=== PATIENT | male | born 1950 | race Caucasian/White ===

== ENCOUNTER 2022-06-08 20:45 | Inpatient (IN) | payer MEDICARE, SELFPAY ==
--- NOTE | ~2022-06-08 | US_ITS ---
EXAMINATION: US SCROTUM CLINICAL INFORMATION: Scrotal redness. COMPARISON: None TECHNIQUE: A sonogram of the scrotum was performed assessing cross-scale appearance and color Doppler flow. Spectral Doppler analysis of the arterial and venous flow were performed in the testes bilaterally. FINDINGS: The testicles have normal size, contour and echotexture. The right testicle is 3 x 4.4 x 2.4 cm and left testicle 3 x 4.6 x 2.3 cm. No testicular microlithiasis or mass. The color Doppler images with spectral waveforms show presence of normal arterial and venous flow within each testicle. No hydrocele or varicocele. The right epididymal head is unremarkable. The right epididymal tail is mildly heterogeneous and has a mildly hypervascular appearance on color Doppler images. The left epididymal head also has a normal appearance. The color Doppler images acquired through the region of the epididymal tail show hypervascularity. Question if patient has any tenderness in either the right or left scrotum. The history provided is of scrotal redness. There is no overt edema the soft tissues of the scrotum. No fluid collection or mass. US/US scrotum IMPRESSION: * In this patient with history of scrotal redness, there is no evidence of focal fluid collection/abscess in the scrotum. * The color Doppler images show hypervascular appearance of each epididymal tail. The findings require clinical correlation since although mild epididymitis is suspected on the basis of imaging, epididymitis would be expected to have associated symptoms. * The testicles are unremarkable.
--- NOTE | ~2022-06-08 | US_ITS ---
EXAMINATION: US ABDOMEN LIMITED CLINICAL INFORMATION: Rule out cholangitis. COMPARISON: CT from earlier today TECHNIQUE: Real-time imaging of the right upper quadrant abdominal viscera. FINDINGS: PANCREAS: Not well assessed, obscured by overlying bowel gas. LIVER: The left hepatic lobe is enlarged and contains numerous lesions, some of which appears cystic while others are indeterminate. Additional suspected mass in the caudate measures 2.9 x 2.0 x 1.8 cm. No significant biliary ductal dilatation. GALLBLADDER: Gallbladder appears partially contracted. No gallstones or pericholecystic fluid identified. Borderline gallbladder wall thickening. Right upper quadrant tenderness reported. COMMON BILE DUCT: Not well seen and appears to measure 0.4 cm in diameter. RIGHT KIDNEY: No hydronephrosis. No renal calculi or focal parenchymal lesions. The kidney measures 13.4 cm in maximum dimension. FREE FLUID: None. US/US abdomen limited IMPRESSION: 1. Enlarged left hepatic lobe with numerous lesions, some of which appear cystic while others are indeterminate. Further workup with dynamic liver MRI is recommended. 2. No appreciable biliary ductal dilatation. 3. Borderline gallbladder wall thickening, of uncertain clinical significance. Right upper quadrant tenderness was reported, though no gallstones are visualized.
--- NOTE | ~2022-06-08 | IR_ITS ---
PROCEDURE: IR INSERTION OF PICC CLINICAL INFORMATION: Needs long-term antibiotics. COMPARISON: None TECHNIQUE: Following explaining ultrasound and fluoroscopy-guided placement of left PICC line catheter procedure, benefits and risk, a written consent was obtained. Patient was placed supine on fluoroscopy table in angiography suite. Preliminary ultrasound imaging was obtained through the arm and marked. The marked site was cleaned and draped in the usual sterile manner. 1% lidocaine was injected at puncture site. A single wall needle was advanced from the skin into the vein under sterile ultrasound guidance. After observing venous return a thin guidewire was advanced through the needle and placed in SVC under fluoroscopy. The needle was withdrawn and a 5 Syrian dilator sheath was placed. The dilator was removed and a precut 45 cm long dual lumen PICC catheter was advanced over the guidewire and through the peel-away sheath into the SVC. The peel-away sheath was removed as the catheter was advanced. The dilator was removed and both ports of the catheter were flushed with heparinized saline. Simple dressing was applied at the puncture site. Patient tolerated procedure extremely well. All elements of maximal sterile barrier technique followed including use of cap, mask, sterile gown, sterile gloves, a sterile full body drape and hand hygiene. Also followed skin preparation with 2% chlorhexidine for cutaneous antisepsis, and sterile ultrasound preparation with sterile gel and probe cover when applicable. FINDINGS: On preliminary ultrasound imaging there is a widely patent basilic, antecubital vein. The cephalic vein is not visualized. Approximately 45 cm long 5 Syrian dual lumen PICC catheter was placed into the SVC. The catheter is ready for use. IR/IR cvc insert peripheral IMPRESSION: Successful ultrasound fluoroscopy-guided placement of PICC catheter with its tip in SVC. The catheter is ready for use. Fluoroscopy time: 4.4 minutes. Dose area product: [id number]. Images: 2
--- NOTE | ~2022-06-08 | US_ITS ---
EXAMINATION: ULTRASOUND ABDOMEN DUPLEX ARTERIAL AND VENOUS DOPPLER CLINICAL INFORMATION: Portal vein thrombosis. COMPARISON: MRI of the abdomen dated 06/10/2022. TECHNIQUE: Multiple 2-D grayscale and duplex Doppler ultrasound images of the vasculature the upper abdomen was obtained. FINDINGS: Vascular: Portal veins: Patent hepatopedal flow. Hepatic artery: Antegrade flow with normal-appearing waveforms. The right hepatic artery was not visualized. Hepatic veins: Patent with normal direction of flow. Splenic vein: Patent Inferior vena cava: Patent Partial visualization of known left hepatic lesion/lesions. US/US duplex arterial venous comp IMPRESSION: Patent portal vein with normal direction of flow with no evidence for portal vein thrombosis.
--- NOTE | ~2022-06-08 | CT_ITS ---
EXAMINATION: CT HEAD WITHOUT CONTRAST CLINICAL INFORMATION: Metastatic lesions COMPARISON: None TECHNIQUE: Contiguous axial imaging was performed from the skull base to vertex without intravenous administration of contrast. This CT examination was performed using dose optimization techniques as appropriate, variously including the following: *Automated exposure control *Adjustment of mA and/or kV according to patient size (this includes techniques or standardized protocols for targeted exams where dose is matched to indication/reason for exam; i.e. extremities or head) *Use of iterative reconstruction technique DLP: 707 mGy-cm FINDINGS: Suboptimal assessment in some regions due to motion artifact. No appreciable acute intracranial hemorrhage or territorial infarction. No abnormal mass effect or midline shift is seen. Garza to white matter differentiation is well preserved. No extra-axial fluid collections are identified. The ventricles are normal in size. There is mild periventricular white matter hypoattenuation consistent with chronic small vessel ischemic disease. Mild volume loss is noted. The osseous structures and soft tissues are normal. The mastoid air cells and visualized portions of the paranasal sinuses are well aerated. CT/CT head/brain wo con IMPRESSION: No acute intracranial pathology. Of note, assessment for intracranial mass lesions would be better performed with pre and postcontrast brain MRI.
--- NOTE | ~2022-06-08 | CT_ITS ---
EXAMINATION: CT ABDOMEN AND PELVIS WITHOUT CONTRAST CLINICAL INFORMATION: Abdominal distention COMPARISON: None TECHNIQUE: Multidetector volumetric imaging was performed from the superior aspect of the liver through the pubic symphysis. Sagittal and coronal reformatted images were obtained on the technologist's workstation. This CT examination was performed using dose optimization techniques as appropriate, variously including the following: *Automated exposure control *Adjustment of mA and/or kV according to patient size (this includes techniques or standardized protocols for targeted exams where dose is matched to indication/reason for exam; i.e. extremities or head) *Use of iterative reconstruction technique DLP: 1001 mGy-cm FINDINGS: LUNG BASES: The visualized lung bases are unremarkable. LIVER, GALLBLADDER, AND BILIARY TREE: There are numerous hypoattenuating foci throughout the upper left hepatic lobe which has an overall heterogeneous appearance; this is suboptimally assessed due to motion artifact. No biliary ductal dilatation. The gallbladder appears contracted. PANCREAS: Moderate fatty atrophy noted. SPLEEN: Unremarkable. ADRENAL GLANDS: Unremarkable. KIDNEYS AND URETERS: The left kidney is severely atrophic. There is a 3 mm calculus in the lower left kidney. No hydronephrosis or obstructing calculus bilaterally. BLADDER: Collapsed with a Daily catheter in place. There is a prominent calculus adjacent to the Daily catheter measuring approximately 2.9 cm in diameter. Additional prominent calcifications are suspected in a right-sided bladder diverticulum, measuring up to approximately 4.0 cm in diameter. GASTROINTESTINAL TRACT: No evidence of bowel obstruction. There is colonic diverticulosis without diverticulitis. Appendix appears collapsed. No free fluid or free air is seen. ABDOMINAL WALL: Bilateral fat-containing inguinal hernias. LYMPH NODES: A mildly enlarged subcarinal lymph node is suspected in the mediastinum, not fully included in the [id number]. Scattered mesenteric and retroperitoneal subcentimeter lymph nodes are present, without significant enlargement by size criteria. VASCULAR: Mild scattered atherosclerotic calcifications. PELVIC VISCERA: The prostate gland is enlarged, measuring approximately 6.2 cm in transverse dimension. OSSEOUS STRUCTURES: Degenerative changes are noted in the spine. CT/CT abdomen pelvis wo con IMPRESSION: 1. Numerous hypodense foci throughout the left hepatic lobe, suboptimally assessed due to motion artifact and lack of intravenous contrast. This could represent an infiltrative process including multiple masses, and further workup with dynamic liver MRI is recommended. 2. Mildly enlarged subcarinal lymph node, not fully included in the [id number]. 3. Enlarged prostate gland. 4. Multiple prominent bladder calculi. 5. Atrophic left kidney.
--- NOTE | ~2022-06-08 | NM_ITS ---
EXAMINATION: HIDA SCAN CLINICAL INFORMATION: Right upper quadrant pain. Evaluate for acute cholecystitis COMPARISON: Ultrasound abdomen TECHNIQUE: Following intravenous administration of 5 mCi of 99m technetium mebrofenin, imaging over the right upper quadrant was obtained up to 4 hours. FINDINGS: There is normal hepatic uptake with no focal defects seen. There is visualization of small bowel by 61 minutes consistent patent CBD. Gallbladder is not visualized up to 4 hours. NM/NM hepatobiliary wo pharm IMPRESSION: Findings consistent with cystic duct obstruction. The gallbladder is contracted on ultrasound and CT abdomen and pelvic exam.
--- NOTE | ~2022-06-08 | CT_ITS ---
EXAMINATION: CT CHEST WITHOUT CONTRAST CLINICAL INFORMATION: Rule out metastatic lesions COMPARISON: CT abdomen 06/08/2022 TECHNIQUE: Multidetector volumetric CT imaging of the chest was done. Axial MIP volume rendering provided. Sagittal and coronal reformatted images were obtained. This CT examination was performed using dose optimization techniques as appropriate, variously including the following: *Automated exposure control *Adjustment of mA and/or kV according to patient size (this includes techniques or standardized protocols for targeted exams where dose is matched to indication/reason for exam; i.e. extremities or head) *Use of iterative reconstruction technique DLP: 428 mGy-cm FINDINGS: LUNGS: Detailed parenchymal evaluation is limited due to respiratory motion artifact. No regions of consolidation bilaterally. There is a 3 mm left upper lobe nodule on image 118/556 laterally. MEDIASTINUM: Small calcification noted in the left thyroid lobe. Enlarged subcarinal lymph node measures 1.4 cm in short axis dimension. Additional scattered mediastinal lymph nodes appear subcentimeter in size. Cardiac size is within normal limits; no pericardial effusion. Small hiatal hernia. PLEURA: There is no pleural effusion. No pleural mass or thickening. AXILLA: No lymphadenopathy. UPPER ABDOMEN: Heterogeneous appearance of the enlarged left hepatic lobe again noted. Additional abdominal findings are described on recently performed abdomen/pelvis CT. OSSEOUS STRUCTURES: Neck or degenerative CT/CT chest wo con IMPRESSION: 1. Enlarged subcarinal lymph node, which may be reactive or metastatic in nature. 2. Nonspecific 3 mm left upper lobe lung nodule. Metastasis cannot be excluded. 3. Redemonstrated heterogeneous appearance of the enlarged left hepatic lobe, concerning for neoplasm/infiltrative process. As previously noted, evaluation with dynamic liver MRI is recommended. 4. Small hiatal hernia.
--- NOTE | ~2022-06-08 | MR_ITS ---
EXAMINATION: MR ABDOMEN WITHOUT AND WITH CONTRAST CLINICAL INFORMATION: Evaluation of liver lesions. COMPARISON: CT abdomen/pelvis 06/08/2022. TECHNIQUE: MR abdomen was performed without and with use of 10 mL intravenous Gadavist gadolinium contrast. Postcontrast images are performed in multiphase dynamic sequences. Imaging was performed in 3 planes. FINDINGS: Evaluation is limited due to motion. LUNG BASES: No focal opacity. LIVER, GALLBLADDER, AND BILIARY TREE: Again noted abnormal appearance of left hepatic lobe which is enlarged and entirely replaced by innumerable lesions demonstrating central T2 hyperintensity and possibly some rim enhancement. There is associated [id number] left intrahepatic biliary ductal dilatation. The common bile duct is nondilated. Normal appearance of the gallbladder. PANCREAS: Diffuse fatty infiltration. Mild peripancreatic free fluid and fat stranding. SPLEEN: Normal size. No discrete focal lesion. ADRENAL GLANDS: No adrenal mass. KIDNEYS AND URETERS: Atrophic left kidney. Normal appearance of the right kidney. GASTROINTESTINAL TRACT: The imaged bowel is nondilated. ABDOMINAL WALL: No significant hernia is appreciated. LYMPH NODES: Periportal and peripancreatic lymphadenopathy, for example a policy services representative 4.2 x 2.6 cm peripancreatic lymph node on image 23 of series 7. There are also prominent but not pathologically enlarged retroperitoneal lymph nodes, for example a 0.9 cm short axis left periaortic lymph node on image 96 of series 102. VASCULAR: No evidence of aortic abdominal aneurysm. Assessment of the hepatic vasculature is suboptimal due to timing of intravenous contrast. The main portal vein is narrowed likely by adjacent mass effect from lymphadenopathy and enlarged left hepatic lobe, but it is overall patent. The right and left intrahepatic portal veins are suboptimally opacified, and evaluation of their patency is essentially nondiagnostic in this examination. The SMV, portosplenic confluence and splenic veins are patent. OSSEOUS STRUCTURES: Marrow signal normal. MR/MR abdomen wo/w con IMPRESSION: Enlarged left hepatic lobe replaced by innumerable lesions demonstrating rim enhancement and central necrosis, differentials include pyogenic liver abscesses or infiltrative tumor. Nonspecific periportal and peripancreatic lymphadenopathy. Mild peripancreatic free fluid and fat stranding. This critical result was discussed with Dr.Nayyer Morataya at 06/10/2022 1:08 PM and it was ascertained that the content and urgency of the report was understood at the time of direct communication.
--- NOTE | ~2022-06-08 | CT_ITS ---
PROCEDURE: CT GUIDED BIOPSY, LIVER CLINICAL INFORMATION: Multiple left hepatic lobe lesions. COMPARISON: None TECHNIQUE: Following explaining CT fluoroscopy-guided left hepatic lobe liver lesion biopsy/aspiration procedure, benefits and risks, a written consent was obtained. Patient was placed supine on CT imaging and preliminary CT imaging was performed. Lead markers were placed along the anterior chest wall in the upper abdomen and repeat CT imaging was performed. An optimal lead marker was selected and marked on the skin. The marked site was cleaned and draped in usual sterile manner. 1% lidocaine was injected at puncture site. No conscious sedation was utilized as patient has mild tachycardia, bilateral small pleural effusions and small pericardial effusion. 3 small skin incisions a 19-gauge guide needle was advanced from the epigastric region to the left hepatic lobe. Coaxially a 19-gauge Chiba needle was advanced and aspiration biopsy was performed x2. Subsequently a core biopsy was performed with a 19-gauge needle x2. Postprocedure guide needle was withdrawn and complete hemostasis achieved at puncture site. Patient tolerated procedure extremely well. Simple Band-Aid applied postprocedure. This CT examination was performed using dose optimization techniques as appropriate, variously including the following: *Automated exposure control *Adjustment of mA and/or kV according to patient size (this includes techniques or standardized protocols for targeted exams where dose is matched to indication/reason for exam; i.e. extremities or head) *Use of iterative reconstruction technique DLP: 220 mGy-cm FINDINGS: On preliminary CT imaging there are small bilateral pleural effusions greater on the right and a small pericardial effusion. There is a heterogeneous enlarged left hepatic lobe with several hypodense liver lesions. On initial fine-needle aspiration there was no malignant tissue seen. Abundant white cells were visualized suspicious for infection. Samples were sent for culture and sensitivity as well as for cytology. CT/CT biopsy liver IMPRESSION: Successful CT fluoroscopy-guided left hepatic lobe fine-needle aspiration and core biopsy performed. There are no immediate complications.
--- NOTE | ~2022-06-08 | US_ITS ---
EXAMINATION: US SCROTUM WITH DOPPLER CLINICAL INFORMATION: Scrotal redness. COMPARISON: None TECHNIQUE: A sonogram of the scrotum was performed assessing cross-scale appearance and color Doppler flow. Spectral Doppler analysis of the arterial and venous flow were performed in the testes bilaterally. FINDINGS: The testicles have normal size, contour and echotexture. The right testicle is 3 x 4.4 x 2.4 cm and left testicle 3 x 4.6 x 2.3 cm. No testicular microlithiasis or mass. The color Doppler images with spectral waveforms show presence of normal arterial and venous flow within each testicle. No hydrocele or varicocele. The right epididymal head is unremarkable. The right epididymal tail is mildly heterogeneous and has a mildly hypervascular appearance on color Doppler images. The left epididymal head also has a normal appearance. The color Doppler images acquired through the region of the epididymal tail show hypervascularity. Question if patient has any tenderness in either the right or left scrotum. The history provided is of scrotal redness. There is no overt edema the soft tissues of the scrotum. No fluid collection or mass. US/US scrotum doppler IMPRESSION: * In this patient with history of scrotal redness, there is no evidence of focal fluid collection/abscess in the scrotum. * The color Doppler images show hypervascular appearance of each epididymal tail. The findings require clinical correlation since although mild epididymitis is suspected on the basis of imaging, epididymitis would be expected to have associated symptoms. * The testicles are unremarkable.
[2022-06-08 20:58] VITALS: BP 100/52; PULSE 110; RESP 18; TEMP 37.1; O2SAT 98; BMI 26.7
--- NOTE | 2022-06-08 21:04 | PC.NURSE ---
pt unable to answer triage questions, family at bedside unable to answer questions either, pt denies taking any medications. per ems pt confused at baseline.
--- NOTE | 2022-06-08 21:10 | PC.NURSE ---
pt skin jaundice, also abd firm/distended, provider aware of abdomen.
--- NOTE | 2022-06-08 21:28 | ECG_ITS ---
Test Reason : CONFUSION Blood Pressure : / mmHG Vent. Rate : 094 BPM Atrial Rate : 094 BPM P-R Int : 156 ms QRS Dur : 102 ms QT Int : 346 ms P-R-T Axes : 071 040 001 degrees QTc Int : 432 ms Normal sinus rhythm Normal ECG No previous ECGs available Referred By: Sneha Manzanares Electronically Signed By:Cuong Alaniz
--- NOTE | 2022-06-08 21:44 | ED_ITS ---
HPI - General Adult General Chief complaint: General Medical Stated complaint: ams Time Seen by Provider: 06/08/22 21:06 Source: patient and EMS Mode of arrival: EMS Limitations: altered mental status History of Present Illness HPI narrative: Patient comes to the emergency room by ambulance accompanied by his sister. Patient is too altered and weak to give any information. According to the sister, for the last week, patient has been having dark urine, urine incontinence, and gradually becoming more fatigue and altered. The patient's sister states that at baseline patient is fully functional, alert and oriented x3, normal gait. Patient has not complained of any pain other than dark urine for the last few days. Patient is awake, alert, but is not answering any questions. The patient's sister reports that the patient has no past medical history or surgical history and takes no medications. Related Data Home Medications Medication Instructions Recorded Confirmed No Known Home Meds 06/08/22 06/08/22 Allergies Allergy/AdvReac Type Severity Reaction Status Date / Time No Known Allergies Allergy Verified 06/08/22 20:57 Review of Systems Review of Systems: Yes Unobtainable due to mental condition [facility] Social History Social History Alcohol intake: never Patient Tobacco Use Status: Former Tobacco user Use of substances other than those prescribed or required for medical reasons: No Advance Directives: No Advance Directives Information Provided: No Physical Exam ED Vital Signs: Vital Signs - 24 hr 06/08/22 20:58 06/08/22 22:00 Temperature 98.8 F 100.2 F Pulse Rate 110 H 102 H Respiratory Rate 18 24 H Blood Pressure 100/52 L 106/65 Pulse Oximetry 98 94 Oxygen Delivery Method Room Air Room Air BMI result Body Mass Index 26.7 Const Other: Appearance: Alert. Seems very weak, and ill, not answering any questions, easily arousable Eyes: Pupils equal, round and reactive to light. Icteric sclera ENT: Pharynx normal. Dry oral mucosa Neck: Normal inspection. Neck supple. No lymph nodes noted. No crepitus CVS: Mildly tachycardic and rhythm. Pulses normal. Normal S1 and S2 Respiratory: No respiratory distress. Breath sounds normal. No Wheezing. No rales Abdomen: Soft , mildly distended, seems to be significantly tender especially in the right upper quadrant. On rectal exam, patient has a temperature of 100.4 degrees. Brown stool present : Patient has a significant discoloration of the scrotum, the skin is bleeding. Seems that patient has been sitting in his urine and wearing a diaper for way too long Skin: Skin warm and dry. Diffusely icteric. Normal skin turgor. Extremities: No lower extremity edema. No Lacerations. No Rash Neuro: Confused CN 2 through 12 grossly intact Psych: calm, cooperative Course Course Course Narrative: Of patient's labs are pending. Patient is being giving 3L IV fluids, also, patient is getting Zosyn IV. On physical exam, patient meets criteria for Charcot triad, additionally, patient is very confused. Patient is not in shock to call this Reyonld's pentand. Either way, patient is significantly ill. CT scan and ultrasound do not show hepatic duct dilation. However, it seems that patient has multiple lobe lesions. It is possible that this may be neopla stic process. Patient being admitted. I discussed the patient with Dr. Vee Medical Decision Making Lab Data Result diagrams: 06/08/22 21:50 06/08/22 21:50 Labs: Lab Results 06/08/22 06/08/22 06/08/22 Range/Units 21:50 21:50 21:50 WBC 22.2 H (4.8-10.8) X10*3/uL RBC 4.22 L (4.60-5.80) X10*6/uL Hgb 12.1 L (14.0-18.0) g/dl Hct 34.9 L (42.0-52.0) % MCV 82.7 (80.0-98.0) fL MCH 28.7 (27.0-33.0) pg MCHC 34.7 (31.0-36.0) g/dl RDW 15.8 (11.0-16.0) % Plt Count 208 (160-400) X10*3/uL MPV 11.9 (9.4-12.4) fL Immature Gran % (Auto) 4.1 H (0.0-0.4) % Neut % (Auto) 84.1 H (45-73) % Lymph % (Auto) 6.4 L (20-40) % Mcnairy % (Auto) 5.2 (2-11) % Eos % (Auto) 0.0 (0-4) % Baso % (Auto) 0.2 (0-2) % Lymph # (Auto) 1.4 (1.2-4.9) X10*3/uL Mcnairy # (Auto) 1.2 (0.1-1.2) X10*3/uL Eos # (Auto) 0.0 (0.0-0.4) X10*3/uL Baso # (Auto) 0.1 (0.0-0.2) X10*3/uL Abs Immat Gran (auto) 0.90 H (0.00-0.03) X10*3/uL Absolute Neuts (auto) 18.7 H (2.0-8.3) x10*3/uL Absolute Nucleated RBC 0.000 (0.0-0.012) X10*3/uL Nucleated RBC % (auto) 0.0 (0.0-0.2) /100WBC PT 16.0 H (10.0-13.1) SEC INR 1.4 H (0.9-1.1) Sodium 135 (135-145) mmol/L Potassium 3.7 (3.3-5.1) mmol/L Chloride 102 (96-108) mmol/L Carbon Dioxide 25 (22-29) mmol/L Anion Gap 12 (12-20) BUN 114 H (9-16) mg/dL Creatinine 1.81 H (0.5-1.4) mg/dL Estim Creat Clear Calc 41.0 Estimated GFR 37 Random Glucose 149 H (60-115) mg/dL Lactic Acid (0.5-2.0) mmol/L Calcium 9.8 (8.4-10.2) mg/dL Magnesium 2.6 (1.6-2.6) mg/dL Total Bilirubin 4.4 H (0.0-1.0) mg/dL Direct Bilirubin 3.3 H (0.0-0.5) mg/dL AST 30 (5-37) U/L ALT 37 (0-40) U/L Alkaline Phosphatase 203 H (39-117) U/L Ammonia (13-55) umol/L Troponin I High Sens (<3.5-35.0) ng/L Total Protein 6.6 (6.5-8.0) g/dL Albumin 2.5 L (3.5-5.0) g/dL Lipase 10 (8-78) U/L TSH (0.32-4.0) uIU/mL Urine Color Urine Appearance Urine pH (5.0-8.0) Ur Specific [place] (1.005-1.025) Urine Protein (NEG-TRACE) MG/DL Urine Glucose (UA) (NEG) MG/DL Urine Ketones (NEG) MG/DL Urine Blood (NEG) Urine Nitrite (NEG) Ur Leukocyte Esterase (NEG) Urine RBC (0) /HPF Urine WBC (0-4) /HPF Ur Squamous Epith Cells /LPF Urine Bacteria /LPF Stool Occult Blood (NEGATIVE) Salicylates < 5.0 L (15-30) mg/dL Acetaminophen < 1 (<30) mcg/mL Ethyl Alcohol mg/dL COVID-19 (YONY) (Negative) COVID-19 Clin Com 06/08/22 06/08/22 06/08/22 Range/Units 21:50 21:50 21:50 WBC (4.8-10.8) X10*3/uL RBC (4.60-5.80) X10*6/uL Hgb (14.0-18.0) g/dl Hct (42.0-52.0) % MCV (80.0-98.0) fL MCH (27.0-33.0) pg MCHC (31.0-36.0) g/dl RDW (11.0-16.0) % Plt Count (160-400) X10*3/uL MPV (9.4-12.4) fL Immature Gran % (Auto) (0.0-0.4) % Neut % (Auto) (45-73) % Lymph % (Auto) (20-40) % Mcnairy % (Auto) (2-11) % Eos % (Auto) (0-4) % Baso % (Auto) (0-2) % Lymph # (Auto) (1.2-4.9) X10*3/uL Mcnairy # (Auto) (0.1-1.2) X10*3/uL Eos # (Auto) (0.0-0.4) X10*3/uL Baso # (Auto) (0.0-0.2) X10*3/uL Abs Immat Gran (auto) (0.00-0.03) X10*3/uL Absolute Neuts (auto) (2.0-8.3) x10*3/uL Absolute Nucleated RBC (0.0-0.012) X10*3/uL Nucleated RBC % (auto) (0.0-0.2) /100WBC PT (10.0-13.1) SEC INR (0.9-1.1) Sodium (135-145) mmol/L Potassium (3.3-5.1) mmol/L Chloride (96-108) mmol/L Carbon Dioxide (22-29) mmol/L Anion Gap (12-20) BUN (9-16) mg/dL Creatinine (0.5-1.4) mg/dL Estim Creat Clear Calc Estimated GFR Random Glucose (60-115) mg/dL Lactic Acid 1.9 (0.5-2.0) mmol/L Calcium (8.4-10.2) mg/dL Magnesium (1.6-2.6) mg/dL Total Bilirubin (0.0-1.0) mg/dL Direct Bilirubin (0.0-0.5) mg/dL AST (5-37) U/L ALT (0-40) U/L Alkaline Phosphatase (39-117) U/L Ammonia 39 (13-55) umol/L Troponin I High Sens < 3.5 (<3.5-35.0) ng/L Total Protein (6.5-8.0) g/dL Albumin (3.5-5.0) g/dL Lipase (8-78) U/L TSH (0.32-4.0) uIU/mL Urine Color Urine Appearance Urine pH (5.0-8.0) Ur Specific [place] (1.005-1.025) Urine Protein (NEG-TRACE) MG/DL Urine Glucose (UA) (NEG) MG/DL Urine Ketones (NEG) MG/DL Urine Blood (NEG) Urine Nitrite (NEG) Ur Leukocyte Esterase (NEG) Urine RBC (0) /HPF Urine WBC (0-4) /HPF Ur Squamous Epith Cells /LPF Urine Bacteria /LPF Stool Occult Blood (NEGATIVE) Salicylates (15-30) mg/dL Acetaminophen (<30) mcg/mL Ethyl Alcohol mg/dL COVID-19 (YONY) (Negative) COVID-19 Clin Com 06/08/22 06/08/22 06/08/22 Range/Units 21:50 21:50 22:05 WBC (4.8-10.8) X10*3/uL RBC (4.60-5.80) X10*6/uL Hgb (14.0-18.0) g/dl Hct (42.0-52.0) % MCV (80.0-98.0) fL MCH (27.0-33.0) pg MCHC (31.0-36.0) g/dl RDW (11.0-16.0) % Plt Count (160-400) X10*3/uL MPV (9.4-12.4) fL Immature Gran % (Auto) (0.0-0.4) % Neut % (Auto) (45-73) % Lymph % (Auto) (20-40) % Mcnairy % (Auto) (2-11) % Eos % (Auto) (0-4) % Baso % (Auto) (0-2) % Lymph # (Auto) (1.2-4.9) X10*3/uL [place] # (Auto) (0.1-1.2) X10*3/uL Eos # (Auto) (0.0-0.4) X10*3/uL Baso # (Auto) (0.0-0.2) X10*3/uL Abs Immat Gran (auto) (0.00-0.03) X10*3/uL Absolute Neuts (auto) (2.0-8.3) x10*3/uL Absolute Nucleated RBC (0.0-0.012) X10*3/uL Nucleated RBC % (auto) (0.0-0.2) /100WBC PT (10.0-13.1) SEC INR (0.9-1.1) Sodium (135-145) mmol/L Potassium (3.3-5.1) mmol/L Chloride (96-108) mmol/L Carbon Dioxide (22-29) mmol/L Anion Gap (12-20) BUN (9-16) mg/dL Creatinine (0.5-1.4) mg/dL Estim Creat Clear Calc Estimated GFR Random Glucose (60-115) mg/dL Lactic Acid (0.5-2.0) mmol/L Calcium (8.4-10.2) mg/dL Magnesium (1.6-2.6) mg/dL Total Bilirubin (0.0-1.0) mg/dL Direct Bilirubin (0.0-0.5) mg/dL AST (5-37) U/L ALT (0-40) U/L Alkaline Phosphatase (39-117) U/L Ammonia (13-55) umol/L Troponin I High Sens (<3.5-35.0) ng/L Total Protein (6.5-8.0) g/dL Albumin (3.5-5.0) g/dL Lipase (8-78) U/L TSH 2.72 (0.32-4.0) uIU/mL Urine Color Urine Appearance Urine pH (5.0-8.0) Ur Specific [place] (1.005-1.025) Urine Protein (NEG-TRACE) MG/DL Urine Glucose (UA) (NEG) MG/DL Urine Ketones (NEG) MG/DL Urine Blood (NEG) Urine Nitrite (NEG) Ur Leukocyte Esterase (NEG) Urine RBC (0) /HPF Urine WBC (0-4) /HPF Ur Squamous Epith Cells /LPF Urine Bacteria /LPF Stool Occult Blood NEGATIVE (NEGATIVE) Salicylates (15-30) mg/dL Acetaminophen (<30) mcg/mL Ethyl Alcohol < 10 mg/dL COVID-19 (YONY) Negative (Negative) COVID-19 Clin Com See Note 06/08/22 Range/Units 22:05 WBC (4.8-10.8) X10*3/uL RBC (4.60-5.80) X10*6/uL Hgb (14.0-18.0) g/dl Hct (42.0-52.0) % MCV (80.0-98.0) fL MCH (27.0-33.0) pg MCHC (31.0-36.0) g/dl RDW (11.0-16.0) % Plt Count (160-400) X10*3/uL MPV (9.4-12.4) fL Immature Gran % (Auto) (0.0-0.4) % Neut % (Auto) (45-73) % Lymph % (Auto) (20-40) % Mcnairy % (Auto) (2-11) % Eos % (Auto) (0-4) % Baso % (Auto) (0-2) % Lymph # (Auto) (1.2-4.9) X10*3/uL [place]nairy # (Auto) (0.1-1.2) X10*3/uL Eos # (Auto) (0.0-0.4) X10*3/uL Baso # (Auto) (0.0-0.2) X10*3/uL Abs Immat Gran (auto) (0.00-0.03) X10*3/uL Absolute Neuts (auto) (2.0-8.3) x10*3/uL Absolute Nucleated RBC (0.0-0.012) X10*3/uL Nucleated RBC % (auto) (0.0-0.2) /100WBC PT (10.0-13.1) SEC INR (0.9-1.1) Sodium (135-145) mmol/L Potassium (3.3-5.1) mmol/L Chloride (96-108) mmol/L Carbon Dioxide (22-29) mmol/L Anion Gap (12-20) BUN (9-16) mg/dL Creatinine (0.5-1.4) mg/dL Estim Creat Clear Calc Estimated GFR Random Glucose (60-115) mg/dL Lactic Acid (0.5-2.0) mmol/L Calcium (8.4-10.2) mg/dL Magnesium (1.6-2.6) mg/dL Total Bilirubin (0.0-1.0) mg/dL Direct Bilirubin (0.0-0.5) mg/dL AST (5-37) U/L ALT (0-40) U/L Alkaline Phosphatase (39-117) U/L Ammonia (13-55) umol/L Troponin I High Sens (<3.5-35.0) ng/L Total Protein (6.5-8.0) g/dL Albumin (3.5-5.0) g/dL Lipase (8-78) U/L TSH (0.32-4.0) uIU/mL Urine Color YELLOW Urine Appearance CLEAR Urine pH 6.0 (5.0-8.0) Ur Specific [place] 1.010 (1.005-1.025) Urine Protein NEG (NEG-TRACE) MG/DL Urine Glucose (UA) NEG (NEG) MG/DL Urine Ketones NEG (NEG) MG/DL Urine Blood 3+ H (NEG) Urine Nitrite NEG (NEG) Ur Leukocyte Esterase 2+ H (NEG) Urine RBC 5-9 H (0) /HPF Urine WBC 5-9 H (0-4) /HPF Ur Squamous Epith Cells TRACE /LPF Urine Bacteria 3+ /LPF Stool Occult Blood (NEGATIVE) Salicylates (15-30) mg/dL Acetaminophen (<30) mcg/mL Ethyl Alcohol mg/dL COVID-19 (YONY) (Negative) COVID-19 Clin Com Imaging Data US - abdomen: Radiologist's impression: FINDINGS: PANCREAS: Not well assessed, obscured by overlying bowel gas. LIVER: The left hepatic lobe is enlarged and contains numerous lesions, some of which appears cystic while others are indeterminate. Additional suspected mass in the caudate measures 2.9 x 2.0 x 1.8 cm. No significant biliary ductal dilatation. GALLBLADDER: Gallbladder appears partially contracted. No gallstones or pericholecystic fluid identified. Borderline gallbladder wall thickening. Right upper quadrant tenderness reported. COMMON BILE DUCT: Not well seen and appears to measure 0.4 cm in diameter. RIGHT KIDNEY: No hydronephrosis. No renal calculi or focal parenchymal lesions. The kidney measures 13.4 cm in maximum dimension. FREE FLUID: None. US/US abdomen limited IMPRESSION: 1.? Enlarged left hepatic lobe with numerous lesions, some of which appear cystic while others are indeterminate. Further workup with dynamic liver MRI is recommended. 2.? No appreciable biliary ductal dilatation. 3.? Borderline gallbladder wall thickening, of uncertain clinical significance. Right upper quadrant tenderness was reported, though no gallstones are visualized. CT scan - abdomen: Radiologist's impression: FINDINGS: LUNG BASES: The visualized lung bases are unremarkable.? LIVER, GALLBLADDER, AND BILIARY TREE: There are numerous hypoattenuating foci throughout the upper left hepatic lobe which has an overall heterogeneous appearance; this is suboptimally assessed due to motion artifact. No biliary ductal dilatation. The gallbladder appears contracted.? PANCREAS: Moderate fatty atrophy noted.? SPLEEN: Unremarkable.? ADRENAL GLANDS: Unremarkable.? KIDNEYS AND URETERS: The left kidney is severely atrophic. There is a 3 mm calculus in the lower left kidney. No hydronephrosis or obstructing calculus bilaterally.? BLADDER: Collapsed with a Daily catheter in place. There is a prominent calculus adjacent to the Daily catheter measuring approximately 2.9 cm in diameter. Additional prominent calcifications are suspected in a right-sided bladder diverticulum, measuring up to approximately 4.0 cm in diameter.? GASTROINTESTINAL TRACT: No evidence of bowel obstruction. There is colonic diverticulosis without diverticulitis. Appendix appears collapsed. No free fluid or free air is seen.? ABDOMINAL WALL: Bilateral fat-containing inguinal hernias.? LYMPH NODES: A mildly enlarged subcarinal lymph node is suspected in the mediastinum, not fully included in the [id number]. Scattered mesenteric and retroperitoneal subcentimeter lymph nodes are present, without significant enlargement by size criteria. VASCULAR: Mild scattered atherosclerotic calcifications. PELVIC VISCERA: The prostate gland is enlarged, measuring approximately 6.2 cm in transverse dimension.? OSSEOUS STRUCTURES: Degenerative changes are noted in the spine.? CT/CT abdomen pelvis wo con IMPRESSION: 1.? Numerous hypodense foci throughout the left hepatic lobe, suboptimally assessed due to motion artifact and lack of intravenous contrast. This could represent an infiltrative process including multiple masses, and further workup with dynamic liver MRI is recommended. 2.? Mildly enlarged subcarinal lymph node, not fully included in the [id number]. 3.? Enlarged prostate gland. 4.? Multiple prominent bladder calculi. 5.? Atrophic left kidney. Critical Care Time Critical Care Time Critical Care Time: Yes Total Critical Care Time: 60 Attestation: I have personally provided critical care time. Time includes review of lab data, radiology results, discussion with consultants, and monitoring for potential decompensation. Intervention performed as documented. Discharge Plan Discharge Clinical Impression: Liver masses, Acute UTI, ENEIDA (acute kidney injury) Patient Disposition: Admitted As Inpatient Prescriptions: No Action No Known Home Meds
--- NOTE | 2022-06-08 21:46 | PHA.MEDREC ---
Pharmacy Consult ? Medication Reconciliation Pharmacy has completed the medication reconciliation. Per pt's sister-not on any meds
[2022-06-08 21:56] LABS: MANUAL DIFF FLAG NO
[2022-06-08 21:58] LABS: Basophils Absolute Auto 0.1 X10*3/uL (0.0-0.2); Basophils Percent Auto 0.2 % (0-2); Hematocrit 34.9 % (42.0-52.0); Hemoglobin 12.1 g/dl (14.0-18.0); Imm Gran Pct Auto 4.1 % (0.0-0.4); Lymphocytes Absolute Auto 1.4 X10*3/uL (1.2-4.9); Lymphocytes Percent Auto 6.4 % (20-40); Mean Corpuscular HGB Conc 34.7 g/dl (31.0-36.0); Mean Corpuscular Hemoglobin 28.7 pg (27.0-33.0); Mean Corpuscular Volume 82.7 fL (80.0-98.0); Mean Platelet Volume 11.9 fL (9.4-12.4); Monocytes Absolute Auto 1.2 X10*3/uL (0.1-1.2); Monocytes Percent Auto 5.2 % (2-11); Neutrophils Absolute Auto 18.7 x10*3/uL (2.0-8.3); Neutrophils Percent Auto 84.1 % (45-73); Platelet Count 208 X10*3/uL (160-400); Red Blood Count 4.22 X10*6/uL (4.60-5.80); Red Cell Distribution Width 15.8 % (11.0-16.0); White Blood Count 22.2 X10*3/uL (4.8-10.8)
[2022-06-08 22:00] VITALS: BP 106/65; PULSE 102; RESP 24; TEMP 37.9; O2SAT 94
[2022-06-08 22:07] LABS: Ammonia 39 umol/L (13-55); INTERNATIONAL NORM RATIO 1.4 (0.9-1.1)
[2022-06-08 22:11] LABS: Lactic Acid 1.9 mmol/L (0.5-2.0)
[2022-06-08 22:13] LABS: Ethanol < 10 mg/dL
[2022-06-08 22:14] LABS: OBS Int Ctl Valid YES; OBS1 NEGATIVE (NEGATIVE)
[2022-06-08 22:17] LABS: Appearance Urine CLEAR; Color Urine YELLOW; Glucose Urine UA NEG (NEG); Leukocyte Esterase Urine 2+ (NEG); Nitrite Urine NEG (NEG); UACC Culture Trigger YES; Urine Blood 3+ (NEG); Urine Ketones NEG (NEG); Urine Protein NEG (NEG-TRACE)
[2022-06-08 22:17] LABS: COVID-19 Test Negative (Negative)
[2022-06-08 22:18] LABS: Acetaminophen LAB < 1 mcg/mL (<30); Alanine Aminotransferase 37 U/L (0-40); Albumin Level 2.5 g/dL (3.5-5.0); Alkaline Phosphatase 203 U/L (39-117); Anion Gap 12 (12-20); Aspartate Amino Transferase 30 U/L (5-37); Bilirubin Direct 3.3 mg/dL (0.0-0.5); Bilirubin Total 4.4 mg/dL (0.0-1.0); Blood Urea Nitrogen 114 mg/dL (9-16); Calcium 9.8 mg/dL (8.4-10.2); Carbon Dioxide 25 mmol/L (22-29); Chloride 102 mmol/L (96-108); Estimated Glomerular Filt Rate 37; Glucose Random 149 mg/dL (60-115); Lipase 10 U/L (8-78); Magnesium 2.6 mg/dL (1.6-2.6); Potassium 3.7 mmol/L (3.3-5.1); Salicylate < 5.0 mg/dL (15-30); Sodium 135 mmol/L (135-145); Total Protein 6.6 g/dL (6.5-8.0)
[2022-06-08 22:19] LABS: Troponin-I High Sensitivity < 3.5 ng/L (<3.5-35.0)
[2022-06-08] MEDS: 0.9 % Sodium Chloride 2,000 ML 999 ML IVCONT (22:21)
[2022-06-08] MEDS: Piperacillin Sodium/Tazobactam 4.5 GM in 0.9 % Sodium Chloride 100 ML IV (22:21)
[2022-06-08] MEDS: 0.9 % Sodium Chloride 1,000 ML 999 ML IVCONT (22:21)
[2022-06-08] MEDS: ondansetron HCL 4 MG/2 ML VIAL IVPUSH (22:21)
[2022-06-08 22:37] LABS: TSH reflex Free T4 2.72 uIU/mL (0.32-4.0)
[2022-06-08 23:03] LABS: Bacteria Urine 3+ /LPF; Squamous Epithelial Cell Urine TRACE /LPF
--- NOTE | 2022-06-08 23:06 | PC.NURSE ---
patient awake, alert to self only, patient monitor nsr, ivs inserted, labs drawn, bc obtained, straight cath performed, pts testicular area excoriated- provider aware, ivf running per order, will continue to monitor
[2022-06-09] VITALS (7 sets, daily range): BP systolic 106–149; BP diastolic 52–70; PULSE 77–110; RESP 18–30; TEMP 36.3–37.2; O2SAT 94–98; BMI 26.4
--- NOTE | 2022-06-09 02:47 | P.HPHOSP_ITS ---
History of Present Illness Date of Service: 06/09/22 Chief Complaint: Altered mental status 69-year-old male with no significant past medical history, ex-smoker presented to the hospital today with chief complaint of confusion. Patient is alert and awake, lying in the bed, confused. Not able to provide history. Spoke to the patient's stoma-was that upper sister; mentioned that over the past 1 week patient has been not doing well, has decreased oral intake. Also complained of abdominal pain. Patient initially reported dark urine. Denies any fevers at home. Patient of for came to the hospital with complaint of right upper quadrant abdominal pain. Denies any diarrhea. Denies any fever chills. Denies any cough or sputum production. Mentioned that patient has been peeing frequently; had diaper placed; Denies any weight loss. Denies any falls or trauma. Denies patient complaining of any chest pain, palpitations. Review of all other systems is negative except mentioned above ER course: Per ER team, patient on presentation noted to be confused; CT head showed no acute findings; on labs noted to have ENEIDA, elevated T bili; patient had low- grade temperature; patient's scrotum is inflamed concerning for diaper rash versus cellulitis. Patient was given Zosyn. CT abdomen also showed liver lesions concerning for malignancy. Admitted to the hospital for further management PMFSH Pertinent family history: Denies any family history of cancers; reportedly patient's mother of UTI/sepsis. Social History Alcohol intake: never Patient Tobacco Use Status: Former Tobacco user Use of substances other than those prescribed or required for medical reasons: No Advance Directives: No Advance Directives Information Provided: No Meds Allergies Allergy/AdvReac Type Severity Reaction Status Date / Time No Known Allergies Allergy Verified 06/08/22 20:57 Active Medications: Current Medications Piperacillin Sod/Tazobactam (Sod 2.25 gm/ Sodium Chloride) 50 mls @ 100 mls/hr IV Q6H CECILY Vancomycin HCl 1,000 mg/ (Sodium Chloride) 270 mls @ 270 mls/hr IV Q24H CECILY Dextrose/Sodium Chloride (D51/2ns) 1,000 mls @ 75 mls/hr IVCONT .[id number] CECILY Melatonin (Melatonin 3 Mg Tablet) 6 mg PO BEDTIME PRN PRN Reason: Insomnia Pharmacy Consult (Consult Rx Perform Med Rec) 1 each MISCELLANE ONCE PRN PRN Reason: Consult order Pharmacy Consult (Consult Rx Vancomycin Dosing) 1 each MISCELLANE DAILY PRN PRN Reason: Consult order Senna (Sennosides 8.6 Mg Tablet) 17.2 mg PO BEDTIME PRN PRN Reason: Constipation Sodium Chloride (0.9 % Sodium Chloride Flush 3 Ml Syringe) 3 ml IVFLUSH QSHIFT [facility] Home Medications Medication Instructions Recorded Confirmed Last Taken Type No Known Home Meds 06/08/22 06/08/22 Unknown History Physical Exam Vital Signs and Narrative: Vital Signs: Last Vital Signs Temp 100.2 F 06/08/22 22:00 Pulse 102 H 06/08/22 22:00 Resp 24 H 06/08/22 22:00 BP 106/65 06/08/22 22:00 Pulse Ox 94 06/08/22 22:00 O2 Del Method 06/08/22 22:00 BMI result Body Mass Index 26.7 Gen: Appears be in no acute distress HEENT: NCAT, Moist mucosa. Pulmonary: Vesicular breath sounds, fair air entry CVS: Normal S1-S2 Abdomen: BS+, Soft, mildly tender in the right upper quadrant; no guarding or rigidity. Extremities: Warm well perfused Neuro: Alert and awake. Moves all extremities equally. Genitourinary: Examined along with a female machine biller. Noted to have erythema/pus-like serosanguineous discharge throughout the scrotum. Nontender. Warm. Results Labs CBC and Chem 7: 06/08/22 21:50 06/08/22 21:50 Labs: Laboratory Results - last 24 hr 06/08/22 06/08/22 06/08/22 21:50 21:50 21:50 MCV 82.7 MCH 28.7 MCHC 34.7 RDW 15.8 Plt Count 208 MPV 11.9 Immature Gran % (Auto) 4.1 H Neut % (Auto) 84.1 H Lymph % (Auto) 6.4 L [place] % (Auto) 5.2 Eos % (Auto) 0.0 Baso % (Auto) 0.2 Lymph # (Auto) 1.4 [place] # (Auto) 1.2 Eos # (Auto) 0.0 Baso # (Auto) 0.1 Abs Immat Gran (auto) 0.90 H Absolute Neuts (auto) 18.7 H Absolute Nucleated RBC 0.000 Nucleated RBC % (auto) 0.0 PT 16.0 H INR 1.4 H Anion Gap 12 Estim Creat Clear Calc 41.0 Estimated GFR 37 Random Glucose 149 H Lactic Acid Calcium 9.8 Magnesium 2.6 Total Bilirubin 4.4 H Direct Bilirubin 3.3 H AST 30 ALT 37 Alkaline Phosphatase 203 H Ammonia Troponin I High Sens Total Protein 6.6 Albumin 2.5 L Lipase 10 TSH Urine Color Urine Appearance Urine pH Ur Specific [place] Urine Protein Urine Glucose (UA) Urine Ketones Urine Blood Urine Nitrite Ur Leukocyte Esterase Urine RBC Urine WBC Ur Squamous Epith Cells Urine Bacteria Stool Occult Blood Salicylates < 5.0 L Acetaminophen < 1 Ethyl Alcohol COVID-19 (YONY) COVID-19 SnapLayout Com 06/08/22 06/08/22 06/08/22 21:50 21:50 21:50 MCV MCH MCHC RDW Plt Count MPV Immature Gran % (Auto) Neut % (Auto) Lymph % (Auto) [place] % (Auto) Eos % (Auto) Baso % (Auto) Lymph # (Auto) [place] # (Auto) Eos # (Auto) Baso # (Auto) Abs Immat Gran (auto) Absolute Neuts (auto) Absolute Nucleated RBC Nucleated RBC % (auto) PT INR Anion Gap Estim Creat Clear Calc Estimated GFR Random Glucose Lactic Acid 1.9 Calcium Magnesium Total Bilirubin Direct Bilirubin AST ALT Alkaline Phosphatase Ammonia 39 Troponin I High Sens < 3.5 Total Protein Albumin Lipase TSH Urine Color Urine Appearance Urine pH Ur Specific [place] Urine Protein Urine Glucose (UA) Urine Ketones Urine Blood Urine Nitrite Ur Leukocyte Esterase Urine RBC Urine WBC Ur Squamous Epith Cells Urine Bacteria Stool Occult Blood Salicylates Acetaminophen Ethyl Alcohol COVID-19 (YONY) COVID-19 SnapLayout Com 06/08/22 06/08/22 06/08/22 21:50 21:50 22:05 MCV MCH MCHC RDW Plt Count MPV Immature Gran % (Auto) Neut % (Auto) Lymph % (Auto) [place] % (Auto) Eos % (Auto) Baso % (Auto) Lymph # (Auto) [place] # (Auto) Eos # (Auto) Baso # (Auto) Abs Immat Gran (auto) Absolute Neuts (auto) Absolute Nucleated RBC Nucleated RBC % (auto) PT INR Anion Gap Estim Creat Clear Calc Estimated GFR Random Glucose Lactic Acid Calcium Magnesium Total Bilirubin Direct Bilirubin AST ALT Alkaline Phosphatase Ammonia Troponin I High Sens Total Protein Albumin Lipase TSH 2.72 Urine Color Urine Appearance Urine pH Ur Specific [place] Urine Protein Urine Glucose (UA) Urine Ketones Urine Blood Urine Nitrite Ur Leukocyte Esterase Urine RBC Urine WBC Ur Squamous Epith Cells Urine Bacteria Stool Occult Blood NEGATIVE Salicylates Acetaminophen Ethyl Alcohol < 10 COVID-19 (YONY) Negative COVID-19 Clin Com See Note 06/08/22 22:05 MCV MCH MCHC RDW Plt Count MPV Immature Gran % (Auto) Neut % (Auto) Lymph % (Auto) [place] % (Auto) Eos % (Auto) Baso % (Auto) Lymph # (Auto) [place] # (Auto) Eos # (Auto) Baso # (Auto) Abs Immat Gran (auto) Absolute Neuts (auto) Absolute Nucleated RBC Nucleated RBC % (auto) PT INR Anion Gap Estim Creat Clear Calc Estimated GFR Random Glucose Lactic Acid Calcium Magnesium Total Bilirubin Direct Bilirubin AST ALT Alkaline Phosphatase Ammonia Troponin I High Sens Total Protein Albumin Lipase TSH Urine Color YELLOW Urine Appearance CLEAR Urine pH 6.0 Ur Specific [place] 1.010 Urine Protein NEG Urine Glucose (UA) NEG Urine Ketones NEG Urine Blood 3+ H Urine Nitrite NEG Ur Leukocyte Esterase 2+ H Urine RBC 5-9 H Urine WBC 5-9 H Ur Squamous Epith Cells TRACE Urine Bacteria 3+ Stool Occult Blood Salicylates Acetaminophen Ethyl Alcohol COVID-19 (YONY) COVID-19 Clin Com Imaging Radiologist's Impressions: Impressions Abdomen/Pelvis CT 06/08/22 22:26 IMPRESSION: 1. Numerous hypodense foci throughout the left hepatic lobe, suboptimally assessed due to motion artifact and lack of intravenous contrast. This could represent an infiltrative process including multiple masses, and further workup with dynamic liver MRI is recommended. 2. Mildly enlarged subcarinal lymph node, not fully included in the [id number]. 3. Enlarged prostate gland. 4. Multiple prominent bladder calculi. 5. Atrophic left kidney. Abdomen Ultrasound 06/08/22 22:44 IMPRESSION: 1. Enlarged left hepatic lobe with numerous lesions, some of which appear cystic while others are indeterminate. Further workup with dynamic liver MRI is recommended. 2. No appreciable biliary ductal dilatation. 3. Borderline gallbladder wall thickening, of uncertain clinical significance. Right upper quadrant tenderness was reported, though no gallstones are visualized. Chest CT 06/09/22 01:40 IMPRESSION: 1. Enlarged subcarinal lymph node, which may be reactive or metastatic in nature. 2. Nonspecific 3 mm left upper lobe lung nodule. Metastasis cannot be excluded. 3. Redemonstrated heterogeneous appearance of the enlarged left hepatic lobe, concerning for neoplasm/infiltrative process. As previously noted, evaluation with dynamic liver MRI is recommended. 4. Small hiatal hernia. Head CT 06/09/22 01:40 IMPRESSION: No acute intracranial pathology. Of note, assessment for intracranial mass lesions would be better performed with pre and postcontrast brain MRI. Assessment and Plan (1) Liver masses: Status: Acute (2) AMS (altered mental status): Status: Acute (3) Acute UTI: Status: Acute (4) ENEIDA (acute kidney injury): Status: Acute Plan 69-year-old male with no significant past medical history, ex-smoker presented to the hospital with a chief complaint of altered mental status. Noted to have following Altered mental status: Likely toxic metabolic encephalopathy. Supportive care. Aspiration precautions. CT head showed no acute findings. ?Scrotal cellulitis vs Diaper Rash/UTI: Continue IV vancomycin and Zosyn. Id consult. Follow up cultures. Patient also has right upper quadrant abdominal pain/elevated T bili: CT scan showed gallbladder wall thickening. Will obtain HIDA scan to rule out acute cholecystitis. Liver lesions/subcarinal lymphadenopathy:?Malignant. Will obtain CEA, AFP. Will consult Gastroenterology and Oncology for further recommendation. ENEIDA: Unknown baseline. Gentle IV fluids. Likely prerenal given history of poor oral intake. DVT prophylaxis: SCD boots. Holdind pharmacologic agent denies patient for procedure. Code status: Full code. Confirmed with the patient's sister Lindsey. Mentioned she is the healthcare proxy-requested to bring the documents. Case management follow-up. Quality Stroke Does the patient have a stroke diagnosis?: No VTE Prior VTE?: No VTE Risk Level:: Medical - moderate - high VTE Device Contraindication: N/A - Device Ordered VTE Drug Contraindication: Treatment Not Indicated
[2022-06-09] MEDS: vancomycin HCL 1,000 MG in 0.9 % Sodium Chloride 250 ML 270 MG IV (03:16)
[2022-06-09] MEDS: Dextrose 5 % and 0.45 % NaCl 1,000 ML 75 ML IVCONT ×2 (03:23→17:01)
[2022-06-09] MEDS: Piperacillin Sodium/Tazobactam 2.25 GM in 0.9 % Sodium Chloride 50 ML IV ×4 (04:50→21:42)
[2022-06-09 05:16] LABS: Basophils Absolute Auto 0.1 X10*3/uL (0.0-0.2); Basophils Percent Auto 0.2 % (0-2); Eosinophils Percent Auto 0.1 % (0-4); Hematocrit 32.1 % (42.0-52.0); Hemoglobin 11.1 g/dl (14.0-18.0); Imm Gran Abs Auto 0.89 X10*3/uL (0.00-0.03); Imm Gran Pct Auto 3.3 % (0.0-0.4); Lymphocytes Percent Auto 3.9 % (20-40); MANUAL DIFF FLAG SCAN; Mean Corpuscular HGB Conc 34.6 g/dl (31.0-36.0); Mean Corpuscular Hemoglobin 28.6 pg (27.0-33.0); Mean Corpuscular Volume 82.7 fL (80.0-98.0); Mean Platelet Volume 11.9 fL (9.4-12.4); Monocytes Absolute Auto 0.9 X10*3/uL (0.1-1.2); Monocytes Percent Auto 3.4 % (2-11); Neutrophils Absolute Auto 23.8 x10*3/uL (2.0-8.3); Neutrophils Percent Auto 89.1 % (45-73); Platelet Count 204 X10*3/uL (160-400); Red Blood Count 3.88 X10*6/uL (4.60-5.80); Red Cell Distribution Width 15.9 % (11.0-16.0); SCAN SMEAR FLAG 1; White Blood Count 26.7 X10*3/uL (4.8-10.8)
[2022-06-09] MEDS: ondansetron HCL 4 MG/2 ML VIAL IVPUSH (05:16)
[2022-06-09 05:32] LABS: Magnesium 2.3 mg/dL (1.6-2.6)
[2022-06-09 05:35] LABS: SLIDE REVIEW VERIFIED
[2022-06-09 05:50] LABS: Anion Gap 11 (12-20); Blood Urea Nitrogen 100 mg/dL (9-16); Calcium 9.1 mg/dL (8.4-10.2); Carbon Dioxide 22 mmol/L (22-29); Chloride 109 mmol/L (96-108); Creatinine Clr Calc Pharmacy 48.2; Estimated Glomerular Filt Rate 45; Glucose Random 136 mg/dL (60-115); Potassium 3.8 mmol/L (3.3-5.1); Sodium 138 mmol/L (135-145)
--- NOTE | 2022-06-09 07:48 | P.CNGI_ITS ---
History of Present Illness Data of Consult Service Date: 06/09/22 Requesting physician: Edin Vee Primary Care Provider: Unknown Physician HPI Reason for consult: Elevated LFTs and multiple liver lesions 69 YM ex-smoker seen at [facility] on 06/08/22 with confusion.? Patient was alert and awake, lying in the bed, confused and unable to provide any history.? Hospitalist spoke to the patient's sister, Lindsey, who mentioned that pt has been not doing well over the past week. Per sister, pt complained of abdominal pain and has decreased oral intake and initially reported dark urine.? Patient complained of right upper quadrant abdominal pain and denied any fever, chills, chest pain, palpitations, cough or diarrhea.? Mentioned that patient has been peeing frequently; had diaper placed; Sister denied any hx of falls or trauma or weight loss.? Labs revealed leukocytosis, normocytic normochromic anemia, elevated BUN creatinine and elevated LFTs with TB of 4.4, AP of 203, Albumin 2.5 and INR of 1.4 CEA and AFP are pending. ER course: Per ER team, patient on presentation noted to be confused; CT head showed no acute findings; on labs noted to have ENEIDA, elevated T bili; patient had low- grade temperature; patient's scrotum is inflamed concerning for diaper rash versus cellulitis.? Patient was given Zosyn.? CT abdomen also showed liver lesions concerning for malignancy.? Admitted to the hospital for further management IMAGING STUDIES: 06/08/[address] SCAN SHOWED: 1.? Numerous hypodense foci throughout the left hepatic lobe, suboptimally assessed due to motion artifact and lack of intravenous contrast. This could represent an infiltrative process including multiple masses, and further workup with dynamic liver MRI is recommended. 2.? Mildly enlarged subcarinal lymph node, not fully included in the [id number]. 3.? Enlarged prostate gland. 4.? Multiple prominent bladder calculi. 5.? Atrophic left kidney. Review of Systems Review of Systems: Not obtainable due to altered mental status. Neurologic: Reports confusion Psychiatric: Psychiatric: Reports confusion [facility] Past Medical History Medical History Acute UTI ENEIDA (acute kidney injury) E coli bacteremia Hx of fracture of clavicle Liver abscess Liver masses Scrotal erythema Family History Family History Paternal Grandfather Diabetes Surgical History Surgical History Hx of knee surgery Hx of tonsillectomy Social History Social History Household Members: Family Household Members Other:: brother and sister?? Housing: House Do you presently have visiting nurse or other home services: No (pt lives with his brother,however, was at str after hospital discharge 07/05) Alcohol intake: never Patient Tobacco Use Status: Former Tobacco user Quit Date: >30 yrs ago e-Cigarette/Vaping Use: Never Used Second Hand Smoke Exposure: No Advance Directives Date on File: 06/23/22 service: No Current occupational status: retired Meds Allergies Allergy/AdvReac Type Severity Reaction Status Date / Time levofloxacin Allergy Severe vasculitis Verified 10/03/22 09:54 amoxicillin Allergy Unknown Itching Verified 10/03/22 09:54 ceftriaxone AdvReac Mild pruritis Verified 10/03/22 09:54 Active Medications: Current Medications Piperacillin Sod/Tazobactam (Sod 2.25 gm/ Sodium Chloride) 50 mls @ 100 mls/hr IV Q6H [facility] Last Infusion: 06/09/22 05:20 Dose: Infused Vancomycin HCl 1,000 mg/ (Sodium Chloride) 270 mls @ 270 mls/hr IV Q24H [facility] Last Infusion: 06/09/22 04:50 Dose: Infused Dextrose/Sodium Chloride (D51/2ns) 1,000 mls @ 75 mls/hr IVCONT .[id number] [facility] Last Admin: 06/09/22 03:23 Dose: 75 mls/hr Melatonin (Melatonin 3 Mg Tablet) 6 mg PO BEDTIME PRN PRN Reason: Insomnia Ondansetron HCl (Ondansetron Hcl 4 Mg/2 Ml Vial) 4 mg IVPUSH Q8H PRN PRN Reason: Nausea and Vomiting Last Admin: 06/09/22 05:16 Dose: 4 mg Pharmacy Consult (Consult Rx Perform Med Rec) 1 each MISCELLANE ONCE PRN PRN Reason: Consult order Pharmacy Consult (Consult Rx Vancomycin Dosing) 1 each MISCELLANE DAILY PRN PRN Reason: Consult order Senna (Sennosides 8.6 Mg Tablet) 17.2 mg PO BEDTIME PRN PRN Reason: Constipation Sodium Chloride (0.9 % Sodium Chloride Flush 3 Ml Syringe) 3 ml IVFLUSH QSHIFT CECILY Physical Exam Vital Signs: Vital Signs: Last Vital Signs Temp 98.1 F 06/09/22 05:40 Pulse 90 06/09/22 07:19 Resp 25 H 06/09/22 07:19 BP 106/52 L 06/09/22 07:19 Pulse Ox 95 06/09/22 07:19 O2 Del Method 06/09/22 05:40 O2 Flow Rate 2 06/09/22 03:44 BMI result Body Mass Index 26.7 Const: General: no acute distress and confusion Nutritional Appearance: overweight Orientation/consciousness: confusion Limitations: no limitations HEENT: Head: Yes normal to inspection Ears: hearing grossly normal bilaterally Mouth: Normal oral and palatal mucosa present Eyes: Sclerae: sclerae normal Pupils: Equal, round and reactive pupils present Neck: Neck: Yes normal visual inspection Chest: Chest palpation & inspection: normal inspection of the chest Resp: Effort & Inspection: normal respiratory effort Auscultation: clear to auscultation bilaterally Cardio: Palpation: normal PMI Rate: regular rate Rhythm: regular rhythm Heart sounds: S1 normal heart sound present, S2 normal heart sound present and no murmurs GI: Palpation (GI): Soft to palpation, Tenderness to palpation present (GI) (Mild RUQ tenderness) and No hepatosplenomegaly present Auscultation: normal bowel sounds Rectal Exam - Male: Yes deferred Skin: General skin exam: no rashes or lesions noted Neuro: General: gait normal, moves all extremities and confusion Cranial nerves: Yes Equal, round and reactive pupils present Psych: Appearance: grossly normal Mental Status: mental status grossly normal Results Labs CBC & Chem 7: 06/16/22 10:49 06/17/22 05:38 Labs: Short CBC 06/08/22 06/09/22 Range/Units 21:50 04:35 WBC 22.2 H 26.7 H (4.8-10.8) X10*3/uL Hgb 12.1 L 11.1 L (14.0-18.0) g/dl Hct 34.9 L 32.1 L (42.0-52.0) % Plt Count 208 204 (160-400) X10*3/uL BMP 06/08/22 06/09/22 21:50 04:35 Sodium 135 138 Potassium 3.7 3.8 Chloride 102 109 H Carbon Dioxide 25 22 BUN 114 H 100 H Creatinine 1.81 H 1.54 H Calcium 9.8 9.1 D Liver Function 06/08/22 Range/Units 21:50 Total Bilirubin 4.4 H (0.0-1.0) mg/dL Direct Bilirubin 3.3 H (0.0-0.5) mg/dL AST 30 (5-37) U/L ALT 37 (0-40) U/L Alkaline Phosphatase 203 H (39-117) U/L Albumin 2.5 L (3.5-5.0) g/dL Urine 06/08/22 Range/Units 22:05 Urine Color YELLOW Urine Appearance CLEAR Urine pH 6.0 (5.0-8.0) Ur Specific [place] 1.010 (1.005-1.025) Urine Protein NEG (NEG-TRACE) MG/DL Urine Glucose (UA) NEG (NEG) MG/DL Assessment and Plan (1) Liver masses: Status: Inactive (2) Elevated LFTs: Status: Acute Plan 69 YM ex-smoker seen at [facility] on 06/08/22 with 1 week hx of confusion with RUQ abdominal pain, decreased PO intake and dark urine.? .? Labs revealed leukocytosis, normocytic normochromic anemia, elevated BUN creatinine and elevated LFTs with TB of 4.4, AP of 203, Albumin 2.5 and INR of 1.4 CEA and AFP are pending. IMAGING STUDIES: 06/08/[address] SCAN SHOWED (personally reviewed with Radiology): 1.? Numerous hypodense foci throughout the left hepatic lobe, suboptimally assessed due to motion artifact and lack of intravenous contrast. This could represent an infiltrative process including multiple masses, and further workup with dynamic liver MRI is recommended. RECOMMENDATIONS: 1. Proceed with hepatic MRI with contrast. 2. Ultrasound guided liver biopsy by IR (as advised by Dr Curtis). 3. Further recommendations to follow after biopsy results are available. Procedures Date of Service Date of Service: 06/09/22
--- NOTE | 2022-06-09 09:14 | PM.HEMONCCN ---
Subjective - Subjective Chief complaint: Consult for: Liver lesions. Patient: new to practice Consult date: 06/09/22 Primary Care Provider: Unknown Physician Medical Summary: DIAGNOSIS: LIVER LESIONS. HPI - Consult Narrative Reason for consult: Consult for: Liver lesions. Narrative: Nael Su is a 69 year old male presented to the hospital with chief complaint of confusion. Patient is alert and awake, lying in the bed, confused. Not able to provide much history. Spoke to the patient's sister; who mentioned that over the past week, he has been not doing well. he has had decreased oral intake. Also complained of abdominal pain. He mentioned pain and redness of the scrotum. Patient initially reported dark urine. Denies any fevers at home. Patient came to the hospital with complaint of right upper quadrant abdominal pain. Denies any diarrhea. Denies any fever chills. Denies any cough or sputum production. Mentioned that patient has been peeing frequently; had diaper placed; Denies any weight loss. Denies any falls or trauma. Denies patient complaining of any chest pain, palpitations. Review of all other systems is negative except mentioned above ER course: Per ER team, patient on presentation noted to be confused; CT head showed no acute findings; on labs noted to have ENEIDA, elevated T bili; patient had low-grade temperature; patient's scrotum is inflamed concerning for diaper rash versus cellulitis. Patient was given Zosyn. CT abdomen showed: 1. Numerous hypodense foci throughout the left hepatic lobe, suboptimally assessed due to motion artifact and lack of intravenous contrast. This could represent an infiltrative process including multiple masses, and further workup with dynamic liver MRI is recommended. 2. Mildly enlarged subcarinal lymph node, not fully included in the [id number]. 3. Enlarged prostate gland. 4. Multiple prominent bladder calculi. 5. Atrophic left kidney. Liver lesions concerning for malignancy. PMFSH: No significant past medical history, Ex-smoker Pertinent family history: Denies any family history of cancers; reportedly patient's mother of UTI/sepsis. Social History Alcohol intake: never Patient Tobacco Use Status: Former Tobacco user Use of substances other than those prescribed or required for medical reasons: No Review of Systems - Constitutional Reports system reviewed and no additional complaints, except as documented, Reports fatigue, Reports weakness, Reports weight loss - Eyes Reports system reviewed and no additional complaints, except as documented - ENT Reports system reviewed and no additional complaints, except as documented - Cardiovascular Reports system reviewed and no additional complaints, except as documented - Respiratory Reports no additional respiratory complaints - Gastrointestinal Reports system reviewed and no additional complaints, except as documented - Genitourinary Genitourinary: Reports no additional male genitourinary complaints - Musculoskeletal Reports system reviewed and no additional complaints, except as documented - Integumentary/Breasts Skin/Breast: Reports no additional skin complaints - Neurologic Reports confusion - Psychiatric Reports system reviewed and no additional complaints, except as documented - Endocrine Reports no additional endocrine complaints - Hematologic/Lymphatic Reports system reviewed and no additional complaints, except as documented - Allergic/Immunologic Reports system reviewed and no additional complaints, except as documented PMFSH Medical History: Medical History (Last Updated 06/10/22 @ 13:05 by Marti Montoya MD) Scrotal erythema Social History: Social History (Last Reviewed 06/10/22 @ 13:02 by Marti Montoya MD) Living Situation History: Household Members: Family Household Members Other:: brother and sister?? Alcohol History Details: 1. How often do you have a drink containing alcohol?: a. Never AUDIT-C Alcohol total score: 0 Currently Displaying Signs/Symptoms of Alcohol Withdrawal: No Tobacco History: Patient Tobacco Use Status: Former Tobacco user Second Hand Smoke Exposure: No Substance Use History: Use of substances other than those prescribed or required for medical reasons: No Currently Displaying Signs/Symptoms of Drug Intoxication Withdrawal: No Domestic Abuse History: Have you been hit, kicked, punched, or otherwise hurt by someone within the past year? If so, by whom?: No Do you feel safe in your current relationship?: No Current Relationship Is there a partner from a previous relationship who is making you feel unsafe now?: No Are you made to feel afraid or neglected: No Advance Directives: Advance Directives: No Advance Directives Information Provided: No Homicidal Assessment: Do you have thoughts of harming others: None Do you have a plan to hurt others: No Plan Nutrition Assessment: Recently lost weight without trying: Unsure Nutrition Risks: No Nutritional Risk Occupation Assessmet: service: No Current occupational status: retired Second hand tobacco smoke exposure: No Home Medications and Allergies Current Medications: Current Medications Piperacillin Sod/Tazobactam (Sod 2.25 gm/ Sodium Chloride) 50 mls @ 100 mls/hr IV Q6H [facility] Last Infusion: 06/09/22 05:20 Dose: Infused Vancomycin HCl 1,000 mg/ (Sodium Chloride) 270 mls @ 270 mls/hr IV Q24H [facility] Last Infusion: 06/09/22 04:50 Dose: Infused Dextrose/Sodium Chloride (D51/2ns) 1,000 mls @ 75 mls/hr IVCONT .[id number] [facility] Last Admin: 06/09/22 03:23 Dose: 75 mls/hr Melatonin (Melatonin 3 Mg Tablet) 6 mg PO BEDTIME PRN PRN Reason: Insomnia Ondansetron HCl (Ondansetron Hcl 4 Mg/2 Ml Vial) 4 mg IVPUSH Q8H PRN PRN Reason: Nausea and Vomiting Last Admin: 06/09/22 05:16 Dose: 4 mg Pharmacy Consult (Consult Rx Perform Med Rec) 1 each MISCELLANE ONCE PRN PRN Reason: Consult order Pharmacy Consult (Consult Rx Vancomycin Dosing) 1 each MISCELLANE DAILY PRN PRN Reason: Consult order Senna (Sennosides 8.6 Mg Tablet) 17.2 mg PO BEDTIME PRN PRN Reason: Constipation Sodium Chloride (0.9 % Sodium Chloride Flush 3 Ml Syringe) 3 ml IVFLUSH QSHIFT [facility] Home Medications Medication Instructions Recorded Confirmed Type No Known Home Meds 06/08/22 06/08/22 History Allergies Allergy/AdvReac Type Severity Reaction Status Date / Time No Known Allergies Allergy Verified 06/08/22 20:57 Physical Exam Vital signs: Vital Signs Temp 98.1 F 06/09/22 05:40 Pulse 90 06/09/22 07:19 Resp 25 H 06/09/22 07:19 BP 106/52 L 06/09/22 07:19 Pulse Ox 95 06/09/22 07:19 O2 Del Method 06/09/22 05:40 O2 Flow Rate 2 06/09/22 03:44 Intake & Output 06/08/22 06/09/22 06/09/22 18:59 06:59 18:59 Intake Total 3420 / 3420 Balance 3420 / 3420 Intake: Intake, IV Amount 3420 / 3420 Piperacillin Sodium/Tazobactam 50 / 50 2.25 gm In 0.9 % Sodium Chloride 50 ml @ 100 mls/hr IV Q6H [facility] Rx#:[id number] Piperacillin Sodium/Tazobactam 100 / 100 4.5 gm In 0.9 % Sodium Chloride 100 ml @ 200 mls/hr IV ONCE ONE Rx#:[id number] vancomycin HCL 1,000 mg In 0.9 270 / 270 % Sodium Chloride 250 ml @ 270 mls/hr IV Q24H [facility] Rx#: [id number] 0.9 % Sodium Chloride 2,000 ml 3000 / 3000 @ 999 mls/hr IVCONT .Q2H1M ONE Rx#:[id number] Other: Weight 89.5 kg Weight 89.5 kg Hem/Onc Consult Result - Labs CBC & Chem 7: 06/09/22 04:35 06/11/22 08:10 Labs: Short CBC 06/08/22 06/09/22 Range/Units 21:50 04:35 WBC 22.2 H 26.7 H (4.8-10.8) X10*3/uL Hgb 12.1 L 11.1 L (14.0-18.0) g/dl Hct 34.9 L 32.1 L (42.0-52.0) % Plt Count 208 204 (160-400) X10*3/uL BMP 06/08/22 06/09/22 21:50 04:35 Sodium 135 138 Potassium 3.7 3.8 Chloride 102 109 H Carbon Dioxide 25 22 BUN 114 H 100 H Creatinine 1.81 H 1.54 H Calcium 9.8 9.1 D Liver Function 06/08/22 Range/Units 21:50 Total Bilirubin 4.4 H (0.0-1.0) mg/dL Direct Bilirubin 3.3 H (0.0-0.5) mg/dL AST 30 (5-37) U/L ALT 37 (0-40) U/L Alkaline Phosphatase 203 H (39-117) U/L Albumin 2.5 L (3.5-5.0) g/dL Urine 06/08/22 Range/Units 22:05 Urine Color YELLOW Urine Appearance CLEAR Urine pH 6.0 (5.0-8.0) Ur Specific [place] 1.010 (1.005-1.025) Urine Protein NEG (NEG-TRACE) MG/DL Urine Glucose (UA) NEG (NEG) MG/DL Assessment and Plan Patient Active problem list reviewed?: Yes (1) Liver masses Status: Acute Assessment and plan: 69-year old gentleman who presented after a near syncopal episode. Also complained of abdominal pain and scrotal redness. He has been noted to have liver lesions. CEA: 1.20. CA 19-9: 89. AFP: Pending. An MRI of the abdomen revealed: Enlarged left hepatic lobe replaced by innumerable lesions demonstrating rim enhancement and central necrosis, differentials include pyogenic liver abscesses or infiltrative tumor. Nonspecific periportal and peripancreatic lymphadenopathy. Mild peripancreatic free fluid and fat stranding. Meanwhile, patient has been seen by ID. One set of blood cultures reported Gram-negative rods. Recommendation is to continue on vancomycin and Zosyn, till the situation about abscesses is clarified. Then switch to p.o. antibiotics. PLAN: Reviewed the images with the radiologist. The plan is to proceed ultrasound guided biopsy of the liver lesion by I.R. Will make further plans based upon the results. If abscess is noted he will need to have drain placed. Thank you, - Time Spent With Patient Time Spent with Patient (in minutes): 30
[2022-06-09 09:18] LABS: Vitamin B12 1126 pg/mL (200-900)
--- NOTE | 2022-06-09 09:47 | PHA.PROG ---
Admission Date/Time: June 09, 2022 02:38 Indication: skin Weight in k.5 kg Adjusted body weight in Kg: [place] body weight in Kg: Obesity Dosing Indication % IBW: Serum Creatinine - Last 168 Hours 06/08/22 06/09/22 21:50 04:35 Creatinine 1.81 H 1.54 H Estimated CrCl and GFR - Last 168 Hours 06/08/22 06/09/22 21:50 04:35 Estim Creat Clear Calc 41.0 48.2 Estimated GFR 37 45 Vancomycin Loading Dose: 1000mg x1; additional 500mg x1 Current Vancomycin Dosing Regimen: 1250mg Q24H Vancomycin Monitoring using AUC goal of 400 - 600 range with trough as surrogate marker: 502mg/L Date and Time for next Vancomycin Level to be drawn: 06/12/22 @0700 Pharmacist Comments on Vancomycin Plan: Overnight RPh verified 1000mg Q12H, added another 500mg for load. Will continue to monitor renal function. Vancomycin dosing will take advantage of [employer] as a clinical decision support tool that uses Bayesian modeling to calculate individual patient's pharmacokinetic parameters and forecast the patient's drug concentration time course with the target goal AUC 24 range of 400 - 600 mg/L/hr.
[2022-06-09] MEDS: 0.9 % Sodium Chloride Flush 3 ML SYRINGE IVFLUSH ×3 (09:54→22:57)
--- NOTE | 2022-06-09 10:09 | PC.NURSE ---
pt sleeping but easily arousable, pt alert only to self not able to state his own birthday, pt did denied pain and nausea at this time, pt warm to touch rectal temp take 97.4, scrotum very excoriate in appearance and tender to touch because pt was wincing while getting personal care done. pt incontinent of urine
--- NOTE | 2022-06-09 10:24 | PC.NURSE ---
received report from AMELIA Amado. pt will be transferred from ed 18 to overflow 5.
--- NOTE | 2022-06-09 11:30 | PC.NURSE ---
pt taken to Nuclear Medicine
--- NOTE | 2022-06-09 13:00 | PC.NURSE ---
pt off unit to Nuclear Med. vancomycin 500 mg ordered for 0900 not given.
--- NOTE | 2022-06-09 14:30 | PC.NURSE ---
THIS LEASE ADMINISTRATION ANALYST NOTIFIED PHARMACY OF SCHEDULED Vancomycin NOT GIVEN DUE TO PT BEING OFF THE UNIT FOR OVER 2 HRS. PHARMACY ADJUSTED SCHEDULE.
--- NOTE | 2022-06-09 14:36 | PC.NURSE ---
pt returned from Nuclear Medicine. Pt to remain NPO.
--- NOTE | 2022-06-09 15:11 | HE.PHANOTE ---
Vancomycibn Addendum AMELIA Villasenor called to have vancomycin times adjust. Patient was at [facility] when dose was due at 0900. Vancomycin 1250 mg Q24H dose changed to start now 06/09 @ 1500. New trough schedule to be drawn 06/12 @ 1300. Theresa Bryant, KaneD
--- NOTE | 2022-06-09 15:23 | HE.PHANOTE ---
Vancomycibn Addendum AMELIA Villasenor called to have vancomycin times adjust. Patient was at [facility] when dose was due at 0900. Patient was suppose to received a 1 time dose of vancomycin 500 mg as an addition to her load dose. Since it is is 5 hours past, we will adjust the dose of her maintenance dose to start in 19 hours to help create a load dose. New start will be at 06/09/22 @ 2200 about 19 hours after initial dose. New trough scheduled for 06/11 @ 2000. If renal function decline, a random level may need to be drawn earlier. Theresa Bryant, PharmD
--- NOTE | 2022-06-09 15:48 | MHC.CM.PN ---
Attempted to meet with patient in regards to discharge planninng. Patient is currently at Nuclear Medicine. Received telephone call from patient's sister, Lindsey. Lindsey wants to complete a HCP for patient. T/W explained patient would need to complete the HCP himself. Lindsey verbalized understanding. Patient moved to [place] from [place] just before the Covid pandemic started. Patient has no PCP. Patient received 1 J&J vaccine. Will attempt to meet again. Continue to monitor for d/c needs.
--- NOTE | 2022-06-09 17:50 | PC.NURSE ---
PT REMAINS NPO. VANCOMYCIN ADJUSTED BY PHARMACY. VSS.
--- NOTE | 2022-06-09 18:47 | PC.NURSE ---
REPORT GIVEN TO AMELIA LYNCH. PT WILL BE TRANSFERRED TO ROOM 461.
--- NOTE | 2022-06-09 18:59 | MHC.CM.PN ---
Addendum entered by Mara Santiago 06/09/22 19:19: CM called and spoke with Lindsey Zuri, pt sister by adoption. Tells CM that pt mother adopted her 50 years ago. Lindsey drives patient when needed and speaks with him daily. States pt lives in his parents home and moved to [place] from [place] 3 years ago to care for his ailing mother. She has passed. His brother, Kenny lives with him, but does not help him. Pt uses no DME/services. Vax with [facility] only 12/09/20. Pt does not have a PCP and per Lindsey, has a distrust of doctors. Lindsey tells CM that she works as a CASE MAKER, but can take pt to her home to help care for him. Lindsey tells CM she is the HCP, but does not have paperwork and cannot find any paperwork of the patients in the home. CM explained to Lindsey that I could not complete a HCP at this time with her brother, as he is very altered mentally. Explained that we can re-assess tomorrow to evaluate mentation. Lindsey will be in to visit and is hopeful that he will be more orientated then. D/C plan pending hospital stay. Pt cannot safely go home in this altered mentation state. Pt may need STR. Cannot have home care, no PCP. IMM reviewed with Lindsey. Copy left at bedside per her request along with the primary care referral sheet. CM to follow for d/c needs. Original Note: CM attempted to meet with patient. Pt very altered. Answers to name. Unable to answer any CM questions. CM mentioned that I would call his sister, and patient said he didn't have a sister. When asked who Lindsey was, he said a friend. Unable to review IMM or complete a HCP at this time due to altered mental status. Will call Lindsey Keating ([phone]). CM to follow for d/c needs.
[2022-06-09] MEDS: vancomycin HCL 1,250 MG in 0.9 % Sodium Chloride 250 ML 166.67 MG IV (22:56)
[2022-06-10] VITALS: BP 111/62; PULSE 93; RESP 15; TEMP 36.8; O2SAT 97
[2022-06-10 03:45] VITALS: BP 107/63; PULSE 82; RESP 16; TEMP 36.7; O2SAT 95
[2022-06-10] MEDS: Piperacillin Sodium/Tazobactam 2.25 GM in 0.9 % Sodium Chloride 50 ML IV ×3 (04:05→16:26)
[2022-06-10] MEDS: Dextrose 5 % and 0.45 % NaCl 1,000 ML 75 ML IVCONT ×2 (04:06→17:55)
[2022-06-10 08:00] VITALS: BP 118/71; PULSE 90; RESP 18; TEMP 36.8; O2SAT 98
[2022-06-10 08:25] LABS: HBS Num1 0.64 mIU/mL (0-7.99); HBc Num1 0.19 S/CO (0.00-0.79); HBsAGNum1 0.22 S/CO (0.00-0.99); Hepatitis A Antibody IgM 0.18 Index (0-0.79); Hepatitis B Core Antibody Nonreactive (Nonreactive); Hepatitis B Surface Antigen Negative (Negative); ~HepC Num1 0.12 S/CO (0.00-0.79); ~Hepatitis A Antibody IgM Nonreactive (Nonreactive); ~Hepatitis B Surface Antibody NONREACTIVE (Nonreactive); ~Hepatitis C Antibody Nonreactive (Nonreactive)
[2022-06-10] MEDS: 0.9 % Sodium Chloride Flush 3 ML SYRINGE IVFLUSH ×2 (08:41→16:26)
[2022-06-10 12:00] VITALS: BP 118/68; PULSE 95; RESP 18; TEMP 36.8; O2SAT 97
[2022-06-10 12:23] LABS: Creatinine Clr Calc Pharmacy 60.6; Estimated Glomerular Filt Rate 60
--- NOTE | 2022-06-10 12:23 | MHC.CM.PN ---
Addendum entered by Laurie Kaur 06/13/22 09:19: EMMANUEL IS NOT PTS SON, HE IS A FRIEND Original Note: CM MET WITH PT, HIS SISTER, SUSANA, AND HIS SON, EMMANUEL. PTS FAMILY REPORTS THEY HAVE BEEN UNABLE TO FIND PTS HCP AT HOME CM DISCUSSED HCP WITH PT WHO CONFIRMS SUSANA AND EMMANUEL WERE ON THE LAST ONE HE COMPLETED AND HE WOULD WANT TO KEEP IT THE SAME, WITH SUSANA PRIMARY. HCP COMPLETED PT/FAMILY REPORT THEY ARE UNSURE WHAT THEY HOPE THE DC PLAN WILL LOOK LIKE THEY REPORT THEY ARE WAITING FOR THE RESULTS OF SOME TESTING AND WOULD LIKE TO MADE DECISIONS ONCE THEY UNDERSTAND WHAT IS HAPPENING STR WAS DISCUSSED AND THEY WILL CONSIDER IT THEY ARE ALSO CONSIDERING HAVING PT DC TO SUSANA'S HOME WHERE SHE CAN ASSIST HIM, SHE REPORTS WORKING IN [employer] FOR YEARS AND FEELS SHE CAN MANAGE HIS NEEDS LONG HE IS DOING WELL ENOUGH
--- NOTE | 2022-06-10 13:00 | P.CNID_ITS ---
History of Present Illness Data of Consult Service Date: 06/10/22 Requesting physician: Min Gomez Primary Care Provider: Unknown Physician HPI Reason for consult: abdominal pain,scrotal erythema He presents with RUQ pain unable to quantify as well as scrotal redness for last five days. 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 He has no fever or chills. Review of Systems Review of Systems: Yes Unobtainable due to mental status PMFSH Past Medical History Medical History (Updated 06/10/22 @ 13:05 by Marti Montoya MD) Scrotal erythema Family History Family history: reviewed and not pertinent Social History Social History Household Members: Family Household Members Other:: brother and sister?? Alcohol intake: never Patient Tobacco Use Status: Former Tobacco user Second Hand Smoke Exposure: No Use of substances other than those prescribed or required for medical reasons: No Currently Displaying Signs/Symptoms of Drug Intoxication Withdrawal: No Have you been hit, kicked, punched, or otherwise hurt by someone within the past year? If so, by whom?: No Do you feel safe in your current relationship?: No Current Relationship Is there a partner from a previous relationship who is making you feel unsafe now?: No Are you made to feel afraid or neglected: No Advance Directives: No Advance Directives Information Provided: No Do you have thoughts of harming others: None Do you have a plan to hurt others: No Plan Recently lost weight without trying: Unsure Nutrition Risks: No Nutritional Risk service: No Current occupational status: retired Meds Allergies Allergy/AdvReac Type Severity Reaction Status Date / Time No Known Allergies Allergy Verified 06/08/22 20:57 Active Medications: Current Medications Piperacillin Sod/Tazobactam (Sod 2.25 gm/ Sodium Chloride) 50 mls @ 100 mls/hr IV Q6H [facility] Last Infusion: 06/10/22 11:42 Dose: Infused Dextrose/Sodium Chloride (D51/2ns) 1,000 mls @ 75 mls/hr IVCONT .[id number] [facility] Last Admin: 06/10/22 04:06 Dose: 75 mls/hr Vancomycin HCl 1,250 mg/ (Sodium Chloride) 250 mls @ 166.667 mls/hr IV Q24H [facility] Last Infusion: 06/10/22 01:23 Dose: Infused Melatonin (Melatonin 3 Mg Tablet) 6 mg PO BEDTIME PRN PRN Reason: Insomnia Ondansetron HCl (Ondansetron Hcl 4 Mg/2 Ml Vial) 4 mg IVPUSH Q8H PRN PRN Reason: Nausea and Vomiting Last Admin: 06/09/22 05:16 Dose: 4 mg Pharmacy Consult (Consult Rx Perform Med Rec) 1 each MISCELLANE ONCE PRN PRN Reason: Consult order Pharmacy Consult (Consult Rx Vancomycin Dosing) 1 each MISCELLANE DAILY PRN PRN Reason: Consult order Senna (Sennosides 8.6 Mg Tablet) 17.2 mg PO BEDTIME PRN PRN Reason: Constipation Sodium Chloride (0.9 % Sodium Chloride Flush 3 Ml Syringe) 3 ml IVFLUSH QSHIFT [facility] Last Admin: 06/10/22 08:41 Dose: 3 ml Home Medications Medication Instructions Recorded Confirmed Last Taken Type No Known Home Meds 06/08/22 06/08/22 Unknown History Physical Exam Vital Signs: Vital Signs: Last Vital Signs Temp 98.3 F 06/10/22 12:00 Pulse 95 06/10/22 12:00 Resp 18 06/10/22 12:00 BP 118/68 06/10/22 12:00 Pulse Ox 97 06/10/22 12:00 O2 Del Method 06/10/22 12:00 O2 Flow Rate 5 06/10/22 03:45 BMI result Body Mass Index 26.4 Const: General: cooperative HEENT: Head: Yes normal to inspection Face and sinus: Yes normal facial exam Mouth: Normal oral and palatal mucosa present Teeth and gingiva: dentition normal Eyes: General: appearance normal, both eyes and all related structures Pupils: Equal, round and reactive pupils present Resp: Effort & Inspection: normal respiratory effort Cardio: Rate: regular rate Rhythm: regular rhythm GI: Palpation (GI): Soft to palpation and nontender : Other: scrotal erythema,granulating tissue General: Yes no CVA tenderness Back/Spine/Pelvis: Back: no CVA tenderness Skin: General skin exam: no rashes or lesions noted Neuro: General: moves all extremities Cranial nerves: Yes Equal, round and reactive pupils present Extrem: General: Yes normal to inspection Psych: Mental Status: mental status grossly normal (confused) Thought process: Confabulating thought process present Results Labs CBC & Chem 7: 06/09/22 04:35 06/10/22 11:52 Labs: BMP 06/10/22 11:52 Creatinine 1.19 Microbiology Microbiology Results: Microbiology 06/08/22 Unknown Urine clean catch - Urine cross top Urine Culture - P reliminary Culture in progress. 06/08/22 21:50 Blood - Venous Blood Culture - Preliminary Gram negative jasson 06/08/22 21:50 Blood - Venous Blood Culture - Preliminary No growth after 24 hours. Assessment and Plan (1) AMS (altered mental status): Status: Acute (2) Liver masses: Status: Acute (3) Scrotal erythema: Status: Acute possible strep,staph Plan Continue Vancomycin and Zosyn but switch to po Doxycycline and Augmentin for a week when can next day or two but make sure liver lesions not abscess before switch to po
--- NOTE | 2022-06-10 15:29 | P.PNIM_ITS ---
Subjective Subjective Date of Service: 06/11/22 Interval History: seen in f/u for AMS, liver lesion Interval history: patient is lucid today, no fever, MRI shows multiple liver lesions Physical Exam Vital Signs: Vital Signs: Last Vital Signs Temp 98.3 F 06/10/22 12:00 Pulse 95 06/10/22 12:00 Resp 18 06/10/22 12:00 BP 118/68 06/10/22 12:00 Pulse Ox 97 06/10/22 12:00 O2 Del Method 06/10/22 12:00 O2 Flow Rate 5 06/10/22 03:45 BMI result Body Mass Index 26.4 Const: Other: General: AO X 3, no acute distress Resp: CTA bilateral CVS: S1,S2,RRR GI: +BS, NT, no distention Skin: No rash Neuro: motor grossly intact Psych: appropriate affect Objective Data Active Medications Piperacillin Sod/Tazobactam (Sod 2.25 gm/ Sodium Chloride) 50 mls @ 100 mls/hr IV Q6H [facility] Last Infusion: 06/10/22 11:42 Dose: 0 mls/hr Documented By: GILDA Dextrose/Sodium Chloride (D51/2ns) 1,000 mls @ 75 mls/hr IVCONT .[id number] [facility] Last Admin: 06/10/22 04:06 Dose: 75 mls/hr Documented By: MARIA LUISA Vancomycin HCl 1,250 mg/ (Sodium Chloride) 250 mls @ 166.667 mls/hr IV Q24H [facility] Last Infusion: 06/10/22 01:23 Dose: 0 mls/hr Documented By: MARIA LUISA Melatonin (Melatonin 3 Mg Tablet) 6 mg PO BEDTIME PRN PRN Reason: Insomnia Ondansetron HCl (Ondansetron Hcl 4 Mg/2 Ml Vial) 4 mg IVPUSH Q8H PRN PRN Reason: Nausea and Vomiting Last Admin: 06/09/22 05:16 Dose: 4 mg Documented By: NARDA Pharmacy Consult (Consult Rx Perform Med Rec) 1 each MISCELLANE ONCE PRN PRN Reason: Consult order Pharmacy Consult (Consult Rx Vancomycin Dosing) 1 each MISCELLANE DAILY PRN PRN Reason: Consult order Senna (Sennosides 8.6 Mg Tablet) 17.2 mg PO BEDTIME PRN PRN Reason: Constipation Sodium Chloride (0.9 % Sodium Chloride Flush 3 Ml Syringe) 3 ml IVFLUSH QSHIFT [facility] Last Admin: 06/10/22 08:41 Dose: 3 ml Documented By: GILDA Labs CBC & Chem 7: 06/09/22 04:35 06/11/22 08:10 Labs: Laboratory Results - last 24 hr 06/08/22 06/10/22 21:50 11:52 Estim Creat Clear Calc 60.6 Estimated GFR 60 Hepatitis A IgM Ab Nonreactive Hep Bs Antigen Negative Hep Bs Antibody NONREACTIVE Hep B Core Total Ab Nonreactive Hepatitis C Ab (EIA) Nonreactive Microbiology Microbiology Results: Microbiology 06/08/22 Unknown Urine Culture - Preliminary Urine clean catch - Urine cross top Culture in progress. 06/08/22 21:50 Blood Culture - Preliminary Blood - Venous Gram negative jasson 06/08/22 21:50 Blood Culture - Preliminary Blood - Venous No growth after 24 hours. Assessment and Plan (1) Scrotal erythema: Status: Acute (2) Elevated LFTs: Status: Acute (3) AMS (altered mental status): Status: Acute (4) Liver masses: Status: Acute Plan 69-year-old male with no significant past medical history, ex-smoker presented to the hospital with a chief complaint of altered mental status.? Noted to have following Altered mental status:?Likely toxic metabolic encephalopathy.? He is now lucid ?Scrotal cellulitis vs Diaper Rash/UTI:?Continue IV vancomycin and Zosyn.? Id consult.? Follow up cultures. Patient also has right upper quadrant abdominal pain/elevated T bili:? CT scan showed gallbladder wall thickening.? Liver lesions/subcarinal lymphadenopathy: MRI show multiple lesion shome ring enhancing ? abscess. -Continue Vanco and Zosyn -Biopsy monday ENEIDA:??resolved DVT prophylaxis:? add heparin inpatient need: possible liver abscess and need IV Abx pending biopsy Discussed with nephew at bedside Quality Stroke Does the patient have a stroke diagnosis?: No VTE Prior VTE?: No VTE Risk Level:: Medical - moderate - high VTE Device Contraindication: N/A - Device Ordered VTE Drug Contraindication: Treatment Not Indicated
[2022-06-10 15:52] VITALS: BP 98/52; PULSE 87; RESP 18; TEMP 36.8; O2SAT 98
[2022-06-10 19:42] LABS: Glucose, Whole Blood 176 mg/dL (60-115)
[2022-06-10] MEDS: vancomycin HCL 1,250 MG in 0.9 % Sodium Chloride 250 ML 166.67 MG IV (23:02)
[2022-06-10 23:46] VITALS: BP 132/80; PULSE 98; RESP 18; TEMP 36.6; O2SAT 98
[2022-06-11] MEDS: Piperacillin Sodium/Tazobactam 2.25 GM in 0.9 % Sodium Chloride 50 ML IV ×5 (01:05→23:57)
[2022-06-11] MEDS: 0.9 % Sodium Chloride Flush 3 ML SYRINGE IVFLUSH ×4 (01:05→22:47)
[2022-06-11 07:49] VITALS: BP 125/65; PULSE 100; RESP 16; TEMP 36.4; O2SAT 98
[2022-06-11 08:52] LABS: Creatinine Clr Calc Pharmacy 65.6; Estimated Glomerular Filt Rate > 60
--- NOTE | 2022-06-11 09:03 | P.PNIM_ITS ---
Subjective Subjective Date of Service: 06/11/22 Interval History: seen in f/u for AMS, liver lesion Interval history: no fever, no abdominal his elevated off today but not particularly confused. Review of Systems No fever no abdominal pain no confusion Physical Exam Vital Signs: Vital Signs: Last Vital Signs Temp 97.5 F 06/11/22 07:49 Pulse 100 06/11/22 07:49 Resp 16 06/11/22 07:49 BP 125/65 06/11/22 07:49 Pulse Ox 98 06/11/22 07:49 O2 Del Method 06/11/22 07:49 O2 Flow Rate 5 06/10/22 03:45 BMI result Body Mass Index 26.4 Const: Other: General: AO X 3, no acute distress Resp: CTA bilateral CVS: S1,S2,RRR GI: +BS, NT, no distention Skin: No rash Neuro: motor grossly intact Psych: appropriate affect Objective Data Active Medications Vancomycin HCl 1,250 mg/ (Sodium Chloride) 250 mls @ 166.667 mls/hr IV Q24H [facility] Last Infusion: 06/11/22 02:15 Dose: 0 mls/hr Documented By: RAF Piperacillin Sod/Tazobactam (Sod 2.25 gm/ Sodium Chloride) 50 mls @ 100 mls/hr IV Q6H [facility] Last Infusion: 06/11/22 06:57 Dose: 0 mls/hr Documented By: RAF Melatonin (Melatonin 3 Mg Tablet) 6 mg PO BEDTIME PRN PRN Reason: Insomnia Ondansetron HCl (Ondansetron Hcl 4 Mg/2 Ml Vial) 4 mg IVPUSH Q8H PRN PRN Reason: Nausea and Vomiting Last Admin: 06/09/22 05:16 Dose: 4 mg Documented By: NARDA Pharmacy Consult (Consult Rx Perform Med Rec) 1 each MISCELLANE ONCE PRN PRN Reason: Consult order Pharmacy Consult (Consult Rx Vancomycin Dosing) 1 each MISCELLANE DAILY PRN PRN Reason: Consult order Senna (Sennosides 8.6 Mg Tablet) 17.2 mg PO BEDTIME PRN PRN Reason: Constipation Sodium Chloride (0.9 % Sodium Chloride Flush 3 Ml Syringe) 3 ml IVFLUSH QSHIFT [facility] Last Admin: 06/11/22 07:40 Dose: 3 ml Documented By: ALEXX Labs CBC & Chem 7: 06/09/22 04:35 06/11/22 08:10 Labs: Laboratory Results - last 24 hr 06/08/22 06/10/22 06/10/22 21:50 11:52 19:17 Estim Creat Clear Calc 60.6 Estimated GFR 60 POC Glucose 176 H Hepatitis A IgM Ab Nonreactive Hep Bs Antigen Negative Hep Bs Antibody NONREACTIVE Hep B Core Total Ab Nonreactive Hepatitis C Ab (EIA) Nonreactive 06/11/22 08:10 Estim Creat Clear Calc 65.6 Estimated GFR > 60 POC Glucose Hepatitis A IgM Ab Hep Bs Antigen Hep Bs Antibody Hep B Core Total Ab Hepatitis C Ab (EIA) Microbiology Microbiology Results: Microbiology 06/08/22 21:50 Blood Culture - Final Blood - Venous Escherichia coli 06/08/22 21:50 Blood Culture - Preliminary Blood - Venous Prelim: GNR Gram Stain only 06/08/22 Unknown Urine Culture - Preliminary Urine clean catch - Urine cross top Culture in progress. Assessment and Plan (1) Scrotal erythema: Status: Acute (2) Elevated LFTs: Status: Acute (3) AMS (altered mental status): Status: Acute (4) Liver masses: Status: Acute Plan 69-year-old male with no significant past medical history, ex-smoker presented to the hospital with a chief complaint of altered mental status.? Noted to have following Altered mental status:?Likely toxic metabolic encephalopathy.? He is now lucid Sepsis, E coli bacteremia--- could be related to liver finding. change Zosyn to ceftriaxone 2 g. Discontinue vancomycin. Infectious Disease following. ?Scrotal cellulitis vs Diaper Rash/UTI:?Continue IV vancomycin and Zosyn.? Id consult.? Follow up cultures. Liver lesions/subcarinal lymphadenopathy: MRI show multiple lesion shome ring enhancing ? abscess Versus malignant -Continue antibiotics as above, biopsy on MondayJune 13 ENEIDA:??resolved DVT prophylaxis:? add heparin inpatient need: possible liver abscess and need IV Abx pending biopsy Discussed with nephew at bedside Quality Stroke Does the patient have a stroke diagnosis?: No VTE Prior VTE?: No VTE Risk Level:: Medical - moderate - high VTE Device Contraindication: N/A - Device Ordered VTE Drug Contraindication: Treatment Not Indicated
[2022-06-11 10:31] LABS: Carbohydrate Antigen 19-9 89 U/mL (<34)
[2022-06-11 12:00] VITALS: BP 122/66; PULSE 100; RESP 16; TEMP 36; O2SAT 97
[2022-06-11 15:41] VITALS: BP 132/71; PULSE 98; RESP 18; TEMP 37; O2SAT 98
[2022-06-11 20:00] VITALS: BP 121/63; PULSE 97; RESP 18; TEMP 36.3; O2SAT 97
[2022-06-11 20:43] LABS: Vancomycin Trough 10.5 mcg/mL (10.0-20.0)
--- NOTE | 2022-06-11 21:10 | HE.PHANOTE ---
vancomycin trough level of 10.5 with and AUC of 374 per insight. Will increase dose to 1500 mg q24h for anticipated auc of 444. alternative option can be 750 mg q12h if renal function keeps improving (auc antic of 440)
[2022-06-12] VITALS (7 sets, daily range): BP systolic 121–145; BP diastolic 68–91; PULSE 79–104; RESP 16–20; TEMP 36.4–37.2; O2SAT 95–99
[2022-06-12] MEDS: Piperacillin Sodium/Tazobactam 2.25 GM in 0.9 % Sodium Chloride 50 ML IV (05:48)
--- NOTE | 2022-06-12 07:31 | P.PNIM_ITS ---
Subjective Subjective Date of Service: 06/12/22 Interval History: seen in f/u for AMS, liver lesion Interval history: no abdominal pain, no fever, seems a bit off this morning Review of Systems No fever no abdominal pain no confusion Physical Exam Vital Signs: Vital Signs: Last Vital Signs Temp 98.7 F 06/12/22 04:00 Pulse 104 H 06/12/22 04:00 Resp 18 06/12/22 04:00 BP 122/91 H 06/12/22 04:00 Pulse Ox 98 06/12/22 04:00 O2 Del Method 06/12/22 04:00 O2 Flow Rate 5 06/10/22 03:45 BMI result Body Mass Index 26.4 Const: Other: General: AO X 2, no acute distress Resp: CTA bilateral CVS: S1,S2,RRR GI: +BS, NT, no distention Skin: No rash Neuro: motor grossly intact Psych: appropriate affect Objective Data Active Medications Piperacillin Sod/Tazobactam (Sod 2.25 gm/ Sodium Chloride) 50 mls @ 100 mls/hr IV Q6H [facility] Last Infusion: 06/12/22 06:41 Dose: 0 mls/hr Documented By: KATALINA Vancomycin HCl 1,500 mg/ (Sodium Chloride) 250 mls @ 166.667 mls/hr IV Q24H [facility] Last Infusion: 06/12/22 00:15 Dose: 0 mls/hr Documented By: KATALINA Melatonin (Melatonin 3 Mg Tablet) 6 mg PO BEDTIME PRN PRN Reason: Insomnia Ondansetron HCl (Ondansetron Hcl 4 Mg/2 Ml Vial) 4 mg IVPUSH Q8H PRN PRN Reason: Nausea and Vomiting Last Admin: 06/09/22 05:16 Dose: 4 mg Documented By: NARDA Pharmacy Consult (Consult Rx Perform Med Rec) 1 each MISCELLANE ONCE PRN PRN Reason: Consult order Pharmacy Consult (Consult Rx Vancomycin Dosing) 1 each MISCELLANE DAILY PRN PRN Reason: Consult order Senna (Sennosides 8.6 Mg Tablet) 17.2 mg PO BEDTIME PRN PRN Reason: Constipation Sodium Chloride (0.9 % Sodium Chloride Flush 3 Ml Syringe) 3 ml IVFLUSH QSHIFT [facility] Last Admin: 06/11/22 22:47 Dose: 3 ml Documented By: KATALINA Labs CBC & Chem 7: 06/09/22 04:35 06/11/22 08:10 Labs: Laboratory Results - last 24 hr 06/09/22 06/11/22 06/11/22 04:35 08:10 20:02 Estim Creat Clear Calc 65.6 Estimated GFR > 60 CA 19-9 Antigen 89 H Vancomycin Trough 10.5 Microbiology Microbiology Results: Microbiology 06/08/22 21:50 Blood Culture - Final Blood - Venous Escherichia coli 06/08/22 Unknown Urine Culture - Preliminary Urine clean catch - Urine cross top Gram negative jasson 06/08/22 21:50 Blood Culture - Final Blood - Venous Escherichia coli Assessment and Plan (1) Scrotal erythema: Status: Acute (2) Elevated LFTs: Status: Acute (3) AMS (altered mental status): Status: Acute (4) Liver masses: Status: Acute Plan 69-year-old male with no significant past medical history, ex-smoker presented to the hospital with a chief complaint of altered mental status.? Noted to have following Altered mental status:?Likely toxic metabolic encephalopathy.? He is now lucid Sepsis, E coli bacteremia, and gram negative jasson in the urine and thus urine is likely source of bacteremia and separate from liver finding -DC Zosyn,Ceftriaxone. ?Scrotal cellulitis vs Diaper Rash--more of diaper rash and not celllulis Liver lesions/subcarinal lymphadenopathy: MRI show multiple lesion some ring enhancing ? abscess Versus malignant -Continue antibiotics as above, biopsy on MondayJune 13 ENEIDA:??resolved DVT prophylaxis:? add heparin inpatient need: possible liver abscess and need IV Abx pending biopsy Discussed with nephew at bedside Quality Stroke Does the patient have a stroke diagnosis?: No VTE Prior VTE?: No VTE Risk Level:: Medical - moderate - high VTE Device Contraindication: N/A - Device Ordered VTE Drug Contraindication: Treatment Not Indicated
[2022-06-12 07:53] LABS: Creatinine Clr Calc Pharmacy 66.8; Estimated Glomerular Filt Rate > 60
[2022-06-12] MEDS: cefTRIAXone sodium 2 GM in 0.9 % Sodium Chloride 50 ML IV (08:07)
[2022-06-12] MEDS: 0.9 % Sodium Chloride Flush 3 ML SYRINGE IVFLUSH (08:07)
[2022-06-12 20:33] LABS: Vancomycin Trough 11.2 mcg/mL (10.0-20.0)
[2022-06-13] MEDS: 0.9 % Sodium Chloride Flush 3 ML SYRINGE IVFLUSH ×2 (01:51→09:12)
[2022-06-13 03:26] VITALS: BP 142/74; PULSE 101; RESP 16; TEMP 37.4; O2SAT 96
[2022-06-13 06:22] LABS: Creatinine Clr Calc Pharmacy 78.4; Estimated Glomerular Filt Rate > 60
[2022-06-13 08:00] VITALS: BP 109/56; PULSE 100; RESP 16; TEMP 37.3; O2SAT 97
[2022-06-13] MEDS: cefTRIAXone sodium 2 GM in 0.9 % Sodium Chloride 50 ML IV (09:12)
--- NOTE | 2022-06-13 09:13 | MHC.CM.PN ---
Addendum entered by Laurie Kaur 06/13/22 11:24: PER MD ROUNDS, PT WILL HAVE A BIOPSY TOMORROW DC PLAN WILL BE DETERMINED POST BIOPSY PTS HCP, SUSANA, IS HOPING PT WILL BE ABLE TO DC TO HER HOME HOWEVER HE WILL NEED A PT EVAL TO DETERMINE IF THIS IS A SAFE DC PLAN. Original Note: GUERO MET WITH PTS FRIEND/HCP, EMMANUEL AT HIS REQUEST. HE REQUESTED ASSISTANCE COMPLETING A POA FOR THE PT CM EXPLAINED THIS WOULD REQUIRE A NOTARY WHICH IS NOT AVAILABLE HERE. CM INFORMED HIM HE COULD PRIVATELY PAY FOR ONE TO COME IN AN ASSIST HOWEVER PT WOULD NOT BE ABLE TO COMPLETE ONE AT THIS TIME DUE TO HIS MENTATION. CM WILL PROVIDE THE CONTACT INFO FOR THE MOBILE NOTARY CURRENTLY, DC PLAN IS TBD STR VS HOME WITH FRIEND SUSANA WHO IS A RETIRED VESSEL OPERATOR
--- NOTE | 2022-06-13 09:27 | HO.PM.IMPN ---
Subjective Subjective Date of Service: 06/13/22 Interval History: seen in f/u for AMS, liver lesion Interval history: there is report of patient having abdominal pain last night, but presently is not reporting pain but overall doesn't feel good, not eating or drinking much Review of Systems No fever no abdominal pain no confusion Physical Exam Vital Signs: Vital Signs: Last Vital Signs Temp 99.1 F 06/13/22 08:00 Pulse 100 06/13/22 08:00 Resp 16 06/13/22 08:00 BP 109/56 L 06/13/22 08:00 Pulse Ox 97 06/13/22 08:00 O2 Del Method 06/13/22 08:00 O2 Flow Rate 5 06/10/22 03:45 BMI result Body Mass Index 26.4 Const: Other: General: AO X 2, no acute distress Resp: CTA bilateral CVS: S1,S2,RRR GI: +BS, NT, no distention Skin: No rash Neuro: motor grossly intact Psych: appropriate affect Objective Data Active Medications Ceftriaxone Sodium 2 gm/ (Sodium Chloride) 50 mls @ 100 mls/hr IV Q24H [facility] Last Admin: 06/13/22 09:12 Dose: 100 mls/hr Documented By: GRAYSON Dextrose (D5w) 1,000 mls @ 100 mls/hr IVCONT .Q10H [facility] Melatonin (Melatonin 3 Mg Tablet) 6 mg PO BEDTIME PRN PRN Reason: Insomnia Ondansetron HCl (Ondansetron Hcl 4 Mg/2 Ml Vial) 4 mg IVPUSH Q8H PRN PRN Reason: Nausea and Vomiting Last Admin: 06/09/22 05:16 Dose: 4 mg Documented By: NARDA Pharmacy Consult (Consult Rx Perform Med Rec) 1 each MISCELLANE ONCE PRN PRN Reason: Consult order Pharmacy Consult (Consult Rx Vancomycin Dosing) 1 each MISCELLANE DAILY PRN PRN Reason: Consult order Senna (Sennosides 8.6 Mg Tablet) 17.2 mg PO BEDTIME PRN PRN Reason: Constipation Sodium Chloride (0.9 % Sodium Chloride Flush 3 Ml Syringe) 3 ml IVFLUSH QSHIFT [facility] Last Admin: 06/13/22 09:12 Dose: 3 ml Documented By: GRAYSON Labs CBC & Chem 7: 06/09/22 04:35 06/13/22 05:29 Labs: Laboratory Results - last 24 hr 06/12/22 06/13/22 19:44 05:29 Estim Creat Clear Calc 78.4 Estimated GFR > 60 Vancomycin Trough 11.2 Microbiology Microbiology Results: Microbiology 06/08/22 21:50 Blood Culture - Final Blood - Venous Escherichia coli 06/08/22 Unknown Urine Culture - Final Urine clean catch - Urine cross top Escherichia coli Assessment and Plan (1) Scrotal erythema: Status: Acute (2) Elevated LFTs: Status: Acute (3) AMS (altered mental status): Status: Acute (4) Liver masses: Status: Acute Plan 69-year-old male with no significant past medical history, ex-smoker presented to the hospital with a chief complaint of altered mental status.? Noted to have following Altered mental status:?Likely toxic metabolic encephalopathy.? He seem lucid now Sepsis, E coli bacteremia, E. coli in urine and blood. -Continue Ceftriaxone 2 grams ?Scrotal cellulitis vs Diaper Rash--more of diaper rash and not celllulis Liver lesions/subcarinal lymphadenopathy: MRI show multiple lesion some ring enhancing ? abscess Versus malignant -Continue antibiotics as above, biopsy postpone until tomorrow 06/14 ENEIDA:??resolved DVT prophylaxis:? add heparin inpatient need: possible liver abscess and need IV Abx pending biopsy tomoorow Discussed with nephew at bedside Quality Stroke Does the patient have a stroke diagnosis?: No VTE Prior VTE?: No VTE Risk Level:: Medical - moderate - high VTE Device Contraindication: N/A - Device Ordered VTE Drug Contraindication: Treatment Not Indicated
[2022-06-13] MEDS: Dextrose 5 % 1,000 ML 100 ML IVCONT ×2 (10:24→19:28)
[2022-06-13 11:40] VITALS: BP 128/71; PULSE 94; RESP 17; TEMP 36; O2SAT 96
[2022-06-13 14:55] VITALS: BP 126/74; PULSE 104; RESP 18; TEMP 37; O2SAT 96
[2022-06-13 18:55] VITALS: BP 143/74; PULSE 101; RESP 18; TEMP 37.2; O2SAT 98
[2022-06-13 23:01] VITALS: BP 144/78; PULSE 110; RESP 17; TEMP 37; O2SAT 96
[2022-06-14] VITALS (8 sets, daily range): BP systolic 113–133; BP diastolic 63–74; PULSE 98–110; RESP 16–38; TEMP 36.8–37.6; O2SAT 95–98
[2022-06-14] MEDS: Dextrose 5 % 1,000 ML 100 ML IVCONT (04:25)
[2022-06-14 06:27] LABS: Creatinine Clr Calc Pharmacy 84.9; Estimated Glomerular Filt Rate > 60
[2022-06-14] MEDS: cefTRIAXone sodium 2 GM in 0.9 % Sodium Chloride 50 ML IV (07:17)
--- NOTE | 2022-06-14 13:04 | HO.PM.IMPN ---
Subjective Subjective Date of Service: 06/14/22 Interval History: sepsis, E coli bacteremia, UTI, liver lesion Review of Systems ?No fever no abdominal pain no confusion has some soreness at the biopsy site. Physical Exam Vital Signs: Vital Signs: Last Vital Signs Temp 99.6 F 06/14/22 11:59 Pulse 110 H 06/14/22 11:59 Resp 17 06/14/22 11:59 BP 113/63 06/14/22 11:59 Pulse Ox 96 06/14/22 11:59 O2 Del Method 06/14/22 11:59 O2 Flow Rate 5 06/10/22 03:45 BMI result Body Mass Index 26.4 General: AO X 2, no acute distress Resp:? CTA bilateral CVS: S1,S2,RRR GI: +BS, NT, no distention Skin: No rash Neuro:? motor grossly intact Psych: appropriate affect Objective Data Active Medications Ceftriaxone Sodium 2 gm/ (Sodium Chloride) 50 mls @ 100 mls/hr IV Q24H [facility] Last Infusion: 06/14/22 08:01 Dose: 0 mls/hr Documented By: MAYA Dextrose (D5w) 1,000 mls @ 100 mls/hr IVCONT .Q10H [facility] Last Admin: 06/14/22 04:25 Dose: 100 mls/hr Documented By: HANNY Melatonin (Melatonin 3 Mg Tablet) 6 mg PO BEDTIME PRN PRN Reason: Insomnia Morphine Sulfate (Morphine Sulfate 2 Mg/Ml Cartridge) 2 mg IVPUSH Q4H PRN; Protocol PRN Reason: Pain, Severe (Pain Scale 7-10) Ondansetron HCl (Ondansetron Hcl 4 Mg/2 Ml Vial) 4 mg IVPUSH Q8H PRN PRN Reason: Nausea and Vomiting Last Admin: 06/09/22 05:16 Dose: 4 mg Documented By: NARDA Pharmacy Consult (Consult Rx Perform Med Rec) 1 each MISCELLANE ONCE PRN PRN Reason: Consult order Pharmacy Consult (Consult Rx Vancomycin Dosing) 1 each MISCELLANE DAILY PRN PRN Reason: Consult order Senna (Sennosides 8.6 Mg Tablet) 17.2 mg PO BEDTIME PRN PRN Reason: Constipation Sodium Chloride (0.9 % Sodium Chloride Flush 3 Ml Syringe) 3 ml IVFLUSH QSHIFT [facility] Last Admin: 06/14/22 07:11 Dose: Not Given Documented By: MAYA Non-Admin Reason: IV Running Labs CBC & Chem 7: 06/09/22 04:35 06/14/22 05:24 Labs: Laboratory Results - last 24 hr 06/08/22 06/14/22 21:50 05:24 Estim Creat Clear Calc 84.9 Estimated GFR > 60 Alpha Fetoprotein 1.0 Microbiology Microbiology Results: Microbiology 06/14/22 09:45 Gram Stain - Final Liver 06/08/22 21:50 Blood Culture - Final Blood - Venous Escherichia coli Assessment and Plan (1) Scrotal erythema: Status: Acute (2) Elevated LFTs: Status: Acute (3) AMS (altered mental status): Status: Acute (4) Liver masses: Status: Acute Plan 69-year-old male with no significant past medical history, ex-smoker presented to the hospital with a chief complaint of altered mental status.? Noted to have following Altered mental status:?Likely toxic metabolic encephalopathy.? He seem improving Sepsis, E coli bacteremia, E. coli in urine and blood. -Continue Ceftriaxone 2 grams ?Scrotal cellulitis vs Diaper Rash--more of diaper rash and not celllulis Liver lesions/subcarinal lymphadenopathy: MRI show multiple lesion some ring enhancing ? abscess Versus malignant -Continue antibiotics as above, biopsy postpone until tomorrow 06/14 ENEIDA:??resolved DVT prophylaxis:? mech devices due to liver biopsy today , will switch to s/c heparin in am inpatient need: possible liver abscess and need IV Abx pending biopsy Quality Stroke Does the patient have a stroke diagnosis?: No VTE Prior VTE?: No VTE Risk Level:: Medical - moderate - high VTE Device Contraindication: N/A - Device Ordered VTE Drug Contraindication: Treatment Not Indicated
--- NOTE | 2022-06-14 13:50 | MHC.CM.PN ---
EMR REVIEWED, LIVER BIOPSY TODAY AND PER HOSPITALIST ANTIC D/C 1-2 DAYS, CM WILL CONT TO FOLLOW D/C NEEDS.
[2022-06-14] MEDS: Lactated Ringers 1,000 ML 80 ML IVCONT (14:53)
[2022-06-14] MEDS: metroNIDAZOLE 500 MG TABLET PO (16:08)
[2022-06-14] MEDS: 0.9 % Sodium Chloride Flush 3 ML SYRINGE IVFLUSH (19:03)
[2022-06-15] VITALS (7 sets, daily range): BP systolic 99–117; BP diastolic 57–64; PULSE 77–125; RESP 17–20; TEMP 36–36.8; O2SAT 95–99
[2022-06-15] MEDS: metroNIDAZOLE 500 MG TABLET PO ×2 (05:49→16:10)
[2022-06-15 06:15] LABS: Hematocrit 26.5 % (42.0-52.0); Mean Corpuscular Hemoglobin 29.7 pg (27.0-33.0); Mean Corpuscular Volume 87.5 fL (80.0-98.0); Mean Platelet Volume 10.8 fL (9.4-12.4); Platelet Count 358 X10*3/uL (160-400); Red Blood Count 3.03 X10*6/uL (4.60-5.80); Red Cell Distribution Width 17.1 % (11.0-16.0); White Blood Count 20.6 X10*3/uL (4.8-10.8)
[2022-06-15 06:50] LABS: Anion Gap 10 (12-20); Blood Urea Nitrogen 21 mg/dL (9-16); Carbon Dioxide 22 mmol/L (22-29); Chloride 105 mmol/L (96-108); Creatinine Clr Calc Pharmacy 72.9; Estimated Glomerular Filt Rate > 60; Glucose Random 101 mg/dL (60-115); Potassium 4.4 mmol/L (3.3-5.1); Sodium 133 mmol/L (135-145)
[2022-06-15] MEDS: cefTRIAXone sodium 2 GM in 0.9 % Sodium Chloride 50 ML IV (07:21)
[2022-06-15] MEDS: 0.9 % Sodium Chloride Flush 3 ML SYRINGE IVFLUSH ×3 (07:29→20:21)
--- NOTE | 2022-06-15 13:02 | PM.PSYCN ---
History of Present Illness Date of Service: 06/15/2022 Chief Complaint: liver lesion Reason for Consult: Evaluate if has capacity to change healthcare proxy. Requesting physician: Jude Summers Discussed with referring provider: Yes Sources of Information: patient interviewed and chart reviewed Additional Sources of Information: Also spoke with CM and RN. HPI Narrative: Patient is a 71-year-old single male, presented to [facility] with altered mental status, admitted he with toxic metabolic encephalopathy, elevated LFTs, liver masses, acute UTI, ENEIDA. Patient has signed power of electrical controls designer while inpatient, and plans to change healthcare proxy. Psychiatry consult was asked to meet with patient regarding capacity to change healthcare proxy. Chart reviewed prior to meeting with patient. Patient currently resides with his brother Kenny, and [id number]. Patient's RN reports that patient has seemed confused at times, and has been incontinent of stool and urine. He has been instructed to use call azar as needed, but has not done so. Patient was sitting up in chair at bedside, pleasant upon approach. He was agreeable to meeting with me. He states that he is in [facility], at [facility]. He states that he has some sort of issue with his liver, a viral infection as well as ?spots on my liver ?. He states that he has been getting tested and receiving treatment regarding these issues. He denies any current home services. 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 He has a current healthcare proxy, Lindsey. He states that she is currently taking care another family member now. He states that she took care of his mother before she . He states ?I do not want Lindsey anymore for my healthcare proxy, I want Alvaro. Alvaro is a younger gentleman that has been present here. Alvaro had arrived at hospital within past day or so with no to [place], to sign power of electrical controls designer. Patient states that ?Alvaro is a good person?. He states that he is making this decision by his own choice. When asked about his brother, he states that he only has contact with him when he needs to. He states that they do not have a good relationship. He did not go into further detail. He reports that he is single, never , and has no children. He states that he has a good relationship with Alvaro, and that he trusts him. A Jaime cognitive Assessment was administered. Patient had difficulty with the visual spatial/executive exercises. Was able to trial some letters and numbers, but missed 1. He was able to draw a cube copy, although it was not exact. He was unable to draw a clock with 10 past 11, and instead octavia the numbers 11 and 10 only with no hands. He was unable to recall list of words after 5 minutes. He was able to complete rest of exam without difficulty. He was able to state the year as 2021. He states that he is not quite sure the day of the week or the date, as he was confused when he came into hospital. He was able to say that it is summer, and was able to state place and city. His speech was clear, articulate, and spoken full sentences. Appeared to have linear, goal-directed thinking, logical. No evidence of any type of responding to internal stimuli, no confusion or disorganization observed during interview. Medical Evaluation Reviewed: Yes Personal & Social History: Single, no children Retired [employer] Review of Systems Review of Systems A review of systems was completed, and was negative with the exception of pertinent positives as noted in history of presenting illness. Constitutional: Reports as per HPI Eyes: Reports as per HPI Reports Normal hearing present Cardiovascular: Reports as per HPI Respiratory: Reports as per HPI Skin/Breast: Reports as per HPI Reports Normal hearing present [facility] Medical History Scrotal erythema Family History: Unknown Social History: Single, no children. Retired. Lives with brother and sister room a, does not describe them as close, speaks to them only when necessary. Diagnostics Vital Signs (24Hr): Vital Signs - 24 hr 06/14/22 16:00 06/14/22 19:46 06/15/22 00:00 Temperature 98.2 F 98.3 F 98.2 F Pulse Rate 105 H 102 H 125 H Respiratory Rate 17 18 17 Blood Pressure 127/69 114/69 109/58 L Pulse Oximetry 96 97 95 Oxygen Delivery Method Room Air Room Air Room Air 06/15/22 01:00 06/15/22 04:00 06/15/22 07:16 Temperature 98.1 F 97.1 F Pulse Rate 101 H 88 77 Respiratory Rate 17 18 Blood Pressure 102/58 L 107/61 Pulse Oximetry 95 97 Oxygen Delivery Method Room Air Room Air 06/15/22 11:17 Temperature 96.8 F Pulse Rate 110 H Respiratory Rate 20 Blood Pressure 99/57 L Pulse Oximetry 99 Oxygen Delivery Method Room Air BMI result Body Mass Index 26.4 Labs Results: 06/15/22 05:27 06/15/22 05:27 Labs: Laboratory Results - last 48 hr 06/08/22 06/14/22 06/15/22 21:50 05:24 05:27 WBC 20.6 H RBC 3.03 L D Hgb 9.0 L Hct 26.5 L MCV 87.5 MCH 29.7 MCHC 34.0 RDW 17.1 H Plt Count 358 D MPV 10.8 Absolute Nucleated RBC 0.000 Nucleated RBC % (auto) 0.0 Sodium Potassium Chloride Carbon Dioxide Anion Gap BUN Creatinine 0.85 Estim Creat Clear Calc 84.9 Estimated GFR > 60 Random Glucose Calcium Alpha Fetoprotein 1.0 06/15/22 05:27 WBC RBC Hgb Hct MCV MCH MCHC RDW Plt Count MPV Absolute Nucleated RBC Nucleated RBC % (auto) Sodium 133 L Potassium 4.4 Chloride 105 Carbon Dioxide 22 Anion Gap 10 L BUN 21 H D Creatinine 0.99 Estim Creat Clear Calc 72.9 Estimated GFR > 60 Random Glucose 101 Calcium 9.0 Alpha Fetoprotein Imaging Radiology Impressions: ITS Impressions Abdomen/Pelvis CT 06/08/22 22:26 IMPRESSION: 1. Numerous hypodense foci throughout the left hepatic lobe, suboptimally assessed due to motion artifact and lack of intravenous contrast. This could represent an infiltrative process including multiple masses, and further workup with dynamic liver MRI is recommended. 2. Mildly enlarged subcarinal lymph node, not fully included in the [id number]. 3. Enlarged prostate gland. 4. Multiple prominent bladder calculi. 5. Atrophic left kidney. Abdomen Ultrasound 06/08/22 22:44 IMPRESSION: 1. Enlarged left hepatic lobe with numerous lesions, some of which appear cystic while others are indeterminate. Further workup with dynamic liver MRI is recommended. 2. No appreciable biliary ductal dilatation. 3. Borderline gallbladder wall thickening, of uncertain clinical significance. Right upper quadrant tenderness was reported, though no gallstones are visualized. Chest CT 06/09/22 01:40 IMPRESSION: 1. Enlarged subcarinal lymph node, which may be reactive or metastatic in nature. 2. Nonspecific 3 mm left upper lobe lung nodule. Metastasis cannot be excluded. 3. Redemonstrated heterogeneous appearance of the enlarged left hepatic lobe, concerning for neoplasm/infiltrative process. As previously noted, evaluation with dynamic liver MRI is recommended. 4. Small hiatal hernia. Head CT 06/09/22 01:40 IMPRESSION: No acute intracranial pathology. Of note, assessment for intracranial mass lesions would be better performed with pre and postcontrast brain MRI. Scrotum Ultrasound 06/09/22 08:10 IMPRESSION: * In this patient with history of scrotal redness, there is no evidence of focal fluid collection/abscess in the scrotum. * The color Doppler images show hypervascular appearance of each epididymal tail. The findings require clinical correlation since although mild epididymitis is suspected on the basis of imaging, epididymitis would be expected to have associated symptoms. * The testicles are unremarkable. Scrotum Ultrasound 06/09/22 08:10 IMPRESSION: * In this patient with history of scrotal redness, there is no evidence of focal fluid collection/abscess in the scrotum. * The color Doppler images show hypervascular appearance of each epididymal tail. The findings require clinical correlation since although mild epididymitis is suspected on the basis of imaging, epididymitis would be expected to have associated symptoms. * The testicles are unremarkable. Hepatobiliary Scan Nuclear Medicine 06/09/22 15:35 IMPRESSION: Findings consistent with cystic duct obstruction. The gallbladder is contracted on ultrasound and CT abdomen and pelvic exam. Abdomen MRI 06/10/22 10:20 IMPRESSION: Enlarged left hepatic lobe replaced by innumerable lesions demonstrating rim enhancement and central necrosis, differentials include pyogenic liver abscesses or infiltrative tumor. Nonspecific periportal and peripancreatic lymphadenopathy. Mild peripancreatic free fluid and fat stranding. This critical result was discussed with Dr.Nayyer Morataya at 06/10/2022 1:08 PM and it was ascertained that the content and urgency of the report was understood at the time of direct communication. Liver Biopsy CT 06/14/22 10:30 IMPRESSION: Successful CT fluoroscopy-guided left hepatic lobe fine-needle aspiration and core biopsy performed. There are no immediate complications. Doppler Study Ultrasound 06/15/22 09:46 IMPRESSION: Patent portal vein with normal direction of flow with no evidence for portal vein thrombosis. Mental Status Exam Mental Status Exam Narrative: Well-developed, well-nourished male, in NAD. Jaundiced appearance. Appropriately groomed. Appear to be fatigued. Dressed in hospital garb. Sitting up in chair at bedside. Alert and oriented x3. Eye contact within normal limits. No involuntary movements noted, motor activity was calm, posture within normal limits. Manner and behavior were calm, cooperative. Speech was fluent, unimpaired. Mood and affect were stable. Thought process and associations were goal directed. Thought content was normal, future oriented. No evidence of delusional thoughts or hallucinations. No reports of SI/HI. Appear to be reliable historian. Judgment and insight appear to be grossly intact. Ambulation not observed. No cogwheeling or rigidity noted. Medications Medications Current Medications Ceftriaxone Sodium 2 gm/ (Sodium Chloride) 50 mls @ 100 mls/hr IV Q24H [facility] Last Infusion: 06/15/22 08:23 Dose: Infused Melatonin (Melatonin 3 Mg Tablet) 6 mg PO BEDTIME PRN PRN Reason: Insomnia Metronidazole (Metronidazole 500 Mg Tablet) 500 mg PO Q12H [facility] Last Admin: 06/15/22 05:49 Dose: 500 mg Morphine Sulfate (Morphine Sulfate 2 Mg/Ml Cartridge) 1 mg IVPUSH Q4H PRN; Protocol PRN Reason: Pain, Severe (Pain Scale 7-10) Ondansetron HCl (Ondansetron Hcl 4 Mg/2 Ml Vial) 4 mg IVPUSH Q8H PRN PRN Reason: Nausea and Vomiting Last Admin: 06/09/22 05:16 Dose: 4 mg Pharmacy Consult (Consult Rx Perform Med Rec) 1 each MISCELLANE ONCE PRN PRN Reason: Consult order Pharmacy Consult (Consult Rx Vancomycin Dosing) 1 each MISCELLANE DAILY PRN PRN Reason: Consult order Senna (Sennosides 8.6 Mg Tablet) 17.2 mg PO BEDTIME PRN PRN Reason: Constipation Sodium Chloride (0.9 % Sodium Chloride Flush 3 Ml Syringe) 3 ml IVFLUSH QSHIFT [facility] Last Admin: 06/15/22 07:29 Dose: 3 ml Allergies Allergies Allergy/AdvReac Type Severity Reaction Status Date / Time No Known Allergies Allergy Verified 06/08/22 20:57 Assessment & Plan Assessment & Plan (1) Encounter for assessment of healthcare decision-making capacity: Status: Acute Code(s): Z02.79 - Encounter for issue of other medical certificate Assessment and Plan: Patient was alert and oriented, spoken full articulate sentences, which were relevant and logical. Did have some difficulty with visual spatial / executive part of MOCA, mainly drawing the clock. Did have difficulty on [place] with memory. However was able to complete rest of exam without much difficulty. He was able to describe where he is, why he is here, the course of treatment. He was able to explain why he wishes to change healthcare proxies. He was able to take in information regarding his medical condition, process it in a meaningful way, and make appropriate decisions. Plan 1. Patient appears to have capacity regarding desire to change healthcare proxies at this time. This information was shared with provider. I spent ___30___ minutes with the patient and/or on the patient floor today, greater than?50% of which was spent counseling/coordinating care. Patient educated on: medical condition Informed Consent: understands
--- NOTE | 2022-06-15 13:52 | HO.PM.IMPN ---
Subjective Subjective Date of Service: 06/15/22 Interval History: sepsis, E coli bacteremia, UTI, liver lesion Review of Systems mental status improving denies any chest pain or shortness of breath abdominalpain , appetite improving also Physical Exam Vital Signs: Vital Signs: Last Vital Signs Temp 96.8 F 06/15/22 11:17 Pulse 110 H 06/15/22 11:17 Resp 20 06/15/22 11:17 BP 99/57 L 06/15/22 11:17 Pulse Ox 99 06/15/22 11:17 O2 Del Method 06/15/22 11:17 O2 Flow Rate 5 06/10/22 03:45 BMI result Body Mass Index 26.4 General: AO X 2, no acute distress Resp:? CTA bilateral CVS: S1,S2,RRR GI: +BS, NT, no distention Skin: No rash Neuro:? motor grossly intact Psych: appropriate affect Objective Data Active Medications Ceftriaxone Sodium 2 gm/ (Sodium Chloride) 50 mls @ 100 mls/hr IV Q24H [facility] Last Infusion: 06/15/22 08:23 Dose: 0 mls/hr Documented By: JLUIS Melatonin (Melatonin 3 Mg Tablet) 6 mg PO BEDTIME PRN PRN Reason: Insomnia Metronidazole (Metronidazole 500 Mg Tablet) 500 mg PO Q12H [facility] Last Admin: 06/15/22 05:49 Dose: 500 mg Documented By: JUSTYNA Morphine Sulfate (Morphine Sulfate 2 Mg/Ml Cartridge) 1 mg IVPUSH Q4H PRN; Protocol PRN Reason: Pain, Severe (Pain Scale 7-10) Ondansetron HCl (Ondansetron Hcl 4 Mg/2 Ml Vial) 4 mg IVPUSH Q8H PRN PRN Reason: Nausea and Vomiting Last Admin: 06/09/22 05:16 Dose: 4 mg Documented By: NARDA Pharmacy Consult (Consult Rx Perform Med Rec) 1 each MISCELLANE ONCE PRN PRN Reason: Consult order Pharmacy Consult (Consult Rx Vancomycin Dosing) 1 each MISCELLANE DAILY PRN PRN Reason: Consult order Senna (Sennosides 8.6 Mg Tablet) 17.2 mg PO BEDTIME PRN PRN Reason: Constipation Sodium Chloride (0.9 % Sodium Chloride Flush 3 Ml Syringe) 3 ml IVFLUSH QSHIFT [facility] Last Admin: 07/27/22 07:29 Dose: 3 ml Documented By: MAYA Labs CBC & Chem 7: 06/15/22 05:27 06/15/22 05:27 Labs: Laboratory Results - last 24 hr 06/15/22 06/15/22 05:27 05:27 MCV 87.5 MCH 29.7 MCHC 34.0 RDW 17.1 H Plt Count 358 D MPV 10.8 Absolute Nucleated RBC 0.000 Nucleated RBC % (auto) 0.0 Anion Gap 10 L Estim Creat Clear Calc 72.9 Estimated GFR > 60 Random Glucose 101 Calcium 9.0 Microbiology Microbiology Results: Microbiology 06/14/22 09:45 Gram Stain - Final Liver Routine Culture - Preliminary Culture in progress. Anaerobic Culture - Preliminary Culture in progress. 06/08/22 21:50 Blood Culture - Preliminary Blood - Venous Escherichia coli Gram negative jasson Assessment and Plan (1) Scrotal erythema: Status: Acute (2) Elevated LFTs: Status: Acute (3) AMS (altered mental status): Status: Acute (4) Liver masses: Status: Acute Plan 69-year-old male with no significant past medical history, ex-smoker presented to the hospital with a chief complaint of altered mental status.? Noted to have following Altered mental status:?Likely toxic metabolic encephalopathy.? He seem improving Sepsis, E coli bacteremia, E. coli in urine and blood. -Continue Ceftriaxone 2 grams/added flagyl due to liver lesions discussed with ID: Recommended 4 week of IV antibiotic considering E coli bacteremia/ also liver lesions, biopsy pending repeat blood cultures added in addition discussed with IR- placing PICC line in am. ?Scrotal cellulitis vs Diaper Rash--more of diaper rash and not celllulis Liver lesions/subcarinal lymphadenopathy: MRI show multiple lesion some ring enhancing ? abscess Versus malignant -Continue antibiotics as above, biopsy postpone until tomorrow 06/14 ENEIDA:??resolved DVT prophylaxis:? mech devices due to liver biopsy today , will switch to s/c heparin in am inpatient need: possible liver abscess and need IV Abx pending biopsy Quality Stroke Does the patient have a stroke diagnosis?: No VTE Prior VTE?: No VTE Risk Level:: Medical - moderate - high VTE Device Contraindication: N/A - Device Ordered VTE Drug Contraindication: Treatment Not Indicated
--- NOTE | 2022-06-15 15:20 | MHC.CM.PN ---
PT CONT'S TO NEED STR FOR IV ABX APPROX 4WKS AND PT, HOSPITALIST TO RECONSULT ID TO DETERMINE FINAL ABX, ANTIC D/C 1-2 DAYS, PT HAS NO PREFERENCES IN SNF'S, [facility] FOLLOWING. CM WILL CONT TO FOLLOW D/C NEEDS.
[2022-06-16] VITALS (8 sets, daily range): BP systolic 103–144; BP diastolic 58–67; PULSE 100–123; RESP 13–18; TEMP 36.5–37.4; O2SAT 97–98
[2022-06-16] MEDS: metroNIDAZOLE 500 MG TABLET PO ×2 (03:52→18:14)
[2022-06-16 05:43] LABS: Ammonia 24 umol/L (13-55)
[2022-06-16 06:06] LABS: Anion Gap 10 (12-20); Blood Urea Nitrogen 24 mg/dL (9-16); Calcium 8.7 mg/dL (8.4-10.2); Carbon Dioxide 22 mmol/L (22-29); Chloride 104 mmol/L (96-108); Creatinine Clr Calc Pharmacy 72.9; Estimated Glomerular Filt Rate > 60; Glucose Random 112 mg/dL (60-115); Potassium 4.4 mmol/L (3.3-5.1); Sodium 132 mmol/L (135-145)
[2022-06-16] MEDS: cefTRIAXone sodium 2 GM in 0.9 % Sodium Chloride 50 ML IV (07:16)
[2022-06-16] MEDS: 0.9 % Sodium Chloride Flush 3 ML SYRINGE IVFLUSH ×2 (07:21→23:43)
[2022-06-16] MEDS: Heparin Sodium,Porcine 5,000 UNIT/ML VIAL 5000 UNIT SUBCUT ×2 (10:53→19:47)
[2022-06-16] MEDS: Omeprazole 20 MG CAPSULE.DR PO (10:53)
[2022-06-16 10:59] LABS: Hematocrit 27.5 % (42.0-52.0); Hemoglobin 9.2 g/dl (14.0-18.0)
[2022-06-16 11:11] LABS: Iron 26 mcg/dL (45-160); Percent Iron Saturation 14 % (15-50); Total Iron Binding Capacity 184 mcg/dL (228-428); Unsaturated Iron Binding 158 ug/dL
[2022-06-16 11:46] LABS: Folate 5.1 ng/mL (> or = 4.0); Vitamin B12 937 pg/mL (200-900)
--- NOTE | 2022-06-16 12:19 | P.PNIM_ITS ---
Subjective Subjective Date of Service: 06/16/22 Interval History: possible liver abcess ,ecoli bacteremia/sepsis ,liver cultures grew -gram negative rods Review of Systems patient seems slowly improving,picc line attemp in IR unsuccessful Physical Exam Vital Signs: Vital Signs: Last Vital Signs Temp 98.8 F 06/16/22 11:01 Pulse 123 H 06/16/22 11:01 Resp 14 06/16/22 11:01 BP 103/58 L 06/16/22 11:01 Pulse Ox 98 06/16/22 11:01 O2 Del Method 06/16/22 11:01 O2 Flow Rate 5 06/10/22 03:45 BMI result Body Mass Index 26.4 General: AO X 2, no acute distress Resp:? CTA bilateral CVS: S1,S2,RRR GI: +BS, NT, no distention Skin: No rash Neuro:? motor grossly intact Psych: appropriate affect Objective Data Active Medications Heparin Sodium (Porcine) (Heparin Sodium,Porcine 5,000 Unit/Ml Vial) 5,000 unit SUBCUT Q12H [facility] Last Admin: 06/16/22 10:53 Dose: 5,000 unit Documented By: MAYA Ceftriaxone Sodium 2 gm/ (Sodium Chloride) 50 mls @ 100 mls/hr IV Q24H [facility] Last Infusion: 06/16/22 09:33 Dose: 0 mls/hr Documented By: MAYA Melatonin (Melatonin 3 Mg Tablet) 6 mg PO BEDTIME PRN PRN Reason: Insomnia Metronidazole (Metronidazole 500 Mg Tablet) 500 mg PO Q12H [facility] Last Admin: 06/16/22 03:52 Dose: 500 mg Documented By: GRANT Morphine Sulfate (Morphine Sulfate 2 Mg/Ml Cartridge) 1 mg IVPUSH Q4H PRN; Protocol PRN Reason: Pain, Severe (Pain Scale 7-10) Omeprazole (Omeprazole 20 Mg Capsule.Dr) 20 mg PO BID@0630,1630 [facility] Last Admin: 06/16/22 10:53 Dose: 20 mg Documented By: MAYA Ondansetron HCl (Ondansetron Hcl 4 Mg/2 Ml Vial) 4 mg IVPUSH Q8H PRN PRN Reason: Nausea and Vomiting Last Admin: 06/09/22 05:16 Dose: 4 mg Documented By: NARDA Pharmacy Consult (Consult Rx Perform Med Rec) 1 each MISCELLANE ONCE PRN PRN Reason: Consult order Pharmacy Consult (Consult Rx Vancomycin Dosing) 1 each MISCELLANE DAILY PRN PRN Reason: Consult order Senna (Sennosides 8.6 Mg Tablet) 17.2 mg PO BEDTIME PRN PRN Reason: Constipation Sodium Chloride (0.9 % Sodium Chloride Flush 3 Ml Syringe) 3 ml IVFLUSH QSHIFT CECILY Last Admin: 06/16/22 07:21 Dose: 3 ml Documented By: MAYA Labs CBC & Chem 7: 06/16/22 10:49 06/16/22 05:19 Labs: Laboratory Results - last 24 hr 06/16/22 06/16/22 06/16/22 05:19 05:19 10:49 Anion Gap 10 L Estim Creat Clear Calc 72.9 Estimated GFR > 60 Random Glucose 112 Calcium 8.7 Iron 26 L TIBC 184 L % Saturation 14 L Unsat Iron Binding 158 Ammonia 24 Vitamin B12 Folate 06/16/22 10:49 Anion Gap Estim Creat Clear Calc Estimated GFR Random Glucose Calcium Iron TIBC % Saturation Unsat Iron Binding Ammonia Vitamin B12 937 H Folate 5.1 Microbiology Microbiology Results: Microbiology 06/14/22 09:45 Gram Stain - Final Liver Routine Culture - Preliminary Gram negative jasson Anaerobic Culture - Preliminary Culture in progress. 06/08/22 21:50 Blood Culture - Final Blood - Venous Escherichia coli Prevotella intermedia Assessment and Plan Plan 69-year-old male with no significant past medical history, ex-smoker presented to the hospital with a chief complaint of altered mental status.? Noted to have following Altered mental status:?Likely toxic metabolic encephalopathy.? He seem improving Sepsis,? E coli bacteremia,? E. coli in urine and blood. possible liver abcess ,ecoli bacteremia/sepsis ,liver cultures grew -gram negative jasson. -Continue Ceftriaxone 2 grams/added flagyl due to liver lesions ?discussed with ID:? Recommended 4 week of IV antibiotic considering E coli bacteremia/ also liver lesions, biopsy pending repeat blood cultures added ?in addition discussed with IR- placing PICC attemp -this morning unsuccessful ,IR will try again. ?Scrotal cellulitis vs Diaper Rash--more of diaper rash and not celllulis Liver lesions/subcarinal lymphadenopathy: MRI show multiple lesion some ring enhancing ? abscess possible(as per pathology results). -Continue? antibiotics as above, biopsy postpone until tomorrow 06/14 ENEIDA:??resolved DVT prophylaxis:? mech devices due to liver biopsy today , switch to s/c heparin in am inpatient need: possible liver abscess and need IV Abx pending biopsy Quality Stroke Does the patient have a stroke diagnosis?: No VTE Prior VTE?: No VTE Risk Level:: Medical - moderate - high VTE Device Contraindication: N/A - Device Ordered VTE Drug Contraindication: Treatment Not Indicated
--- NOTE | 2022-06-16 13:43 | MHC.CM.PN ---
Addendum entered by Laurie Kaur 06/16/22 14:09: CM APPROACHED BY PTS FRIEND, EMMANUEL, WHO AGAIN SAYS PT WANTS ONLY HIM ON THE HCP. CM EXPLAINED THIS WAS DISCUSSED WITH PT WHO DECLINED TO CHANGE IT AT THIS TIME CM ALSO EXPLAINED THE PT IS ABLE TO MAKE HIS OWN DECISIONS AT THIS TIME EMMANUEL REPORTS SUSANA CAN BE PUSHY AND THAT IS WHY THE PT SECRETLY MADE HIM HIS POA AND PUT HIM IN HIS WILL CM EXPLAINED IF THE PT WANTED TO CHANGE HIS HCP, ASSISTANCE WOULD BE PROVIDED BUT IT WOULD NOT BE DISCUSSED FURTHER IN THE PRESENCE OF VISITORS. Original Note: TWO CM'S AND TWO NURSES MET WITH PT AFTER BEING INFORMED HE WANTED TO CHANGE HIS HCP. WHEN ASKED, PT REPORTS HE WANTS THINGS TO CALM DOWN AND DOES NOT WANT THERE TO BE ANY TROUBLE. HE REPORTS HE DOES NOT WANT TO CHANGE ANYTHING AT THIS TIME HE CONTINUES TO REPORT HE IS NOT WILLING TO GO TO [facility] AND PLANS TO DC TO SUSANA'S HOME [place], AT BEDSIDE, REPORTS SHE FEELS COMFORTABLE WITH CARING FOR THE PT AND HAVING PT AND SN COMING INTO THE HOME SHE ALSO REPORTS SHE FEELS COMFORTABLE ADMINISTERING IV ABX AFTER TEACHINGS ARE PROVIDED. REFERRAL MADE TO [facility] AND [facility] PT DID NOT HAVE HIS PICC PLACED TODAY UNCLEAR EXACTLY WHEN IT WILL BE DONE ONCE PLACED, PT MAY BE READY TO DC
[2022-06-16 15:22] LABS: Alanine Aminotransferase 37 U/L (0-40); Albumin Level 2.2 g/dL (3.5-5.0); Alkaline Phosphatase 373 U/L (39-117); Aspartate Amino Transferase 34 U/L (5-37); Bilirubin Direct 1.5 mg/dL (0.0-0.5); Bilirubin Total 1.9 mg/dL (0.0-1.0); Total Protein 6.6 g/dL (6.5-8.0)
[2022-06-16] MEDS: Lidocaine HCl 1 % 20 ML VIAL 10 ML SUBCUT (17:24)
[2022-06-17] VITALS: BP 127/65; PULSE 104; RESP 18; TEMP 37; O2SAT 97
[2022-06-17 04:00] VITALS: BP 120/57; PULSE 107; RESP 18; TEMP 36.9; O2SAT 98
[2022-06-17] MEDS: metroNIDAZOLE 500 MG TABLET PO (05:23)
[2022-06-17] MEDS: Omeprazole 20 MG CAPSULE.DR PO ×2 (05:23→15:16)
[2022-06-17 06:23] LABS: Creatinine Clr Calc Pharmacy 73.6; Estimated Glomerular Filt Rate > 60
[2022-06-17] MEDS: Heparin Sodium,Porcine 5,000 UNIT/ML VIAL 5000 UNIT SUBCUT (07:44)
[2022-06-17] MEDS: cefTRIAXone sodium 2 GM in 0.9 % Sodium Chloride 50 ML IV (07:45)
[2022-06-17] MEDS: 0.9 % Sodium Chloride Flush 3 ML SYRINGE IVFLUSH ×2 (07:45→15:16)
[2022-06-17 08:00] VITALS: BP 127/70; PULSE 100; RESP 16; TEMP 37.2; O2SAT 95
[2022-06-17 10:03] VITALS: BP 127/70; PULSE 100; O2SAT 95
--- NOTE | 2022-06-17 12:08 | P.CNPS_ITS ---
History of Present Illness Date of Service: 06/17/22 Chief Complaint: liver lesion Reason for Consult: capacity clarification Requesting physician: Jude Summers Sources of Information: patient interviewed and chart reviewed HPI Narrative: I met with this patient earlier in week to determine if he has capacity for healthcare decision making. At that time he was found to have capacity. I was asked again to confirm this. I met with patient today. He was able to state his healthcare concerns, diagnosis, why he is here, and proposed treatment. He was fully alert and oriented x4, spoke in logical, articulate, clear sentences. No hallucinations, paranoia, or delusions noted. Memory intact. Attention and concentration fully intact. Abstract reasoning fully intact. Fund of knowledge appropriate. He displayed insight and judgment regarding his diagnosis and treatment. It is my opinion at this time that he continues to have full capacity for healthcare decision-making purposes. I have shared this with machine adjuster leader case trim and with provider Dr. Summers. Thank you [facility] Medical History Scrotal erythema Family History: Unknown Social History: Single, no children. Retired. Lives with brother and sister room a, does not describe them as close, speaks to them only when necessary. Diagnostics Vital Signs (24Hr): Vital Signs - 24 hr 06/16/22 15:12 06/16/22 18:16 06/16/22 19:47 Temperature 98.1 F 98.1 F 98.1 F Pulse Rate 100 102 H 105 H Respiratory Rate 17 17 17 Blood Pressure 114/62 124/66 118/67 Pulse Oximetry 97 97 98 Oxygen Delivery Method Room Air Room Air Room Air 06/17/22 00:00 06/17/22 04:00 06/17/22 08:00 Temperature 98.6 F 98.5 F 98.9 F Pulse Rate 104 H 107 H 100 Respiratory Rate 18 18 16 Blood Pressure 127/65 120/57 L 127/70 Pulse Oximetry 97 98 95 Oxygen Delivery Method Room Air Room Air Room Air 06/17/22 10:03 Temperature Pulse Rate 100 Respiratory Rate Blood Pressure 127/70 Pulse Oximetry 95 Oxygen Delivery Method BMI result Body Mass Index 26.4 Labs Results: 06/16/22 10:49 06/17/22 05:38 Labs: Laboratory Results - last 48 hr 06/16/22 06/16/2206/16/22 05:19 05:19 10:49 Hgb 9.2 L Hct 27.5 L Sodium 132 L Potassium 4.4 Chloride 104 Carbon Dioxide 22 Anion Gap 10 L BUN 24 H Creatinine 0.99 Estim Creat Clear Calc 72.9 Estimated GFR > 60 Random Glucose 112 Calcium 8.7 Iron TIBC % Saturation Unsat Iron Binding Total Bilirubin Direct Bilirubin AST ALT Alkaline Phosphatase Ammonia 24 Total Protein Albumin Vitamin B12 Folate 06/16/22 06/16/22 06/17/22 10:49 10:49 05:38 Hgb Hct Sodium Potassium Chloride Carbon Dioxide Anion Gap BUN Creatinine 0.98 Estim Creat Clear Calc 73.6 Estimated GFR > 60 Random Glucose Calcium Iron 26 L TIBC 184 L % Saturation 14 L Unsat Iron Binding 158 Total Bilirubin 1.9 H Direct Bilirubin 1.5 H AST 34 ALT 37 Alkaline Phosphatase 373 H D Ammonia Total Protein 6.6 Albumin 2.2 L Vitamin B12 937 H Folate 5.1 Imaging Radiology Impressions: ITS Impressions Abdomen/Pelvis CT 06/08/22 22:26 IMPRESSION: 1. Numerous hypodense foci throughout the left hepatic lobe, suboptimally assessed due to motion artifact and lack of intravenous contrast. This could represent an infiltrative process including multiple masses, and further workup with dynamic liver MRI is recommended. 2. Mildly enlarged subcarinal lymph node, not fully included in the [id number]. 3. Enlarged prostate gland. 4. Multiple prominent bladder calculi. 5. Atrophic left kidney. Abdomen Ultrasound 06/08/22 22:44 IMPRESSION: 1. Enlarged left hepatic lobe with numerous lesions, some of which appear cystic while others are indeterminate. Further workup with dynamic liver MRI is recommended. 2. No appreciable biliary ductal dilatation. 3. Borderline gallbladder wall thickening, of uncertain clinical significance. Right upper quadrant tenderness was reported, though no gallstones are visualized. Chest CT 06/09/22 01:40 IMPRESSION: 1. Enlarged subcarinal lymph node, which may be reactive or metastatic in nature. 2. Nonspecific 3 mm left upper lobe lung nodule. Metastasis cannot be excluded. 3. Redemonstrated heterogeneous appearance of the enlarged left hepatic lobe, concerning for neoplasm/infiltrative process. As previously noted, evaluation with dynamic liver MRI is recommended. 4. Small hiatal hernia. Head CT 06/09/22 01:40 IMPRESSION: No acute intracranial pathology. Of note, assessment for intracranial mass lesions would be better performed with pre and postcontrast brain MRI. Scrotum Ultrasound 06/09/22 08:10 IMPRESSION: * In this patient with history of scrotal redness, there is no evidence of focal fluid collection/abscess in the scrotum. * The color Doppler images show hypervascular appearance of each epididymal tail. The findings require clinical correlation since although mild epididymitis is suspected on the basis of imaging, epididymitis would be expected to have associated symptoms. * The testicles are unremarkable. Scrotum Ultrasound 06/09/22 08:10 IMPRESSION: * In this patient with history of scrotal redness, there is no evidence of focal fluid collection/abscess in the scrotum. * The color Doppler images show hypervascular appearance of each epididymal tail. The findings require clinical correlation since although mild epididymitis is suspected on the basis of imaging, epididymitis would be expected to have associated symptoms. * The testicles are unremarkable. Hepatobiliary Scan Nuclear Medicine 06/09/22 15:35 IMPRESSION: Findings consistent with cystic duct obstruction. The gallbladder is contracted on ultrasound and CT abdomen and pelvic exam. Abdomen MRI 06/10/22 10:20 IMPRESSION: Enlarged left hepatic lobe replaced by innumerable lesions demonstrating rim enhancement and central necrosis, differentials include pyogenic liver abscesses or infiltrative tumor. Nonspecific periportal and peripancreatic lymphadenopathy. Mild peripancreatic free fluid and fat stranding. This critical result was discussed with Dr.Nayyer Morataya at 06/10/2022 1:08 PM and it was ascertained that the content and urgency of the report was understood at the time of direct communication. Liver Biopsy CT 06/14/22 10:30 IMPRESSION: Successful CT fluoroscopy-guided left hepatic lobe fine-needle aspiration and core biopsy performed. There are no immediate complications. Doppler Study Ultrasound 06/15/22 09:46 IMPRESSION: Patent portal vein with normal direction of flow with no evidence for portal vein thrombosis. Medications Medications Current Medications Heparin Sodium (Porcine) (Heparin Sodium,Porcine 5,000 Unit/Ml Vial) 5,000 unit SUBCUT Q12H CECILY Last Admin: 06/17/22 07:44 Dose: 5,000 unit Ceftriaxone Sodium 2 gm/ (Sodium Chloride) 50 mls @ 100 mls/hr IV Q24H CECILY Last Infusion: 06/17/22 08:44 Dose: Infused Melatonin (Melatonin 3 Mg Tablet) 6 mg PO BEDTIME PRN PRN Reason: Insomnia Metronidazole (Metronidazole 500 Mg Tablet) 500 mg PO Q12H [facility] Last Admin: 06/17/22 05:23 Dose: 500 mg Morphine Sulfate (Morphine Sulfate 2 Mg/Ml Cartridge) 1 mg IVPUSH Q4H PRN; Protocol PRN Reason: Pain, Severe (Pain Scale 7-10) Omeprazole (Omeprazole 20 Mg Capsule.Dr) 20 mg PO BID@0630,1630 [facility] Last Admin: 06/17/22 05:23 Dose: 20 mg Ondansetron HCl (Ondansetron Hcl 4 Mg/2 Ml Vial) 4 mg IVPUSH Q8H PRN PRN Reason: Nausea and Vomiting Last Admin: 06/09/22 05:16 Dose: 4 mg Pharmacy Consult (Consult Rx Perform Med Rec) 1 each MISCELLANE ONCE PRN PRN Reason: Consult order Pharmacy Consult (Consult Rx Vancomycin Dosing) 1 each MISCELLANE DAILY PRN PRN Reason: Consult order Senna (Sennosides 8.6 Mg Tablet) 17.2 mg PO BEDTIME PRN PRN Reason: Constipation Sodium Chloride (0.9 % Sodium Chloride Flush 3 Ml Syringe) 3 ml IVFLUSH QSHIFT [facility] Last Admin: 06/17/22 07:45 Dose: 3 ml Sodium Chloride (0.9 % Sodium Chloride Flush 10 Ml Syringe) 5 ml IVFLUSH TID [facility] Allergies Allergies Allergy/AdvReac Type Severity Reaction Status Date / Time No Known Allergies Allergy Verified 06/08/22 20:57 Assessment & Plan I spent minutes with the patient and/or on the patient floor today, greater than?50% of which was spent counseling/coordinating care.
--- NOTE | 2022-06-17 13:27 | MHC.CM.PN ---
PT MEDICALLY CLEARED FOR D/C TO [facility], PT PREFERS TO STAY IN [place] AND HAS ACCEPTED BED OFFER AT [facility], [facility]. PT WILL BE ON 4 WKS IV CEFTRIAXONE 2GM Q 24HRS FOR LIVER ABSCESS.
--- NOTE | 2022-06-17 14:31 | MHC.CM.PN ---
Addendum entered by Carlotta Pichardo 06/23/22 11:03: LATE ENTRY: Received call from SS stating they would not be able to open an elder exploitation case because the incident in questioned happened in a medical facility. Voice Message was left with [facility] [place]legal for pursuance of case. Original Note: Call placed to pt's adopted sister, Lindsey to discuss d/c plan. Per Lindsey, she is willing to care for Nael at her home in [place] with [facility] supportive services. She states she is a [employer]PORATE [employer]ICER and has adaptive equipment in her home from caring for other family members. Lindsey states she is 'very concerned' about pt signing a POA naming Alvaro Shaikh as the agent. She said Alvaro used to rent an apartment from pt when he was a college student in [place] and has kept in touch w/pt throughout the years. She said she feels pt was pressured to sign and is too sick to understand the gravity of his decision. Lindsey also states that Alvaro has been staying in pt's [facility] but is reportedly from [place]. Staff had overheard Alvaro asking pt for a debit card after the POA was signed in the presence of public address servicer that Alvaro had hired and brought to pt's room. CM will file with SS for possible elder financial exploitation. Pt will transfer to a [facility] facilty for continued care.
[2022-06-17 14:45] LABS: COVID-19 Test Negative (Negative); IDNOW Serial# 55D5AD1C
[2022-06-17] MEDS: 0.9 % Sodium Chloride Flush 10 ML SYRINGE 5 ML IVFLUSH (15:15)
--- NOTE | 2022-06-17 15:25 | PM.DS ---
DS: Providers Provider Date of Service: 06/17/22 Date of admission: 06/09/22 02:38 Primary care physician: Unknown Physician Consults: 06/09/22 02:34 Consult to Gastroenterology Routine Consulting Provider: Mar Manning Reason for consultation: liver lesion; elevated t bili Consult to Hematology / Oncology Routine Consulting Provider: Chen Parker Reason for consultation: Liver lesion Consult to Infectious Diseases Routine Consulting Provider: Marti Montoya Reason for consultation: scrotal cellulitis 06/15/22 10:25 Consult to Psychiatry Routine Consulting Provider: Psych Covering Reason for consultation: eval if he can do HCP Has provider been notified: No DS: Diagnosis Discharge Diagnosis (1) Scrotal erythema: Status: Acute (2) Elevated LFTs: Status: Acute (3) AMS (altered mental status): Status: Acute (4) Liver masses: Status: Acute DS: Summary Hospital Course Hospital Course: 69-year-old male with no significant past medical history, ex-smoker presented to the hospital today with chief complaint of confusion.? Patient is alert and awake, lying in the bed, confused.? Not able to provide history.? Spoke to the patient's stoma-was that upper sister; mentioned that over the past 1 week patient has been not doing well, has decreased oral intake.? Also complained of abdominal pain.? Patient initially reported dark urine.? Denies any fevers at home.? Patient of for came to the hospital with complaint of right upper quadrant abdominal pain.? Denies any diarrhea.? Denies any fever chills.? Denies any cough or sputum production.? Mentioned that patient has been peeing frequently; had diaper placed; Denies any weight loss.? Denies any falls or trauma.? Denies patient complaining of any chest pain, palpitations.? Review of all other systems is negative except mentioned above ER course: Per ER team, patient on presentation noted to be confused; CT head showed no acute findings; on labs noted to have ENEIDA, elevated T bili; patient had low-grade temperature; patient's scrotum is inflamed concerning for diaper rash versus cellulitis.? Patient was given Zosyn.? CT abdomen also showed liver lesions concerning for malignancy.? Admitted to the hospital for further management. Hospital course: patient was admitted for toxic metabolic encephalopathy, sepsis and E coli bacteremia, possible UTI, also found to have multiple liver lesions, and blood cultures sent: patient was started on IV antibiotics, blood culture came back E coli, liver biopsy also done which shows E coli positive, pathology shows likely liver abscess. patient was seen by infectious disease, Oncology, GI- case discussed in detail with both [facility] and ID,oncology: patient's liver lesions likely due to liver abscess- patient will need 4 week of IV antibiotics. patient possibly need repeat CTabd scan in 2weeks to evaluate liver abcesses area. Patient is to follow-up with ID and GI outpatient for further workup. Initially as part of workup- patient the CEA, alpha-fetoprotein, CA 19-9: were sent, had mild elevation of CA 19-9: spoke to Oncology patient is to repeat CA19-9 in 1 month if levels are still elevated, patient is to follow-up with Oncology out patiently, also has left upper lung nodule [address] and enlarged sub carinal lymph node which thought to be reactive. please repeat lung CT- in 2 months outpatient for above. also discussed with the surgery since initial HIDA scan showed cystic duct obstruction but MRI is negative, LFTs improving patient is asymptomatic, further management outpatient consider outpatient surgery eval. Plan: Patient needs to monitor CBC, BMP, liver function test, ESR, CRP- Q weekly while patient is on antibiotics. patient is to follow up outpatient with ID and GI. repeat CTabd scan in 2weeks to evaluate liver abcesses area. please repeat lung CT- in 2 months outpatient for above and repeat CA19-9 in 1 month (d/w oncology) if patient develops any fever or abdominal pain or any new symptoms patient needs to go to nearest emergency room for further evaluation. Above management discussed with the patient in detail length he understand and in agreement with the above plan, time spent 50 minutes and 50% time spent on counseling. Significant findings: As above. Procedures performed: None. Treatment and response: As above. Complications: None. Time Spent with Patient Time attestation: Total time spent providing and/or coordinating discharge services: Discharge coordination time: Greater than 30 minutes Quality: Safe Use of Opioids Does Pt have an Active Cancer Diagnosis on the Problem List?: No Quality: Stroke Does the patient have a stroke diagnosis?: No Physical Exam Vital Signs: Vital Signs: Last Vital Signs Temp 98.9 F 06/17/22 08:00 Pulse 100 06/17/22 10:03 Resp 16 06/17/22 08:00 BP 127/70 06/17/22 10:03 Pulse Ox 95 06/17/22 10:03 O2 Del Method 06/17/22 08:00 O2 Flow Rate 5 06/10/22 03:45 BMI result Body Mass Index 26.4 ? General: AO X 2, no acute distress Resp:? CTA bilateral CVS: S1,S2,RRR GI: +BS, NT, no distention Skin: No rash, scrotal area : erythema resolved , no dischrage or pain. Neuro:? motor grossly intact Psych: appropriate affect DS: Data Data Completed and Pending Completed studies during hospitalization [Text1]: Pending at discharge 06/14/22 10:04 Surgical Path [Surgical] [PTH] Routine 06/14/22 10:08 Cytology [PTH] Routine Labs on day of discharge: Laboratory Results - last 24 hr 06/17/22 06/17/22 05:38 14:17 Creatinine 0.98 Estim Creat Clear Calc 73.6 Estimated GFR > 60 COVID-19 (YONY) Negative COVID-19 Clin Com See Note Preliminary micro results at discharge 06/14/22 09:45 Anaerobic Culture - Preliminary Liver Culture in progress. Additional Comments Additional comments: 06/15/22 06/15/22 ? 05:27 05:27 MCV ?87.5 ? MCH ?29.7 ? MCHC ?34.0 ? RDW ?17.1 H ? Plt Count ?358? D ? MPV ?10.8 ? Absolute Nucleated RBC ?0.000 ? Nucleated RBC % (auto) ?0.0 ? Anion Gap ? ?10 L Estim Creat Clear Calc ? ?72.9 Estimated GFR ? ?> 60 Random Glucose ? ?101 Calcium ? ?9.0 Microbiology Microbiology Results: Microbiology ?06/14/22 09:45 Gram Stain - Final ?Liver Routine Culture - Preliminary ? ?? Culture in progress. ? Anaerobic Culture - Preliminary ? ?? Culture in progress. ?06/08/22 21:50 Blood Culture - Preliminary ?Blood - Venous ?? Escherichia coli ? ?? Gram negative jasson liver biopsy: Ordered: Anaerobic Cult, Routine Cult GS Comments: Quantity of specimen not sufficient for viral or TB add ons, informed [place] in Radiology on 06/14/22. RABUSM Procedure Result Verified Site Gram stain Final 06/14/22-1157 Gram stain results: 1+ polys No organisms seen Routine Culture Final 06/17/22-0747 Organism 1 Escherichia coli Quantity 1+ Gram negative rods growing in liver lesion tiger texted to LUCIANOMarcio on 06/16/22 at 1211 by ANDREW. E coli M.I.C. RX --------- --- Ampicillin <=2 S Cefazolin <=4 S Extended Spectrum Beta Lactam NEG - Ceftriaxone <=1 S Gentamicin <=1 S Levofloxacin <=0.12 S Trimethoprim/Sulfamethoxazole <=20 S Anaerobic Culture Preliminary 06/17/22-1028 Culture in progress. liver pathology: Diagnosis Liver, left lobe, fine-needle aspiration:? No malignancy identified.? See comment. COMMENT: Review of the two direct smear slides reveals highly cellular material comprised predominantly of acute inflammatory cells with background admixed benign-appearing hepatocytes, macrophages, blood and fibrin.? No features of malignancy are identified.? Please also correlate with concurrent biopsy findings with similar results ([id number]) and microbiology results. This case was reviewed intradepartmentally. liver pathology: Diagnosis Liver, left lobe, biopsy:? Benign liver tissue with abscess formation; no malignancy identified. COMMENT:? Please also correlate with microbiology and concurrent cytology findings ([id number]) with similar findings. MR/MR abdomen wo/w con IMPRESSION: Enlarged left hepatic lobe replaced by innumerable lesions demonstrating rim enhancement and central necrosis, differentials include pyogenic liver abscesses or infiltrative tumor. ? Nonspecific periportal and peripancreatic lymphadenopathy. ? Mild peripancreatic free fluid and fat stranding.? ? ?NM/NM hepatobiliary wo pharm IMPRESSION: Findings consistent with cystic duct obstruction. The gallbladder is contracted on ultrasound and CT abdomen and pelvic exam.? CT/CT chest wo con IMPRESSION: 1.? Enlarged subcarinal lymph node, which may be reactive or metastatic in nature. 2.? Nonspecific 3 mm left upper lobe lung nodule. Metastasis cannot be excluded. 3.? Redemonstrated heterogeneous appearance of the enlarged left hepatic lobe, concerning for neoplasm/infiltrative process. As previously noted, evaluation with dynamic liver MRI is recommended. 4.? Small hiatal hernia. Discharge Plan Discharge Patient Disposition: [facility] Discharge Diagnosis: possible liver abscess, E coli sepsis, UTI. Referrals: [facility] [Outside] - 1 Day (SHORT TERM REHAB ) Mar Manning MD [Physician] - 2 Weeks ( Follow-up in 2 weeks) Marti Montoya MD [Physician] - 2 Weeks ( follow-up in 2 weeks) Physician,Unknown J [Primary Care Provider] - 1 Week Discharge Medications: New sennosides [Senna Lax] 8.6 mg Tablet 17.2 mg PO BEDTIME PRN (Reason: Constipation) Qty: 30 0RF metronidazole 500 mg Tablet 500 mg PO Q12H Qty: 22 0RF Rx Instructions: end date for metronidazole is 06/23/22 omeprazole 20 mg Capsule,Delayed Release(Dr/Ec) 20 mg PO BID@0630,1630 Qty: 60 0RF ceftriaxone 2 gram Recon Soln 2 g IV Q24H Qty: 23 0RF Rx Instructions: end date for ceftraixone is 07/03/22 Discharge Orders: Discharge Order (Routine); Ordered 06/17/22 Ordered By: Jude Summers Diet: Advance to usual diet Activity on Discharge: As tolerated Stand Alone Forms: Patient Portal Discharge page Care Plan Goals: patient was admitted for toxic metabolic encephalopathy, sepsis and E coli bacteremia, possible UTI, also found to have multiple liver lesions, and blood cultures sent: patient was started on IV antibiotics, blood culture came back E coli, liver biopsy also done which shows E coli positive, pathology shows likely liver abscess. patient was seen by infectious disease, Oncology, GI- case discussed in detail with both ankle [facility] GI and ID,oncology: patient's liver lesions likely due to liver abscess- patient will need 4 week of IV antibiotics. patient will need repeat CTabd scan in 2weeks to evaluate liver abcesses area. Patient is to follow-up with ID and GI outpatient for further workup. also discussed with the surgery since initial HIDA scan showed cystic duct obstruction but MRI is negative, LFTs improving patient is asymptomatic, further management outpatient consider outpatient surgery eval. Health Concerns: If patient develops any fever or abdominal pain or any new symptoms patient needs to go to nearest emergency room for further evaluation. Patient needs to monitor CBC, BMP, liver function test, ESR, CRP- Q weekly while patient is on antibiotics. patient is to follow up outpatient with ID and GI. Plan of Treatment: as above: complete antibiotic course, repeat CT scan as above. follow-up with GI andID. Assessment: as above.
[2022-06-17 15:26] VITALS: BP 113/58; PULSE 102; RESP 17; TEMP 36.5; O2SAT 97
== END 2022-06-17 18:02 | disposition skilled nursing facility (03) | DRG 871 ==
LOC: HO.ED 06-09 00:04 → HO.EDOVER 06-09 03:06 → HO.IMC 06-09 18:05 → HO.S3 06-10 16:09
PROVIDERS: Internal Medicine; Internal Medicine Gastroenterology; Radiology Diagnostic Radiology; Admitting Provider Hospitalist; Emergency Provider Emergency Medicine; Visit Provider Internal Medicine
PROC: 0FB23ZX Excision of Left Lobe Liver, Percutaneous Approach, Diagnostic (ICD-10-PCS; principal; 2022-06-14 09:00)
DX: A41.51 Sepsis due to Escherichia coli [E. coli] (principal); G92.8 Other toxic encephalopathy; N17.9 Acute kidney failure, unspecified; N39.0 Urinary tract infection, site not specified; N21.0 Calculus in bladder; R59.0 Localized enlarged lymph nodes; N26.1 Atrophy of kidney (terminal); N49.2 Inflammatory disorders of scrotum; K76.9 Liver disease, unspecified; L22 Diaper dermatitis; Z20.822 Contact with and (suspected) exposure to COVID-19; Z87.891 Personal history of nicotine dependence; Z79.899 Other long term (current) drug therapy
CPT/HCPCS: 36415; 36573; 47000; 70450; 71250; 74176; 74183; 76705; 76870; 77012; 78226; 80048; 80076; 80143; 80179; 80202; 81001; 82077; 82105; 82140; 82272; 82378; 82565; 82607; 82746; 82947; 83540; 83605; 83690; 83735; 84443; 84484; 85014; 85018; 85025; 85027; 85610; 86301; 86704; 86706; 86709; 86803; 87040; 87071; 87073; 87076; 87077; 87086; 87088; 87185; 87186; 87205; 87340; 87635; 88173; 88307; 88313; 88333; 93005; 93975; 96361; 96374; 96375; 97116; 97162; 99285; A9537; A9585; J0696; J2405; J2543; J3370

== ENCOUNTER 2022-06-23 09:07 | Inpatient (IN) | payer MEDICARE, SELFPAY ==
--- NOTE | ~2022-06-23 | US_ITS ---
EXAMINATION: US VENOUS ULTRASOUND WITH DOPPLER LOWER EXTREMITY, BILATERAL CLINICAL INFORMATION: Shortness of breath. COMPARISON: None TECHNIQUE: Ultrasound of the deep veins is performed from the hip to the calf with compression sonography and color and pulse Doppler assessment. Spectral analysis with color-flow imaging is performed. FINDINGS: RIGHT: There is normal venous compression and respiratory variation and augmented flow. The visualized common femoral vein, superficial femoral vein, profunda femoral vein, popliteal vein, and the trifurcation region shows no evidence of deep venous thrombosis. There is no significant popliteal fossa cyst. Morphologically normal-appearing lymph nodes with fatty danyel in the groin. LEFT: There is normal venous compression and respiratory variation and augmented flow. The visualized common femoral vein, superficial femoral vein, profunda femoral vein, popliteal vein, and the trifurcation region shows no evidence of deep venous thrombosis. There is no significant popliteal fossa cyst. Morphologically normal-appearing lymph nodes with fatty danyel in the groin. We If the patient's symptoms persist, followup ultrasound in 5 days 7 days might be of value to exclude proximal propagation from a non-visualized calf vein. US/US venous duplex LE IMPRESSION: No DVT demonstrated in the bilateral lower extremity.
--- NOTE | ~2022-06-23 | XR_ITS ---
EXAMINATION: XR CHEST CLINICAL INFORMATION: Fever COMPARISON: Previous chest CT 06/09/2022 TECHNIQUE: Frontal view of the chest was obtained. FINDINGS: The cardiac and mediastinal contours are stable. There is increased density at the left lung base adjacent to the left heart border that is stable from previous chest CT probably related to prominent epicardial fat. The lungs are clear without evidence of a pneumonia. There is a left upper extremity PICC line with tip projecting over the SVC. There are degenerative changes of the thoracic spine and curvature to the right. There are 2 screws in the left lower pole. XR/XR chest 1V IMPRESSION: No evidence for acute disease in the chest.
--- NOTE | ~2022-06-23 | NM_ITS ---
PULMONARY PERFUSION ONLY STUDY: CLINICAL INDICATION: Tachypnea. Tachycardia. Shortness of breath. Chest pain. ENEIDA. PROCEDURE: Following the intravenous administration of 4.0 millicuries technetium 99m MAA through the right hand superficial vein, without complications, images of the chest were obtained in multiple projections using a gamma scintiphotographic camera. COMPARISON: Chest radiograph done on 07/01/2022. PERFUSION IMAGES: There is a large segmental perfusion defect identified at right lower lobe, best visualized in the POWER projection. Heterogeneous decreased perfusion is also noted at left lung base without any segmental distribution. Based on perfusion only modified PIOPED 2 criteria, the study is considered nondiagnostic. NM/NM pul perfusion IMPRESSION: Nondiagnostic perfusion only lung scan. Alternative imaging modality as appropriate may be considered for further clarification.
--- NOTE | ~2022-06-23 | CT_ITS ---
CT head/brain wo con CLINICAL INFORMATION: Reason for Exam slurred speech COMPARISON: Prior CT scan from 06/09/2022 TECHNIQUE: Department standard protocol. This CT examination was performed using dose optimization techniques as appropriate, variously including the following: *Automated exposure control *Adjustment of mA and/or kV according to patient size (this includes techniques or standardized protocols for targeted exams where dose is matched to indication/reason for exam; i.e. extremities or head) *Use of iterative reconstruction technique DLP: 657 mGy-cm FINDINGS: CEREBRAL HEMISPHERES: There is no evidence of intra-axial or extra-axial mass, hemorrhage or acute infarct. BRAIN PARENCHYMA: Normal cross-white matter differentiation. SUBDURAL SPACE: No bleed. BASAL GANGLIA AND PINEAL GLAND: Unremarkable VENTRICLES: Symmetric and normal in size. CEREBELLUM AND BRAINSTEM: No space-occupying mass, hemorrhage or acute infarct. CEREBELLOPONTINE ANGLES: No lesion found. ORBITS: No intraorbital mass. VESSELS: Unremarkable SKULL BASE: Unremarkable INCLUDED SINUSES AT SKULL BASE: Clear SKULL AND SKIN: No fracture or bone lesion found. CT/CT head/brain wo con IMPRESSION: No CT evidence of intracranial space-occupying mass, bleed or infarct. If there is high index suspicion for possible neurological loss, Normal CT scan does not rule out the possibility of hyperacute infarct in the first 12 hours. If patient symptoms persist may consider correlation with MRI, which is more sensitive for early acute infarct.
--- NOTE | ~2022-06-23 | US_ITS ---
EXAMINATION: US RETROPERITONEAL LIMITED (RENAL ONLY) CLINICAL INFORMATION: Acute renal failure. Follow-up post Daily catheter. COMPARISON: CT abdomen and pelvis noncontrast 06/23/2022, MR abdomen without and with contrast 06/10/2022. TECHNIQUE: Ultrasound of the kidneys is performed using grayscale imaging and color Doppler. FINDINGS: RIGHT KIDNEY: 14.0 x 7.2 x 7.9 cm (SAG x AP x TRV). Normal renal parenchymal thickness and echogenicity. No hydronephrosis or caliectasis. No visible renal calculi. No perinephric fluid. Normal renal sinus color flow. No renal parenchymal lesion. LEFT KIDNEY: The left kidney is chronically atrophic with parenchymal thinning and increased echogenicity. Dimensions are approximately 7.5 cm x 3.5 x 3.5 cm, difficult to measure on ultrasound. There is mild fullness collecting system, decreased from CT earlier today. No perinephric fluid. The small left renal calculi noted on CT are not appreciated by ultrasound. No renal parenchymal lesion demonstrated. ADDITIONAL FINDINGS: Cursory view of the bladder shows indwelling Daily catheter. The bladder dilatation noted on CT is no longer demonstrated. There are specular echo with shadowing likely corresponding to the large bladder calculi noted on CT. The prostate is enlarged measuring approximately 2.0 x 6.1 x 6.5 cm. US/US renal BI IMPRESSION: Right: -No hydronephrosis or caliectasis status post bladder decompression with Daily catheter. Left: -Chronic atrophic kidney with parenchymal thinning and increased echogenicity. -Mild fullness renal collecting system, improved since bladder decompression with Daily catheter. Other: -Prostatic enlargement. -Daily catheter present. Bladder decompressed. Known bladder calculi.
--- NOTE | ~2022-06-23 | XR_ITS ---
EXAMINATION: XR CHEST CLINICAL INFORMATION: PICC line flushing but no blood can be withdrawn. COMPARISON: Chest 06/08/2022 TECHNIQUE: Frontal view of the chest was obtained. FINDINGS: The PICC line catheter has withdrawn and now the tip has flipped cephalad into the right brachiocephalic vein. It needs to be readjusted. The lungs are otherwise well-expanded and clear. The heart size and pulmonary vascularity is normal. There is mild spondylosis dorsal spine. XR/XR chest 1V IMPRESSION: The PICC line has retracted with its tip flipped cephalad into the brachiocephalic vein. The lungs are clear.
--- NOTE | ~2022-06-23 | CT_ITS ---
EXAMINATION: CT ABDOMEN AND PELVIS WITH CONTRAST CLINICAL INFORMATION: Liver abscess. Fever. Evaluate for interval change. COMPARISON: Portions of a CT 06/23/22 TECHNIQUE: Multidetector volumetric images were obtained from the superior aspect of the liver through the pubic symphysis following administration 85 mL of Omnipaque 350 intravenous contrast. Sagittal and coronal reformatted images were obtained on the technologist's workstation. Oral contrast: Yes This CT examination was performed using dose optimization techniques as appropriate, variously including the following: *Automated exposure control *Adjustment of mA and/or kV according to patient size (this includes techniques or standardized protocols for targeted exams where dose is matched to indication/reason for exam; i.e. extremities or head) *Use of iterative reconstruction technique DLP: 495 mGy-cm FINDINGS: LUNG BASES: Limited by motion artifact. No suspicious abnormality. Trace pleural reaction bilaterally LIVER, GALLBLADDER, AND BILIARY TREE: The right lobe of the liver measures approximately 12.1 cm. Slight nodularity of the liver surface. Widening of the interlobar fissure and prominent caudate lobe. These morphologic changes can be seen with chronic liver disease. The left lobe the liver is enlarged. There is heterogeneous attenuation in the upper aspect of the left lobe primarily hepatic segment 2.. There were innumerable lesions demonstrated on previous MRI. No convincing new large liver lesion. There is slight hyperenhancement of the gallbladder wall. No calcified gallstone. PANCREAS: The pancreas is somewhat heterogeneous and there is a suggestion of low attenuation in the pancreatic body. There is stranding around the pancreas which is relatively mild. No drainable collection. SPLEEN: The spleen measures 13.9 cm which is close to 2 standard deviations above the mean expected. There is a poorly defined 1.1 cm low attenuating abnormality in the medial aspect of spleen (series 3, image 23). I cannot confirm this was present on previous CT or MRI. ADRENAL GLANDS: No suspicious abnormality KIDNEYS AND URETERS: No abnormality of the right kidney. Chronic atrophic left kidney. There is some dilation of the collecting system proximally on the left with some calcifications. There is a small round low attenuating area in the cortex of the lower left kidney BLADDER: The bladder is abnormal. There is a catheter present. The bladder wall is thickened. Bladder diverticulum. The prostate is enlarged and heterogeneous. GASTROINTESTINAL TRACT: Contrast is present throughout the colon. There is no abnormality of the stomach. The stomach is nearly empty. I suspect a diverticulum in the second portion of the duodenum. There are some distended nonspecific small bowel loops. There is hazy stranding in the mesentery. ABDOMINAL WALL: Subcutaneous stranding. No bowel hernia. Fat protrudes into the right inguinal canal. LYMPH NODES: There are multiple peripancreatic and periportal lymph nodes. This can be seen with chronic liver disease but are nonspecific. There are a few nonspecific pelvic lymph nodes. No significant free intraperitoneal fluid. VASCULAR: There is no abdominal aortic aneurysm. The portal vein enhances. PELVIC VISCERA: The prostate is enlarged and heterogeneous OSSEOUS STRUCTURES: No suspicious focal lesion CT/CT abdomen pelvis w con IMPRESSION: Persistent abnormalities in the left lobe of the liver consistent with microabscesses. Although difficult to compare between modalities I doubt interval worsening. Morphology of the liver suggests chronic liver disease with splenomegaly. There is a incompletely characterized abnormality in the spleen. This is small and nonspecific. A developing abscess cannot be entirely excluded. The pancreas is abnormal. This could reflect pancreatitis but is nonspecific. Abnormal urinary bladder with bladder wall thickening, bladder calculi and bladder trabecula with a diverticulum containing a calculus. The prostate is enlarged and heterogeneous. Chronic atrophy of the left kidney Fleischner guidelines were followed.
--- NOTE | ~2022-06-23 | US_ITS ---
EXAMINATION: US ABDOMEN LIMITED CLINICAL INFORMATION: Liver abscess. Elevated alkaline phosphatase. COMPARISON: CT abdomen from 06/30/2022. TECHNIQUE: Limited real-time imaging of the right upper quadrant is focused on the liver and gallbladder. FINDINGS: The liver parenchyma has heterogeneous echotexture. An ill-defined, approximately 2.5 cm area of heterogeneous (hypoechoic to isoechoic) echotexture in the left lobe likely represents an area of inflammation or ill-defined resolving abscess (images 15 and 17 of 49). There are no discrete collections in the liver. There is persistent minimal dilatation of intrahepatic ducts. The current findings in liver represent significant improvement compared to prior ultrasound from 06/08/2022. Color Doppler images show normal flow direction in the main portal vein. Gallbladder is underdistended, suboptimally evaluated. The gallbladder wall is grossly normal, considering the degree of distention. No gallbladder wall edema or pericholecystic fluid. No evidence of sludge or gallstones. Common bile duct measures up to 0.5 cm diameter. US/US abdomen limited IMPRESSION: Mild residual heterogeneous echotexture in the left lobe. This represents significant improvement in previously observed imaging findings of cholangitis and liver abscesses compared to prior ultrasound from 06/08/2022. There is minimal residual left-sided intrahepatic ductal dilatation, improved compared to 06/08/2022. Gallbladder is underdistended and otherwise unremarkable.
--- NOTE | ~2022-06-23 | CT_ITS ---
EXAMINATION: CT ABDOMEN AND PELVIS WITHOUT CONTRAST CLINICAL INFORMATION: Acute renal failure. COMPARISON: CT abdomen/pelvis from 06/08/2022. MRI abdomen from 06/10/2022. TECHNIQUE: Multidetector volumetric imaging was performed from the superior aspect of the liver through the pubic symphysis. Sagittal and coronal reformatted images were obtained on the technologist's workstation. This CT examination was performed using dose optimization techniques as appropriate, variously including the following: *Automated exposure control *Adjustment of mA and/or kV according to patient size (this includes techniques or standardized protocols for targeted exams where dose is matched to indication/reason for exam; i.e. extremities or head) *Use of iterative reconstruction technique DLP: 663 mGy-cm FINDINGS: LUNG BASES: Compared to 06/08/2022, interval development of trace pleural effusions. Mild atelectasis in each lower lobe. There is a trace pericardial effusion. Several small lymph nodes are observed in the paracardiac fat pads, largest 0.7 cm in short axis dimension. LIVER: As previously observed, the caudate lobe and left hepatic lobe have a hypertrophied appearance. The majority of the parenchyma in the left hepatic lobe appears to be returning to more normal attenuation, but evaluation is limited on this noncontrast examination. There are patchy hypodensities in the left lobe from residual inflammation and/or abscesses, including area of hypoattenuation in segment 4A of approximately 2.5 cm transverse dimension, previously 2 cm on 06/08/2022. GALLBLADDER AND BILIARY TREE: Gallbladder is without radiopaque stones, wall thickening or pericholecystic fluid. No dilated bile ducts. PANCREAS: Moderate atrophy of the pancreas. No focal pancreatic lesion or ductal dilatation. SPLEEN: Normal. ADRENAL GLANDS: Normal. LEFT KIDNEY AND URETER: Chronic severe atrophy of the left kidney. Mild left renal hydronephrosis without hydroureter. No stones within the left ureter. However, a few small calyceal stones are present at the mid and lower pole of the atrophied left kidney. RIGHT KIDNEY AND URETER: Right kidney is normal in size. Mild right hydroureteronephrosis is new compared to 06/08/2022. However, no stones within the mildly dilated right ureter. The collecting system dilatation is presumably related to bladder outlet pathology. BLADDER: Bladder base is compressed by the large prostate gland. Large stones are present along the posterior bladder wall and within a large diverticulum of the right posterolateral bladder wall. Also, there is a diverticulum of the left lateral bladder wall. BOWEL AND PERITONEUM: Stomach is underdistended. There are some loops of mid small bowel that measure up to approximately 3 cm diameter, which is at the upper range of normal. There is no focal transition point. No convincing bowel obstruction. No focal bowel wall thickening. There appears to be minimal haziness/edema of the mesentery without focal fluid collection. Multiple diverticula of the descending and sigmoid colon without diverticulitis. ABDOMINAL WALL: Mild edema of subcutaneous tissue along the flanks. VASCULATURE: Mild atherosclerosis of the abdominal aorta without aneurysm. LYMPH NODES: No pathologic sized lymph nodes in the abdomen or pelvis. No inguinal lymphadenopathy. PELVIC VISCERA: Large prostate gland, as noted on 06/08/2022. SKELETAL: Partial ankylosis of both sacroiliac joints. Multilevel degenerative arthropathy of the visualized lower thoracic and lumbar spine. Levoscoliosis of lumbar spine, apex of curvature at L3. No suspicious bone lesions. CT/CT abdomen pelvis wo con IMPRESSION: * The evaluation of the liver abscesses is suboptimal on this noncontrast examination. Overall, there is interval improvement compared to 06/08/2022, although one of the areas of inflammation or abscess formation in the left lobe is slightly larger than observed on 06/08/2022. 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 The mild bilateral hydronephrosis is new compared to 06/08/2022. However, there are no obstructing stones in either ureter. * Previously, urinary bladder was decompressed by Daily catheter on 06/08/2022. The bladder is distended on this current exam and bladder base compressed by the prostate gland, which suggests likelihood of bladder outlet obstruction. Again noted are large calculi within the bladder and within a large posterolateral diverticulum. * Colonic diverticulosis without diverticulitis.
--- NOTE | ~2022-06-23 | XR_ITS ---
EXAMINATION: XR CHEST CLINICAL INFORMATION: Shortness of breath. COMPARISON: Chest 06/28/2022. TECHNIQUE: Frontal view of the chest was obtained. FINDINGS: The lungs are hypoexpanded but clear of acute process. The heart size and pulmonary vascularity is normal. There is a left PICC line with its tip in the proximal SVC. There are 2 screws traversing the mid clavicle for an old healed fracture. No acute fracture seen. There is mild dorsal spine spondylosis. XR/XR chest 1V IMPRESSION: Hypoexpanded lungs without acute process. No major change from 06/28/2022.
--- NOTE | ~2022-06-23 | IR_ITS ---
PROCEDURE: IR INSERTION OF PICC CLINICAL INFORMATION: PICC line retracted and tip in the right brachiocephalic vein. COMPARISON: Chest x-ray 02/26/2022 TECHNIQUE: Following explaining reposition of right PICC line catheter procedure, benefits and risk, a written consent was obtained. Patient was placed supine on fluoroscopy table and the area around the left PICC line entry and the skin was cleaned in antiseptic manner. Both ports of the PICC catheter were flushed with saline. A 6 thin 0.015 cm wire was then introduced 1 1 of the ports of the catheter and the catheter was repositioned from the right brachycephalic vein in the right SVC. A single image was obtained. The PICC catheter was then stitched with 3 0 nodules sutures to the skin. Sterile dressing was applied postprocedure. Patient tolerated procedure well.. All elements of maximal sterile barrier technique followed including use of cap, mask, sterile gown, sterile gloves, a sterile full body drape and hand hygiene. Also followed skin preparation with 2% chlorhexidine for cutaneous antisepsis, and sterile ultrasound preparation with sterile gel and probe cover when applicable. FINDINGS: On preliminary x-ray imaging the tip of the left PICC catheter was in right brachiocephalic vein. Post repositioning the tip of the catheter now lies in mid SVC and ready for use. IR/IR cvc insert peripheral IMPRESSION: Reposition of right PICC catheter from right brachiocephalic vein into the mid SVC. Fluoroscopy time 2.3 minutes. Dose area product: 584 cGy. cm2. Images: 1.
--- NOTE | ~2022-06-23 | XR_ITS ---
EXAMINATION: XR CHEST CLINICAL INFORMATION: Evaluate PICC line placement COMPARISON: Fluoroscopy exam 06/30/2022 and chest x-ray from yesterday TECHNIQUE: Frontal view of the chest was obtained. FINDINGS: There is a left upper extremity PICC line with tip projecting over the SVC. The cardiac and mediastinal contours are stable. There is atelectasis at the left lung base. The lungs are otherwise clear. There are degenerative changes of the spine and scoliosis. There are 2 screws in the left clavicle. XR/XR chest 1V IMPRESSION: Left upper extremity PICC line tip projects over SVC.
--- NOTE | ~2022-06-23 | CT_ITS ---
EXAMINATION: CT ANGIOGRAM OF THE CHEST WITH AND WITHOUT CONTRAST (CT PULMONARY ANGIOGRAM FOR PE) CLINICAL INFORMATION: Reason for Exam tachycardia, tachypnea COMPARISON: CT abdomen/pelvis dated 06/30/2022. CT chest dated 06/09/2022 TECHNIQUE: Prior to contrast administration, noncontrast localization images were obtained. Subsequently, multidetector volumetric imaging was performed from the thoracic inlet to below the diaphragms following the administration of 85 mL Omnipaque 350 intravenous contrast. No contrast reaction reported Sagittal, coronal, and MIP oblique sagittal reformatted images were obtained on the CT workstation, uploaded to PACS, and reviewed. This CT examination was performed using dose optimization techniques as appropriate, variously including the following: *Automated exposure control *Adjustment of mA and/or kV according to patient size (this includes techniques or standardized protocols for targeted exams where dose is matched to indication/reason for exam; i.e. extremities or head) *Use of iterative reconstruction technique Total exam dose-length product 246 mGy-cm FINDINGS: QUALITY OF STUDY/CONTRAST BOLUS: Satisfactory. PULMONARY ARTERIES: No central or segmental pulmonary emboli. THORACIC AORTA: No aneurysm or dissection. LUNG: No acute pulmonary parenchymal abnormalities. Stable diffuse mild bronchial thickening without bronchiectasis. Stable 3 mm nodule in the left upper lobe laterally. PLEURA: Trace bilateral pleural effusions with accompanying atelectasis. No pneumothorax. MEDIASTINUM: Mild cardiomegaly. Increasing small pericardial effusion. Stably enlarged subcarinal lymph node measuring 1.2-1.3 cm short axis. No hilar or mediastinal lymphadenopathy. No evidence of septal bowing or right heart strain. No reflux of contrast into the hepatic veins to suggest elevated right heart pressures. CHEST WALL/AXILLA: No axillary or internal mammary lymphadenopathy. OSSEOUS STRUCTURES: No acute or suspicious osseous abnormality. UPPER ABDOMEN: Image liver redemonstrates morphologic signs of cirrhosis. Biopsy confirmed microabscesses in the lateral segment of the liver appear similar to prior, although comparison is limited due to the earlier phase postcontrast image acquisition of this exam. CT/CT angio chest PE protocol IMPRESSION: * No pulmonary embolism. * No acute pulmonary parenchymal abnormalities. * Trace bilateral pleural effusions and trace pericardial effusion, both stable from prior, but new from 06/09/2022. VTE: negative
[2022-06-23 09:12] VITALS: BP 138/100; PULSE 104; O2SAT 98
[2022-06-23 09:15] VITALS: BP 141/83; PULSE 102; TEMP 36.8; O2SAT 97; BMI 32.9
--- NOTE | 2022-06-23 09:21 | ED_ITS ---
HPI - Recheck/Abnormal Lab/Rx General Chief Complaint: Recheck/Abnormal Lab/Rx Stated Complaint: ABDNORMAL LABS Time Seen by Provider: 06/23/22 09:09 Source: patient Mode of arrival: ambulatory Limitations: no limitations History of Present Illness HPI narrative: 71 yo male with hx of admission to our hospital and DC on 06/13 for E. Coli bacteremia/liver abscess - currently on flagyl 500mg BID and ceftriaxone 2G 24H - he comes in after having surveillance labs done on 06/22 and found to have a K of 6. He has no complaints other than he doesn't like the food at rehab. complaint: abnormal lab Initial visit (ago): day(s) (on 06/22) Initial visit for: other Returns today for: called because of abnormal lab/test Symptoms since prior visit: no new symptoms Context: called for abnormal lab result Associated symptoms: none Treatments prior to arrival: other (has PICC line in place for [facility] antibiotics) Related Data Home Medications Medication Instructions Recorded Confirmed finasteride 5 mg tablet 5 mg PO DAILY@199906/23/22 06/23/22 miconazole nitrate 2 % topical 1 appl topical BID 06/23/22 06/23/22 powder tamsulosin 0.4 mg capsule (Flomax) 0.4 mg PO DAILY@199906/23/22 06/23/22 Previous Rx's Medication Instructions Recorded ceftriaxone 2 gram solution for 2 g IV Q24H #23 ea 06/17/22 injection metronidazole 500 mg tablet 500 mg PO Q12H #22 tabs 06/17/22 omeprazole 20 mg capsule,delayed 20 mg PO BID@0630,1630 #60 caps 06/17/22 release sennosides 8.6 mg tablet (Senna 17.2 mg PO BEDTIME PRN 06/17/22 Lax) Constipation #30 tabs Allergies Allergy/AdvReac Type Severity Reaction Status Date / Time No Known Allergies Allergy Verified 06/08/22 20:57 Review of Systems Review of Systems: Constitutional : No Fever, No Chills, No Fatigue, pos Malaise, pos mild anorexia doesn't like the food at facility ENT/Mouth : No sore throat, No Rhinorrhea Eyes: No Eye Pain, No Swelling, No Redness Cardiovascular : No Chest Pain, No SOB Respiratory : No Cough, No Sputum, No Wheezing Gastrointestinal : No Nausea, No Vomiting, No Diarrhea, No abdominal Pain Genitourinary : No Dysuria, No Urinary Frequency, No Hematuria, Musculoskeletal : No joint pain, No Myalgias, No Joint Swelling Skin : No Skin Lesions, No rash Neuro : No Weakness, No Numbness, No Dizziness, No Headache Psych : No Anxiety/Panic, No Depression Heme/Lymph: No Bruising, No Bleeding,No Lymphadenopathy Endocrine : No Polyuria, No Polydipsia All other systems reviewed and are negative PMFSH Past Medical History Source: old records reviewed Medical History Acute UTI ENEIDA (acute kidney injury) E coli bacteremia Liver masses Scrotal erythema Social History Social History Household Members: Family Household Members Other:: brother and sister?? Alcohol intake: never Patient Tobacco Use Status: Never used Tobacco Second Hand Smoke Exposure: No Use of substances other than those prescribed or required for medical reasons: No Advance Directives: Yes Advance Directives on File: Yes Advance Directives Date on File: 06/23/22 service: No Current occupational status: retired Physical Exam Vital Signs: Vital Signs: Last Vital Signs Temp 98.3 F 06/23/22 09:15 Pulse 84 06/23/22 11:09 Resp 18 06/23/22 11:09 BP 147/77 H 06/23/22 11:09 Pulse Ox 98 06/23/22 11:09 O2 Del Method 06/23/22 11:09 BMI result Body Mass Index 32.9 Appearance: Alert. Oriented X3. No acute distress. Eyes: Pupils equal, round and reactive to light. ENT: Pharynx normal. Neck: Normal inspection. Neck supple. CVS: Normal heart rate and rhythm. Pulses normal. Respiratory: No respiratory distress. Breath sounds normal. Abdomen: Soft and nontender. Skin: Skin warm and dry. Normal skin color. Normal skin turgor. Extremities: No lower extremity edema. No calf ttp Neuro: Oriented X 3. No motor deficit. No sensory deficit. Course Course Course Narrative: blank placed by RN 2L of IVF ordered already on ceftriaxone doubt UTI acute renal failure likely due to poor PO intake and post obstruction MDM - Recheck/Abnormal Lab/Rx MDM Narrative Medical decision making narrative: 71 yo male with hx of admission to our hospital and DC on 06/13 for E. Coli bacteremia/liver abscess - currently on flagyl 500mg BID and ceftriaxone 2G 24H comes in with a K of 6.0 and Cr of 5.0 that was drawn on 06/22. He has no complaints at this time - will obtain labs, UA, blank, hydrate patient and repeat imaging. Likely admit. Lab Data Result diagrams: 06/23/22 10:23 06/23/22 11:24 Labs: Lab Results 06/23/22 06/23/22 06/23/22 Range/Units 10:23 10:23 10:23 WBC 7.7 (4.8-10.8) X10*3/uL RBC 3.11 L (4.60-5.80) X10*6/uL Hgb 9.2 L (14.0-18.0) g/dl Hct 28.8 L (42.0-52.0) % MCV 92.6 (80.0-98.0) fL MCH 29.6 (27.0-33.0) pg MCHC 31.9 (31.0-36.0) g/dl RDW 18.5 H (11.0-16.0) % Plt Count 324 (160-400) X10*3/uL MPV 9.4 (9.4-12.4) fL Immature Gran % (Auto) 1.2 H (0.0-0.4) % Neut % (Auto) 78.5 H (45-73) % Lymph % (Auto) 9.5 L (20-40) % [place] % (Auto) 7.6 (2-11) % Eos % (Auto) 2.8 (0-4) % Baso % (Auto) 0.4 (0-2) % Lymph # (Auto) 0.7 L (1.2-4.9) X10*3/uL [place] # (Auto) 0.6 (0.1-1.2) X10*3/uL Eos # (Auto) 0.2 (0.0-0.4) X10*3/uL Baso # (Auto) 0.0 (0.0-0.2) X10*3/uL Abs Immat Gran (auto) 0.09 H (0.00-0.03) X10*3/uL Absolute Neuts (auto) 6.1 (2.0-8.3) x10*3/uL Absolute Nucleated RBC 0.000 (0.0-0.012) X10*3/uL Nucleated RBC % (auto) 0.0 (0.0-0.2) /100WBC ESR (0-15) MM/HR Sodium (135-145) mmol/L Potassium (3.3-5.1) mmol/L Chloride (96-108) mmol/L Carbon Dioxide (22-29) mmol/L Anion Gap (12-20) BUN (9-16) mg/dL Creatinine (0.5-1.4) mg/dL Estim Creat Clear Calc Estimated GFR Random Glucose (60-115) mg/dL Lactic Acid 0.7 (0.5-2.0) mmol/L Calcium (8.4-10.2) mg/dL Total Bilirubin (0.0-1.0) mg/dL Direct Bilirubin (0.0-0.5) mg/dL AST (5-37) U/L ALT (0-40) U/L Alkaline Phosphatase (39-117) U/L Total Creatine Kinase 13 L (38-174) U/L C-Reactive Protein (< or = 0.50) mg/dL Total Protein (6.5-8.0) g/dL Albumin (3.5-5.0) g/dL Urine Color Urine Appearance Urine pH (5.0-8.0) Ur Specific [place] (1.005-1.025) Urine Protein (NEG-TRACE) MG/DL Urine Glucose (UA) (NEG) MG/DL Urine Ketones (NEG) MG/DL Urine Blood (NEG) Urine Nitrite (NEG) Ur Leukocyte Esterase (NEG) Urine RBC (0) /HPF Urine WBC (0-4) /HPF Ur Squamous Epith Cells /LPF Urine Bacteria /LPF 06/23/22 06/23/22 06/23/22 Range/Units 10:24 10:55 11:24 WBC (4.8-10.8) X10*3/uL RBC (4.60-5.80) X10*6/uL Hgb (14.0-18.0) g/dl Hct (42.0-52.0) % MCV (80.0-98.0) fL MCH (27.0-33.0) pg MCHC (31.0-36.0) g/dl RDW (11.0-16.0) % Plt Count (160-400) X10*3/uL MPV (9.4-12.4) fL Immature Gran % (Auto) (0.0-0.4) % Neut % (Auto) (45-73) % Lymph % (Auto) (20-40) % [place] % (Auto) (2-11) % Eos % (Auto) (0-4) % Baso % (Auto) (0-2) % Lymph # (Auto) (1.2-4.9) X10*3/uL [place] # (Auto) (0.1-1.2) X10*3/uL Eos # (Auto) (0.0-0.4) X10*3/uL Baso # (Auto) (0.0-0.2) X10*3/uL Abs Immat Gran (auto) (0.00-0.03) X10*3/uL Absolute Neuts (auto) (2.0-8.3) x10*3/uL Absolute Nucleated RBC (0.0-0.012) X10*3/uL Nucleated RBC % (auto) (0.0-0.2) /100WBC ESR 109 H (0-15) MM/HR Sodium 138 (135-145) mmol/L Potassium 5.0 (3.3-5.1) mmol/L Chloride 107 (96-108) mmol/L Carbon Dioxide 20 L (22-29) mmol/L Anion Gap 16 (12-20) BUN 50 H D (9-16) mg/dL Creatinine 7.22 H* (0.5-1.4) mg/dL Estim Creat Clear Calc 9.7 Estimated GFR 7 Random Glucose 96 (60-115) mg/dL Lactic Acid (0.5-2.0) mmol/L Calcium 9.3 D (8.4-10.2) mg/dL Total Bilirubin 1.0 (0.0-1.0) mg/dL Direct Bilirubin 0.8 H (0.0-0.5) mg/dL AST 17 D (5-37) U/L ALT 12 (0-40) U/L Alkaline Phosphatase 419 H (39-117) U/L Total Creatine Kinase (38-174) U/L C-Reactive Protein 4.39 H (< or = 0.50) mg/dL Total Protein 6.2 L (6.5-8.0) g/dL Albumin 2.2 L (3.5-5.0) g/dL Urine Color YELLOW Urine Appearance CLOUDY Urine pH 5.5 (5.0-8.0) Ur Specific [place] <= 1.005 (1.005-1.025) Urine Protein NEG (NEG-TRACE) MG/DL Urine Glucose (UA) NEG (NEG) MG/DL Urine Ketones NEG (NEG) MG/DL Urine Blood 3+ H (NEG) Urine Nitrite NEG (NEG) Ur Leukocyte Esterase 3+ H (NEG) Urine RBC 30-49 H (0) /HPF Urine WBC 30-49 H (0-4) /HPF Ur Squamous Epith Cells 1+ /LPF Urine Bacteria 2+ /LPF Discharge Plan Discharge Clinical Impression: Acute renal failure, Enlarged prostate Patient Disposition: Admitted As Inpatient Prescriptions: No Action sennosides [Senna Lax] 8.6 mg Tablet 17.2 mg PO BEDTIME PRN (Reason: Constipation) Qty: 30 0RF metronidazole 500 mg Tablet 500 mg PO Q12H Qty: 22 0RF Rx Instructions: end date for metronidazole is 06/23/22 omeprazole 20 mg Capsule,Delayed Release(Dr/Ec) 20 mg PO BID@0630,1630 Qty: 60 0RF ceftriaxone 2 gram Recon Soln 2 g IV Q24H Qty: 23 0RF Rx Instructions: end date for ceftraixone is 07/03/22 miconazole nitrate 2 % Powder 1 appl TOPICAL BID Rx Instructions: to left groin rash tamsulosin [Flomax] 0.4 mg capsule 0.4 mg PO DAILY@1999 finasteride 5 mg tablet 5 mg PO DAILY@1999
[2022-06-23 10:29] LABS: MANUAL DIFF FLAG NO
[2022-06-23] MEDS: 0.9 % Sodium Chloride 1,000 ML 999 ML IV ×2 (10:29→10:34)
[2022-06-23 10:31] LABS: Basophils Percent Auto 0.4 % (0-2); Eosinophils Absolute Auto 0.2 X10*3/uL (0.0-0.4); Eosinophils Percent Auto 2.8 % (0-4); Hematocrit 28.8 % (42.0-52.0); Hemoglobin 9.2 g/dl (14.0-18.0); Imm Gran Abs Auto 0.09 X10*3/uL (0.00-0.03); Imm Gran Pct Auto 1.2 % (0.0-0.4); Lymphocytes Absolute Auto 0.7 X10*3/uL (1.2-4.9); Lymphocytes Percent Auto 9.5 % (20-40); Mean Corpuscular HGB Conc 31.9 g/dl (31.0-36.0); Mean Corpuscular Hemoglobin 29.6 pg (27.0-33.0); Mean Corpuscular Volume 92.6 fL (80.0-98.0); Mean Platelet Volume 9.4 fL (9.4-12.4); Monocytes Absolute Auto 0.6 X10*3/uL (0.1-1.2); Monocytes Percent Auto 7.6 % (2-11); Neutrophils Absolute Auto 6.1 x10*3/uL (2.0-8.3); Neutrophils Percent Auto 78.5 % (45-73); Platelet Count 324 X10*3/uL (160-400); Red Blood Count 3.11 X10*6/uL (4.60-5.80); Red Cell Distribution Width 18.5 % (11.0-16.0); White Blood Count 7.7 X10*3/uL (4.8-10.8)
--- NOTE | 2022-06-23 10:41 | PHA.MEDREC ---
Pharmacy Consult ? Medication Reconciliation Pharmacy has completed the medication reconciliation. Meme from [facility] faxed medication list
[2022-06-23 10:45] LABS: Lactic Acid 0.7 mmol/L (0.5-2.0)
[2022-06-23 11:02] LABS: Appearance Urine CLOUDY; Color Urine YELLOW; Glucose Urine UA NEG (NEG); Leukocyte Esterase Urine 3+ (NEG); Nitrite Urine NEG (NEG); PH 5.5 (5.0-8.0); Specific Gravity - Urine <= 1.005 (1.005-1.025); UACC Culture Trigger YES; Urine Blood 3+ (NEG); Urine Ketones NEG (NEG); Urine Protein NEG (NEG-TRACE)
[2022-06-23 11:09] VITALS: BP 147/77; PULSE 84; RESP 18; O2SAT 98
[2022-06-23 11:11] LABS: Erythrocyte Sedimentation Rate 109 MM/HR (0-15)
[2022-06-23 11:13] LABS: WBC Urine 30-49 /HPF (0-4)
[2022-06-23 11:14] LABS: Bacteria Urine 2+ /LPF; RBC Urine 30-49 /HPF (0); Squamous Epithelial Cell Urine 1+ /LPF
--- NOTE | 2022-06-23 11:14 | MHC.CM.ED ---
Received notification from Angelica CISNEROS, that patient's nephew Alvaro wants to change patient's HCP. Patient was discharged from [facility] on 06/09/22. Alvaro is not patient's nephew. 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 Alvaro was one of his tentants. They remained friends since. During patient's last admission, Alvaro had power of state attorney paperwork written up and had a notary at patient's bedside to complete the paperwork. There was concern patient was not alert and oriented at that time. Risk management was made aware at that time. T/W met with Alvaro. Explained HCP would not be changed. Alvaro states he doesn't want the HCP to be changed. He wants the building to call him when something patient's with patient because they only called [facility]. Lindsey won't speak to Alvaro. Mary, liaison at [facility] aware HCP will not be changed here. [facility] will also not allow patient to change the HCP if Alvaro is with patient. At this time, Alvaro is not sure if he will pay for a bed hold if patient is admitted. Continue to monitor for d/c needs.
--- NOTE | 2022-06-23 11:21 | PC.NURSE ---
Pt remained with eyes closed, able to answer yes no questions. Skin warm, dry, jaundice. PICC in left arm. IV placed in right ac. Daily inserted 16fr drained 1200ml of tea colored urine. Pt denies any pain
[2022-06-23 11:56] LABS: Alanine Aminotransferase 12 U/L (0-40); Albumin Level 2.2 g/dL (3.5-5.0); Alkaline Phosphatase 419 U/L (39-117); Anion Gap 16 (12-20); Aspartate Amino Transferase 17 U/L (5-37); Bilirubin Direct 0.8 mg/dL (0.0-0.5); Blood Urea Nitrogen 50 mg/dL (9-16); C Reactive Protein 4.39 mg/dL (< or = 0.50); Calcium 9.3 mg/dL (8.4-10.2); Carbon Dioxide 20 mmol/L (22-29); Chloride 107 mmol/L (96-108); Creatinine Clr Calc Pharmacy 9.7; Estimated Glomerular Filt Rate 7; Glucose Random 96 mg/dL (60-115); Sodium 138 mmol/L (135-145); Total Protein 6.2 g/dL (6.5-8.0)
--- NOTE | 2022-06-23 13:15 | P.HPHOSP_ITS ---
History of Present Illness Date of Service: 06/23/22 Chief Complaint: Abnormal labs 69-year-old male with no significant past medical history who was admitted to the hospital from06/09 to 06/17 with AMS, sepsis and found to have E. coli bacteremia and E.coli liver abscess confirmed on liver aspiration on 06/14 and w as discharge to SNF with IV Ceftriaxone 2 gram daily and Flagyl. He had routinely labs done today and was noted to have K of 6 and Creatine of 5 and sent to the hospital where K is found to be 5 and Cr 7.2. He has no active complaint, has no dysuria, no urinary retention, no fever or chill, all he says is that he doesn't like food from SNF. He has persistent Pyuria Review of Systems Review of Systems: Gen: no fever Resp: no sob, no cough CV: no chest, no BLAND, no leg edema GI: No n/v, no abd pain Neuro: No confusion Yes all other systems are reviewed and are negative [facility] Medical History Acute UTI ENEIDA (acute kidney injury) E coli bacteremia Liver masses Scrotal erythema Social History Household Members: Family Household Members Other:: brother and sister?? Housing: House Do you presently have visiting nurse or other home services: No Alcohol intake: never Patient Tobacco Use Status: Never used Tobacco Second Hand Smoke Exposure: No Use of substances other than those prescribed or required for medical reasons: No Have you been hit, kicked, punched, or otherwise hurt by someone within the past year? If so, by whom?: No Do you feel safe in your current relationship?: No Current Relationship Is there a partner from a previous relationship who is making you feel unsafe now?: No Are you made to feel afraid or neglected: No Advance Directives: Yes Advance Directives on File: Yes Advance Directives Date on File: 06/23/22 Do you have thoughts of harming others: None Do you have a plan to hurt others: No Plan Recently lost weight without trying: No How much weight loss: Not applicable Eating poorly because of decreased appetite: No Nutrition screen score: 0 Nutrition Risks: No Nutritional Risk Poor oral hygiene: No service: No Current occupational status: retired Meds Allergies Allergy/AdvReac Type Severity Reaction Status Date / Time No Known Allergies Allergy Verified 06/08/22 20:57 Active Medications: Current Medications Pharmacy Consult (Consult Rx Perform Med Rec) 1 each MISCELLANE ONCE PRN PRN Reason: Consult order Home Medications Medication Instructions Recorded Confirmed Last Taken Type finasteride 5 mg tablet 5 mg PO DAILY@199906/23/22 06/23/22 Unknown History miconazole nitrate 2 % topical 1 appl topical BID 06/23/22 06/23/22 Unknown History powder tamsulosin 0.4 mg capsule (Flomax) 0.4 mg PO DAILY@199906/23/22 06/23/22 U nknown History Physical Exam Vital Signs and Narrative: Vital Signs: Last Vital Signs Temp 98.3 F 06/23/22 09:15 Pulse 84 06/23/22 11:09 Resp 18 06/23/22 11:09 BP 147/77 H 06/23/22 11:09 Pulse Ox 98 06/23/22 11:09 O2 Del Method 06/23/22 11:09 BMI result Body Mass Index 32.9 Const: Other: Constitutional: Alert, in no distress, Mental Status: Oriented to person, place and time. Eyes: Pupils are equal, round and reactive to light. Ear, Nose and Throat: Oropharynx clear, mucous membranes moist. Ears and nose without eformities. Trachea midline. Respiratory: Clear to auscultation. No wheezing, rales or rhonchi. Cardiovascular: S1 S2 regular. No murmurs, rubs or gallops. Gastrointestinal: Abdomen soft, non-tender, non-distended. Normal bowel sounds.? Neurologic: Cranial nerves II-XII grossly intact. No focal neurological deficits. Moves all extremities spontaneously.? Skin: No rashes or lesions.? Musculoskeletal: No cyanosis or clubbing. Psychiatric: Normal mood and affect? Results Labs CBC and Chem 7: 06/23/22 10:23 06/24/22 05:56 Labs: Laboratory Results - last 24 hr 06/23/22 06/23/22 06/23/22 10:23 10:23 10:23 MCV 92.6 MCH 29.6 MCHC 31.9 RDW 18.5 H Plt Count 324 MPV 9.4 Immature Gran % (Auto) 1.2 H Neut % (Auto) 78.5 H Lymph % (Auto) 9.5 L [place] % (Auto) 7.6 Eos % (Auto) 2.8 Baso % (Auto) 0.4 Lymph # (Auto) 0.7 L [place] # (Auto) 0.6 Eos # (Auto) 0.2 Baso # (Auto) 0.0 Abs Immat Gran (auto) 0.09 H Absolute Neuts (auto) 6.1 Absolute Nucleated RBC 0.000 Nucleated RBC % (auto) 0.0 ESR Anion Gap Estim Creat Clear Calc Estimated GFR Random Glucose Lactic Acid 0.7 Calcium Total Bilirubin Direct Bilirubin AST ALT Alkaline Phosphatase Total Creatine Kinase 13 L C-Reactive Protein Total Protein Albumin Urine Color Urine Appearance Urine pH Ur Specific [place] Urine Protein Urine Glucose (UA) Urine Ketones Urine Blood Urine Nitrite Ur Leukocyte Esterase Urine RBC Urine WBC Ur Squamous Epith Cells Urine Bacteria 06/23/22 06/23/22 06/23/22 10:24 10:55 11:24 MCV MCH MCHC RDW Plt Count MPV Immature Gran % (Auto) Neut % (Auto) Lymph % (Auto) [place] % (Auto) Eos % (Auto) Baso % (Auto) Lymph # (Auto) [place] # (Auto) Eos # (Auto) Baso # (Auto) Abs Immat Gran (auto) Absolute Neuts (auto) Absolute Nucleated RBC Nucleated RBC % (auto) ESR 109 H Anion Gap 16 Estim Creat Clear Calc 9.7 Estimated GFR 7 Random Glucose 96 Lactic Acid Calcium 9.3 D Total Bilirubin 1.0 Direct Bilirubin 0.8 H AST 17 D ALT 12 Alkaline Phosphatase 419 H Total Creatine Kinase C-Reactive Protein 4.39 H Total Protein 6.2 L Albumin 2.2 L Urine Color YELLOW Urine Appearance CLOUDY Urine pH 5.5 Ur Specific [place] <= 1.005 Urine Protein NEG Urine Glucose (UA) NEG Urine Ketones NEG Urine Blood 3+ H Urine Nitrite NEG Ur Leukocyte Esterase 3+ H Urine RBC 30-49 H Urine WBC 30-49 H Ur Squamous Epith Cells 1+ Urine Bacteria 2+ Imaging Radiologist's Impressions: Impressions Abdomen/Pelvis CT 06/23/22 09:55 IMPRESSION: * The evaluation of the liver abscesses is suboptimal on this noncontrast examination. Overall, there is interval improvement compared to 06/08/2022, although one of the areas of inflammation or abscess formation in the left lobe is slightly larger than observed on 06/08/2022. 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 The mild bilateral hydronephrosis is new compared to 06/08/2022. However, there are no obstructing stones in either ureter. * Previously, urinary bladder was decompressed by Blank catheter on 06/08/2022. The bladder is distended on this current exam and bladder base compressed by the prostate gland, which suggests likelihood of bladder outlet obstruction. Again noted are large calculi within the bladder and within a large posterolateral diverticulum. * Colonic diverticulosis without diverticulitis. Assessment and Plan (1) Acute renal failure: Qualifiers: Acute renal failure type: unspecified Qualified Code(s): N17.9 - Acute kidney failure, unspecified Status: Acute Plan 71/m with recent hospitalization for E.coli bacteremia and liver and now with ENEIDA from routine lab check ENEIDA concern for ATN vs pre-renal azotemia -Bladder scan and if retaining put in blank -renal ultrasound -Nephrology consullt Hyperkalemia d/t ENEIDA--K is now 5 Existing E. coli liver abscess and bacteremia--continue Ceftriaxone, doesn't need flagyl DVT prophylaxis--heparin admission to [facility] at least 2 midnight for management of severe ENEIDA that need IVF, expert consultation further testing Quality Stroke Does the patient have a stroke diagnosis?: No VTE Prior VTE?: No VTE Risk Level:: Medical - moderate - high VTE Device Contraindication: Treatment Not Indicated VTE Drug Contraindication: N/A - Med Ordered
[2022-06-23 14:24] VITALS: BP 136/73; PULSE 88; O2SAT 99
[2022-06-23] MEDS: Dextrose 5 % and 0.45 % NaCl 1,000 ML 150 ML IVCONT ×2 (14:27→21:20)
[2022-06-23 15:24] LABS: COVID-19 Test Negative (Negative); IDNOW Serial# 55D5AD1C
[2022-06-23 16:00] VITALS: BP 148/67; PULSE 95; RESP 18; TEMP 35.6; O2SAT 100
--- NOTE | 2022-06-23 16:19 | PC.NURSE ---
report given to Cristiana CISNEROS. pt will be transported to room 376. pt aware plan.
--- NOTE | 2022-06-23 17:05 | MHC.CM.PN ---
Addendum entered by Mara Santiago 06/23/22 17:22: Per conversation with Lindsey, pt will live with her in her home at D/C from [facility]. Original Note: IMM 06/23. Met with admitted patient with bed assignment pending. CM did read previous note. HCP on file. HCP #1 Lindsey Keating (adopted sister) [phone] and HCP #2 Alvaro Shaikh (friend) [phone]). CM did call HCP#1 Lindsey to inform her of patient admission and room number 376. Lindsey tells CM of some personal difficulties with Alvaro regarding paperwork and communication between them. CM explained that Lindsey is listed as HCP #1 and that she would be called with patient updates by this CM. Pt is from [facility]. Ambulates without difficulty. A&O person, place. IMM reviewed and left at bedside. [facility]&J 12/09/20 D/C plan: return to [facility]. Will need transportation. CM to follow for d/c needs.
[2022-06-23 17:19] VITALS: BMI 32.7
[2022-06-23] MEDS: Heparin Sodium,Porcine 5,000 UNIT/ML VIAL 5000 UNIT SUBCUT (17:36)
[2022-06-23] MEDS: Omeprazole 20 MG CAPSULE.DR PO (17:37)
[2022-06-23 20:17] VITALS: BP 138/72; PULSE 99; RESP 17; TEMP 35.8; O2SAT 100
[2022-06-23] MEDS: Tamsulosin HCL 0.4 MG CAPSULE PO (21:19)
[2022-06-23] MEDS: Finasteride 5 MG TABLET PO (21:19)
[2022-06-23] MEDS: Miconazole Nitrate 2% Powder 85 GM Bottle 1 APPL TOPICAL (21:20)
[2022-06-23] MEDS: 0.9 % Sodium Chloride Flush 3 ML SYRINGE IVFLUSH (21:26)
[2022-06-24] VITALS: BP 124/62; PULSE 85; RESP 17; TEMP 36.3; O2SAT 99
[2022-06-24 03:55] VITALS: BP 117/64; PULSE 98; RESP 17; TEMP 36.7; O2SAT 97
[2022-06-24] MEDS: Dextrose 5 % and 0.45 % NaCl 1,000 ML 150 ML IVCONT ×3 (05:30→18:14)
[2022-06-24] MEDS: Heparin Sodium,Porcine 5,000 UNIT/ML VIAL 5000 UNIT SUBCUT ×2 (05:31→18:09)
[2022-06-24] MEDS: Omeprazole 20 MG CAPSULE.DR PO ×2 (05:31→18:09)
[2022-06-24 07:07] VITALS: BP 134/78; PULSE 101; RESP 18; TEMP 36.1; O2SAT 97
[2022-06-24 07:25] LABS: Anion Gap 14 (12-20); Blood Urea Nitrogen 36 mg/dL (9-16); Carbon Dioxide 21 mmol/L (22-29); Chloride 108 mmol/L (96-108); Creatinine Clr Calc Pharmacy 18.8; Estimated Glomerular Filt Rate 16; Glucose Random 119 mg/dL (60-115); Sodium 138 mmol/L (135-145)
--- NOTE | 2022-06-24 08:46 | MHC.CLN ---
NUTRITION DIET CHANGED TO 2 GRAM SODIUM DUE TO ENEIDA WITH ELEVATED BUN/Cr.
[2022-06-24] MEDS: 0.9 % Sodium Chloride Flush 3 ML SYRINGE IVFLUSH (09:25)
[2022-06-24] MEDS: cefTRIAXone sodium 2 GM in 0.9 % Sodium Chloride 50 ML IV (09:25)
--- NOTE | 2022-06-24 10:56 | HO.PM.IMPN ---
Subjective Subjective Date of Service: 06/24/22 Interval History: F/u on ENEIDA, Hyperkalemia interval history: doing well, no confusion, Cr down to half of yesterday 3 Review of Systems Gen: no fever Resp: no sob, no cough CV: no chest, no BLAND, no leg edema GI: No n/v, no abd pain Neuro: No confusion Physical Exam Vital Signs: Vital Signs: Last Vital Signs Temp 97 F 06/24/22 07:07 Pulse 101 H 06/24/22 07:07 Resp 18 06/24/22 07:07 BP 134/78 06/24/22 07:07 Pulse Ox 97 06/24/22 07:07 O2 Del Method 06/24/22 07:07 BMI result Body Mass Index 32.7 Const: Other: Constitutional: Alert, in no distress, Mental Status: Oriented to person, place and time. Respiratory: Clear to auscultation. No wheezing, rales or rhonchi. Cardiovascular: S1 S2 regular. No murmurs, rubs or gallops. Gastrointestinal: Abdomen soft, non-tender, non-distended. Normal bowel sounds.? Neurologic: Cranial nerves II-XII grossly intact. No focal neurological deficits. Moves all extremities spontaneously.? Skin: No rashes or lesions.? Musculoskeletal: No cyanosis or clubbing. Psychiatric: Normal mood and affect? Objective Data Active Medications Acetaminophen (Acetaminophen 325 Mg Tablet) 650 mg PO Q6H PRN PRN Reason: Pain, Mild (Pain Scale 1-3) Acetaminophen (Acetaminophen Supp 650 Mg Supp.Rect) 650 mg CO Q6H PRN PRN Reason: Pain, Mild (Pain Scale 1-3) Finasteride (Finasteride 5 Mg Tablet) 5 mg PO DAILY@1999 [facility] Last Admin: 06/23/22 21:19 Dose: 5 mg Documented By: KORY Heparin Sodium (Porcine) (Heparin Sodium,Porcine 5,000 Unit/Ml Vial) 5,000 unit SUBCUT Q12H [facility] Last Admin: 06/24/22 05:31 Dose: 5,000 unit Documented By: KORY Dextrose/Sodium Chloride (D51/2ns) 1,000 mls @ 150 mls/hr IVCONT .Q6H40M [facility] Last Admin: 06/24/22 09:58 Dose: Not Given Documented By: VIKRAM Non-Admin Reason: IV Running Ceftriaxone Sodium 2 gm/ (Sodium Chloride) 50 mls @ 100 mls/hr IV Q24H [facility] Last Infusion: 06/24/22 09:58 Dose: 0 mls/hr Documented By: VIKRAM Melatonin (Melatonin 3 Mg Tablet) 6 mg PO BEDTIME PRN PRN Reason: Insomnia Miconazole Nitrate (Miconazole Nitrate 2% Powder 85 Gm Bottle) 1 appl TOPICAL BID [facility]; Protocol Last Admin: 06/24/22 09:30 Dose: Not Given Documented By: VIKRAM Non-Admin Reason: not available,will call pharmacy Omeprazole (Omeprazole 20 Mg Capsule.) 20 mg PO BID@0630,1630 [facility] Last Admin: 06/24/22 05:31 Dose: 20 mg Documented By: KORY Ondansetron HCl (Ondansetron Hcl 4 Mg/2 Ml Vial) 4 mg IVPUSH Q8H PRN PRN Reason: Nausea and Vomiting Pharmacy Consult (Consult Rx Perform Med Rec) 1 each MISCELLANE ONCE PRN PRN Reason: Consult order Senna (Sennosides 8.6 Mg Tablet) 17.2 mg PO BEDTIME PRN PRN Reason: Constipation Sodium Chloride (0.9 % Sodium Chloride Flush 3 Ml Syringe) 3 ml IVFLUSH QSHIFT [facility] Last Admin: 06/24/22 09:25 Dose: 3 ml Documented By: VIKRAM Tamsulosin HCl (Tamsulosin Hcl 0.4 Mg Capsule) 0.4 mg PO DAILY@1999 [facility] Last Admin: 06/23/22 21:19 Dose: 0.4 mg Documented By: KORY Labs CBC & Chem 7: 06/23/22 10:23 06/24/22 05:56 Labs: Laboratory Results - last 24 hr 06/23/22 06/23/22 06/23/22 10:24 10:55 11:24 ESR 109 H Anion Gap 16 Estim Creat Clear Calc 9.7 Estimated GFR 7 Random Glucose 96 Calcium 9.3 D Total Bilirubin 1.0 Direct Bilirubin 0.8 H AST 17 D ALT 12 Alkaline Phosphatase 419 H C-Reactive Protein 4.39 H Total Protein 6.2 L Albumin 2.2 L Urine Color YELLOW Urine Appearance CLOUDY Urine pH 5.5 Ur Specific [place] <= 1.005 Urine Protein NEG Urine Glucose (UA) NEG Urine Ketones NEG Urine Blood 3+ H Urine Nitrite NEG Ur Leukocyte Esterase 3+ H Urine RBC 30-49 H Urine WBC 30-49 H Ur Squamous Epith Cells 1+ Urine Bacteria 2+ COVID-19 ([facility]) COVID-19 Clin Com 06/23/22 06/24/22 14:57 05:56 ESR Anion Gap 14 Estim Creat Clear Calc 18.8 Estimated GFR 16 Random Glucose 119 H Calcium 9.0 Total Bilirubin Direct Bilirubin AST ALT Alkaline Phosphatase C-Reactive Protein Total Protein Albumin Urine Color Urine Appearance Urine pH Ur Specific [place] Urine Protein Urine Glucose (UA) Urine Ketones Urine Blood Urine Nitrite Ur Leukocyte Esterase Urine RBC Urine WBC Ur Squamous Epith Cells Urine Bacteria COVID-19 ([facility]) Negative COVID-19 Clin Com See Note Microbiology Microbiology Results: Microbiology 06/23/22 Unknown Urine Culture - Final Urine Catheterized - Blank Catheter No growth. Assessment and Plan (1) Acute renal failure: Status: Acute Plan 71/m with recent hospitalization for E.coli bacteremia and liver and now with ENEIDA from routine lab check ENEIDA concern for ATN vs pre-renal azotemia -Bladder scan and if retaining put in blank -renal ultrasound -Nephrology consullt Hyperkalemia d/t ENEIDA--resolved, K is now 5 Existing E. coli liver abscess and bacteremia--continue Ceftriaxone DVT prophylaxis--heparin Inpatient due to ENEIDA needing IVF fluid, IV Abx for E.coli bacteremia Full code, discuss with HCP at bedside Quality Stroke Does the patient have a stroke diagnosis?: No VTE Prior VTE?: No VTE Risk Level:: Medical - moderate - high VTE Device Contraindication: Treatment Not Indicated VTE Drug Contraindication: N/A - Med Ordered
[2022-06-24 11:06] VITALS: BP 136/72; PULSE 102; RESP 18; TEMP 36.1; O2SAT 96
--- NOTE | 2022-06-24 15:50 | MHC.CM.PN ---
CM MET WITH PT WHO REPORTS THINGS HAVE BEEN CONTENTIOUS BETWEEN HIMSELF AND HIS HCP, SUSANA. HE REPORTS SHE DOES NOT LISTEN TO WHAT HE WANTS (HE IS ALERT AND ORIENTED X 4) AND MAKES PLANS WITHOUT HIM. HE REPORTS THIS RELATIONSHIP HAS BEEN STRAINED SINCE HIS MOTHER . HE EXPLAINS HIS MOTHER WAS 99 YO WHEN SHE PASSED AND HE SAW MANY THINGS GO HAND TO HAND REFERRING TO THINGS GIVEN TO SUSANA. HE REPORTS HE LET HIS MOTHER DO WHAT SHE WANTED HOWEVER IT DID CREATE TRUST ISSUES FOR HIM REGARDING SUSANA. PT REPORTS HE TRUSTS EMMANUEL NEWBY COMPLETELY. HE REPORTS HE KNOWS WHAT SUSANA AND OTHER THINK, HOWEVER HE IS 100 PERCENT SURE EMMANUEL IS TRUSTWORTHY AND HAS ONLY [employer] INTEREST AT HEART. PT REQUESTED TO COMPLETE A NEW HCP TODAY NAMING EMMANUEL THE SOLE AGENT HCP COMPLETED
[2022-06-24 15:56] VITALS: BP 144/67; PULSE 101; RESP 20; TEMP 37; O2SAT 98
[2022-06-24 20:00] VITALS: BP 127/68; PULSE 100; RESP 18; TEMP 36.7; O2SAT 97
[2022-06-24] MEDS: Finasteride 5 MG TABLET PO (20:10)
[2022-06-24] MEDS: Tamsulosin HCL 0.4 MG CAPSULE PO (20:10)
--- NOTE | 2022-06-24 20:11 | P.CONNP_ITS ---
History of Present Illness Reason for Consult Consult date: 06/24/22 Reason for consult: ENEIDA, non -oliguric Chief Complaint Chief complaint: ENEIDA History of Present Illness Narrative: 69-year-old male with recent hospital admission for AMS, sepsis and found to have E. coli bacteremia and E.coli liver abscess confirmed on liver aspiration on 06/14 and was discharge to SNF with IV Ceftriaxone 2 gram daily and Flagyl. He was sent to [facility] for abnormal labs namely, K of 6 and Creatinine of 5 and sent to the hospital where K is found to be 5 and Cr 7.2. He denied dysuria, no urinary retention, no fever or chill. Per ER team, patient on presentation noted to be confused; CT head showed no acute findings; ROS otherwise negative. Review of Systems Constitutional: Reports as per [facility] Past Medical History Medical History Acute UTI ENEIDA (acute kidney injury) E coli bacteremia Liver masses Scrotal erythema Social History Social History Household Members: Family Household Members Other:: brother and sister?? Housing: House Do you presently have visiting nurse or other home services: No Alcohol intake: never Patient Tobacco Use Status: Never used Tobacco Second Hand Smoke Exposure: No Use of substances other than those prescribed or required for medical reasons: No Have you been hit, kicked, punched, or otherwise hurt by someone within the past year? If so, by whom?: No Do you feel safe in your current relationship?: No Current Relationship Is there a partner from a previous relationship who is making you feel unsafe now?: No Are you made to feel afraid or neglected: No Advance Directives: Yes Advance Directives on File: Yes Advance Directives Date on File: 06/23/22 Do you have thoughts of harming others: None Do you have a plan to hurt others: No Plan Recently lost weight without trying: No How much weight loss: Not applicable Eating poorly because of decreased appetite: No Nutrition screen score: 0 Nutrition Risks: No Nutritional Risk Poor oral hygiene: No service: No Current occupational status: retired Meds Allergies Allergy/AdvReac Type Severity Reaction Status Date / Time No Known Allergies Allergy Verified 06/08/22 20:57 Active Medications: Current Medications Acetaminophen (Acetaminophen 325 Mg Tablet) 650 mg PO Q6H PRN PRN Reason: Pain, Mild (Pain Scale 1-3) Acetaminophen (Acetaminophen Supp 650 Mg Supp.Rect) 650 mg [place] Q6H PRN PRN Reason: Pain, Mild (Pain Scale 1-3) Finasteride (Finasteride 5 Mg Tablet) 5 mg PO DAILY@1999 [facility] Last Admin: 06/23/22 21:19 Dose: 5 mg Heparin Sodium (Porcine) (Heparin Sodium,Porcine 5,000 Unit/Ml Vial) 5,000 unit SUBCUT Q12H [facility] Last Admin: 06/24/22 18:09 Dose: 5,000 unit Dextrose/Sodium Chloride (D51/2ns) 1,000 mls @ 150 mls/hr IVCONT .Q6H40M [facility] Last Admin: 06/24/22 18:14 Dose: 150 mls/hr Ceftriaxone Sodium 2 gm/ (Sodium Chloride) 50 mls @ 100 mls/hr IV Q24H [facility] Last Infusion: 06/24/22 09:58 Dose: Infused Melatonin (Melatonin 3 Mg Tablet) 6 mg PO BEDTIME PRN PRN Reason: Insomnia Miconazole Nitrate (Miconazole Nitrate 2% Powder 85 Gm Bottle) 1 appl TOPICAL BID [facility]; Protocol Last Admin: 06/24/22 09:30 Dose: Not Given Omeprazole (Omeprazole 20 Mg Capsule.) 20 mg PO BID@0630,1630 [facility] Last Admin: 06/24/22 18:09 Dose: 20 mg Ondansetron HCl (Ondansetron Hcl 4 Mg/2 Ml Vial) 4 mg IVPUSH Q8H PRN PRN Reason: Nausea and Vomiting Pharmacy Consult (Consult Rx Perform Med Rec) 1 each MISCELLANE ONCE PRN PRN Reason: Consult order Senna (Sennosides 8.6 Mg Tablet) 17.2 mg PO BEDTIME PRN PRN Reason: Constipation Sodium Chloride (0.9 % Sodium Chloride Flush 3 Ml Syringe) 3 ml IVFLUSH QSHIFT [facility] Last Admin: 06/24/22 14:33 Dose: Not Given Tamsulosin HCl (Tamsulosin Hcl 0.4 Mg Capsule) 0.4 mg PO DAILY@1999 [facility] Last Admin: 06/23/22 21:19 Dose: 0.4 mg Home Medications Medication Instructions Recorded Confirmed Last Taken Type finasteride 5 mg tablet 5 mg PO DAILY@199906/23/22 06/23/22 Unknown History miconazole nitrate 2 % topical 1 appl topical BID 06/23/22 06/23/22 Unknown History powder tamsulosin 0.4 mg capsule (Flomax) 0.4 mg PO DAILY@199906/23/22 06/23/22 Unknown History Physical Exam Vital Signs: Last Vital Signs Temp 98.6 F 06/24/22 15:56 Pulse 101 H 06/24/22 15:56 Resp 20 06/24/22 15:56 BP 144/67 H 06/24/22 15:56 Pulse Ox 98 06/24/22 15:56 O2 Del Method 06/24/22 15:56 BMI result Body Mass Index 32.7 Const General: no acute distress HEENT Head: Yes normocephalic and Yes atraumatic Resp Auscultation: clear to auscultation bilaterally Cardio Rate: regular rate Rhythm: regular rhythm Heart sounds: S1 normal heart sound present and S2 normal heart sound present GI Auscultation: normal bowel sounds Neuro General: moves all extremities Extrem General: Yes no clubbing, cyanosis or edema Results Lab Results Result Diagrams: 06/23/22 10:23 06/24/22 05:56 Lab results: Chemistry 06/23/22 06/24/22 11:24 05:56 Sodium 138 138 Potassium 5.0 5.0 Carbon Dioxide 20 L 21 L BUN 50 H D 36 H Creatinine 7.22 H* 3.70 H Calcium 9.3 D 9.0 Hematology 06/23/22 10:23 WBC 7.7 Hgb 9.2 L Plt Count 324 Urinalysis 06/23/22 10:55 Urine Color YELLOW Urine Appearance CLOUDY Urine pH 5.5 Ur Specific Goodells <= 1.005 Urine Protein NEG Urine Glucose (UA) NEG Urine Ketones NEG Urine Blood 3+ H Urine Nitrite NEG Ur Leukocyte Esterase 3+ H Urine RBC 30-49 H Urine WBC 30-49 H Ur Squamous Epith Cells 1+ Assessment and Plan (1) Acute renal failure: Qualifiers: Acute renal failure type: unspecified Qualified Code(s): N17.9 - Acute kidney failure, unspecified Status: Acute Plan 69-year-old male with recent hospital admission for AMS, sepsis and found to have E. coli bacteremia and E.coli liver abscess confirmed on liver aspiration on 06/14 and was discharge to SNF with IV Ceftriaxone 2 gram daily and Flagyl. He was sent to [facility] for abnormal labs namely, K of 6 and Creatine of 5 and sent to the hospital where K is found to be 5 and Cr 7.2. He denied dysuria, no urinary retention, no fever or chill. Per ER team, patient on presentation noted to be confused; CT head showed no acute findings; #) ENEIDA , non-oliguric: Agree with ivf's to support bp and provide renal perfusion. Suspect his eneida was due to hypotension and tubular stress from infection. Adding c3/c4 to rule out infectious GN - pending. He does have noted hematuria/pyuria. We will need to repeat UA if S-Cr does not improve. Prior history of uti with e.coli in 06/10 He is receiving appropriate abx and S-Cr is already downtrending. BL S-Cr ~ 1.0 mg/dL. Noted enlarged prostate with fullness of collecting system on renal US however now has blank in place. Severe renal atrophy of left kidney at BL. Avoidance of nephrotoxins - Hold acei/arb, nsaids, IV contrast, renal dosing abx Low K diet, Lokelma prn K> 5.0 Monitor renal panel daily. No indication for HD Check phos renal diet Anemia - Suggest Iron panel for am. Procedures Date of Service Date of Service: 06/24/22
[2022-06-24] MEDS: Miconazole Nitrate 2% Powder 85 GM Bottle 1 APPL TOPICAL (20:12)
[2022-06-25] VITALS: BP 141/73; PULSE 98; RESP 18; TEMP 36.2; O2SAT 98
[2022-06-25] MEDS: Dextrose 5 % and 0.45 % NaCl 1,000 ML 150 ML IVCONT ×2 (00:34→08:30)
[2022-06-25 03:51] VITALS: BP 140/79; PULSE 90; RESP 18; TEMP 35.9; O2SAT 96
[2022-06-25] MEDS: Heparin Sodium,Porcine 5,000 UNIT/ML VIAL 5000 UNIT SUBCUT ×2 (05:19→16:25)
[2022-06-25] MEDS: Omeprazole 20 MG CAPSULE.DR PO ×2 (05:19→16:25)
[2022-06-25 07:12] LABS: Anion Gap 12 (12-20); Blood Urea Nitrogen 22 mg/dL (9-16); Calcium 9.3 mg/dL (8.4-10.2); Carbon Dioxide 24 mmol/L (22-29); Chloride 109 mmol/L (96-108); Creatinine Clr Calc Pharmacy 34.2; Estimated Glomerular Filt Rate 32; Glucose Random 97 mg/dL (60-115); Potassium 5.1 mmol/L (3.3-5.1); Sodium 140 mmol/L (135-145)
[2022-06-25 07:38] VITALS: BP 140/74; PULSE 100; RESP 16; TEMP 36.3; O2SAT 96
[2022-06-25] MEDS: cefTRIAXone sodium 2 GM in 0.9 % Sodium Chloride 50 ML IV (08:18)
[2022-06-25] MEDS: 0.9 % Sodium Chloride Flush 3 ML SYRINGE IVFLUSH (08:45)
[2022-06-25] MEDS: Miconazole Nitrate 2% Powder 85 GM Bottle 1 APPL TOPICAL ×2 (08:45→19:47)
--- NOTE | 2022-06-25 09:31 | HO.PM.IMPN ---
Subjective Subjective Date of Service: 06/25/22 Interval History: F/u on ENEIDA, Hyperkalemia interval history: doing well, no confusion, Cr down to 2 from 3 Review of Systems Gen: no fever Resp: no sob, no cough CV: no chest, no BLAND, no leg edema GI: No n/v, no abd pain Neuro: No confusion Physical Exam Vital Signs: Vital Signs: Last Vital Signs Temp 97.3 F 06/25/22 07:38 Pulse 100 06/25/22 07:38 Resp 16 06/25/22 07:38 BP 140/74 H 06/25/22 07:38 Pulse Ox 96 06/25/22 07:38 O2 Del Method 06/25/22 07:38 BMI result Body Mass Index 32.7 Const: Other: Constitutional: Alert, in no distress, Mental Status: Oriented to person, place and time. Respiratory: Clear to auscultation. No wheezing, rales or rhonchi. Cardiovascular: S1 S2 regular. No murmurs, rubs or gallops. Gastrointestinal: Abdomen soft, non-tender, non-distended. Normal bowel sounds.? Neurologic: Cranial nerves II-XII grossly intact. No focal neurological deficits. Moves all extremities spontaneously.? Skin: No rashes or lesions.? Musculoskeletal: No cyanosis or clubbing. Psychiatric: Normal mood and affect? Objective Data Active Medications Acetaminophen (Acetaminophen 325 Mg Tablet) 650 mg PO Q6H PRN PRN Reason: Pain, Mild (Pain Scale 1-3) Acetaminophen (Acetaminophen Supp 650 Mg Supp.Rect) 650 mg [place] Q6H PRN PRN Reason: Pain, Mild (Pain Scale 1-3) Finasteride (Finasteride 5 Mg Tablet) 5 mg PO DAILY@1999 [facility] Last Admin: 06/24/22 20:10 Dose: 5 mg Documented By: HO Heparin Sodium (Porcine) (Heparin Sodium,Porcine 5,000 Unit/Ml Vial) 5,000 unit SUBCUT Q12H [facility] Last Admin: 06/25/22 05:19 Dose: 5,000 unit Documented By: HO Dextrose/Sodium Chloride (D51/2ns) 1,000 mls @ 150 mls/hr IVCONT .Q6H40M [facility] Last Admin: 06/25/22 08:30 Dose: 150 mls/hr Documented By: VIKRAM Ceftriaxone Sodium 2 gm/ (Sodium Chloride) 50 mls @ 100 mls/hr IV Q24H [facility] Last Infusion: 06/25/22 09:17 Dose: 0 mls/hr Documented By: VIKRAM Melatonin (Melatonin 3 Mg Tablet) 6 mg PO BEDTIME PRN PRN Reason: Insomnia Miconazole Nitrate (Miconazole Nitrate 2% Powder 85 Gm Bottle) 1 appl TOPICAL BID [facility]; Protocol Last Admin: 06/25/22 08:45 Dose: 1 appl Documented By: VIKRAM Omeprazole (Omeprazole 20 Mg Capsule.Dr) 20 mg PO BID@0630,1630 [facility] Last Admin: 06/25/22 05:19 Dose: 20 mg Documented By: HO Ondansetron HCl (Ondansetron Hcl 4 Mg/2 Ml Vial) 4 mg IVPUSH Q8H PRN PRN Reason: Nausea and Vomiting Pharmacy Consult (Consult Rx Perform Med Rec) 1 each MISCELLANE ONCE PRN PRN Reason: Consult order Senna (Sennosides 8.6 Mg Tablet) 17.2 mg PO BEDTIME PRN PRN Reason: Constipation Sodium Chloride (0.9 % Sodium Chloride Flush 3 Ml Syringe) 3 ml IVFLUSH QSHIFT [facility] Last Admin: 06/25/22 08:45 Dose: 3 ml Documented By: VIKRAM Tamsulosin HCl (Tamsulosin Hcl 0.4 Mg Capsule) 0.4 mg PO DAILY@1999 [facility] Last Admin: 06/24/22 20:10 Dose: 0.4 mg Documented By: HO Labs CBC & Chem 7: 06/23/22 10:23 06/25/22 05:34 Labs: Laboratory Results - last 24 hr 06/25/22 05:34 Anion Gap 12 Estim Creat Clear Calc 34.2 Estimated GFR 32 Random Glucose 97 Calcium 9.3 Microbiology Microbiology Results: Microbiology 06/23/22 11:24 Blood Culture - Preliminary Blood - Venous No growth after 24 hours. 06/23/22 10:23 Blood Culture - Preliminary Blood - Venous No growth after 24 hours. 06/23/22 Unknown Urine Culture - Final Urine Catheterized - Daily Catheter No growth. Assessment and Plan (1) Acute renal failure: Status: Acute Plan 71/m with recent hospitalization for E.coli bacteremia and liver and now with ENEIDA from routine lab check ENEIDA concern for ATN vs pre-renal azotemia, Cr continues to trend down -continue -renal ultrasound--chronic atrophic L kidney, no hydro -Nephrology following Hyperkalemia d/t ENEIDA--resolved, K is now 5 Existing E. coli liver abscess and bacteremia--continue Ceftriaxone DVT prophylaxis--heparin Inpatient due to ENEIDA needing IVF fluid, IV Abx for E.coli bacteremia Full code, discuss with HCP at bedside Quality Stroke Does the patient have a stroke diagnosis?: No VTE Prior VTE?: No VTE Risk Level:: Medical - moderate - high VTE Device Contraindication: Treatment Not Indicated VTE Drug Contraindication: N/A - Med Ordered
[2022-06-25 10:17] LABS: Creatinine Urine 27.01 mg/dL
[2022-06-25 11:37] VITALS: BP 131/66; PULSE 96; RESP 18; TEMP 36; O2SAT 96
[2022-06-25 15:34] VITALS: BP 135/67; PULSE 90; RESP 17; TEMP 36.8; O2SAT 97
[2022-06-25] MEDS: Finasteride 5 MG TABLET PO (19:43)
[2022-06-25] MEDS: Tamsulosin HCL 0.4 MG CAPSULE PO (19:43)
[2022-06-25 19:46] VITALS: BP 136/72; PULSE 106; RESP 20; TEMP 36.7; O2SAT 97
[2022-06-26] VITALS (7 sets, daily range): BP systolic 116–151; BP diastolic 67–78; PULSE 86–104; RESP 17–20; TEMP 36–37.2; O2SAT 93–99
[2022-06-26] MEDS: Heparin Sodium,Porcine 5,000 UNIT/ML VIAL 5000 UNIT SUBCUT ×2 (05:29→17:30)
[2022-06-26] MEDS: Omeprazole 20 MG CAPSULE.DR PO ×2 (05:29→15:24)
[2022-06-26] MEDS: Acetaminophen 325 MG TABLET 650 MG PO (06:15)
[2022-06-26 06:48] LABS: Anion Gap 13 (12-20); Blood Urea Nitrogen 15 mg/dL (9-16); Calcium 9.6 mg/dL (8.4-10.2); Carbon Dioxide 22 mmol/L (22-29); Chloride 108 mmol/L (96-108); Creatinine Clr Calc Pharmacy 47.2; Estimated Glomerular Filt Rate 47; Glucose Random 88 mg/dL (60-115); Potassium 5.3 mmol/L (3.3-5.1); Sodium 138 mmol/L (135-145)
[2022-06-26] MEDS: cefTRIAXone sodium 2 GM in 0.9 % Sodium Chloride 50 ML IV (08:39)
[2022-06-26] MEDS: 0.9 % Sodium Chloride Flush 3 ML SYRINGE IVFLUSH ×3 (08:40→20:22)
[2022-06-26] MEDS: Miconazole Nitrate 2% Powder 85 GM Bottle 1 APPL TOPICAL (09:22)
--- NOTE | 2022-06-26 09:58 | P.PNIM_ITS ---
Subjective Subjective Date of Service: 06/26/22 Interval History: F/u on ENEIDA, Hyperkalemia interval history: doing well, no confusion, Cr down to 1.4 Review of Systems Gen: no fever Resp: no sob, no cough CV: no chest, no BLAND, no leg edema GI: No n/v, no abd pain Neuro: No confusion Physical Exam Vital Signs: Vital Signs: Last Vital Signs Temp 96.8 F 06/26/22 07:30 Pulse 100 06/26/22 07:30 Resp 17 06/26/22 07:30 BP 121/71 06/26/22 07:30 Pulse Ox 93 06/26/22 07:30 O2 Del Method 06/26/22 07:30 BMI result Body Mass Index 32.7 Const: Other: Constitutional: Alert, in no distress, Mental Status: Oriented to person, place and time. Respiratory: Clear to auscultation. No wheezing, rales or rhonchi. Cardiovascular: S1 S2 regular. No murmurs, rubs or gallops. Gastrointestinal: Abdomen soft, non-tender, non-distended. Normal bowel sounds.? Neurologic: Cranial nerves II-XII grossly intact. No focal neurological deficits. Moves all extremities spontaneously.? Skin: No rashes or lesions.? Musculoskeletal: No cyanosis or clubbing. Psychiatric: Normal mood and affect? Objective Data Active Medications Acetaminophen (Acetaminophen 325 Mg Tablet) 650 mg PO Q6H PRN PRN Reason: Pain, Mild (Pain Scale 1-3) Last Admin: 06/26/22 06:15 Dose: 650 mg Documented By: HO Acetaminophen (Acetaminophen Supp 650 Mg Supp.Rect) 650 mg [place] Q6H PRN PRN Reason: Pain, Mild (Pain Scale 1-3) Finasteride (Finasteride 5 Mg Tablet) 5 mg PO DAILY@1999 [facility] Last Admin: 06/25/22 19:43 Dose: 5 mg Documented By: HO Heparin Sodium (Porcine) (Heparin Sodium,Porcine 5,000 Unit/Ml Vial) 5,000 unit SUBCUT Q12H [facility] Last Admin: 06/26/22 05:29 Dose: 5,000 unit Documented By: HO Ceftriaxone Sodium 2 gm/ (Sodium Chloride) 50 mls @ 100 mls/hr IV Q24H [facility] Last Infusion: 06/26/22 09:22 Dose: 0 mls/hr Documented By: ROCIO Melatonin (Melatonin 3 Mg Tablet) 6 mg PO BEDTIME PRN PRN Reason: Insomnia Miconazole Nitrate (Miconazole Nitrate 2% Powder 85 Gm Bottle) 1 appl TOPICAL BID [facility]; Protocol Last Admin: 06/26/22 09:22 Dose: 1 appl Documented By: ROCIO Omeprazole (Omeprazole 20 Mg Capsule.Dr) 20 mg PO BID@0630,1630 [facility] Last Admin: 06/26/22 05:29 Dose: 20 mg Documented By: HO Ondansetron HCl (Ondansetron Hcl 4 Mg/2 Ml Vial) 4 mg IVPUSH Q8H PRN PRN Reason: Nausea and Vomiting Pharmacy Consult (Consult Rx Perform Med Rec) 1 each MISCELLANE ONCE PRN PRN Reason: Consult order Senna (Sennosides 8.6 Mg Tablet) 17.2 mg PO BEDTIME PRN PRN Reason: Constipation Sodium Chloride (0.9 % Sodium Chloride Flush 3 Ml Syringe) 3 ml IVFLUSH QSHIFT [facility] Last Admin: 06/26/22 08:40 Dose: 3 ml Documented By: ROCIO Tamsulosin HCl (Tamsulosin Hcl 0.4 Mg Capsule) 0.4 mg PO DAILY@1999 [facility] Last Admin: 06/25/22 19:43 Dose: 0.4 mg Documented By: HO Labs CBC & Chem 7: 06/23/22 10:23 06/26/22 05:36 Labs: Laboratory Results - last 24 hr 06/25/22 06/26/22 09:51 05:36 Anion Gap 13 Estim Creat Clear Calc 47.2 Estimated GFR 47 Random Glucose 88 Calcium 9.6 Ur Random Sodium 66.0 Urine Creatinine 27.01 Microbiology Microbiology Results: Microbiology 06/23/22 11:24 Blood Culture - Preliminary Blood - Venous No growth after 48 hours. 06/23/22 10:23 Blood Culture - Preliminary Blood - Venous No growth after 48 hours. Assessment and Plan (1) Acute renal failure: Status: Acute Plan 71/m with recent hospitalization for E.coli bacteremia and liver and now with ENEIDA from routine lab check ENEIDA concern for ATN vs pre-renal azotemia, Cr continues to trend down and nearing normal -continue IVF -renal ultrasound--chronic atrophic L kidney, no hydro -Nephrology following Hyperkalemia d/t ENEIDA--K is 5.3 monitor Existing E. coli liver abscess and bacteremia--continue Ceftriaxone DVT prophylaxis--heparin Inpatient due to ENEIDA needing IVF fluid, IV Abx for E.coli bacteremia Full code, Quality Stroke Does the patient have a stroke diagnosis?: No VTE Prior VTE?: No VTE Risk Level:: Medical - moderate - high VTE Device Contraindication: Treatment Not Indicated VTE Drug Contraindication: N/A - Med Ordered
[2022-06-26] MEDS: Sodium Zirconium Cyclosilicate 10 GM POWD.PACK PO (15:24)
--- NOTE | 2022-06-26 17:13 | P.PNNP_ITS ---
Subjective Subjective Date of Service: 06/26/22 Interval history: F/u on ENEIDA, Hyperkalemia Chart Reviewed. EVents noted. Physical Exam Vital Signs: Vital Signs: Last Vital Signs Temp 98.0 F 06/26/22 15:49 Pulse 88 06/26/22 15:49 Resp 20 06/26/22 15:49 BP 140/73 H 06/26/22 15:49 Pulse Ox 98 06/26/22 15:49 O2 Del Method 06/26/22 15:49 BMI result Body Mass Index 32.7 Const: General: comfortable and no acute distress HEENT: Head: Yes normocephalic and Yes atraumatic Resp: Auscultation: clear to auscultation bilaterally Cardio: Jugular venous distension: no JVD Rate: regular rate Rhythm: regular rhythm Neuro: General: moves all extremities Extrem: General: Yes no clubbing, cyanosis or edema Objective Data Labs CBC & Chem 7: 06/23/22 10:23 06/26/22 05:36 Labs: Laboratory Results - last 24 hr 06/26/22 05:36 Sodium 138 Potassium 5.3 H Chloride 108 Carbon Dioxide 22 Anion Gap 13 BUN 15 Creatinine 1.48 H Estim Creat Clear Calc 47.2 Estimated GFR 47 Random Glucose 88 Calcium 9.6 Microbiology Microbiology Results: Microbiology 06/23/22 11:24 Blood - Venous Blood Culture - Preliminary No growth after 48 hours. 06/23/22 10:23 Blood - Venous Blood Culture - Preliminary No growth after 48 hours. 06/23/22 Unknown Urine Catheterized - Blank Catheter Urine Culture - Final No growth. Procedures Date of Service Date of Service: 06/26/22 Assessment & Plan Assessment and plan (1) Acute renal failure: Status: Acute Plan 69-year-old male with recent hospital admission for AMS, sepsis and found to have E. coli bacteremia and E.coli liver abscess confirmed on liver aspiration on 06/14 and was discharge to SNF with IV Ceftriaxone 2 gram daily and Flagyl. He was sent to [facility] for abnormal labs namely, K of 6 and Creatine of 5 and sent to the hospital where K is found to be 5 and Cr 7.2. He denied dysuria, no urinary retention, no fever or chill. Per ER team, patient on presentation noted to be confused; CT head showed no acute findings; #) ENEIDA , non-oliguric: s/p ivf's with noted improvement in S-Cr. Not yet at prior BL. Suspect his eneida was due to hypotension and tubular stress from infection. Adding c3/c4 to rule out infectious GN - pending. He does have noted hematuria/pyuria. We will need to repeat UA if S-Cr does not improve. Prior history of uti with e.coli in 06/10 He is receiving appropriate abx and S-Cr is already downtrending. BL S-Cr ~ 1.0 mg/dL. Noted enlarged prostate with fullness of collecting system on renal US however now has blank in place. Severe renal atrophy of left kidney at BL. Avoidance of nephrotoxins - Hold acei/arb, nsaids, IV contrast, renal dosing abx Time Spent With Patient Time: Total time spent is greater than 50% in coordination of care (as documented) at patient's floor/unit and/or counseling patient: Progress Note: Quality Stroke Does the patient have a stroke diagnosis?: No
--- NOTE | 2022-06-26 17:58 | PM.EVENT ---
Event Note Date of Service: 06/26/22 Event Note: went to see patient for feeling strange reports of slurred speech decreased fluency, no obvious motor deficits, vitals and glucose normal, EKG sinus tachycardia no ischemic changes. will get CT head.
[2022-06-26 18:05] LABS: Glucose, Whole Blood 108 mg/dL (60-115)
[2022-06-26] MEDS: Finasteride 5 MG TABLET PO (20:22)
[2022-06-26] MEDS: Tamsulosin HCL 0.4 MG CAPSULE PO (20:22)
[2022-06-27 03:23] VITALS: BP 133/72; PULSE 113; RESP 20; TEMP 36.9; O2SAT 97
[2022-06-27] MEDS: Heparin Sodium,Porcine 5,000 UNIT/ML VIAL 5000 UNIT SUBCUT ×2 (05:52→17:06)
[2022-06-27] MEDS: 0.9 % Sodium Chloride Flush 3 ML SYRINGE IVFLUSH (06:44)
[2022-06-27 07:06] LABS: Anion Gap 14 (12-20); Blood Urea Nitrogen 11 mg/dL (9-16); Calcium 9.9 mg/dL (8.4-10.2); Carbon Dioxide 23 mmol/L (22-29); Chloride 105 mmol/L (96-108); Creatinine Clr Calc Pharmacy 49.5; Estimated Glomerular Filt Rate 49; Glucose Random 100 mg/dL (60-115); Potassium 5.8 mmol/L (3.3-5.1); Sodium 136 mmol/L (135-145)
[2022-06-27 07:12] VITALS: BP 122/69; PULSE 100; RESP 17; TEMP 36.9; O2SAT 96
[2022-06-27] MEDS: cefTRIAXone sodium 2 GM in 0.9 % Sodium Chloride 50 ML IV (09:51)
[2022-06-27] MEDS: Miconazole Nitrate 2% Powder 85 GM Bottle 1 APPL TOPICAL (09:56)
--- NOTE | 2022-06-27 10:03 | PM.PNNEP ---
Subjective Subjective Date of Service: 06/27/22 Interval history: Chart Reviewed. EVents noted. Physical Exam Vital Signs: Vital Signs: Last Vital Signs Temp 98.5 F 06/27/22 07:12 Pulse 100 06/27/22 07:12 Resp 17 06/27/22 07:12 BP 122/69 06/27/22 07:12 Pulse Ox 96 06/27/22 07:12 O2 Del Method 06/27/22 07:12 BMI result Body Mass Index 32.7 Const: General: comfortable and no acute distress Resp: Auscultation: clear to auscultation bilaterally Cardio: Jugular venous distension: no JVD Rate: regular rate Rhythm: regular rhythm Heart sounds: S1 normal heart sound present and S2 normal heart sound present GI: Auscultation: normal bowel sounds Neuro: General: moves all extremities Extrem: General: Yes no clubbing, cyanosis or edema Objective Data Labs CBC & Chem 7: 06/23/22 10:23 06/27/22 05:41 Labs: Laboratory Results - last 24 hr 06/26/22 06/27/22 17:46 05:41 Sodium 136 Potassium 5.8 H Chloride 105 Carbon Dioxide 23 Anion Gap 14 BUN 11 Creatinine 1.41 H Estim Creat Clear Calc 49.5 Estimated GFR 49 POC Glucose 108 Random Glucose 100 Calcium 9.9 Microbiology Microbiology Results: Microbiology 06/23/22 11:24 Blood - Venous Blood Culture - Preliminary No growth after 48 hours. 06/23/22 10:23 Blood - Venous Blood Culture - Preliminary No growth after 48 hours. 06/23/22 Unknown Urine Catheterized - Blank Catheter Urine Culture - Final No growth. Procedures Date of Service Date of Service: 06/27/22 Assessment & Plan Assessment and plan (1) Acute renal failure: Status: Acute Plan 69-year-old male with recent hospital admission for AMS, sepsis and found to have E. coli bacteremia and E.coli liver abscess confirmed on liver aspiration on 06/14 and was discharge to SNF with IV Ceftriaxone 2 gram daily and Flagyl. #) ENEIDA , non-oliguric: s/p ivf's with noted improvement in S-Cr. Not yet at prior BL. Suspect his eneida was due to hypotension and tubular stress from infection. Adding c3/c4 to rule out infectious GN - pending. He does have noted hematuria/pyuria. Prior history of uti with e.coli in 06/10 He is receiving appropriate abx and S-Cr is already downtrending. BL S-Cr ~ 1.0 mg/dL. Noted enlarged prostate with fullness of collecting system on renal US however now has blank in place. Severe renal atrophy of left kidney at BL. Avoidance of nephrotoxins - Hold acei/arb, nsaids, IV contrast, renal dosing abx No indication for dialysis Hyperkalemia Keep on 2 gm K diet Lokelma Watch for urinary retention Time Spent With Patient Time: Total time spent is greater than 50% in coordination of care (as documented) at patient's floor/unit and/or counseling patient: Progress Note: Quality Stroke Does the patient have a stroke diagnosis?: No
--- NOTE | 2022-06-27 10:28 | P.PNIM_ITS ---
Subjective Subjective Date of Service: 06/27/22 Interval History: F/u on ENEIDA, Hyperkalemia interval history: doing well, no confusion, Cr 1.4 unchanged, K 5.8 up was having episodes of not feeling well, dizzy yesterday, negative head CT, he feels much better today Review of Systems Gen: no fever Resp: no sob, no cough CV: no chest, no BLAND, no leg edema GI: No n/v, no abd pain Neuro: No confusion, no dizziness Physical Exam Vital Signs: Vital Signs: Last Vital Signs Temp 98.5 F 06/27/22 07:12 Pulse 100 06/27/22 07:12 Resp 17 06/27/22 07:12 BP 122/69 06/27/22 07:12 Pulse Ox 96 06/27/22 07:12 O2 Del Method 06/27/22 07:12 BMI result Body Mass Index 32.7 Const: Other: Constitutional: Alert, in no distress, Mental Status: Oriented to person, place and time. Respiratory: Clear to auscultation. No wheezing, rales or rhonchi. Cardiovascular: S1 S2 regular. No murmurs, rubs or gallops. Gastrointestinal: Abdomen soft, non-tender, non-distended. Normal bowel sounds.? Neurologic: Cranial nerves II-XII grossly intact. No focal neurological deficits. Moves all extremities spontaneously.? Skin: No rashes or lesions.? Musculoskeletal: No cyanosis or clubbing. Psychiatric: Normal mood and affect? Objective Data Active Medications Acetaminophen (Acetaminophen 325 Mg Tablet) 650 mg PO Q6H PRN PRN Reason: Pain, Mild (Pain Scale 1-3) Last Admin: 06/26/22 06:15 Dose: 650 mg Documented By: HO Acetaminophen (Acetaminophen Supp 650 Mg Supp.Rect) 650 mg [place] Q6H PRN PRN Reason: Pain, Mild (Pain Scale 1-3) Finasteride (Finasteride 5 Mg Tablet) 5 mg PO DAILY@1999 [facility] Last Admin: 06/26/22 20:22 Dose: 5 mg Documented By: HANNY Heparin Sodium (Porcine) (Heparin Sodium,Porcine 5,000 Unit/Ml Vial) 5,000 unit SUBCUT Q12H [facility] Last Admin: 06/27/22 05:52 Dose: 5,000 unit Documented By: HANNY Ceftriaxone Sodium 2 gm/ (Sodium Chloride) 50 mls @ 100 mls/hr IV Q24H [facility] Last Admin: 06/27/22 09:51 Dose: 100 mls/hr Documented By: TONIE Melatonin (Melatonin 3 Mg Tablet) 6 mg PO BEDTIME PRN PRN Reason: Insomnia Miconazole Nitrate (Miconazole Nitrate 2% Powder 85 Gm Bottle) 1 appl TOPICAL BID [facility]; Protocol Last Admin: 06/27/22 09:56 Dose: 1 appl Documented By: TONIE Omeprazole (Omeprazole 20 Mg Capsule.) 20 mg PO BID@0630,1630 [facility] Last Admin: 06/27/22 06:43 Dose: Not Given Documented By: HANNY Non-Admin Reason: pt refused. claims gives him abd pain Ondansetron HCl (Ondansetron Hcl 4 Mg/2 Ml Vial) 4 mg IVPUSH Q8H PRN PRN Reason: Nausea and Vomiting Pharmacy Consult (Consult Rx Perform Med Rec) 1 each MISCELLANE ONCE PRN PRN Reason: Consult order Senna (Sennosides 8.6 Mg Tablet) 17.2 mg PO BEDTIME PRN PRN Reason: Constipation Sodium Chloride (0.9 % Sodium Chloride Flush 3 Ml Syringe) 3 ml IVFLUSH QSHIFT [facility] Last Admin: 06/27/22 09:47 Dose: Not Given Documented By: TONIE Non-Admin Reason: assessed Tamsulosin HCl (Tamsulosin Hcl 0.4 Mg Capsule) 0.4 mg PO DAILY@1999 [facility] Last Admin: 06/26/22 20:22 Dose: 0.4 mg Documented By: HANNY Labs CBC & Chem 7: 06/23/22 10:23 06/27/22 05:41 Labs: Laboratory Results - last 24 hr 06/26/22 06/27/22 17:46 05:41 Anion Gap 14 Estim Creat Clear Calc 49.5 Estimated GFR 49 POC Glucose 108 Random Glucose 100 Calcium 9.9 Assessment and Plan (1) Acute renal failure: Status: Acute Plan 71/m with recent hospitalization for E.coli bacteremia and liver and now with ENEIDA from routine lab check ENEIDA concern for ATN vs pre-renal azotemia, Cr unchanged today at 1.4 Baseline around 1 -continue IVF -renal ultrasound--chronic atrophic L kidney, no hydro -Nephrology following -Monitor off IVF Hyperkalemia d/t ENEIDA--K is 5.8 today up from 5.3, add Kayexalate Existing E. coli liver abscess and bacteremia--continue Ceftriaxone to completion DVT prophylaxis--heparin Inpatient due to ENEIDA needing IVF fluid, IV Abx for E.coli bacteremia and now hyperkalemia Full code, Quality Stroke Does the patient have a stroke diagnosis?: No VTE Prior VTE?: No VTE Risk Level:: Medical - moderate - high VTE Device Contraindication: Treatment Not Indicated VTE Drug Contraindication: N/A - Med Ordered
[2022-06-27] MEDS: Sodium Zirconium Cyclosilicate 10 GM POWD.PACK PO ×2 (11:39→17:06)
[2022-06-27 11:56] LABS: Complement C3 98 mg/dL (82-185)
--- NOTE | 2022-06-27 15:14 | ECG_ITS ---
Test Reason : EKG CHANGES Blood Pressure : / mmHG Vent. Rate : 127 BPM Atrial Rate : 127 BPM P-R Int : 146 ms QRS Dur : 082 ms QT Int : 286 ms P-R-T Axes : 016 032 027 degrees QTc Int : 415 ms Sinus tachycardia with occasional Premature ventricular complexes Low voltage QRS Borderline ECG When compared to the previous EKG of 08 june 2022, PVCs noted Referred By: Min Gomez Electronically Signed By:PETER MCHUGH
--- NOTE | 2022-06-27 15:17 | MHC.CM.PN ---
Case Management continues to follow patient for potential discharge tomorrow (06/28).
[2022-06-27 15:22] VITALS: BP 109/67; PULSE 130; RESP 20; TEMP 37.8; O2SAT 97
--- NOTE | 2022-06-27 16:32 | PM.EVENT ---
Event Note Date of Service: 06/27/22 Event Note: Onset of tachycardia, low grade temp, ... ECG shows sinus tach, not hypoxic.. Give IVF and observe
[2022-06-27] MEDS: 0.9 % Sodium Chloride 1,000 ML 100 ML IVCONT (17:06)
[2022-06-27 17:45] VITALS: TEMP 37.7
--- NOTE | 2022-06-27 18:54 | PC.NURSE ---
Pt c/o feeling cold and having chills. Temp was assessed, pt found to be febrile, md informed. fluids started and prn tyl administered as ordered. pt was also placed on tele d/t HR ranging from 110-130 upon assessment, md informed, tele placed on pt and ECG was obtained. md informed of results. per MD blood cultures to be obtained. pt had visitor throughout the day assisting with care and updated by this RN. per md no plan on d/c'ing pt today or tomorrow. safety and fall precautions maintained. call azar within reach.
[2022-06-27] MEDS: Finasteride 5 MG TABLET PO (19:29)
[2022-06-27] MEDS: Acetaminophen 325 MG TABLET 650 MG PO (19:29)
[2022-06-27 19:40] VITALS: BP 163/75; PULSE 132; RESP 22; TEMP 38.8; O2SAT 95
[2022-06-27 23:42] VITALS: BP 118/71; PULSE 118; RESP 24; TEMP 36.9; O2SAT 98
[2022-06-28] VITALS (7 sets, daily range): BP systolic 102–158; BP diastolic 57–79; PULSE 102–127; RESP 18–24; TEMP 36.8–38.4; O2SAT 95–97
[2022-06-28] MEDS: 0.9 % Sodium Chloride 1,000 ML 100 ML IVCONT ×2 (02:26→14:46)
[2022-06-28] MEDS: Acetaminophen 325 MG TABLET 650 MG PO ×2 (03:26→11:14)
[2022-06-28] MEDS: Heparin Sodium,Porcine 5,000 UNIT/ML VIAL 5000 UNIT SUBCUT ×2 (06:08→16:55)
[2022-06-28] MEDS: cefTRIAXone sodium 2 GM in 0.9 % Sodium Chloride 50 ML IV (08:28)
[2022-06-28] MEDS: Miconazole Nitrate 2% Powder 85 GM Bottle 1 APPL TOPICAL (08:32)
[2022-06-28 08:41] LABS: Anion Gap 15 (12-20); Blood Urea Nitrogen 9 mg/dL (9-16); Calcium 9.3 mg/dL (8.4-10.2); Carbon Dioxide 23 mmol/L (22-29); Chloride 104 mmol/L (96-108); Creatinine Clr Calc Pharmacy 51.3; Estimated Glomerular Filt Rate 51; Glucose Random 100 mg/dL (60-115); Potassium 4.8 mmol/L (3.3-5.1); Sodium 137 mmol/L (135-145)
--- NOTE | 2022-06-28 09:33 | P.PNIM_ITS ---
Subjective Subjective Date of Service: 06/28/22 Interval History: F/u on ENEIDA, Hyperkalemia interval history: Patient is been having high temps up to 102 since yesterday and doesn't feel good, didn't sleep, was tachycardic uyesterday, likely septic, BP ok Review of Systems Gen: + fever Resp: no sob, no cough CV: no chest, no BLAND, no leg edema GI: No n/v, no abd pain Neuro: No confusion, no dizziness Physical Exam Vital Signs: Vital Signs: Last Vital Signs Temp 98.8 F 06/28/22 06:55 Pulse 102 H 06/28/22 06:55 Resp 20 06/28/22 06:55 BP 102/57 L 06/28/22 06:55 Pulse Ox 97 06/28/22 06:55 O2 Del Method 06/28/22 06:55 BMI result Body Mass Index 32.7 Const: Other: Constitutional: Alert, in no distress, Mental Status: Oriented to person, place and time. Respiratory: Clear to auscultation. No wheezing, rales or rhonchi. Cardiovascular: S1 S2 regular. No murmurs, rubs or gallops. Gastrointestinal: Abdomen soft, non-tender, non-distended. Normal bowel sounds.? Neurologic: Cranial nerves II-XII grossly intact. No focal neurological deficits. Moves all extremities spontaneously.? Skin: No rashes or lesions.? Musculoskeletal: No cyanosis or clubbing. Psychiatric: Normal mood and affect? Objective Data Active Medications Acetaminophen (Acetaminophen 325 Mg Tablet) 650 mg PO Q6H PRN PRN Reason: Pain, Mild (Pain Scale 1-3) Last Admin: 06/28/22 03:26 Dose: 650 mg Documented By: KORY Acetaminophen (Acetaminophen Supp 650 Mg Supp.Rect) 650 mg [place] Q6H PRN PRN Reason: Pain, Mild (Pain Scale 1-3) Finasteride (Finasteride 5 Mg Tablet) 5 mg PO DAILY@1999 [facility] Last Admin: 06/27/22 19:29 Dose: 5 mg Documented By: KORY Heparin Sodium (Porcine) (Heparin Sodium,Porcine 5,000 Unit/Ml Vial) 5,000 unit SUBCUT Q12H [facility] Last Admin: 06/28/22 06:08 Dose: 5,000 unit Documented By: KORY Ceftriaxone Sodium 2 gm/ (Sodium Chloride) 50 mls @ 100 mls/hr IV Q24H [facility] Last Admin: 06/28/22 08:28 Dose: 100 mls/hr Documented By: GULSHAN Sodium Chloride (Ns) 1,000 mls @ 100 mls/hr IVCONT .Q10H [facility] Last Admin: 06/28/22 02:26 Dose: 100 mls/hr Documented By: KORY Vancomycin HCl 1,000 mg/ (Sodium Chloride) 270 mls @ 270 mls/hr IV Q12H [facility] Melatonin (Melatonin 3 Mg Tablet) 6 mg PO BEDTIME PRN PRN Reason: Insomnia Miconazole Nitrate (Miconazole Nitrate 2% Powder 85 Gm Bottle) 1 appl TOPICAL BID [facility]; Protocol Last Admin: 06/28/22 08:32 Dose: 1 appl Documented By: GULSHAN Omeprazole (Omeprazole 20 Mg Capsule.) 20 mg PO BID@0630,1630 [facility] Last Admin: 06/28/22 06:11 Dose: Not Given Documented By: KORY Non-Admin Reason: Patient Refused Ondansetron HCl (Ondansetron Hcl 4 Mg/2 Ml Vial) 4 mg IVPUSH Q8H PRN PRN Reason: Nausea and Vomiting Pharmacy Consult (Consult Rx Perform Med Rec) 1 each MISCELLANE ONCE PRN PRN Reason: Consult order Pharmacy Consult (Consult Rx Vancomycin Dosing) 1 each MISCELLANE DAILY PRN PRN Reason: Consult order Senna (Sennosides 8.6 Mg Tablet) 17.2 mg PO BEDTIME PRN PRN Reason: Constipation Sodium Chloride (0.9 % Sodium Chloride Flush 3 Ml Syringe) 3 ml IVFLUSH QSHIFT [facility] Last Admin: 06/28/22 08:25 Dose: Not Given Documented By: GULSHAN Non-Admin Reason: IV Running Tamsulosin HCl (Tamsulosin Hcl 0.4 Mg Capsule) 0.4 mg PO DAILY@1999 [facility] Last Admin: 06/27/22 19:34 Dose: Not Given Documented By: KORY Non-Admin Reason: Patient Refused Labs CBC & Chem 7: 06/23/22 10:23 06/28/22 07:50 Labs: Laboratory Results - last 24 hr 06/24/22 06/28/22 06:42 07:50 Anion Gap 15 Estim Creat Clear Calc 51.3 Estimated GFR 51 Random Glucose 100 Calcium 9.3 D Complement C3 98 Complement C4 18 Assessment and Plan (1) Acute renal failure: Status: Acute Plan 71/m with recent hospitalization for E.coli bacteremia and liver and now with ENEIDA from routine lab check SIRS (tachycardia and Fever)- BP -Blood cultures done -check WBC and lactic acid -Empric vanco -repeat UA, CXR ENEIDA concern for ATN vs pre-renal azotemia, Cr unchanged today at 1.35 Baseline around 1 -continue IVF -renal ultrasound--chronic atrophic L kidney, no hydro -Nephrology following -Monitor off IVF Hyperkalemia d/t ENEIDA--resolved after Lokelma Existing E. coli liver abscess and bacteremia--continue Ceftriaxone to completion -blood cultures been repeated DVT prophylaxis--heparin Inpatient due to ENEIDA needing IVF fluid, IV Abx for E.coli bacteremia and now fever that needs work up Full code, Discussed with healthcare proxy at bedside Quality Stroke Does the patient have a stroke diagnosis?: No VTE Prior VTE?: No VTE Risk Level:: Medical - moderate - high VTE Device Contraindication: Treatment Not Indicated VTE Drug Contraindication: N/A - Med Ordered
--- NOTE | 2022-06-28 09:44 | PM.PNNEP ---
Subjective Subjective Date of Service: 06/29/22 Interval history: F/u on ENEIDA, Hyperkalemia Events noted Physical Exam Vital Signs: Vital Signs: Last Vital Signs Temp 98.8 F 06/28/22 06:55 Pulse 102 H 06/28/22 06:55 Resp 20 06/28/22 06:55 BP 102/57 L 06/28/22 06:55 Pulse Ox 97 06/28/22 06:55 O2 Del Method 06/28/22 06:55 BMI result Body Mass Index 32.7 Const: General: comfortable and no acute distress Resp: Auscultation: clear to auscultation bilaterally Cardio: Jugular venous distension: no JVD Rate: regular rate Rhythm: regular rhythm Heart sounds: S1 normal heart sound present and S2 normal heart sound present GI: Auscultation: normal bowel sounds Neuro: General: moves all extremities Extrem: General: Yes no clubbing, cyanosis or edema Objective Data Labs CBC & Chem 7: 06/28/22 10:43 06/29/22 05:52 Labs: Laboratory Results - last 24 hr 06/24/22 06/28/22 06:42 07:50 Sodium 137 Potassium 4.8 Chloride 104 Carbon Dioxide 23 Anion Gap 15 BUN 9 Creatinine 1.36 Estim Creat Clear Calc 51.3 Estimated GFR 51 Random Glucose 100 Calcium 9.3 D Complement C3 98 Complement C4 18 Microbiology Microbiology Results: Microbiology 06/23/22 11:24 Blood - Venous Blood Culture - Preliminary No growth after 48 hours. 06/23/22 10:23 Blood - Venous Blood Culture - Preliminary No growth after 48 hours. 06/23/22 Unknown Urine Catheterized - Blank Catheter Urine Culture - Final No growth. Procedures Date of Service Date of Service: 06/28/22 Assessment & Plan Assessment and plan (1) Acute renal failure: Status: Acute Plan 69-year-old male with recent hospital admission for AMS, sepsis and found to have E. coli bacteremia and E.coli liver abscess confirmed on liver aspiration on 06/14 and was discharge to SNF with IV Ceftriaxone 2 gram daily and Flagyl. #) ENEIDA , non-oliguric: s/p ivf's with noted improvement in S-Cr. Not yet at prior BL. Suspect his eneida was due to hypotension and tubular stress from infection. Adding c3/c4 to rule out infectious GN - pending. He does have noted hematuria/pyuria. Prior history of uti with e.coli in 06/10 He is receiving appropriate abx and S-Cr is already downtrending. BL S-Cr ~ 1.0 mg/dL. Noted enlarged prostate with fullness of collecting system on renal US however now has blank in place. Severe renal atrophy of left kidney at BL. Avoidance of nephrotoxins - Hold acei/arb, nsaids, IV contrast, renal dosing abx Hyperkalemia Keep on 2 gm K diet s/p Lokelma K normalized Time Spent With Patient Time: Total time spent is greater than 50% in coordination of care (as documented) at patient's floor/unit and/or counseling patient: Progress Note: Quality Stroke Does the patient have a stroke diagnosis?: No
--- NOTE | 2022-06-28 09:49 | PHA.PROG ---
Admission Date/Time: June 23, 2022 13:30 Indication: Bacteremia Weight in k kg Adjusted body weight in K.08 [place] body weight in K.8 Obesity Dosing Indication % IBW: 44% obese Serum Creatinine - Last 168 Hours 06/23/22 06/24/22 06/25/22 11:24 05:56 05:34 Creatinine 7.22 H* 3.70 H 2.04 H 06/26/22 06/27/22 06/28/22 05:36 05:41 07:50 Creatinine 1.48 H 1.41 H 1.36 Estimated CrCl and GFR - Last 168 Hours 06/23/22 06/24/22 06/25/22 11:24 05:56 05:34 Estim Creat Clear Calc 9.7 18.8 34.2 Estimated GFR 7 16 32 06/26/22 06/27/22 06/28/22 05:36 05:41 07:50 Estim Creat Clear Calc 47.2 49.5 51.3 Estimated GFR 47 49 51 Vancomycin Loading Dose: 2000mg Current Vancomycin Dosing Regimen: 1000mg Q24h Vancomycin Monitoring using AUC goal of 400 - 600 range with trough as surrogate marker: 501 mg/L/hr Date and Time for next Vancomycin Level to be drawn: R 06/30 @0900 Pharmacist Comments on Vancomycin Plan: Used obese model. Patient has suspected bacteremia so a load is very important. Load is 2000mg which is 21 mg/kg. Loading dose is appropriate. Patients renal function is not at it's best, however, it has slightly improved. Scr down to 1.36 from 1.41. Proceeding with caution, patients renal function and patients age calls for Q24 dosing. Keeping maintenance dose on lower side for now at 11 mg/kg. Random level to be drawn 06/30 @ 0900. Will be monitoring renal function daily till then. Once level is drawn then dose may be reassessed. Predicted AUC 501 mg/L/hr is therapeutic for bacteremia. Vancomycin dosing will take advantage of [employer] as a clinical decision support tool that uses Bayesian modeling to calculate individual patient's pharmacokinetic parameters and forecast the patient's drug concentration time course with the target goal AUC 24 range of 400 - 600 mg/L/hr.
[2022-06-28 10:54] LABS: Hematocrit 27.8 % (42.0-52.0); Mean Corpuscular HGB Conc 32.4 g/dl (31.0-36.0); Mean Corpuscular Volume 92.7 fL (80.0-98.0); Mean Platelet Volume 9.3 fL (9.4-12.4); Platelet Count 298 X10*3/uL (160-400); Red Cell Distribution Width 18.1 % (11.0-16.0); White Blood Count 6.4 X10*3/uL (4.8-10.8)
[2022-06-28 11:02] LABS: Lactic Acid 1.8 mmol/L (0.5-2.0)
[2022-06-28 11:04] LABS: Appearance Urine HAZY; Color Urine YELLOW; Glucose Urine UA NEG (NEG); Leukocyte Esterase Urine 3+ (NEG); Nitrite Urine NEG (NEG); PH 6.5 (5.0-8.0); UACC Culture Trigger YES; Urine Blood 1+ (NEG); Urine Ketones NEG (NEG); Urine Protein 1+ MG/DL (NEG-TRACE)
--- NOTE | 2022-06-28 11:19 | MHC.CM.PN ---
CM met briefly with Patient's HCP/Alvaro, who indicated that they are no longer holding the bed at [facility]; the goal is still for Patient to return there but they are no longer holding the bed.
[2022-06-28 11:22] LABS: Amorphous Sediment Urine 1+ /LPF; Squamous Epithelial Cell Urine TRACE /LPF
[2022-06-28 11:23] LABS: Bacteria Urine 1+ /LPF; UACC CULT YES; WBC Clumps Urine NOTED; WBC Urine TNTC /HPF (0-4)
[2022-06-28 11:24] LABS: RBC Urine 0-2 /HPF (0)
[2022-06-28] MEDS: Tamsulosin HCL 0.4 MG CAPSULE PO (20:29)
[2022-06-29] MEDS: 0.9 % Sodium Chloride 1,000 ML 100 ML IVCONT ×2 (00:50→09:33)
[2022-06-29] MEDS: 0.9 % Sodium Chloride Flush 3 ML SYRINGE IVFLUSH ×4 (00:51→19:43)
[2022-06-29] MEDS: Acetaminophen 325 MG TABLET 650 MG PO ×3 (02:27→19:41)
[2022-06-29 03:36] VITALS: BP 135/68; PULSE 107; RESP 20; TEMP 36.8; O2SAT 96
[2022-06-29] MEDS: Heparin Sodium,Porcine 5,000 UNIT/ML VIAL 5000 UNIT SUBCUT ×2 (05:53→16:32)
[2022-06-29 06:51] LABS: Creatinine Clr Calc Pharmacy 60.7; Estimated Glomerular Filt Rate > 60
--- NOTE | 2022-06-29 07:02 | HE.PHANOTE ---
Vanco Dosing Addendum Patients Scr down from 1.36 to 1.15 this morning. Plan is to keep current regimen until levels come back. Level to be drawn 06/30 @0900. Predicted AUC 434 mg/L/hr.
[2022-06-29 08:00] VITALS: BP 115/67; PULSE 87; RESP 20; TEMP 36.4; O2SAT 97
--- NOTE | 2022-06-29 08:52 | P.CDIC_ITS ---
CDI Concurrent Query Documentation Clarification: PHYSICIAN'S DOCUMENTATION REQUEST Date of Query: 06/29/22 0853 Patient Name: Nael Su Admit Date: 06/23/22 Dear Doctor, A review of the medical record indicates additional documentation may be needed. Please review below and update the documentation accordingly. Risk Factors/Clinical Indicators/Treatments PN 8 - Patient is having temps 102, tachycardic, likely Septic, BP ok Assessment/plan: SIRS (tachycardia and fever) Empric Vanco. HR 121 Temp 102 RR 24 Recognized standard criteria for this condition and other infectious definitions includes: SIRS Sepsis Systemic manifestations of infection, with 2 or more SIRS criteria which include: * Fever > 100.4?F or hypothermia < 96.8?F * Leukocytosis ? WBC > 12,000 or leukopenia, WBC < 4,000, or > 10% bands * Tachycardia- > 90 beats/minute * Tachypnea- RR > 20 breaths/minute or PaCO2 < 32mmHg Source: [employer]ck Manual 2013 Documentation should include the known or suspected organism, and the underlying infection, such as UTI or pneumonia Based on the above information and the recognized standard for sepsis, could you please clarify in the Progress Notes if this diagnoses is still accurate and reflective of the patient's condition to ensure quality of the medical record. Clarity of documentation: * Sepsis is/was present and is a clinical diagnosis * SIRS is present * Other (please specify) * Unable to determine Use of terms such as suspected, likely, concern for, or probable (associated with a specific diagnosis that is being evaluated, monitored, or treated as if it exists) are acceptable and can be coded in the inpatient setting, when documented at the time of discharge. Thank you, Susana Bhatia [insert CDI's credentials] Extension: [4-digit phone extension] Please use your independent medical judgment in providing your response. THIS QUERY IS PART OF THE PERMANENT MEDICAL RECORD Provider Response: Other Other Diagnosis: SIRS not sepsis
[2022-06-29] MEDS: cefTRIAXone sodium 2 GM in 0.9 % Sodium Chloride 50 ML IV (09:23)
--- NOTE | 2022-06-29 10:05 | PM.PNNEP ---
Subjective Subjective Date of Service: 06/30/22 Interval history: F/u on ENEIDA, Hyperkalemia Events noted Physical Exam Vital Signs: Vital Signs: Last Vital Signs Temp 97.5 F 06/29/22 08:00 Pulse 87 06/29/22 08:00 Resp 20 06/29/22 08:00 BP 115/67 06/29/22 08:00 Pulse Ox 97 06/29/22 08:00 O2 Del Method 06/29/22 08:00 BMI result Body Mass Index 32.7 Const: General: comfortable and no acute distress Resp: Auscultation: clear to auscultation bilaterally Cardio: Jugular venous distension: no JVD Rate: regular rate Rhythm: regular rhythm Heart sounds: S1 normal heart sound present and S2 normal heart sound present GI: Auscultation: normal bowel sounds Neuro: General: moves all extremities Extrem: General: Yes no clubbing, cyanosis or edema Objective Data Labs CBC & Chem 7: 06/30/22 08:48 06/30/22 06:17 Labs: Laboratory Results - last 24 hr 06/28/22 06/28/22 06/28/22 10:39 10:43 10:43 WBC 6.4 RBC 3.00 L Hgb 9.0 L Hct 27.8 L MCV 92.7 MCH 30.0 MCHC 32.4 RDW 18.1 H Plt Count 298 MPV 9.3 L Absolute Nucleated RBC 0.000 Nucleated RBC % (auto) 0.0 Creatinine Estim Creat Clear Calc Estimated GFR Lactic Acid 1.8 Urine Color YELLOW Urine Appearance HAZY Urine pH 6.5 Ur Specific [place] 1.020 Urine Protein 1+ H Urine Glucose (UA) NEG Urine Ketones NEG Urine Blood 1+ H Urine Nitrite NEG Ur Leukocyte Esterase 3+ H Urine RBC 0-2 Urine WBC TNTC H Urine WBC Clumps NOTED Ur Squamous Epith Cells TRACE Amorphous Sediment 1+ Urine Bacteria 1+ 06/29/22 05:52 WBC RBC Hgb Hct MCV MCH MCHC RDW Plt Count MPV Absolute Nucleated RBC Nucleated RBC % (auto) Creatinine 1.15 Estim Creat Clear Calc 60.7 Estimated GFR > 60 Lactic Acid Urine Color Urine Appearance Urine pH Ur Specific [place] Urine Protein Urine Glucose (UA) Urine Ketones Urine Blood Urine Nitrite Ur Leukocyte Esterase Urine RBC Urine WBC Urine WBC Clumps Ur Squamous Epith Cells Amorphous Sediment Urine Bacteria Microbiology Microbiology Results: Microbiology 06/27/22 18:17 Blood - Venous Blood Culture - Preliminary No growth after 24 hours. 06/27/22 18:17 Blood - Venous Blood Culture - Preliminary No growth after 24 hours. 06/23/22 11:24 Blood - Venous Blood Culture - Final No growth after 5 days. 06/23/22 10:23 Blood - Venous Blood Culture - Final No growth after 5 days. 06/23/22 Unknown Urine Catheterized - Blank Catheter Urine Culture - Final No growth. Procedures Date of Service Date of Service: 06/29/22 Assessment & Plan Assessment and plan (1) Acute renal failure: Status: Acute Plan 69-year-old male with recent hospital admission for AMS, sepsis and found to have E. coli bacteremia and E.coli liver abscess confirmed on liver aspiration on 06/14 and was discharge to SNF with IV Ceftriaxone 2 gram daily and Flagyl. #) ENEIDA , non-oliguric: s/p ivf's with noted improvement in S-Cr. Not yet at prior BL. Suspect his eneida was due to hypotension and tubular stress from infection. Adding c3/c4 to rule out infectious GN - pending. He does have noted hematuria/pyuria. Prior history of uti with e.coli in 06/10 He is receiving appropriate abx and S-Cr is already downtrending. BL S-Cr ~ 1.0 mg/dL. Noted enlarged prostate with fullness of collecting system on renal US however now has blank in place. Severe renal atrophy of left kidney at BL. Avoidance of nephrotoxins - Hold acei/arb, nsaids, IV contrast, renal dosing abx On vanco- follow levels and watch for renal toxicity Hyperkalemia Keep on 2 gm K diet s/p Lokelma K normalized Time Spent With Patient Time: Total time spent is greater than 50% in coordination of care (as documented) at patient's floor/unit and/or counseling patient: Progress Note: Quality Stroke Does the patient have a stroke diagnosis?: No
[2022-06-29] MEDS: vancomycin HCL 1,000 MG in 0.9 % Sodium Chloride 250 ML 270 MG IV (10:13)
[2022-06-29] MEDS: Miconazole Nitrate 2% Powder 85 GM Bottle 1 APPL TOPICAL ×2 (10:15→19:43)
--- NOTE | 2022-06-29 10:29 | P.PNIM_ITS ---
Subjective Subjective Date of Service: 06/29/22 Interval History: F/u on ENEIDA, Hyperkalemia, SIRS interval history: Fever resovled, CXR negative, UA+ but probably from chronic blank, blood culture negative x 24 He's feeling much better today Review of Systems Gen: - fever Resp: no sob, no cough CV: no chest, no BLAND, no leg edema GI: No n/v, no abd pain Neuro: No confusion, no dizziness Physical Exam Vital Signs: Vital Signs: Last Vital Signs Temp 97.5 F 06/29/22 08:00 Pulse 87 06/29/22 08:00 Resp 20 06/29/22 08:00 BP 115/67 06/29/22 08:00 Pulse Ox 97 06/29/22 08:00 O2 Del Method 06/29/22 08:00 BMI result Body Mass Index 32.7 Const: Other: Constitutional: Alert, in no distress, Mental Status: Oriented to person, place and time. Respiratory: Clear to auscultation. No wheezing, rales or rhonchi. Cardiovascular: S1 S2 regular. No murmurs, rubs or gallops. Gastrointestinal: Abdomen soft, non-tender, non-distended. Normal bowel sounds.? Neurologic: Cranial nerves II-XII grossly intact. No focal neurological deficits. Moves all extremities spontaneously.? Skin: No rashes or lesions.? Musculoskeletal: No cyanosis or clubbing. Psychiatric: Normal mood and affect? Objective Data Active Medications Acetaminophen (Acetaminophen 325 Mg Tablet) 650 mg PO Q6H PRN PRN Reason: Pain, Mild (Pain Scale 1-3) Last Admin: 06/29/22 02:27 Dose: 650 mg Documented By: ERICA Acetaminophen (Acetaminophen Supp 650 Mg Supp.Rect) 650 mg [place] Q6H PRN PRN Reason: Pain, Mild (Pain Scale 1-3) Finasteride (Finasteride 5 Mg Tablet) 5 mg PO DAILY@1999 [facility] Last Admin: 06/28/22 20:31 Dose: Not Given Documented By: GIUSEPPE Non-Admin Reason: Patient Refused Heparin Sodium (Porcine) (Heparin Sodium,Porcine 5,000 Unit/Ml Vial) 5,000 unit SUBCUT Q12H [facility] Last Admin: 06/29/22 05:53 Dose: 5,000 unit Documented By: ERICA Ceftriaxone Sodium 2 gm/ (Sodium Chloride) 50 mls @ 100 mls/hr IV Q24H [facility] Last Infusion: 06/29/22 10:13 Dose: 0 mls/hr Documented By: LOBO Sodium Chloride (Ns) 1,000 mls @ 100 mls/hr IVCONT .Q10H [facility] Last Admin: 06/29/22 09:33 Dose: 100 mls/hr Documented By: LOBO Vancomycin HCl 1,000 mg/ (Sodium Chloride) 270 mls @ 270 mls/hr IV Q24H [facility] Last Admin: 06/29/22 10:13 Dose: 270 mls/hr Documented By: LOBO Melatonin (Melatonin 3 Mg Tablet) 6 mg PO BEDTIME PRN PRN Reason: Insomnia Miconazole Nitrate (Miconazole Nitrate 2% Powder 85 Gm Bottle) 1 appl TOPICAL BID [facility]; Protocol Last Admin: 06/29/22 10:15 Dose: 1 appl Documented By: LOBO Omeprazole (Omeprazole 20 Mg Capsule.) 20 mg PO BID@0630,1630 [facility] Last Admin: 06/29/22 05:55 Dose: Not Given Documented By: ERICA Non-Admin Reason: Patient Refused Ondansetron HCl (Ondansetron Hcl 4 Mg/2 Ml Vial) 4 mg IVPUSH Q8H PRN PRN Reason: Nausea and Vomiting Pharmacy Consult (Consult Rx Perform Med Rec) 1 each MISCELLANE ONCE PRN PRN Reason: Consult order Pharmacy Consult (Consult Rx Vancomycin Dosing) 1 each MISCELLANE DAILY PRN PRN Reason: Consult order Senna (Sennosides 8.6 Mg Tablet) 17.2 mg PO BEDTIME PRN PRN Reason: Constipation Sodium Chloride (0.9 % Sodium Chloride Flush 3 Ml Syringe) 3 ml IVFLUSH QSHIFT [facility] Last Admin: 06/29/22 09:32 Dose: 3 ml Documented By: LOBO Tamsulosin HCl (Tamsulosin Hcl 0.4 Mg Capsule) 0.4 mg PO DAILY@1999 [facility] Last Admin: 06/28/22 20:29 Dose: 0.4 mg Documented By: GIUSEPPE Labs CBC & Chem 7: 06/28/22 10:43 06/29/22 05:52 Labs: Laboratory Results - last 24 hr 06/28/22 06/28/22 06/28/22 10:39 10:43 10:43 MCV 92.7 MCH 30.0 MCHC 32.4 RDW 18.1 H Plt Count 298 MPV 9.3 L Absolute Nucleated RBC 0.000 Nucleated RBC % (auto) 0.0 Estim Creat Clear Calc Estimated GFR Lactic Acid 1.8 Urine Color YELLOW Urine Appearance HAZY Urine pH 6.5 Ur Specific [place] 1.020 Urine Protein 1+ H Urine Glucose (UA) NEG Urine Ketones NEG Urine Blood 1+ H Urine Nitrite NEG Ur Leukocyte Esterase 3+ H Urine RBC 0-2 Urine WBC TNTC H Urine WBC Clumps NOTED Ur Squamous Epith Cells TRACE Amorphous Sediment 1+ Urine Bacteria 1+ 06/29/22 05:52 MCV MCH MCHC RDW Plt Count MPV Absolute Nucleated RBC Nucleated RBC % (auto) Estim Creat Clear Calc 60.7 Estimated GFR > 60 Lactic Acid Urine Color Urine Appearance Urine pH Ur Specific [place] Urine Protein Urine Glucose (UA) Urine Ketones Urine Blood Urine Nitrite Ur Leukocyte Esterase Urine RBC Urine WBC Urine WBC Clumps Ur Squamous Epith Cells Amorphous Sediment Urine Bacteria Microbiology Microbiology Results: Microbiology 06/27/22 18:17 Blood Culture - Preliminary Blood - Venous No growth after 24 hours. 06/27/22 18:17 Blood Culture - Preliminary Blood - Venous No growth after 24 hours. 06/23/22 11:24 Blood Culture - Final Blood - Venous No growth after 5 days. 06/23/22 10:23 Blood Culture - Final Blood - Venous No growth after 5 days. Assessment and Plan (1) Acute renal failure: Status: Acute Plan 71/m with recent hospitalization for E.coli bacteremia and liver and now with ENEIDA from routine lab check SIRS (tachycardia and Fever)- Fever resolved. No new sourse of infection identied -Blood cultures 06/27 negative x 24 -WBC within normal -Empric vanco until blood cultures negative at 48 -CXR negative -+ UA probably form blank ENEIDA concern for ATN vs pre-renal azotemia, Cr is better today at 1.15 -renal ultrasound--chronic atrophic L kidney, no hydro -Nephrology following -DC IVF Hyperkalemia d/t ENEIDA--resolved after Lokelma Existing E. coli liver abscess and bacteremia from last hospitalization -continue Ceftriaxone to completion -reconsult ID to see if any new changes DVT prophylaxis--heparin Inpatient due to ENEIDA needing IVF fluid, IV Abx for E.coli bacteremia and now fever that needs work up Full code, Discussed with healthcare proxy at bedside Quality Stroke Does the patient have a stroke diagnosis?: No VTE Prior VTE?: No VTE Risk Level:: Medical - moderate - high VTE Device Contraindication: Treatment Not Indicated VTE Drug Contraindication: N/A - Med Ordered
[2022-06-29 11:18] VITALS: BP 140/71; PULSE 100; RESP 20; TEMP 36.9; O2SAT 98
[2022-06-29] MEDS: Piperacillin Sodium/Tazobactam 3.375 GM in 0.9 % Sodium Chloride 50 ML IV ×2 (13:06→19:42)
--- NOTE | 2022-06-29 14:15 | W.PM.IDCN ---
History of Present Illness Data of Consult Service Date: 06/29/22 Requesting physician: Min Gomez Primary Care Provider: Unknown Physician HPI Reason for consult: sepsis concerns He presents with shaking chills per fish seiner. He was in hospital and I saw him in May. He had liver abscess with pansensitive E coli and no malignancy. He has been taking Ceftriaxone daily. He had been to rehab after hospital and then had fever two days ago,felt well yesterday and temperature to 100 today. Review of Systems Review of Systems: Yes all other systems are reviewed and are negative PMFSH Past Medical History Medical History Acute UTI ENEIDA (acute kidney injury) E coli bacteremia Liver masses Scrotal erythema Family History Family history: reviewed and not pertinent Social History Social History Household Members: Family Household Members Other:: brother and sister?? Housing: House Do you presently have visiting nurse or other home services: No Alcohol intake: never Patient Tobacco Use Status: Never used Tobacco Second Hand Smoke Exposure: No Use of substances other than those prescribed or required for medical reasons: No Currently Displaying Signs/Symptoms of Drug Intoxication Withdrawal: No Have you been hit, kicked, punched, or otherwise hurt by someone within the past year? If so, by whom?: No Do you feel safe in your current relationship?: No Current Relationship Is there a partner from a previous relationship who is making you feel unsafe now?: No Are you made to feel afraid or neglected: No Advance Directives: Yes Advance Directives on File: Yes Advance Directives Date on File: 06/23/22 Do you have thoughts of harming others: None Do you have a plan to hurt others: No Plan Recently lost weight without trying: No How much weight loss: Not applicable Eating poorly because of decreased appetite: No Nutrition screen score: 0 Nutrition Risks: No Nutritional Risk Poor oral hygiene: No service: No Current occupational status: retired Meds Allergies Allergy/AdvReac Type Severity Reaction Status Date / Time No Known Allergies Allergy Verified 06/08/22 20:57 Active Medications: Current Medications Acetaminophen (Acetaminophen 325 Mg Tablet) 650 mg PO Q6H PRN PRN Reason: Pain, Mild (Pain Scale 1-3) Last Admin: 06/29/22 12:32 Dose: 650 mg Acetaminophen (Acetaminophen Supp 650 Mg Supp.Rect) 650 mg [place] Q6H PRN PRN Reason: Pain, Mild (Pain Scale 1-3) Finasteride (Finasteride 5 Mg Tablet) 5 mg PO DAILY@1999 [facility] Last Admin: 06/28/22 20:31 Dose: Not Given Heparin Sodium (Porcine) (Heparin Sodium,Porcine 5,000 Unit/Ml Vial) 5,000 unit SUBCUT Q12H [facility] Last Admin: 06/29/22 05:53 Dose: 5,000 unit Sodium Chloride (Ns) 1,000 mls @ 100 mls/hr IVCONT .Q10H [facility] Last Admin: 06/29/22 09:33 Dose: 100 mls/hr Vancomycin HCl 1,000 mg/ (Sodium Chloride) 270 mls @ 270 mls/hr IV Q24H [facility] Last Infusion: 06/29/22 12:40 Dose: Infused Piperacillin Sod/Tazobactam (Sod 3.375 gm/ Sodium Chloride) 50 mls @ 100 mls/hr IV Q6H [facility] Last Infusion: 06/29/22 13:49 Dose: Infused Melatonin (Melatonin 3 Mg Tablet) 6 mg PO BEDTIME PRN PRN Reason: Insomnia Miconazole Nitrate (Miconazole Nitrate 2% Powder 85 Gm Bottle) 1 appl TOPICAL BID [facility]; Protocol Last Admin: 06/29/22 10:15 Dose: 1 appl Omeprazole (Omeprazole 20 Mg Capsule.Dr) 20 mg PO BID@0630,1630 [facility] Last Admin: 06/29/22 05:55 Dose: Not Given Ondansetron HCl (Ondansetron Hcl 4 Mg/2 Ml Vial) 4 mg IVPUSH Q8H PRN PRN Reason: Nausea and Vomiting Pharmacy Consult (Consult Rx Perform Med Rec) 1 each MISCELLANE ONCE PRN PRN Reason: Consult order Pharmacy Consult (Consult Rx Vancomycin Dosing) 1 each MISCELLANE DAILY PRN PRN Reason: Consult order Senna (Sennosides 8.6 Mg Tablet) 17.2 mg PO BEDTIME PRN PRN Reason: Constipation Sodium Chloride (0.9 % Sodium Chloride Flush 3 Ml Syringe) 3 ml IVFLUSH QSHIFT [facility] Last Admin: 06/29/22 09:32 Dose: 3 ml Tamsulosin HCl (Tamsulosin Hcl 0.4 Mg Capsule) 0.4 mg PO DAILY@1999 [facility] Last Admin: 06/28/22 20:29 Dose: 0.4 mg Home Medications Medication Instructions Recorded Confirmed Last Taken Type finasteride 5 mg tablet 5 mg PO DAILY@199906/23/22 06/23/22 Unknown History miconazole nitrate 2 % topical 1 appl topical BID 06/23/22 06/23/22 Unknown History powder tamsulosin 0.4 mg capsule (Flomax) 0.4 mg PO DAILY@199906/23/22 06/23/22 Unknown History Physical Exam Vital Signs: Vital Signs: Last Vital Signs Temp 98.4 F 06/29/22 11:18 Pulse 100 06/29/22 11:18 Resp 20 06/29/22 11:18 BP 140/71 H 06/29/22 11:18 Pulse Ox 98 06/29/22 11:18 O2 Del Method 06/29/22 11:18 BMI result Body Mass Index 32.7 Const: General: cooperative HEENT: Head: Yes normal to inspection Face and sinus: Yes normal facial exam Mouth: Normal oral and palatal mucosa present Teeth and gingiva: dentition normal Eyes: General: appearance normal, both eyes and all related structures Pupils: Equal, round and reactive pupils present Resp: Effort & Inspection: normal respiratory effort Cardio: Rate: regular rate Rhythm: regular rhythm GI: Palpation (GI): Soft to palpation and nontender : General: Yes no CVA tenderness Back/Spine/Pelvis: Back: no CVA tenderness Skin: General skin exam: no rashes or lesions noted Neuro: General: moves all extremities Cranial nerves: Yes Equal, round and reactive pupils present Extrem: General: Yes normal to inspection Psych: Other: alert Results Labs CBC & Chem 7: 06/28/22 10:43 06/29/22 05:52 Labs: BMP 06/29/22 05:52 Creatinine 1.15 Microbiology Microbiology Results: Microbiology 06/28/22 Unknown Urine clean catch - Urine cross top Urine Culture - Final 06/27/22 18:17 Blood - Venous Blood Culture - Preliminary No growth after 24 hours. 06/27/22 18:17 Blood - Venous Blood Culture - Preliminary No growth after 24 hours. 06/23/22 11:24 Blood - Venous Blood Culture - Final No growth after 5 days. 06/23/22 10:23 Blood - Venous Blood Culture - Final No growth after 5 days. 06/23/22 Unknown Urine Catheterized - Daily Catheter Urine Culture - Final No growth. Assessment and Plan (1) AMS (altered mental status): Status: Acute Likely sepsis from probable liver abscess lesions CT on 06/23 did show some increase in size of lesions Ecoli and possible resistant organism and anerobes Plan Would agree with piperacillin/tazobactam Await blood cultures IR evaluation ?drain with u/s/CT abdomen. Duration of antibiotics to be determined
[2022-06-29 15:00] VITALS: BP 110/59; PULSE 120; RESP 16; TEMP 37.9; O2SAT 98
--- NOTE | 2022-06-29 15:45 | MHC.CM.PN ---
per rounds pt [facility] updated
[2022-06-29] MEDS: Omeprazole 20 MG CAPSULE.DR PO (16:32)
--- NOTE | 2022-06-29 16:44 | PC.NURSE ---
Alert and oriented. Denies pain. VSS, afebrile, no acute resp. distress noted. Around 11:50am patient reported chills and ask for extra blanket. Patient noted shivering, out of breating. VS: Temp 97.6 (temporal), Rectal temp 100.7 HR 120, Resp. 30, pox 96% RA, placed on 2L of oxygen via NC. updated. PRN tylenol given and IV zosyn, no adverse reactions noted. Patient felt better after a couple of hours. HR elevated to 140 at rest, asymptomatic, Dr. Gomez updated, no interventions at this time.
[2022-06-29] MEDS: Finasteride 5 MG TABLET PO (19:42)
[2022-06-29] MEDS: Tamsulosin HCL 0.4 MG CAPSULE PO (19:42)
[2022-06-29 19:53] VITALS: BP 137/70; PULSE 113; RESP 20; TEMP 38.1; O2SAT 97
[2022-06-29 23:06] VITALS: BP 174/67; PULSE 98; RESP 18; TEMP 37; O2SAT 98
[2022-06-30] MEDS: Piperacillin Sodium/Tazobactam 3.375 GM in 0.9 % Sodium Chloride 50 ML IV ×3 (00:30→21:02)
[2022-06-30 03:24] VITALS: BP 136/71; PULSE 111; RESP 20; TEMP 37.2; O2SAT 96
[2022-06-30] MEDS: Acetaminophen 325 MG TABLET 650 MG PO (04:50)
[2022-06-30] MEDS: Heparin Sodium,Porcine 5,000 UNIT/ML VIAL 5000 UNIT SUBCUT ×2 (04:51→18:46)
[2022-06-30 07:00] LABS: Creatinine Clr Calc Pharmacy 58.7; Estimated Glomerular Filt Rate 60
[2022-06-30] MEDS: 0.9 % Sodium Chloride Flush 3 ML SYRINGE IVFLUSH ×2 (07:51→21:02)
[2022-06-30 07:58] VITALS: BP 115/62; PULSE 88; RESP 20; TEMP 36.6; O2SAT 97
[2022-06-30 09:05] LABS: Basophils Percent Auto 0.3 % (0-2); Eosinophils Absolute Auto 0.1 X10*3/uL (0.0-0.4); Eosinophils Percent Auto 4.2 % (0-4); Hematocrit 24.5 % (42.0-52.0); Hemoglobin 7.9 g/dl (14.0-18.0); Imm Gran Abs Auto 0.03 X10*3/uL (0.00-0.03); Imm Gran Pct Auto 0.9 % (0.0-0.4); Lymphocytes Absolute Auto 0.9 X10*3/uL (1.2-4.9); Lymphocytes Percent Auto 27.4 % (20-40); MANUAL DIFF FLAG SCAN; Mean Corpuscular HGB Conc 32.2 g/dl (31.0-36.0); Mean Corpuscular Hemoglobin 29.9 pg (27.0-33.0); Mean Corpuscular Volume 92.8 fL (80.0-98.0); Mean Platelet Volume 9.3 fL (9.4-12.4); Monocytes Absolute Auto 0.2 X10*3/uL (0.1-1.2); Monocytes Percent Auto 5.4 % (2-11); Neutrophils Absolute Auto 2.1 x10*3/uL (2.0-8.3); Neutrophils Percent Auto 61.8 % (45-73); Red Blood Count 2.64 X10*6/uL (4.60-5.80); Red Cell Distribution Width 17.8 % (11.0-16.0); SCAN SMEAR FLAG 1; White Blood Count 3.3 X10*3/uL (4.8-10.8)
[2022-06-30 09:11] LABS: Platelet Count 231 X10*3/uL (160-400)
[2022-06-30 09:24] LABS: Vancomycin Random 8.7 mcg/mL (15-20)
[2022-06-30 09:26] LABS: SLIDE REVIEW VERIFIED
--- NOTE | 2022-06-30 09:35 | HE.PHANOTE ---
Addendum entered by Juany Badillo RPh 07/01/22 07:26: SCR improving. Trough is due @2100 tonight. I suspect it will be low and we will need to increase the dose to 750mg q12h. Last level of 8.7 still equates to an AUC >400 Original Note: Vancomycin Dosing Addendum Patients levels came back this morning at 8.7 mg/dL which is lower than desired given the diagnosis of bacteremia. Patient is being followed by nephrology, we want to limit any potential for toxicity. The patient is also greater than 65 years old. Q24 hour dosing will remain to allow clearing. Because of the low level, plan is to increase dose 1250mg every 24 hours. Random to be drawn on 07/01 @2100 before the 2300 dose. Predicted AUC 443 mg/L/hr.
--- NOTE | 2022-06-30 10:20 | P.PNNP_ITS ---
Subjective Subjective Date of Service: 07/02/22 Interval history: F/u on ENEIDA, Hyperkalemia, SIRS Physical Exam Vital Signs: Vital Signs: Last Vital Signs Temp 97.9 F 06/30/22 07:58 Pulse 88 06/30/22 07:58 Resp 20 06/30/22 07:58 BP 115/62 06/30/22 07:58 Pulse Ox 97 06/30/22 07:58 O2 Del Method 06/30/22 07:58 BMI result Body Mass Index 32.7 Const: General: comfortable and no acute distress Resp: Auscultation: clear to auscultation bilaterally Cardio: Jugular venous distension: no JVD Rate: regular rate Rhythm: regular rhythm Heart sounds: S1 normal heart sound present and S2 normal heart sound present GI: Auscultation: normal bowel sounds Neuro: General: moves all extremities Extrem: General: Yes no clubbing, cyanosis or edema Objective Data Labs CBC & Chem 7: 07/02/22 06:13 07/02/22 06:13 Labs: Laboratory Results - last 24 hr 06/30/22 06/30/22 06/30/22 06:17 08:48 08:49 WBC 3.3 L RBC 2.64 L Hgb 7.9 L Hct 24.5 L MCV 92.8 MCH 29.9 MCHC 32.2 RDW 17.8 H Plt Count 231 MPV 9.3 L Immature Gran % (Auto) 0.9 H Neut % (Auto) 61.8 Lymph % (Auto) 27.4 [place] % (Auto) 5.4 Eos % (Auto) 4.2 H Baso % (Auto) 0.3 Lymph # (Auto) 0.9 L [place] # (Auto) 0.2 Eos # (Auto) 0.1 Baso # (Auto) 0.0 Abs Immat Gran (auto) 0.03 Absolute Neuts (auto) 2.1 Absolute Nucleated RBC 0.000 Nucleated RBC % (auto) 0.0 Smear Tech's Comments VERIFIED Creatinine 1.19 Estim Creat Clear Calc 58.7 Estimated GFR 60 Random Vancomycin 8.7 L Microbiology Microbiology Results: Microbiology 06/27/22 18:17 Blood - Venous Blood Culture - Preliminary No growth after 48 hours. 06/27/22 18:17 Blood - Venous Blood Culture - Preliminary No growth after 48 hours. 06/28/22 Unknown Urine clean catch - Urine cross top Urine Culture - Final 06/23/22 11:24 Blood - Venous Blood Culture - Final No growth after 5 days. 06/23/22 10:23 Blood - Venous Blood Culture - Final No growth after 5 days. 06/23/22 Unknown Urine Catheterized - Blank Catheter Urine Culture - Final No growth. Procedures Date of Service Date of Service: 06/30/22 Assessment & Plan Assessment and plan (1) Acute renal failure: Status: Acute Plan 69-year-old male with recent hospital admission for AMS, sepsis and found to have E. coli bacteremia and E.coli liver abscess confirmed on liver aspiration on 06/14 and was discharge to SNF with IV Ceftriaxone 2 gram daily and Flagyl. #) ENEIDA , non-oliguric: s/p ivf's with noted improvement in S-Cr. Suspect his eneida was due to hypotension and tubular stress from infection. c3/c4 to rule out infectious GN - Normal He does have noted hematuria/pyuria. Prior history of uti with e.coli in 06/10 He is receiving appropriate abx and S-Cr is already downtrending. BL S-Cr ~ 1.0 mg/dL. Noted enlarged prostate with fullness of collecting system on renal US however now has blank in place. Severe renal atrophy of left kidney at BL. Avoidance of nephrotoxins - Hold acei/arb, nsaids, IV contrast, renal dosing abx On vanco- follow levels and watch for renal toxicity Hyperkalemia Keep on 2 gm K diet s/p Lokelma K normalized Time Spent With Patient Time: Total time spent is greater than 50% in coordination of care (as documented) at patient's floor/unit and/or counseling patient: Progress Note: Quality Stroke Does the patient have a stroke diagnosis?: No
[2022-06-30 10:40] LABS: Alanine Aminotransferase 39 U/L (0-40); Albumin Level 2.4 g/dL (3.5-5.0); Alkaline Phosphatase 705 U/L (39-117); Aspartate Amino Transferase 52 U/L (5-37); Bilirubin Direct 0.5 mg/dL (0.0-0.5); Bilirubin Total 0.6 mg/dL (0.0-1.0); Total Protein 5.9 g/dL (6.5-8.0)
[2022-06-30 11:43] VITALS: BP 146/72; PULSE 90; RESP 16; TEMP 36.8; O2SAT 98
--- NOTE | 2022-06-30 12:01 | PC.NURSE ---
double lumen non-pasv picc to lue assessed d/t no visualized blood return. no noted lue edema/bruising. both lumens noted to flush easily w/o complaints from pt. one lumen not giving blood return/one lumen sluggish with blood return. xray at bedside done. picc tip appears to be sitting near r subclavian and not near caj; awaiting official image impression by radiologist. both lumens flushed with saline and locked. rn made aware of possible need for picc reposition under fluoroscopy in ir depending on radiologist impression. 20g iv started by damián bueno to r hand in meantime. ir salon supervisor marylou made aware of findings.
[2022-06-30] MEDS: vancomycin HCL 1,250 MG in 0.9 % Sodium Chloride 250 ML 166.67 MG IV (12:15)
[2022-06-30] MEDS: 0.9 % Sodium Chloride 1,000 ML 100 ML IVCONT (12:15)
--- NOTE | 2022-06-30 12:16 | P.PNIM_ITS ---
Subjective Subjective Date of Service: 06/30/22 Interval History: seen and examined this morning follow-up for ENEIDA, hyperkalemia, sirs Still with low-grade fever, not feeling well today, generalized fatigue. No specific complaints no cough, abdominal pain, vomiting Review of Systems Review of Systems: Yes all other systems are reviewed and are negative Constitutional Constitutional: Reports chills and Reports fever(s) Cardiovascular Cardiovascular: Denies chest pain, Denies palpitations and Denies dyspnea Respiratory Respiratory: Denies cough and Denies dyspnea Gastrointestinal Gastrointestinal: Denies abdominal pain, Denies nausea and Denies vomiting Endocrine Endocrine: Denies palpitations Physical Exam Vital Signs: Vital Signs: Last Vital Signs Temp 98.2 F 06/30/22 11:43 Pulse 90 06/30/22 11:43 Resp 16 06/30/22 11:43 BP 146/72 H 06/30/22 11:43 Pulse Ox 98 06/30/22 11:43 O2 Del Method 06/30/22 11:43 BMI result Body Mass Index 32.7 Const: General: cooperative, alert, awake and ill appearing Nutritional Appearance: overweight Orientation/consciousness: patient oriented x3 Resp: Effort & Inspection: normal respiratory effort and able to speak in complete sentences Auscultation: clear to auscultation bilaterally Cardio: Rate: regular rate Heart sounds: S1 normal heart sound present and S2 normal heart sound present GI: Inspection: No distended Palpation (GI): Soft to palpation and nontender : Other: Daily in place draining yellow urine Neuro: General: patient oriented x3 and CN's II-XI intact bilaterally Extrem: General: Yes no pedal edema Objective Data Active Medications Acetaminophen (Acetaminophen 325 Mg Tablet) 650 mg PO Q6H PRN PRN Reason: Pain, Mild (Pain Scale 1-3) Last Admin: 06/30/22 04:50 Dose: 650 mg Documented By: KOKO Acetaminophen (Acetaminophen Supp 650 Mg Supp.Rect) 650 mg [place] Q6H PRN PRN Reason: Pain, Mild (Pain Scale 1-3) Finasteride (Finasteride 5 Mg Tablet) 5 mg PO DAILY@1999 [facility] Last Admin: 06/29/22 19:42 Dose: 5 mg Documented By: KOKO Heparin Sodium (Porcine) (Heparin Sodium,Porcine 5,000 Unit/Ml Vial) 5,000 unit SUBCUT Q12H [facility] Last Admin: 06/30/22 04:51 Dose: 5,000 unit Documented By: KOKO Piperacillin Sod/Tazobactam (Sod 3.375 gm/ Sodium Chloride) 50 mls @ 100 mls/hr IV Q6H [facility] Last Infusion: 06/30/22 01:23 Dose: 0 mls/hr Documented By: KOKO Vancomycin HCl 1,250 mg/ (Sodium Chloride) 250 mls @ 166.667 mls/hr IV Q24H [facility] Last Admin: 06/30/22 12:15 Dose: 166.67 mls/hr Documented By: KRISTA Sodium Chloride (Ns) 1,000 mls @ 100 mls/hr IVCONT .Q10H [facility] Stop: 06/30/22 13:14 Last Admin: 06/30/22 12:15 Dose: 100 mls/hr Documented By: KRISTA Melatonin (Melatonin 3 Mg Tablet) 6 mg PO BEDTIME PRN PRN Reason: Insomnia Miconazole Nitrate (Miconazole Nitrate 2% Powder 85 Gm Bottle) 1 appl TOPICAL BID [facility]; Protocol Last Admin: 06/30/22 12:16 Dose: Not Given Documented By: KRISTA Non-Admin Reason: Previously Administered Omeprazole (Omeprazole 20 Mg Capsule.) 20 mg PO BID@0630,1630 [facility] Last Admin: 06/30/22 04:52 Dose: Not Given Documented By: KOKO Non-Admin Reason: Patient Refused Ondansetron HCl (Ondansetron Hcl 4 Mg/2 Ml Vial) 4 mg IVPUSH Q8H PRN PRN Reason: Nausea and Vomiting Pharmacy Consult (Consult Rx Perform Med Rec) 1 each MISCELLANE ONCE PRN PRN Reason: Consult order Pharmacy Consult (Consult Rx Vancomycin Dosing) 1 each MISCELLANE DAILY PRN PRN Reason: Consult order Senna (Sennosides 8.6 Mg Tablet) 17.2 mg PO BEDTIME PRN PRN Reason: Constipation Sodium Chloride (0.9 % Sodium Chloride Flush 3 Ml Syringe) 3 ml IVFLUSH QSHIFT [facility] Last Admin: 06/30/22 07:51 Dose: 3 ml Documented By: KRISTA Tamsulosin HCl (Tamsulosin Hcl 0.4 Mg Capsule) 0.4 mg PO DAILY@1999 [facility] Last Admin: 06/29/22 19:42 Dose: 0.4 mg Documented By: KOKO Labs CBC & Chem 7: 06/30/22 08:48 06/30/22 06:17 Labs: Laboratory Results - last 24 hr 06/30/22 06/30/22 06/30/22 06:17 08:48 08:49 MCV 92.8 MCH 29.9 MCHC 32.2 RDW 17.8 H Plt Count 231 MPV 9.3 L Immature Gran % (Auto) 0.9 H Neut % (Auto) 61.8 Lymph % (Auto) 27.4 Harris % (Auto) 5.4 Eos % (Auto) 4.2 H Baso % (Auto) 0.3 Lymph # (Auto) 0.9 L Harris # (Auto) 0.2 Eos # (Auto) 0.1 Baso # (Auto) 0.0 Abs Immat Gran (auto) 0.03 Absolute Neuts (auto) 2.1 Absolute Nucleated RBC 0.000 Nucleated RBC % (auto) 0.0 Smear Tech's Comments VERIFIED Estim Creat Clear Calc 58.7 Estimated GFR 60 Total Bilirubin Direct Bilirubin AST ALT Alkaline Phosphatase Total Protein Albumin Random Vancomycin 8.7 L 06/30/22 10:03 MCV MCH MCHC RDW Plt Count MPV Immature Gran % (Auto) Neut % (Auto) Lymph % (Auto) Harris % (Auto) Eos % (Auto) Baso % (Auto) Lymph # (Auto) Harris # (Auto) Eos # (Auto) Baso # (Auto) Abs Immat Gran (auto) Absolute Neuts (auto) Absolute Nucleated RBC Nucleated RBC % (auto) Smear Tech's Comments Estim Creat Clear Calc Estimated GFR Total Bilirubin 0.6 Direct Bilirubin 0.5 AST 52 H ALT 39 Alkaline Phosphatase 705 H D Total Protein 5.9 L Albumin 2.4 L Random Vancomycin Microbiology Microbiology Results: Microbiology 06/27/22 18:17 Blood Culture - Preliminary Blood - Venous No growth after 48 hours. 06/27/22 18:17 Blood Culture - Preliminary Blood - Venous No growth after 48 hours. 06/28/22 Unknown Urine Culture - Final Urine clean catch - Urine cross top Assessment and Plan (1) Liver abscess: Status: Acute (2) Acute renal failure: Status: Acute (3) Enlarged prostate: Status: Acute Plan 71/m with recent hospitalization for E.coli bacteremia and liver abscess now with ENEIDA from routine lab check SIRS (tachycardia and Fever)- still with intermittent low-grade fever. No new source of infection identified history of E coli liver abscess/bacteremia from last hospitalization - chest x-ray, urine culture negative seen by ID. ABX changed to vancomycin, Zosyn for now -Blood cultures 06/27 negative to date - will repeat CT abdomen pelvis with contrast to evaluate liver abscess for possible IR guided drainage -PICC placed on last admission not functioning today, PICC migrated per IR they will readjust acute on chronic normocytic anemia Likely due to acute illness, no evidence of acute blood loss - will check stool occult - follow CBC ENEIDA concern for ATN vs pre-renal azotemia, Cr is better today renal ultrasound--chronic atrophic L kidney, no hydro -Nephrology following Hyperkalemia d/t ENEIDA--resolved after [facility] due to ENEIDA needing IVF fluid, IV Abx for E.coli bacteremia and now fever that needs work up Full code, DVT ppx - heparin attending -dr. nunez Quality Stroke Does the patient have a stroke diagnosis?: No VTE Prior VTE?: No VTE Risk Level:: Medical - moderate - high VTE Device Contraindication: Treatment Not Indicated VTE Drug Contraindication: N/A - Med Ordered
[2022-06-30] MEDS: Lidocaine HCl 1 % MPF 5 ML VIAL INFILTRATI (14:51)
[2022-06-30] MEDS: iohexoL 350 MG/ML 100 ML INFUS..BTL IV (15:23)
[2022-06-30 15:37] VITALS: BP 140/70; PULSE 98; RESP 18; TEMP 37.2; O2SAT 97
[2022-06-30] MEDS: Omeprazole 20 MG CAPSULE.DR PO (15:56)
[2022-06-30 19:23] VITALS: BP 140/71; PULSE 55; RESP 18; TEMP 36.6; O2SAT 98
[2022-06-30] MEDS: Tamsulosin HCL 0.4 MG CAPSULE PO (21:02)
[2022-06-30] MEDS: Finasteride 5 MG TABLET PO (21:02)
[2022-06-30] MEDS: Miconazole Nitrate 2% Powder 85 GM Bottle 1 APPL TOPICAL (21:12)
[2022-06-30 23:52] VITALS: BP 124/68; PULSE 102; RESP 18; TEMP 36.7; O2SAT 97
[2022-07-01] VITALS (8 sets, daily range): BP systolic 114–129; BP diastolic 57–72; PULSE 89–109; RESP 18–20; TEMP 36.7–37.2; O2SAT 95–98
--- NOTE | 2022-07-01 | ECG_ITS ---
Test Reason : cp Blood Pressure : / mmHG Vent. Rate : 139 BPM Atrial Rate : 139 BPM P-R Int : 138 ms QRS Dur : 080 ms QT Int : 264 ms P-R-T Axes : 048 058 026 degrees QTc Int : 401 ms Sinus tachycardia Otherwise normal ECG When compared with ECG of 01-JUL-2022 15:13, Heart rate has increased Referred By: Min Gomez Electronically Signed By:MALINI WILLINGHAM
--- NOTE | 2022-07-01 | ECG_ITS ---
Test Reason : tachy Blood Pressure : / mmHG Vent. Rate : 102 BPM Atrial Rate : 102 BPM P-R Int : 142 ms QRS Dur : 084 ms QT Int : 338 ms P-R-T Axes : 046 050 034 degrees QTc Int : 440 ms Sinus tachycardia Otherwise normal ECG When compared with ECG of 27-JUN-2022 15:24, Premature ventricular complexes are no longer Present Referred By: Kathi Jara Electronically Signed By:PETER MCHUGH
[2022-07-01] MEDS: Omeprazole 20 MG CAPSULE.DR PO (05:07)
[2022-07-01] MEDS: Heparin Sodium,Porcine 5,000 UNIT/ML VIAL 5000 UNIT SUBCUT ×2 (05:07→17:07)
[2022-07-01] MEDS: Piperacillin Sodium/Tazobactam 3.375 GM in 0.9 % Sodium Chloride 50 ML IV ×2 (05:08→10:10)
[2022-07-01 07:04] LABS: Hematocrit 25.9 % (42.0-52.0); Hemoglobin 8.2 g/dl (14.0-18.0); Mean Corpuscular HGB Conc 31.7 g/dl (31.0-36.0); Mean Corpuscular Hemoglobin 29.2 pg (27.0-33.0); Mean Corpuscular Volume 92.2 fL (80.0-98.0); Mean Platelet Volume 9.8 fL (9.4-12.4); Platelet Count 254 X10*3/uL (160-400); Red Blood Count 2.81 X10*6/uL (4.60-5.80); Red Cell Distribution Width 17.8 % (11.0-16.0); White Blood Count 3.7 X10*3/uL (4.8-10.8)
[2022-07-01 07:22] LABS: Anion Gap 14 (12-20); Blood Urea Nitrogen 10 mg/dL (9-16); Calcium 9.1 mg/dL (8.4-10.2); Carbon Dioxide 21 mmol/L (22-29); Chloride 104 mmol/L (96-108); Creatinine Clr Calc Pharmacy 70.7; Estimated Glomerular Filt Rate > 60; Glucose Random 98 mg/dL (60-115); Lipase 12 U/L (8-78); Potassium 4.2 mmol/L (3.3-5.1); Sodium 135 mmol/L (135-145)
[2022-07-01] MEDS: Miconazole Nitrate 2% Powder 85 GM Bottle 1 APPL TOPICAL ×2 (10:12→22:14)
[2022-07-01] MEDS: vancomycin HCL 1,250 MG in 0.9 % Sodium Chloride 250 ML 166.67 MG IV (11:04)
--- NOTE | 2022-07-01 12:24 | PM.PNNEP ---
Subjective Subjective Date of Service: 07/02/22 Interval history: seen and examined this morning follow-up for ENEIDA, hyperkalemia, sirs Still with low-grade fever, not feeling well today, generalized fatigue. No specific complaints no cough, abdominal pain, vomiting Physical Exam Vital Signs: Vital Signs: Last Vital Signs Temp 98.1 F 07/01/22 12:00 Pulse 95 07/01/22 12:00 Resp 20 07/01/22 12:00 BP 121/66 07/01/22 12:00 Pulse Ox 96 07/01/22 12:00 O2 Del Method 07/01/22 12:00 BMI result Body Mass Index 32.7 Const: General: comfortable and no acute distress Resp: Auscultation: clear to auscultation bilaterally Cardio: Jugular venous distension: no JVD Rate: regular rate Rhythm: regular rhythm Heart sounds: S1 normal heart sound present and S2 normal heart sound present GI: Auscultation: normal bowel sounds Neuro: General: moves all extremities Extrem: General: Yes no clubbing, cyanosis or edema Objective Data Labs CBC & Chem 7: 07/02/22 06:13 07/02/22 06:13 Labs: Laboratory Results - last 24 hr 07/01/22 07/01/22 06:26 06:26 WBC 3.7 L RBC 2.81 L Hgb 8.2 L Hct 25.9 L MCV 92.2 MCH 29.2 MCHC 31.7 RDW 17.8 H Plt Count 254 MPV 9.8 Absolute Nucleated RBC 0.000 Nucleated RBC % (auto) 0.0 Sodium 135 Potassium 4.2 Chloride 104 Carbon Dioxide 21 L Anion Gap 14 BUN 10 Creatinine 1.02 Estim Creat Clear Calc 70.7 Estimated GFR > 60 Random Glucose 98 Calcium 9.1 Lipase 12 Microbiology Microbiology Results: Microbiology 06/27/22 18:17 Blood - Venous Blood Culture - Preliminary No growth after 48 hours. 06/27/22 18:17 Blood - Venous Blood Culture - Preliminary No growth after 48 hours. 06/28/22 Unknown Urine clean catch - Urine cross top Urine Culture - Final 06/23/22 11:24 Blood - Venous Blood Culture - Final No growth after 5 days. 06/23/22 10:23 Blood - Venous Blood Culture - Final No growth after 5 days. 06/23/22 Unknown Urine Catheterized - Blank Catheter Urine Culture - Final No growth. Procedures Date of Service Date of Service: 07/01/22 Assessment & Plan Assessment and plan (1) Acute renal failure: Status: Acute Plan 69-year-old male with recent hospital admission for AMS, sepsis and found to have E. coli bacteremia and E.coli liver abscess confirmed on liver aspiration on 06/14 and was discharge to SNF with IV Ceftriaxone 2 gram daily and Flagyl. #) ENEIDA , non-oliguric: s/p ivf's with noted improvement in S-Cr. Suspect his eneida was due to hypotension and tubular stress from infection. c3/c4 to rule out infectious GN - Normal He does have noted hematuria/pyuria. Prior history of uti with e.coli in 06/10 He is receiving appropriate abx and S-Cr is already downtrending. BL S-Cr ~ 1.0 mg/dL. Noted enlarged prostate with fullness of collecting system on renal US however now has blank in place. Severe renal atrophy of left kidney at BL. Avoidance of nephrotoxins - Hold acei/arb, nsaids, IV contrast, renal dosing abx On vanco- follow levels and watch for renal toxicity Hyperkalemia Keep on 2 gm K diet s/p Lokelma K normalized Time Spent With Patient Time: Total time spent is greater than 50% in coordination of care (as documented) at patient's floor/unit and/or counseling patient: Progress Note: Quality Stroke Does the patient have a stroke diagnosis?: No
--- NOTE | 2022-07-01 12:48 | P.PNIM_ITS ---
Subjective Subjective Date of Service: 07/01/22 Interval History: seen and examined this morning Follow-up for ENEIDA, liver abscess Feeling much better this morning has been afebrile Constitutional Constitutional: Denies chills and Denies fever(s) Cardiovascular Cardiovascular: Denies chest pain, Denies palpitations and Denies dyspnea Respiratory Respiratory: Denies cough and Denies dyspnea Gastrointestinal Gastrointestinal: Denies abdominal pain, Denies nausea and Denies vomiting Endocrine Endocrine: Denies palpitations Physical Exam Vital Signs: Vital Signs: Last Vital Signs Temp 98.1 F 07/01/22 12:00 Pulse 95 07/01/22 12:00 Resp 20 07/01/22 12:00 BP 121/66 07/01/22 12:00 Pulse Ox 96 07/01/22 12:00 O2 Del Method 07/01/22 12:00 BMI result Body Mass Index 32.7 Const: General: cooperative, alert and awake Nutritional Appearance: overweight Orientation/consciousness: patient oriented x3 Resp: Effort & Inspection: normal respiratory effort and able to speak in com plete sentences Auscultation: clear to auscultation bilaterally Cardio: Rate: regular rate Heart sounds: S1 normal heart sound present and S2 normal heart sound present GI: Inspection: No distended Palpation (GI): Soft to palpation and nontender : Other: Daily in place draining yellow urine Neuro: General: patient oriented x3 and CN's II-XI intact bilaterally Extrem: General: Yes no pedal edema Objective Data Active Medications Acetaminophen (Acetaminophen 325 Mg Tablet) 650 mg PO Q6H PRN PRN Reason: Pain, Mild (Pain Scale 1-3) Last Admin: 06/30/22 04:50 Dose: 650 mg Documented By: KOKO Acetaminophen (Acetaminophen Supp 650 Mg Supp.Rect) 650 mg [place] Q6H PRN PRN Reason: Pain, Mild (Pain Scale 1-3) Finasteride (Finasteride 5 Mg Tablet) 5 mg PO DAILY@1999 [facility] Last Admin: 06/30/22 21:02 Dose: 5 mg Documented By: JUSTYNA Heparin Sodium (Porcine) (Heparin Sodium,Porcine 5,000 Unit/Ml Vial) 5,000 unit SUBCUT Q12H [facility] Last Admin: 07/01/22 05:07 Dose: 5,000 unit Documented By: JUSTYNA Ceftriaxone Sodium 2 gm/ (Sodium Chloride) 50 mls @ 100 mls/hr IV Q24H [facility] Melatonin (Melatonin 3 Mg Tablet) 6 mg PO BEDTIME PRN PRN Reason: Insomnia Miconazole Nitrate (Miconazole Nitrate 2% Powder 85 Gm Bottle) 1 appl TOPICAL BID [facility]; Protocol Last Admin: 07/01/22 10:12 Dose: 1 appl Documented By: TONIE Omeprazole (Omeprazole 20 Mg Capsule.Dr) 20 mg PO BID@0630,1630 [facility] Last Admin: 07/01/22 05:07 Dose: 20 mg Documented By: JUSTYNA Ondansetron HCl (Ondansetron Hcl 4 Mg/2 Ml Vial) 4 mg IVPUSH Q8H PRN PRN Reason: Nausea and Vomiting Pharmacy Consult (Consult Rx Perform Med Rec) 1 each MISCELLANE ONCE PRN PRN Reason: Consult order Pharmacy Consult (Consult Rx Vancomycin Dosing) 1 each MISCELLANE DAILY PRN PRN Reason: Consult order Senna (Sennosides 8.6 Mg Tablet) 17.2 mg PO BEDTIME PRN PRN Reason: Constipation Sodium Chloride (0.9 % Sodium Chloride Flush 3 Ml Syringe) 3 ml IVFLUSH QSHIFT [facility] Last Admin: 07/01/22 07:18 Dose: Not Given Documented By: TONIE Non-Admin Reason: assessed Tamsulosin HCl (Tamsulosin Hcl 0.4 Mg Capsule) 0.4 mg PO DAILY@1999 [facility] Last Admin: 06/30/22 21:02 Dose: 0.4 mg Documented By: JUSTYNA Labs CBC & Chem 7: 07/01/22 06:26 07/01/22 06:26 Labs: Laboratory Results - last 24 hr 07/01/22 07/01/22 06:26 06:26 MCV 92.2 MCH 29.2 MCHC 31.7 RDW 17.8 H Plt Count 254 MPV 9.8 Absolute Nucleated RBC 0.000 Nucleated RBC % (auto) 0.0 Anion Gap 14 Estim Creat Clear Calc 70.7 Estimated GFR > 60 Random Glucose 98 Calcium 9.1 Lipase 12 Assessment and Plan (1) Liver abscess: Status: Acute (2) Acute renal failure: Status: Acute Plan 71/m with recent hospitalization for E.coli bacteremia and liver abscess now with ENEIDA from routine lab check SIRS (tachycardia and Fever)- afebrile at this point. No new source of infection identified history of E coli liver abscess/bacteremia from last hospitalization -chest x-ray, urine culture negative -seen by ID, ABX initially changed to vancomycin/Zosyn. Discussed with ID - Plan to discharge on ceftriaxone to complete 6 weeks of antibiotics from last admission -Blood cultures 06/27 negative to date -repeat CT scan of abdomen / pelvis shows micro abscesses, no evidence of drainable fluid collection -liver US showing improvement from previous -PICC placed on last admission not functioning, PICC migrated per IR, was readjusted and functional now acute on chronic normocytic anemia Likely due to acute illness, no evidence of acute blood loss - will check stool occult - CBC stable ENEIDA concern for ATN vs pre-renal azotemia renal ultrasound--chronic atrophic L kidney, no hydro creatinine down to 1 from 7.2 on arrival -Nephrology following Hyperkalemia d/t ENEIDA--resolved after [facility] due to ENEIDA needing IVF fluid, IV Abx for E.coli bacteremia Full code, DVT ppx - heparin attending -dr. nunez Quality Stroke Does the patient have a stroke diagnosis?: No VTE Prior VTE?: No VTE Risk Level:: Medical - moderate - high VTE Device Contraindication: Treatment Not Indicated VTE Drug Contraindication: N/A - Med Ordered
--- NOTE | 2022-07-01 13:17 | MHC.CM.PN ---
Plan for patient to D/C back to [facility] 07/02/22 @ 1PM. COVID swab order requested and ordered by PA. Patient agreeable and aware of plan.
[2022-07-01] MEDS: cefTRIAXone sodium 2 GM in 0.9 % Sodium Chloride 50 ML IV (13:49)
[2022-07-01] MEDS: Acetaminophen 325 MG TABLET 650 MG PO ×2 (15:29→22:15)
[2022-07-01 15:46] LABS: COVID-19 Test Negative (Negative)
--- NOTE | 2022-07-01 16:51 | PC.NURSE ---
Addendum entered by Grabiel Ramirez RN 07/01/22 18:55: pt refusing straight cath at this time stating he wants to wait and see if he will be able to void himself. pt continued to refuse post education. informed Addendum entered by Grabiel Ramirez RN 07/01/22 18:51: pt refused morphine stating its to strong Addendum entered by Grabiel Ramirez RN 07/01/22 18:49: informed Dr Summers of pts bladder scan 530cc and oral temp 100 Addendum entered by Grabiel Ramirez RN 07/01/22 18:33: [employer] ARCHITECT informed of pt's increased RR to 28 and increased HR, ST 120-130s on tele while at rest in bed Original Note: Pt c/o left sided chest pain alond with right sided abd pain and headache. pt was assessed, vitals obtained, [employer] ARCHITECT was informed and ECG was obtained while V[employer] ARCHITECT at bedside. Pt stated his chest pain and abd pain was 7/10, sudden onset and has felt this pain before approx 2 days ago. PT stated no interventions were required when this occurred before. pt refused morphine, stated he would take Tylenol. Afterwards pt stated pain decreased to 3/10, feels like someone is throwing darts to my chest but feels better than before. [employer] ARCHITECT was informed.
[2022-07-01 18:16] LABS: Troponin-I High Sensitivity 5.2 ng/L (<3.5-35.0)
[2022-07-01] MEDS: Lactated Ringers 1,000 ML 999 ML IV (20:57)
[2022-07-01 20:58] LABS: ABG Base Excess -1.6 mmol/L; ABG HCO3 20 mmol/L (22-26); ABG pCO2 26 mmHg (32-45); ABG pH 7.49 (7.35-7.45); ABG pO2 76 mmHg (83-108)
[2022-07-01] MEDS: oxyCODONE HCl Immed Release 5 MG TABLET PO (21:02)
[2022-07-01] MEDS: Finasteride 5 MG TABLET PO (21:02)
[2022-07-01] MEDS: Tamsulosin HCL 0.4 MG CAPSULE PO (21:02)
[2022-07-01] MEDS: Metoprolol Tartrate 5 MG/5 ML VIAL IVPUSH (21:02)
[2022-07-01] MEDS: 0.9 % Sodium Chloride Flush 3 ML SYRINGE IVFLUSH (21:11)
[2022-07-01 21:23] LABS: Lactic Acid 1.6 mmol/L (0.5-2.0)
[2022-07-01 21:32] LABS: B Type Natriuretic Peptide 39 pg/mL (<100); Vancomycin Random 19.8 mcg/mL (15-20)
--- NOTE | 2022-07-01 21:43 | PM.EVENT ---
Event Note Date of Service: 07/01/22 Event Note: Tachycardic with heart rate reaching to 150s, tachypneic with respiratory rate in the 30s, chest x-ray negative, BNP on significantly elevated, normal lactic acid, pH of 7.49 with CO2 of 26. At this time I am concerned about a PE, given his recent ENEIDA, will order V/Q scan for a.m.. Will treat patient with 1 dose of Lovenox pending V/Q scan. Will also obtain lower extremity Dopplers. Patient otherwise hemodynamically stable
[2022-07-01 21:46] LABS: ABG Refer to POC result
[2022-07-01] MEDS: Enoxaparin Sodium 100 MG/ML SYRINGE 90 MG SUBCUT (22:15)
[2022-07-01 22:40] LABS: Hemoglobin 8.2 g/dl (14.0-18.0); Mean Corpuscular HGB Conc 32.8 g/dl (31.0-36.0); Mean Corpuscular Volume 91.6 fL (80.0-98.0); Mean Platelet Volume 9.3 fL (9.4-12.4); Platelet Count 197 X10*3/uL (160-400); Red Blood Count 2.73 X10*6/uL (4.60-5.80); White Blood Count 5.2 X10*3/uL (4.8-10.8)
[2022-07-01 22:46] LABS: INTERNATIONAL NORM RATIO 1.1 (0.9-1.1); Prothrombin Time 12.5 SEC (10.0-13.1)
[2022-07-01 22:48] LABS: Partial Thromboplastin Time 37.3 SEC (26.0-36.4)
[2022-07-02 04:00] VITALS: BP 115/67; PULSE 93; RESP 18; TEMP 36.4; O2SAT 99
[2022-07-02] MEDS: Heparin Sodium,Porcine 5,000 UNIT/ML VIAL 5000 UNIT SUBCUT ×2 (06:24→17:44)
[2022-07-02 06:34] LABS: Hematocrit 24.5 % (42.0-52.0); Mean Corpuscular HGB Conc 32.7 g/dl (31.0-36.0); Mean Corpuscular Hemoglobin 30.3 pg (27.0-33.0); Mean Corpuscular Volume 92.8 fL (80.0-98.0); Mean Platelet Volume 10.2 fL (9.4-12.4); Platelet Count 221 X10*3/uL (160-400); Red Blood Count 2.64 X10*6/uL (4.60-5.80); White Blood Count 4.6 X10*3/uL (4.8-10.8)
[2022-07-02 06:58] LABS: Creatinine Clr Calc Pharmacy 69.4; Estimated Glomerular Filt Rate > 60
[2022-07-02 07:33] VITALS: BP 114/58; PULSE 88; RESP 20; TEMP 36.8; O2SAT 100
[2022-07-02] MEDS: Acetaminophen 325 MG TABLET 650 MG PO ×2 (08:15→17:44)
[2022-07-02] MEDS: Miconazole Nitrate 2% Powder 85 GM Bottle 1 APPL TOPICAL ×2 (08:16→20:21)
[2022-07-02] MEDS: 0.9 % Sodium Chloride Flush 3 ML SYRINGE IVFLUSH (08:17)
--- NOTE | 2022-07-02 10:30 | P.PNIM_ITS ---
Subjective Subjective Date of Service: 07/02/22 Interval History: seen and examined this morning follow-up for E coli bacteremia/ liver abscess/ENEIDA had episode of chest pain /tachycardia last evening EKG, troponin, CXR okay. given therapeutic dose Lovenox empirically, V/Q scan pending. b/l LE dopplers negative for DVT. lactic acid negative. no hypoxia Daily was removed yesterday, patient retaining urine again this morning, will reinsert Daily catheter today patient denies any chest pain, abdominal pain, shortness of breath Review of Systems Review of Systems: Yes all other systems are reviewed and are negative Constitutional Constitutional: Denies chills and Denies fever(s) Cardiovascular Cardiovascular: Denies chest pain, Denies palpitations and Denies dyspnea Respiratory Respiratory: Denies cough and Denies dyspnea Gastrointestinal Gastrointestinal: Denies abdominal pain, Denies nausea and Denies vomiting Endocrine Endocrine: Denies palpitations Physical Exam Vital Signs: Vital Signs: Last Vital Signs Temp 98.2 F 07/02/22 07:33 Pulse 88 07/02/22 07:33 Resp 20 07/02/22 07:33 BP 114/58 L 07/02/22 07:33 Pulse Ox 100 07/02/22 07:33 O2 Del Method 07/02/22 07:33 BMI result Body Mass Index 32.7 Const: General: cooperative, alert and awake Nutritional Appearance: overweight Resp: Effort & Inspection: normal respiratory effort and able to speak in complete sentences Auscultation: clear to auscultation bilaterally Cardio: Rate: regular rate Heart sounds: S1 normal heart sound present and S2 normal heart sound present GI: Inspection: No distended Palpation (GI): Soft to palpation and nontender : Other: Daily in place draining yellow urine Neuro: General: CN's II-XI intact bilaterally Extrem: General: Yes no pedal edema Objective Data Active Medications Acetaminophen (Acetaminophen 325 Mg Tablet) 650 mg PO Q6H PRN PRN Reason: Pain, Mild (Pain Scale 1-3) Last Admin: 07/02/22 08:15 Dose: 650 mg Documented By: BELKIS Acetaminophen (Acetaminophen Supp 650 Mg Supp.Rect) 650 mg UT Q6H PRN PRN Reason: Pain, Mild (Pain Scale 1-3) Finasteride (Finasteride 5 Mg Tablet) 5 mg PO DAILY@1999 [facility] Last Admin: 07/01/22 21:02 Dose: 5 mg Documented By: JANINE Heparin Sodium (Porcine) (Heparin Sodium,Porcine 5,000 Unit/Ml Vial) 5,000 unit SUBCUT Q12H [facility] Last Admin: 07/02/22 06:24 Dose: 5,000 unit Documented By: JANINE Ceftriaxone Sodium 2 gm/ (Sodium Chloride) 50 mls @ 100 mls/hr IV Q24H [facility] Last Infusion: 07/01/22 15:06 Dose: 0 mls/hr Documented By: TONIE Melatonin (Melatonin 3 Mg Tablet) 6 mg PO BEDTIME PRN PRN Reason: Insomnia Miconazole Nitrate (Miconazole Nitrate 2% Powder 85 Gm Bottle) 1 appl TOPICAL BID [facility]; Protocol Last Admin: 07/02/22 08:16 Dose: 1 appl Documented By: BELKIS Omeprazole (Omeprazole 20 Mg Capsule.Dr) 20 mg PO BID@0630,1630 [facility] Last Admin: 07/02/22 06:24 Dose: Not Given Documented By: JANINE Non-Admin Reason: Patient Refused Ondansetron HCl (Ondansetron Hcl 4 Mg/2 Ml Vial) 4 mg IVPUSH Q8H PRN PRN Reason: Nausea and Vomiting Pharmacy Consult (Consult Rx Perform Med Rec) 1 each MISCELLANE ONCE PRN PRN Reason: Consult order Pharmacy Consult (Consult Rx Vancomycin Dosing) 1 each MISCELLANE DAILY PRN PRN Reason: Consult order Senna (Sennosides 8.6 Mg Tablet) 17.2 mg PO BEDTIME PRN PRN Reason: Constipation Sodium Chloride (0.9 % Sodium Chloride Flush 3 Ml Syringe) 3 ml IVFLUSH QSHIFT [facility] Last Admin: 07/02/22 08:17 Dose: 3 ml Documented By: BELKIS Tamsulosin HCl (Tamsulosin Hcl 0.4 Mg Capsule) 0.4 mg PO DAILY@1999 [facility] Last Admin: 07/01/22 21:02 Dose: 0.4 mg Documented By: JANINE Labs CBC & Chem 7: 07/02/22 06:13 07/02/22 06:13 Labs: Laboratory Results - last 24 hr 07/01/22 07/01/22 07/01/22 14:52 20:53 21:00 MCV MCH MCHC RDW Plt Count MPV Absolute Nucleated RBC Nucleated RBC % (auto) PT INR APTT O2 Saturation 96.0 ABG pH at Pt Temp 7.49 H ABG pCO2 at Pt Temp 26 L ABG pO2 at Pt Temp 76 L ABG HCO3 20 L ABG Base Excess (Actual) -1.6 Estim Creat Clear Calc Estimated GFR Lactic Acid B-Natriuretic Peptide Random Vancomycin 19.8 COVID-19 ([facility]ONY) Negative COVID-19 [facility] See Note 07/01/22 07/01/22 07/01/22 21:00 21:00 22:32 MCV 91.6 MCH 30.0 MCHC 32.8 RDW 18.0 H Plt Count 197 MPV 9.3 L Absolute Nucleated RBC 0.000 Nucleated RBC % (auto) 0.0 PT INR APTT O2 Saturation ABG pH at Pt Temp ABG pCO2 at Pt Temp ABG pO2 at Pt Temp ABG HCO3 ABG Base Excess (Actual) Estim Creat Clear Calc Estimated GFR Lactic Acid 1.6 B-Natriuretic Peptide 39 Random Vancomycin COVID-19 (YONY) ZOOM [facility] 07/01/22 07/02/22 07/02/22 22:32 06:13 06:13 MCV 92.8 MCH 30.3 MCHC 32.7 RDW 18.0 H Plt Count 221 MPV 10.2 Absolute Nucleated RBC 0.000 Nucleated RBC % (auto) 0.0 PT 12.5 INR 1.1 APTT 37.3 H O2 Saturation ABG pH at Pt Temp ABG pCO2 at Pt Temp ABG pO2 at Pt Temp ABG HCO3 ABG Base Excess (Actual) Estim Creat Clear Calc 69.4 Estimated GFR > 60 Lactic Acid B-Natriuretic Peptide Random Vancomycin COVID-19 (YONY) COVID-19 [facility] Assessment and Plan (1) Liver abscess: Status: Acute (2) Acute renal failure: Status: Acute (3) Enlarged prostate: Status: Acute (4) Elevated LFTs: Status: Acute Plan 71/m with recent hospitalization for E.coli bacteremia and liver abscess now with ENEIDA from routine lab check SIRS (tachycardia and Fever)- afebrile at this point. No new source of infection identified history of E coli liver abscess/bacteremia from last hospitalization -chest x-ray, urine culture negative -seen by ID, ABX initially changed to vancomycin/Zosyn. Discussed with ID - Plan to change back and discharge on ceftriaxone to complete 6 weeks of antibiotics from last admission -Blood cultures 06/27 negative to date, repeat blood cultures pending -repeat CT scan of abdomen / pelvis shows micro abscesses, no evidence of drainable fluid collection -liver US showing improvement from previous -PICC placed on last admission not functioning, PICC migrated per IR, was readjusted and functional now chest pain resolved EKG nonischemic, troponin negative, chest x-ray unremarkable received empiric therapeutic Lovenox overnight - V/Q scan pending to rule out PE (has been on DVT ppx with heparin); b/l LE dopplers negative for DVT urinary retention Failed voiding trial, Daily catheter reinserted will need outpatient urology evaluation -continue flomax, finasteride acute on chronic normocytic anemia Likely due to acute illness, no evidence of acute blood loss - will check stool occult - CBC stable ENEIDA concern for ATN vs pre-renal azotemia renal ultrasound--chronic atrophic L kidney, no hydro c3/c4 to rule out infectious GN - Normal creatinine down to 1 from 7.2 on arrival -Nephrology following Hyperkalemia d/t ENEIDA--resolved after [facility] due to IV Abx for E.coli bacteremia, rule out PE Full code, DVT ppx - heparin attending -dr. Hernandez Quality Stroke Does the patient have a stroke diagnosis?: No VTE Prior VTE?: No VTE Risk Level:: Medical - moderate - high VTE Device Contraindication: Treatment Not Indicated VTE Drug Contraindication: N/A - Med Ordered
[2022-07-02 11:12] VITALS: BP 101/61; PULSE 78; RESP 20; TEMP 36.3; O2SAT 98
[2022-07-02] MEDS: cefTRIAXone sodium 2 GM in 0.9 % Sodium Chloride 50 ML IV (13:08)
[2022-07-02 14:09] LABS: OBS Int Ctl Valid YES; OBS1 NEGATIVE (NEGATIVE)
[2022-07-02] MEDS: Lactated Ringers 1,000 ML 100 ML IVCONT (14:45)
[2022-07-02 15:04] VITALS: BP 113/59; PULSE 89; RESP 18; TEMP 37.2; O2SAT 98
[2022-07-02 18:55] VITALS: BP 129/64; PULSE 100; RESP 18; TEMP 37.6; O2SAT 97
[2022-07-02] MEDS: iohexoL 350 MG/ML 100 ML INFUS..BTL IV (20:14)
[2022-07-02] MEDS: Finasteride 5 MG TABLET PO (20:18)
[2022-07-02] MEDS: Tamsulosin HCL 0.4 MG CAPSULE PO (20:18)
[2022-07-02] MEDS: 0.9 % Sodium Chloride Flush 10 ML SYRINGE 5 ML IVFLUSH (20:19)
[2022-07-02 22:11] LABS: INTERNATIONAL NORM RATIO 1.1 (0.9-1.1); Prothrombin Time 12.7 SEC (10.0-13.1)
[2022-07-02 23:31] VITALS: BP 110/55; PULSE 98; RESP 16; TEMP 36.4; O2SAT 99
[2022-07-03 04:00] VITALS: BP 135/74; PULSE 98; RESP 20; TEMP 36.5; O2SAT 97
[2022-07-03] MEDS: Heparin Sodium,Porcine 5,000 UNIT/ML VIAL 5000 UNIT SUBCUT ×2 (06:40→17:50)
[2022-07-03 06:43] LABS: Basophils Percent Auto 0.3 % (0-2); Eosinophils Absolute Auto 0.3 X10*3/uL (0.0-0.4); Eosinophils Percent Auto 7.3 % (0-4); Hematocrit 25.5 % (42.0-52.0); Hemoglobin 8.1 g/dl (14.0-18.0); Imm Gran Abs Auto 0.02 X10*3/uL (0.00-0.03); Imm Gran Pct Auto 0.5 % (0.0-0.4); Lymphocytes Absolute Auto 1.1 X10*3/uL (1.2-4.9); Lymphocytes Percent Auto 28.4 % (20-40); MANUAL DIFF FLAG SCAN; Mean Corpuscular HGB Conc 31.8 g/dl (31.0-36.0); Mean Corpuscular Hemoglobin 29.1 pg (27.0-33.0); Mean Corpuscular Volume 91.7 fL (80.0-98.0); Mean Platelet Volume 9.9 fL (9.4-12.4); Monocytes Absolute Auto 0.3 X10*3/uL (0.1-1.2); Monocytes Percent Auto 7.8 % (2-11); Neutrophils Absolute Auto 2.1 x10*3/uL (2.0-8.3); Neutrophils Percent Auto 55.7 % (45-73); Platelet Count 201 X10*3/uL (160-400); Red Blood Count 2.78 X10*6/uL (4.60-5.80); Red Cell Distribution Width 17.7 % (11.0-16.0); SCAN SMEAR FLAG 1; White Blood Count 3.8 X10*3/uL (4.8-10.8)
[2022-07-03 07:14] LABS: SLIDE REVIEW VERIFIED
[2022-07-03 07:52] LABS: Anion Gap 12 (12-20); Blood Urea Nitrogen 10 mg/dL (9-16); Calcium 8.9 mg/dL (8.4-10.2); Carbon Dioxide 22 mmol/L (22-29); Chloride 105 mmol/L (96-108); Creatinine Clr Calc Pharmacy 83.9; Estimated Glomerular Filt Rate > 60; Glucose Random 87 mg/dL (60-115); Potassium 4.4 mmol/L (3.3-5.1); Sodium 135 mmol/L (135-145)
[2022-07-03 08:00] VITALS: BP 132/72; PULSE 91; RESP 20; TEMP 36.4; O2SAT 98
[2022-07-03] MEDS: Miconazole Nitrate 2% Powder 85 GM Bottle 1 APPL TOPICAL ×2 (09:18→20:12)
[2022-07-03] MEDS: 0.9 % Sodium Chloride Flush 10 ML SYRINGE 5 ML IVFLUSH ×3 (09:22→20:12)
[2022-07-03] MEDS: 0.9 % Sodium Chloride Flush 3 ML SYRINGE IVFLUSH ×3 (09:22→20:00)
--- NOTE | 2022-07-03 09:58 | P.DS_ITS ---
DS: Providers Provider Date of Service: 07/03/22 Date of admission: 06/23/22 13:30 Date of discharge: 07/03/22 Primary care physician: Unknown Physician Consults: 06/23/22 12:56 Consult to Nephrology Routine Consulting Provider: Kj Mcduffie Reason for consultation: ENEIDA Has provider been notified: No 06/29/22 08:38 Consult to Infectious Diseases Routine Consulting Provider: Marti Montoya Reason for consultation: sepsis Has provider been notified: No Attending physician on discharge: Lissette Salguero Discharging clinician: Magda Laurent DS: Diagnosis Discharge Diagnosis (1) Acute renal failure: Status: Acute (2) Liver abscess: Status: Acute (3) Enlarged prostate: Status: Acute (4) Elevated LFTs: Status: Acute DS: Summary Hospital Course Hospital Course: from H&P on day of admission 69-year-old male with no significant past medical history, ex-smoker presented to the hospital today with chief complaint of confusion.? Patient is alert and awake, lying in the bed, confused.? Not able to provide history.? Spoke to the patient's stoma-was that upper sister; mentioned that over the past 1 week patient has been not doing well, has decreased oral intake.? Also complained of abdominal pain.? Patient initially reported dark urine.? Denies any fevers at home.? Patient of for came to the hospital with complaint of right upper quadrant abdominal pain.? Denies any diarrhea.? Denies any fever chills.? Denies any cough or sputum production.? Mentioned that patient has been peeing frequently; had diaper placed; Denies any weight loss.? Denies any falls or trauma.? Denies patient complaining of any chest pain, palpitations.? Review of all other systems is negative except mentioned above ER course: Per ER team, patient on presentation noted to be confused; CT head showed no acute findings; on labs noted to have ENEIDA, elevated T bili; patient had low- grade temperature; patient's scrotum is inflamed concerning for diaper rash versus cellulitis.? Patient was given Zosyn.? CT abdomen also showed liver lesions concerning for malignancy.? Admitted to the hospital for further management ENEIDA was seen in consultation by Nephrology. concern for ATN vs pre-renal azotemia. Probably result of hypotension and tubular stress from infection. renal ultrasound--chronic atrophic L kidney, no hydro. c3/c4 Was obtainedto rule out infectious GN and was Normal. renal improved from 7 back to baseline of 0.8. hyperkalemia secondary to ENEIDA resolved with treatment of Lokelma. SIRS (tachycardia and Fever)- ? Spiked fever to 102. . history of E coli liver abscess/bacteremia from previous hospitalization. chest x-ray, urine cultures obtained and were negative. No other source of infection was identified. Repeat blood cultures have remained negative.repeat CT scan of abdomen / pelvis shows micro abscesses,? no evidence of drainable fluid collection. liver US showing improvement from previous. seen by ID, ABX initially changed to vancomycin/Zosyn. ?Changed back to ceftriaxone to complete 4 weeks of antibiotics from last admission. Has remained afebrile since 06/29. PICC placed on last admission not functioning, PICC migrated per IR, was readjusted and functional now, placement confirmed by CXR 07/02. recommend follow CBC, BNP while completing antibiotics. Will need outpatient follow-up with Infectious Diseases And GI. Alkaline phosphatase remains elevated likely secondary to liver abscess. Recommend repeat LFTs and abdominal imaging after completion of antibiotics. Recommend outpatient screening colonoscopy. Hospital course was complicated by chest pain and tachycardia. EKG was nonischemic, Cardiac enzymes remained negative, chest x-ray was unremarkable. b/l LE dopplers negative for DVT. CTA negative for PE. pain likely musculoskeletal in nature, reproducible on exam. Can use Lidoderm patch as needed. Tachycardia has resolved. urinary retention. Blank catheter placed on admission for fluid management. Blank was removed and patient failed voiding trial, therefore blank catheter was reinserted. will need outpatient urology evaluation. continued on flomax, finasteride acute on chronic normocytic anemia. Likely due to acute illness, no evidence of acute blood loss. Stool occult negative. Further workup can be done on outpatient basis Time Spent with Patient Time attestation: Total time spent providing and/or coordinating discharge services: Physical Exam Vital Signs: Vital Signs: Last Vital Signs Temp 97.5 F 07/03/22 08:00 Pulse 91 07/03/22 08:00 Resp 20 07/03/22 08:00 BP 132/72 07/03/22 08:00 Pulse Ox 98 07/03/22 08:00 O2 Del Method 07/03/22 08:00 BMI result Body Mass Index 32.7 DS: Data Data Completed and Pending Completed studies during hospitalization [Text1]: Procedures Excision of Left Lobe Liver, Percutaneous Approach, Diagnostic (06/09/22) Fluoroscopy of Superior Vena Cava, Guidance (06/09/22) Insertion of Infusion Device into Superior Vena Cava, Percutaneous Approach (06/09/22) Labs on day of discharge: Laboratory Results - last 24 hr 07/02/22 07/02/22 07/02/22 14:47 21:35 Unknown WBC RBC Hgb Hct MCV MCH MCHC RDW Plt Count MPV Immature Gran % (Auto) Neut % (Auto) Lymph % (Auto) [place] % (Auto) Eos % (Auto) Baso % (Auto) Lymph # (Auto) [place] # (Auto) Eos # (Auto) Baso # (Auto) Abs Immat Gran (auto) Absolute Neuts (auto) Absolute Nucleated RBC Nucleated RBC % (auto) Smear Tech's Comments PT 12.7 INR 1.1 Sodium Potassium Chloride Carbon Dioxide Anion Gap BUN Creatinine Estim Creat Clear Calc Estimated GFR Random Glucose Calcium Troponin I High Sens 5.0 Stool Occult Blood NEGATIVE 07/03/22 07/03/22 06:15 06:15 WBC 3.8 L RBC 2.78 L Hgb 8.1 L Hct 25.5 L MCV 91.7 MCH 29.1 MCHC 31.8 RDW 17.7 H Plt Count 201 MPV 9.9 Immature Gran % (Auto) 0.5 H Neut % (Auto) 55.7 Lymph % (Auto) 28.4 [place] % (Auto) 7.8 Eos % (Auto) 7.3 H Baso % (Auto) 0.3 Lymph # (Auto) 1.1 L [place] # (Auto) 0.3 Eos # (Auto) 0.3 Baso # (Auto) 0.0 Abs Immat Gran (auto) 0.02 Absolute Neuts (auto) 2.1 Absolute Nucleated RBC 0.000 Nucleated RBC % (auto) 0.0 Smear Tech's Comments VERIFIED PT INR Sodium 135 Potassium 4.4 Chloride 105 Carbon Dioxide 22 Anion Gap 12 BUN 10 Creatinine 0.86 Estim Creat Clear Calc 83.9 Estimated GFR > 60 Random Glucose 87 Calcium 8.9 Troponin I High Sens Stool Occult Blood Preliminary micro results at discharge 07/01/22 22:31 Blood Culture - Preliminary Blood - Venous No growth after 24 hours. 07/01/22 22:31 Blood Culture - Preliminary Blood - Venous No growth after 24 hours. Discharge Plan Discharge Discharge Diagnosis: Liver abscess/e coli bacteremia (from previous admission) acute renal failure Urinary retention Referrals: Alexander Eugene MD [Physician] - 1 Week Marti Montoya MD [Physician] - 2 Weeks Physician,Unknown J [Primary Care Provider] - 1 Week Discharge Medications: New lidocaine [Lidocaine Pain Relief] 4 % Adhesive Patch,Medicated 1 patch transdermal DAILY Qty: 10 0RF Protocol: Apply to: Apply to: left pectoralis Continued sennosides [Senna Lax] 8.6 mg Tablet 17.2 mg PO BEDTIME PRN (Reason: Constipation) Qty: 30 0RF omeprazole 20 mg Capsule,Delayed Release(Dr/Ec) 20 mg PO BID@0630,1630 Qty: 60 0RF ceftriaxone 2 gram Recon Soln 2 g IV Q24H Qty: 23 0RF Rx Instructions: end date for ceftraixone is 07/03/22 miconazole nitrate 2 % Powder 1 appl TOPICAL BID Rx Instructions: to left groin rash tamsulosin [Flomax] 0.4 mg capsule 0.4 mg PO DAILY@1999 finasteride 5 mg tablet 5 mg PO DAILY@1999 Discontinued metronidazole 500 mg Tablet 500 mg PO Q12H Qty: 22 0RF Rx Instructions: end date for metronidazole is 06/23/22 Care Plan Goals: see below Health Concerns: acute kidney failure urinary retention liver abscess/ E coli bacteremia elevated alkaline phosphatase - likely from liver abscess acute on chronic anemia. no evidence of blood loss chest pain - musculoskeletal. acute coronary syndrome ruled out Plan of Treatment: Kidney function returned to normal, creatinine on the day of discharge 0.86 (from 7.2) Finish 4 week course of ceftriaxone started on last admission Monitor CBC and BMP weekly while on antibiotics Recommend outpatient screening colonoscopy Recommend to repeat LFTs including alk phos after completing antibiotics Repeat CA19-9 at the end of June as previously recommended outpatient follow-up with ID outpatient follow-up with GI outpatient follow up with urology for urinary retention. failed voiding trial, keep Blank in place until urology evaluation Left upper lung nodule seen on previous admission - outpatient follow up Assessment: see discharge summary
[2022-07-03 11:28] VITALS: BP 122/75; PULSE 89; RESP 20; TEMP 36.4; O2SAT 98
[2022-07-03] MEDS: cefTRIAXone sodium 2 GM in 0.9 % Sodium Chloride 50 ML IV (13:01)
[2022-07-03] MEDS: Acetaminophen 325 MG TABLET 650 MG PO ×2 (14:01→23:28)
--- NOTE | 2022-07-03 14:34 | HO.PM.IMPN ---
Subjective Subjective Date of Service: 07/03/22 Interval History: seen and examined this morning Follow-up for ENEIDA, liver abscess Feeling well this morning, no chest pain, no shortness of breath, no fever no chills Review of Systems Review of Systems: Yes all other systems are reviewed and are negative Constitutional Constitutional: Denies chills and Denies fever(s) Cardiovascular Cardiovascular: Denies chest pain, Denies palpitations and Denies dyspnea Respiratory Respiratory: Denies cough and Denies dyspnea Endocrine Endocrine: Denies palpitations Physical Exam Vital Signs: Vital Signs: Last Vital Signs Temp 97.6 F 07/03/22 11:28 Pulse 89 07/03/22 11:28 Resp 20 07/03/22 11:28 BP 122/75 07/03/22 11:28 Pulse Ox 98 07/03/22 11:28 O2 Del Method 07/03/22 11:28 BMI result Body Mass Index 32.7 Const: General: cooperative, alert and awake Nutritional Appearance: overweight Orientation/consciousness: patient oriented x3 Resp: Effort & Inspection: normal respiratory effort and able to speak in complete sentences Auscultation: clear to auscultation bilaterally Cardio: Rate: regular rate Heart sounds: S1 normal heart sound present and S2 normal heart sound present GI: Inspection: No distended Palpation (GI): Soft to palpation and nontender : Other: Daily in place draining yellow urine Neuro: General: patient oriented x3 and CN's II-XI intact bilaterally Extrem: General: Yes no pedal edema Objective Data Active Medications Acetaminophen (Acetaminophen 325 Mg Tablet) 650 mg PO Q6H PRN PRN Reason: Pain, Mild (Pain Scale 1-3) Last Admin: 07/03/22 14:01 Dose: 650 mg Documented By: BELKIS Acetaminophen (Acetaminophen Supp 650 Mg Supp.Rect) 650 mg [place] Q6H PRN PRN Reason: Pain, Mild (Pain Scale 1-3) Finasteride (Finasteride 5 Mg Tablet) 5 mg PO DAILY@1999 [facility] Last Admin: 07/02/22 20:18 Dose: 5 mg Documented By: JANINE Heparin Sodium (Porcine) (Heparin Sodium,Porcine 5,000 Unit/Ml Vial) 5,000 unit SUBCUT Q12H [facility] Last Admin: 07/03/22 06:40 Dose: 5,000 unit Documented By: JANINE Ceftriaxone Sodium 2 gm/ (Sodium Chloride) 50 mls @ 100 mls/hr IV Q24H [facility] Last Infusion: 07/03/22 13:35 Dose: 0 mls/hr Documented By: BELKIS Lidocaine (Lidocaine 4 % Patch Adh..Patch) 1 patch TRANSDERMA DAILY [facility]; Protocol Last Admin: 07/03/22 09:22 Dose: Not Given Documented By: BELKIS Non-Admin Reason: Patient Refused Melatonin (Melatonin 3 Mg Tablet) 6 mg PO BEDTIME PRN PRN Reason: Insomnia Miconazole Nitrate (Miconazole Nitrate 2% Powder 85 Gm Bottle) 1 appl TOPICAL BID [facility]; Protocol Last Admin: 07/03/22 09:18 Dose: 1 appl Documented By: BELKIS Omeprazole (Omeprazole 20 Mg Capsule.Dr) 20 mg PO BID@0630,1630 [facility] Last Admin: 07/03/22 06:40 Dose: Not Given Documented By: JANINE Non-Admin Reason: Patient Refused Ondansetron HCl (Ondansetron Hcl 4 Mg/2 Ml Vial) 4 mg IVPUSH Q8H PRN PRN Reason: Nausea and Vomiting Pharmacy Consult (Consult Rx Perform Med Rec) 1 each MISCELLANE ONCE PRN PRN Reason: Consult order Pharmacy Consult (Consult Rx Vancomycin Dosing) 1 each MISCELLANE DAILY PRN PRN Reason: Consult order Senna (Sennosides 8.6 Mg Tablet) 17.2 mg PO BEDTIME PRN PRN Reason: Constipation Sodium Chloride (0.9 % Sodium Chloride Flush 3 Ml Syringe) 3 ml IVFLUSH QSHIFT [facility] Last Admin: 07/03/22 14:03 Dose: 3 ml Documented By: BELKIS Sodium Chloride (0.9 % Sodium Chloride Flush 10 Ml Syringe) 5 ml IVFLUSH TID [facility] Last Admin: 07/03/22 14:03 Dose: 5 ml Documented By: BELKIS Tamsulosin HCl (Tamsulosin Hcl 0.4 Mg Capsule) 0.4 mg PO DAILY@1999 [facility] Last Admin: 07/02/22 20:18 Dose: 0.4 mg Documented By: JANINE Labs CBC & Chem 7: 07/03/22 06:15 07/03/22 06:15 Labs: Laboratory Results - last 24 hr 07/02/22 07/03/22 07/03/22 21:35 06:15 06:15 MCV 91.7 MCH 29.1 MCHC 31.8 RDW 17.7 H Plt Count 201 MPV 9.9 Immature Gran % (Auto) 0.5 H Neut % (Auto) 55.7 Lymph % (Auto) 28.4 [place] % (Auto) 7.8 Eos % (Auto) 7.3 H Baso % (Auto) 0.3 Lymph # (Auto) 1.1 L [place] # (Auto) 0.3 Eos # (Auto) 0.3 Baso # (Auto) 0.0 Abs Immat Gran (auto) 0.02 Absolute Neuts (auto) 2.1 Absolute Nucleated RBC 0.000 Nucleated RBC % (auto) 0.0 Smear Tech's Comments VERIFIED PT 12.7 INR 1.1 Anion Gap 12 Estim Creat Clear Calc 83.9 Estimated GFR > 60 Random Glucose 87 Calcium 8.9 Microbiology Microbiology Results: Microbiology 07/01/22 22:31 Blood Culture - Preliminary Blood - Venous No growth after 24 hours. 07/01/22 22:31 Blood Culture - Preliminary Blood - Venous No growth after 24 hours. 06/27/22 18:17 Blood Culture - Final Blood - Venous No growth after 5 days. 06/27/22 18:17 Blood Culture - Final Blood - Venous No growth after 5 days. Assessment and Plan (1) Liver abscess: Status: Acute Plan 71/m with recent hospitalization for E.coli bacteremia and liver abscess now with ENEIDA from routine lab check SIRS (tachycardia and Fever)- afebrile at this point. No new source of infection identified history of E coli liver abscess/bacteremia from last hospitalization -chest x-ray, urine culture negative -seen by ID, ABX initially changed to vancomycin/Zosyn. Discussed with ID - Plan to change back and discharge on ceftriaxone to complete 6 weeks of antibiotics from last admission -Blood cultures 06/27 negative to date, repeat blood cultures pending -repeat CT scan of abdomen / pelvis shows micro abscesses, no evidence of drainable fluid collection -liver US showing improvement from previous -PICC placed on last admission not functioning, PICC migrated per IR, was readjusted and functional now chest pain resolved EKG nonischemic, troponin negative, chest x-ray unremarkable V/Q scan nondiagnostic (has been on DVT ppx with heparin); b/l LE dopplers negative for DVT. CTA negative for PE urinary retention Failed voiding trial, Daily catheter reinserted will need outpatient urology evaluation -continue flomax, finasteride acute on chronic normocytic anemia Likely due to acute illness, no evidence of acute blood loss - will check stool occult - CBC stable ENEIDA concern for ATN vs pre-renal azotemia renal ultrasound--chronic atrophic L kidney, no hydro c3/c4 to rule out infectious GN - Normal creatinine down to 1 from 7.2 on arrival -Nephrology following Hyperkalemia d/t ENEIDA--resolved after [facility] due to IV Abx for E.coli bacteremia Full code, DVT ppx - heparin attending -dr. ruiz Quality Stroke Does the patient have a stroke diagnosis?: No VTE Prior VTE?: No VTE Risk Level:: Medical - moderate - high VTE Device Contraindication: Treatment Not Indicated VTE Drug Contraindication: N/A - Med Ordered
[2022-07-03 14:57] VITALS: BP 121/69; PULSE 80; RESP 20; TEMP 36.7; O2SAT 98
[2022-07-03] MEDS: Tamsulosin HCL 0.4 MG CAPSULE PO (19:58)
[2022-07-03] MEDS: Finasteride 5 MG TABLET PO (19:59)
[2022-07-03 20:00] VITALS: BP 122/72; PULSE 90; RESP 15; TEMP 36.6; O2SAT 98
[2022-07-03 23:35] VITALS: BP 133/73; PULSE 90; RESP 16; TEMP 36.4; O2SAT 100
[2022-07-04 04:00] VITALS: BP 124/70; PULSE 73; RESP 16; TEMP 36.1; O2SAT 98
[2022-07-04] MEDS: Heparin Sodium,Porcine 5,000 UNIT/ML VIAL 5000 UNIT SUBCUT ×2 (05:40→17:35)
[2022-07-04 08:00] VITALS: BP 118/65; PULSE 96; RESP 20; TEMP 36.4; O2SAT 97
[2022-07-04] MEDS: 0.9 % Sodium Chloride Flush 3 ML SYRINGE IVFLUSH ×2 (08:58→17:35)
[2022-07-04] MEDS: 0.9 % Sodium Chloride Flush 10 ML SYRINGE 5 ML IVFLUSH ×3 (08:58→21:24)
[2022-07-04] MEDS: Lidocaine 4 % Patch ADH..PATCH 1 PATCH TRANSDERMA (08:59)
[2022-07-04] MEDS: Miconazole Nitrate 2% Powder 85 GM Bottle 1 APPL TOPICAL (09:00)
--- NOTE | 2022-07-04 09:59 | P.PNIM_ITS ---
Subjective Subjective Date of Service: 07/04/22 Interval History: F/u on ENEIDA, Hyperkalemia, SIRS interval history: ENEIDA resolved, fever resolved, cultures negative, no new issues at this time Review of Systems Gen: - fever Resp: no sob, no cough CV: no chest, no BLAND, no leg edema GI: No n/v, no abd pain Neuro: No confusion, no dizziness Physical Exam Vital Signs: Vital Signs: Last Vital Signs Temp 97.5 F 07/04/22 08:00 Pulse 96 07/04/22 08:00 Resp 20 07/04/22 08:00 BP 118/65 07/04/22 08:00 Pulse Ox 97 07/04/22 08:00 O2 Del Method 07/04/22 08:00 BMI result Body Mass Index 32.7 Const: Other: Constitutional: Alert, in no distress, Mental Status: Oriented to person, place and time. Respiratory: Clear to auscultation. No wheezing, rales or rhonchi. Cardiovascular: S1 S2 regular. No murmurs, rubs or gallops. Gastrointestinal: Abdomen soft, non-tender, non-distended. Normal bowel sounds.? Neurologic: Cranial nerves II-XII grossly intact. No focal neurological deficits. Moves all extremities spontaneously.? Skin: No rashes or lesions.? Musculoskeletal: No cyanosis or clubbing. Psychiatric: Normal mood and affect? Objective Data Active Medications Acetaminophen (Acetaminophen 325 Mg Tablet) 650 mg PO Q6H PRN PRN Reason: Pain, Mild (Pain Scale 1-3) Last Admin: 07/03/22 23:28 Dose: 650 mg Documented By: LEE Acetaminophen (Acetaminophen Supp 650 Mg Supp.Rect) 650 mg ND Q6H PRN PRN Reason: Pain, Mild (Pain Scale 1-3) Finasteride (Finasteride 5 Mg Tablet) 5 mg PO DAILY@1999 [facility] Last Admin: 07/03/22 19:59 Dose: 5 mg Documented By: JUANITO Heparin Sodium (Porcine) (Heparin Sodium,Porcine 5,000 Unit/Ml Vial) 5,000 unit SUBCUT Q12H [facility] Last Admin: 07/04/22 05:40 Dose: 5,000 unit Documented By: LEE Ceftriaxone Sodium 2 gm/ (Sodium Chloride) 50 mls @ 100 mls/hr IV Q24H [facility] Last Infusion: 07/03/22 13:35 Dose: 0 mls/hr Documented By: BELKIS Lidocaine (Lidocaine 4 % Patch Adh..Patch) 1 patch TRANSDERMA DAILY [facility]; Protocol Last Admin: 07/04/22 08:59 Dose: 1 patch Documented By: KESHIA Melatonin (Melatonin 3 Mg Tablet) 6 mg PO BEDTIME PRN PRN Reason: Insomnia Miconazole Nitrate (Miconazole Nitrate 2% Powder 85 Gm Bottle) 1 appl TOPICAL BID [facility]; Protocol Last Admin: 07/04/22 09:00 Dose: 1 appl Documented By: KESHIA Omeprazole (Omeprazole 20 Mg Capsule.) 20 mg PO BID@0630,1630 [facility] Last Admin: 07/04/22 05:42 Dose: Not Given Documented By: LEE Non-Admin Reason: Patient Refused Ondansetron HCl (Ondansetron Hcl 4 Mg/2 Ml Vial) 4 mg IVPUSH Q8H PRN PRN Reason: Nausea and Vomiting Pharmacy Consult (Consult Rx Perform Med Rec) 1 each MISCELLANE ONCE PRN PRN Reason: Consult order Pharmacy Consult (Consult Rx Vancomycin Dosing) 1 each MISCELLANE DAILY PRN PRN Reason: Consult order Senna (Sennosides 8.6 Mg Tablet) 17.2 mg PO BEDTIME PRN PRN Reason: Constipation Sodium Chloride (0.9 % Sodium Chloride Flush 3 Ml Syringe) 3 ml IVFLUSH QSHIFT [facility] Last Admin: 07/04/22 08:58 Dose: 3 ml Documented By: KESHIA Sodium Chloride (0.9 % Sodium Chloride Flush 10 Ml Syringe) 5 ml IVFLUSH TID [facility] Last Admin: 07/04/22 08:58 Dose: 5 ml Documented By: KESHIA Tamsulosin HCl (Tamsulosin Hcl 0.4 Mg Capsule) 0.4 mg PO DAILY@1999 [facility] Last Admin: 07/03/22 19:58 Dose: 0.4 mg Documented By: JUANITO Labs CBC & Chem 7: 07/03/22 06:15 07/03/22 06:15 Microbiology Microbiology Results: Microbiology 07/01/22 22:31 Blood Culture - Preliminary Blood - Venous No growth after 48 hours. 07/01/22 22:31 Blood Culture - Preliminary Blood - Venous No growth after 48 hours. Assessment and Plan (1) Liver abscess: Status: Acute Plan 71/m with recent hospitalization for E.coli bacteremia and liver abscess now with ENEIDA from routine lab check SIRS (tachycardia and Fever)- afebrile at this point. No new source of infection identified history of E coli liver abscess/bacteremia from last hospitalization -chest x-ray, urine culture negative -seen by ID, ABX initially changed to vancomycin/Zosyn. Discussed with ID - Plan to change back and discharge on ceftriaxone to complete 6 weeks of antibiotics from last admission (ending 07/15) -Blood cultures 06/27 negative to date, repeat blood cultures pending -repeat CT scan of abdomen / pelvis shows micro abscesses, no evidence of drainable fluid collection -liver US showing improvement from previous -PICC placed on last admission not functioning, PICC migrated per IR, was readjusted and functional now chest pain resolved EKG nonischemic, troponin negative, chest x-ray unremarkable V/Q scan nondiagnostic (has been on DVT ppx with heparin); b/l LE dopplers negative for DVT. CTA negative for PE urinary retention Failed voiding trial, Daily catheter reinserted will need outpatient urology evaluation -continue flomax, finasteride acute on chronic normocytic anemia Likely due to acute illness, no evidence of acute blood loss - will check stool occult - CBC stable ENEIDA likely due to ATN renal ultrasound--chronic atrophic L kidney, no hydro c3/c4 to rule out infectious GN - Normal creatinine down to 1 from 7.2 on arrival -Nephrology following Hyperkalemia d/t ENEIDA--resolved after [facility] due to IV Abx for E.coli bacteremia, need for PT eval and placement Full code, DVT ppx - heparin Quality Stroke Does the patient have a stroke diagnosis?: No VTE Prior VTE?: No VTE Risk Level:: Medical - moderate - high VTE Device Contraindication: Treatment Not Indicated VTE Drug Contraindication: N/A - Med Ordered
[2022-07-04 12:00] VITALS: BP 106/64; PULSE 89; RESP 20; TEMP 36.4; O2SAT 98
[2022-07-04] MEDS: cefTRIAXone sodium 2 GM in 0.9 % Sodium Chloride 50 ML IV (13:21)
[2022-07-04 13:23] LABS: COVID-19 Test Negative (Negative)
--- NOTE | 2022-07-04 13:44 | MHC.CM.PN ---
[facility] matt notified of dc
[2022-07-04] MEDS: Acetaminophen 325 MG TABLET 650 MG PO (13:53)
--- NOTE | 2022-07-04 14:20 | PC.NURSE ---
pt c/o itchiness and headache after each dose of antibiotics. No visible hives noted, no breathing difficulties noted. Pt has no known allergies. aware.
[2022-07-04 15:20] VITALS: BP 110/62; PULSE 94; RESP 17; TEMP 36.4; O2SAT 97
--- NOTE | 2022-07-04 15:29 | MHC.CM.PN ---
pt dcd cancelled due to possible reaction to antibiotics facility amb notified
[2022-07-04] MEDS: Omeprazole 20 MG CAPSULE.DR PO (17:35)
[2022-07-04 19:41] VITALS: BP 129/68; PULSE 102; RESP 17; TEMP 36.4; O2SAT 97
[2022-07-04] MEDS: Tamsulosin HCL 0.4 MG CAPSULE PO (21:24)
[2022-07-04] MEDS: Finasteride 5 MG TABLET PO (21:24)
[2022-07-05] VITALS: BP 123/66; PULSE 105; RESP 16; TEMP 36.4
[2022-07-05 03:58] VITALS: BP 123/70; PULSE 96; RESP 16; TEMP 36.4; O2SAT 97
[2022-07-05] MEDS: Heparin Sodium,Porcine 5,000 UNIT/ML VIAL 5000 UNIT SUBCUT (05:54)
[2022-07-05 07:30] VITALS: BP 106/57; PULSE 96; RESP 20; TEMP 36.7; O2SAT 97
[2022-07-05] MEDS: 0.9 % Sodium Chloride Flush 3 ML SYRINGE IVFLUSH (09:15)
[2022-07-05] MEDS: levoFLOXacin/D5W 500 MG/100 ML PIGGYBACK 100 MG IV (09:16)
[2022-07-05 11:22] VITALS: BP 114/61; PULSE 90; RESP 20; TEMP 36.4; O2SAT 97
--- NOTE | 2022-07-05 11:51 | P.DS_ITS ---
DS: Providers Provider Date of Service: 07/05/22 Date of admission: 06/23/22 13:30 Primary care physician: Unknown Physician Consults: 06/23/22 12:56 Consult to Nephrology Routine Consulting Provider: Kj Mcduffie Reason for consultation: ENEIDA Has provider been notified: No 06/29/22 08:38 Consult to Infectious Diseases Routine Consulting Provider: Marti Montoya Reason for consultation: sepsis Has provider been notified: No DS: Diagnosis Discharge Diagnosis (1) Liver abscess: Status: Acute DS: Summary Hospital Course Hospital Course: from H&P on day of admission 69-year-old male with no significant past medical history, ex-smoker presented to the hospital today with chief complaint of confusion.? Patient is alert and awake, lying in the bed, confused.? Not able to provide history.? Spoke to the patient's stoma-was that upper sister; mentioned that over the past 1 week patient has been not doing well, has decreased oral intake.? Also complained of abdominal pain.? Patient initially reported dark urine.? Denies any fevers at home.? Patient of for came to the hospital with complaint of right upper quadrant abdominal pain.? Denies any diarrhea.? Denies any fever chills.? Denies any cough or sputum production.? Mentioned that patient has been peeing frequently; had diaper placed; Denies any weight loss.? Denies any falls or trauma.? Denies patient complaining of any chest pain, palpitations.? Review of all other systems is negative except mentioned above ER course: Per ER team, patient on presentation noted to be confused; CT head showed no acute findings; on labs noted to have ENEIDA, elevated T bili; patient had low- grade temperature; patient's scrotum is inflamed concerning for diaper rash versus cellulitis.? Patient was given Zosyn.? CT abdomen also showed liver lesions concerning for malignancy.? Admitted to the hospital for further management Hospital course: ENEIDA was seen in consultation by Nephrology. concern for ATN vs pre-renal azotemia. Probably result of hypotension and tubular stress from infection. renal ultrasound--chronic atrophic L kidney, no hydro. c3/c4 Was obtainedto rule out infectious GN and was Normal. renal improved from 7 back to baseline of 0.8. hyperkalemia secondary to ENEIDA resolved with treatment of Lokelma. SIRS (tachycardia and Fever)- ? Spiked fever to 102. . history of E coli liver abscess/bacteremia from previous hospitalization. chest x-ray, urine cultures obtained and were negative. No other source of infection was identified. Repeat blood cultures have remained negative.repeat CT scan of abdomen / pelvis shows micro abscesses,? no evidence of drainable fluid collection. liver US showing improvement from previous. seen by ID, ABX initially changed to vancomycin/Zosyn. ?Changed back to ceftriaxone to complete 4 weeks of antibiotics from last admission, however on 07/04 he complained of itchyness following infusion of Ceftriaxone and he says that this has been happening all along every time he got the medication and is becoming worse and doesn't want it anymore, there is no rash with. Ceftriaxone was replaced with Levaquin and will get 9 more days after today to complete 4 weeks of antibiotics, he had no reaction to levaquin. Has remained afebrile since 06/29. PICC placed on last admission not functioning, PICC migrated per IR, was readjusted and functional now, placement confirmed by CXR 07/02. recommend follow CBC, BNP while completing antibiotics. Will need outpatient follow-up with Infectious Diseases And GI. Alkaline phosphatase remains elevated likely secondary to liver abscess. Recommend repeat LFTs and abdominal imaging after completion of antibiotics. Recommend outpatient screening colonoscopy. Hospital course was complicated by chest pain and tachycardia. EKG was nonischemic, Cardiac enzymes remained negative, chest x-ray was unremarkable. b/l LE dopplers negative for DVT. CTA negative for PE. pain likely musculoskeletal in nature, reproducible on exam. Can use Lidoderm patch as needed. Tachycardia has resolved. urinary retention. Blank catheter placed on admission for fluid management. Blank was removed and patient failed voiding trial, therefore blank catheter was reinserted. will need outpatient urology evaluation. continued on flomax, finasteride acute on chronic normocytic anemia. Likely due to acute illness, no evidence of acute blood loss. Stool occult negative. Further workup can be done on outpatient basis Time Spent with Patient Time attestation: Total time spent providing and/or coordinating discharge services: Discharge coordination time: Greater than 30 minutes Quality: Safe Use of Opioids Does Pt have an Active Cancer Diagnosis on the Problem List?: No Quality: Stroke Does the patient have a stroke diagnosis?: No Physical Exam Vital Signs: Vital Signs: Selected Entries 07/05/22 11:22 Temperature 97.6 F Pulse Rate 90 Respiratory Rate 20 Blood Pressure 114/61 Pulse Oximetry 97 Oxygen Delivery Me thod Room Air Const: Other: General: AO X 3, no acute distress Resp: CTA bilateral CVS: S1,S2,RRR GI: +BS, NT, no distention Skin: No rash Neuro: motor grossly intact Psych: appropriate affect DS: Data Data Completed and Pending Completed studies during hospitalization [Text1]: Procedures Excision of Left Lobe Liver, Percutaneous Approach, Diagnostic (06/09/22) Fluoroscopy of Superior Vena Cava, Guidance (06/09/22) Insertion of Infusion Device into Superior Vena Cava, Percutaneous Approach (06/09/22) Labs on day of discharge: Preliminary micro results at discharge 07/01/22 22:31 Blood Culture - Preliminary Blood - Venous No growth after 48 hours. 07/01/22 22:31 Blood Culture - Preliminary Blood - Venous No growth after 48 hours. Discharge Plan Discharge Anticipated Discharge Date/Time: 07/05/22 10:15 Patient Disposition: [facility] Discharge Diagnosis: Liver abscess/e coli bacteremia (from previous admission) acute renal failure Urinary retention Referrals: nallely [Other] - 1 Week Alexander Eugene MD [Physician] - 1 Week Marti Montoya MD [Physician] - 2 Weeks Physician,Criss J [Primary Care Provider] - 1 Week Discharge Medications: New lidocaine [Lidocaine Pain Relief] 4 % Adhesive Patch,Medicated 1 patch transdermal DAILY Qty: 10 0RF Protocol: Apply to: Apply to: left pectoralis levofloxacin in D5W 500 mg/100 mL Piggyback 500 mg IV Q24H Qty: 9 0RF Continued sennosides [Senna Lax] 8.6 mg Tablet 17.2 mg PO BEDTIME PRN (Reason: Constipation) Qty: 30 0RF omeprazole 20 mg Capsule,Delayed Release(Dr/Ec) 20 mg PO BID@0630,1630 Qty: 60 0RF miconazole nitrate 2 % Powder 1 appl TOPICAL BID Rx Instructions: to left groin rash tamsulosin [Flomax] 0.4 mg capsule 0.4 mg PO DAILY@1999 finasteride 5 mg tablet 5 mg PO DAILY@1999 Discontinued metronidazole 500 mg Tablet 500 mg PO Q12H Qty: 22 0RF Rx Instructions: end date for metronidazole is 06/23/22 ceftriaxone 2 gram Recon Soln 2 g IV Q24H Qty: 23 0RF Rx Instructions: end date for ceftraixone is 07/03/22 Discharge Orders: Discharge Order (Routine); Ordered 07/04/22 Ordered By: Min Gomez Diet: Advance to usual diet Activity on Discharge: As tolerated Stand Alone Forms: Patient Portal Discharge page Care Plan Goals: see below Health Concerns: acute kidney failure urinary retention liver abscess/ E coli bacteremia elevated alkaline phosphatase - likely from liver abscess acute on chronic anemia. no evidence of blood loss chest pain - musculoskeletal. acute coronary syndrome ruled out Plan of Treatment: Need to obtain PCP Kidney function returned to normal, creatinine on the day of discharge 0.86 (from 7.2) Ceftriaxone stopped on 07/04 due to itchyness and started on Levaquin 07/05 and will take it for 10 more day ending 07/15 Monitor CBC and BMP weekly while on antibiotics Recommend outpatient screening colonoscopy Recommend to repeat LFTs including alk phos after completing antibiotics Repeat CA19-9 at the end of June as previously recommended outpatient follow-up with ID outpatient follow-up with GI outpatient follow up with urology for urinary retention. failed voiding trial, keep Blank in place until urology evaluation Left upper lung nodule seen on previous admission - outpatient follow up Assessment: see discharge summary
--- NOTE | 2022-07-05 12:32 | MHC.CM.PN ---
IMM 07/04/22 Patient is discharged today. He will return to [facility] via BLS at 2pm today. DC documentation has been sent to the facility.
== END 2022-07-05 14:15 | disposition skilled nursing facility (03) | DRG 682 ==
LOC: HO.ED 12:06 → HO.EDOVER 13:46 → HO.S3 15:25 → HO.IMC 06-28 16:34
PROVIDERS: Internal Medicine; Internal Medicine Nephrology; Physician Assistant Medical; Admitting Provider Internal Medicine; Emergency Provider Emergency Medicine; Visit Provider Internal Medicine
DX: N17.9 Acute kidney failure, unspecified (principal); K75.0 Abscess of liver; R65.10 Systemic inflammatory response syndrome (SIRS) of non-infectious origin without acute organ dysfunction; D64.9 Anemia, unspecified; E87.5 Hyperkalemia; R33.9 Retention of urine, unspecified; Z20.822 Contact with and (suspected) exposure to COVID-19; Z87.440 Personal history of urinary (tract) infections; Z87.891 Personal history of nicotine dependence; Z79.899 Other long term (current) drug therapy
CPT/HCPCS: 36415; 36573; 36600; 70450; 71045; 71275; 74176; 74177; 76705; 76775; 78580; 80048; 80076; 80202; 81001; 81003; 82272; 82550; 82565; 82803; 82947; 83605; 83690; 83880; 84300; 84484; 85025; 85027; 85610; 85652; 85730; 86140; 86160; 87040; 87086; 87635; 93005; 93970; 97162; 99285; A9540; C1758; J0696; J1650; J1956; J2543; J3370; Q9967

== ENCOUNTER 2022-07-11 13:02 | Inpatient (IN) | payer MEDICARE, SELFPAY ==
[2022-07-11 13:24] VITALS: BP 80/52; BP 96/59; PULSE 106; PULSE 107; RESP 18; TEMP 36.5; O2SAT 100; O2SAT 97; BMI 27.1
--- NOTE | 2022-07-11 13:44 | PC.NURSE ---
on arrivial initiated normal saline in picc line #5 in left arm r/t BP of 80/52 . patient a/ox4 .perrla . heart rate regular at 105 beats .lungs clear . patient skin is red / purple rash from toes to chest . arms red rash . neck red rash . face has small patches of rash on forehead .patient reports no pain just itching from rash. abdomen soft non distended . positive bowel sounds in all quadrants . patient has a Daily catheter , patent with yellow urine . patient is aware of plan of care.
[2022-07-11 13:52] VITALS: BP 96/54; PULSE 103; RESP 16; O2SAT 100
--- NOTE | 2022-07-11 14:01 | ECG_ITS ---
Test Reason : ALLERGIC REACTION Blood Pressure : / mmHG Vent. Rate : 106 BPM Atrial Rate : 106 BPM P-R Int : 148 ms QRS Dur : 088 ms QT Int : 332 ms P-R-T Axes : 038 051 037 degrees QTc Int : 441 ms Sinus tachycardia Otherwise normal ECG When compared with ECG of 01-JUL-2022 20:08, No significant change was found Referred By: Sneha Manzanares Electronically Signed By:MALINI WILLINGHAM
--- NOTE | 2022-07-11 14:03 | ED.GENADULT ---
HPI - General Adult General Chief complaint: Allergic Reaction Stated complaint: INF,ALLERGIC RXN W/HIVES,FROM SNF PER EMS Time Seen by Provider: 07/11/22 13:49 Source: patient and EMS Mode of arrival: EMS Limitations: no limitations History of Present Illness HPI narrative: Patient comes to the emergency room complaining of a possible allergic reaction to Levaquin. Patient states that since he was discharged from the hospital on July 05, he was admitted for hepatic abscess. Patient states that he has been having ongoing itchiness and urticaria in both upper extremities and abdomen. This morning, he noticed a red rash in both lower extremities. Patient states that the rash does not bother him, it is not painful or itchy. Patient denies any chest pain or shortness of breath. Related Data Home Medications Medication Instructions Recorded Confirmed finasteride 5 mg tablet 5 mg PO DAILY@199906/23/22 07/11/22 miconazole nitrate 2 % topical 1 appl topical BID 06/23/22 07/11/22 powder tamsulosin 0.4 mg capsule (Flomax) 0.4 mg PO DAILY@199906/23/22 07/11/22 Previous Rx's Medication Instructions Recorded omeprazole 20 mg capsule,delayed 20 mg PO BID@0630,1630 #60 caps 06/17/22 release sennosides 8.6 mg tablet (Senna 17.2 mg PO BEDTIME PRN 06/17/22 Lax) Constipation #30 tabs lidocaine 4 % topical patch 1 patch transdermal DAILY #10 ea 07/03/22 (Lidocaine Pain Relief) levofloxacin 500 mg/100 mL in 5 % 500 mg IV Q24H #9 mL 07/05/22 dextrose intravenous piggyback Allergies Allergy/AdvReac Type Severity Reaction Status Date / Time levofloxacin Allergy Severe vasculitis Verified 07/11/22 17:50 ceftriaxone AdvReac Mild pruritis Verified 07/11/22 17:50 Review of Systems Review of Systems: Constitutional : No Weight loss, No Fever, No Chills, No Night Sweats, No Fatigue, No Malaise ENT/Mouth : No Hearing loss, No Ear Pain, No Nasal Congestion, No Sinus Pain, No Hoarseness, No sore throat, No Rhinorrhea, No Swallowing Difficulty Eyes: No Eye Pain, No Swelling, No Redness, No Foreign Body, No Discharge, No Vision Changes Cardiovascular : No Chest Pain, No SOB, No Dyspnea on Exertion, No Orthopnea, No Edema, No Palpitations Respiratory : No Cough, No Sputum, No Wheezing, No Smoke Exposure, No Dyspnea Gastrointestinal : No Nausea, No Vomiting, No Diarrhea, No Constipation, No abdominal Pain, No Hematochezia, No Melena Genitourinary : no irregular bleeding, No Dysuria, No Urinary Frequency, No Hematuria, No Urinary Incontinence, No Urgency, No Flank Pain, No Urinary Flow Changes, No Hesitancy Musculoskeletal : No joint pain, No Myalgias, No Joint Swelling Skin : Rash in upper and lower extremities, and in the abdomen, torso Neuro : No Weakness, No Numbness, No Paresthesias, No Loss of Consciousness, No Dizziness, No Headache Psych : No Anxiety/Panic, No Depression, No SI/HI/AH/VH, No Social Issues, Heme/Lymph: No Bruising, No Bleeding,No Lymphadenopathy Endocrine : No Polyuria, No Polydipsia, No Temperature Intolerance [facility] Past Medical History Medical History Acute UTI ENEIDA (acute kidney injury) E coli bacteremia Liver abscess Liver masses Scrotal erythema Family History Family History Paternal Grandfather Diabetes Social History Social History Household Members: Family Household Members Other:: brother and sister?? Housing: House Do you presently have visiting nurse or other home services: No Alcohol intake: never Patient Tobacco Use Status: Never used Tobacco Second Hand Smoke Exposure: No Advance Directives: Yes Advance Directives on File: Yes Advance Directives Date on File: 06/23/22 service: No Current occupational status: retired Physical Exam ED Vital Signs: Vital Signs - 24 hr 07/11/22 13:24 07/11/22 13:52 07/11/22 17:02 Temperature 97.7 F Pulse Rate 106 H 103 H 91 Respiratory Rate 18 16 20 Blood Pressure 80/52 L 96/54 L 100/57 L Pulse Oximetry 97 100 98 Oxygen Delivery Method Room Air Room Air Room Air BMI result Body Mass Index 27.1 Const Other: Appearance: Alert. Oriented X3. No acute distress. Eyes: Pupils equal, round and reactive to light. ENT: Pharynx normal. Neck: Normal inspection. Neck supple. No lymph nodes noted. No crepitus CVS: Normal heart rate and rhythm. Pulses normal. Normal S1 and S2 Respiratory: No respiratory distress. Breath sounds normal. No Wheezing. No rales Abdomen: Soft and nontender. No rigidity. No distention. Skin: Skin warm and dry. Upper extremities have urticaria, lower extremities have vasculitis , see pictures below Extremities: No lower extremity edema. See picture above Neuro: Oriented X 3. No motor deficit. No sensory deficit. Moving all extremities. No slurred speech. CN 2 through 12 grossly intact Psych: calm, cooperative, normal affect Course Course Course Narrative: Although labs are pending. I discussed with Dr. Montoya recommendations as far as antibiotics go. At this time, will stop all antibiotics and patient will need a biopsy Hematology is grossly abnormal. Lactic acid elevated likely secondary to dehydration. Sepsis not suspected. I discussed with the patient and his healthcare proxy the labs. Patient has several abnormalities including hyponatremia, acute kidney injury, possible allergic reaction, likely vasculitis. Medical Decision Making Lab Data Result diagrams: 07/11/22 15:03 07/11/22 14:50 Labs: Lab Results 07/11/22 07/11/22 07/11/22 Range/Units 14:50 15:03 15:03 WBC 7.0 (4.8-10.8) X10*3/uL RBC 3.58 L D (4.60-5.80) X10*6/uL Hgb 10.5 L D (14.0-18.0) g/dl Hct 32.1 L D (42.0-52.0) % MCV 89.7 (80.0-98.0) fL MCH 29.3 (27.0-33.0) pg MCHC 32.7 (31.0-36.0) g/dl RDW 16.8 H (11.0-16.0) % Plt Count 384 D (160-400) X10*3/uL MPV 9.0 L (9.4-12.4) fL Immature Gran % (Auto) Cancelled Neut % (Auto) Cancelled Lymph % (Auto) Cancelled [place] % (Auto) Cancelled Eos % (Auto) Cancelled Baso % (Auto) Cancelled Lymph # (Auto) Cancelled [place] # (Auto) Cancelled Eos # (Auto) Cancelled Baso # (Auto) Cancelled Abs Immat Gran (auto) Cancelled Absolute Neuts (auto) Cancelled Absolute Nucleated RBC 0.000 (0.0-0.012) X10*3/uL Nucleated RBC % (auto) 0.0 (0.0-0.2) /100WBC Neutrophils % (Manual) 21 L (45-73) % Band Neutrophils % 7 H (3-5) % Lymphocytes % (Manual) 16 L (20-40) % Atypical Lymphs % (Man) 9 H (0-6) % Monocytes % (Manual) 28 H (2-11) % Eosinophils % (Manual) 1 (0-4) % Basophils % (Manual) 1 (0-2) % Metamyelocytes % 4 % Myelocytes % 2 % Promyelocytes % 11 % Abs Neuts (Manual) 2.0 (2.0-8.3) X10*3/uL Lymphocytes # (Manual) 1.1 L (1.2-4.9) X10*3/uL Atyp Lymphs # (Manual) 0.6 x10*3/uL Monocytes # (Manual) 2.0 H (0.1-1.2) X10*3/uL Eosinophils # (Manual) 0.1 (0.0-0.4) X10*3/uL Basophils # (Manual) 0.1 (0.0-0.2) X10*3/uL Metamyelocytes # 0.3 X10*3/uL Myelocytes # 0.1 X10*/uL Promyelocytes # 0.8 X10*3/uL [place] Cells PRESENT Toxic Granulation PRESENT Toxic Vacuolation PRESENT Dohle Bodies PRESENT Platelet Estimate NORMAL (NORMAL) Large Platelets PRESENT Plt Morphology Comment NOTED RBC Morphology NOTED Polychromasia 2+ (3-5) /OIF Microcytosis 1+ (5-14) /OIF Macrocytosis 1+ (5-14) /OIF Spherocytes 2+ (3-5) /OIF Tear Drop Cells 3+ (>5) /OIF Ovalocytes 1+ (5-14) /OIF [place] Cells 2+ (3-5) /OIF Acanthocytes (Spur) 2+ (3-5) /OIF PT (10.0-13.1) SEC INR (0.9-1.1) APTT (26.0-36.4) SEC Sodium 127 L (135-145) mmol/L Potassium 5.3 H D (3.3-5.1) mmol/L Chloride 96 (96-108) mmol/L Carbon Dioxide 18 L (22-29) mmol/L Anion Gap 18 (12-20) BUN 31 H D (9-16) mg/dL Creatinine 3.68 H (0.5-1.4) mg/dL Estim Creat Clear Calc 19.3 Estimated GFR 16 Random Glucose 99 (60-115) mg/dL Lactic Acid (0.5-2.0) mmol/L Calcium 9.4 (8.4-10.2) mg/dL Total Bilirubin 0.7 (0.0-1.0) mg/dL Direct Bilirubin 0.4 (0.0-0.5) mg/dL AST 16 D (5-37) U/L ALT 22 (0-40) U/L Alkaline Phosphatase 255 H D (39-117) U/L Troponin I High Sens < 3.5 (<3.5-35.0) ng/L Total Protein 5.5 L (6.5-8.0) g/dL Albumin 2.5 L (3.5-5.0) g/dL COVID-19 (YONY) (Negative) COVID-19 Clin Com 07/11/22 07/11/22 07/11/22 Range/Units 16:11 16:11 16:11 WBC (4.8-10.8) X10*3/uL RBC (4.60-5.80) X10*6/uL Hgb (14.0-18.0) g/dl Hct (42.0-52.0) % MCV (80.0-98.0) fL MCH (27.0-33.0) pg MCHC (31.0-36.0) g/dl RDW (11.0-16.0) % Plt Count (160-400) X10*3/uL MPV (9.4-12.4) fL Immature Gran % (Auto) Neut % (Auto) Lymph % (Auto) [place] % (Auto) Eos % (Auto) Baso % (Auto) Lymph # (Auto) [place] # (Auto) Eos # (Auto) Baso # (Auto) Abs Immat Gran (auto) Absolute Neuts (auto) Absolute Nucleated RBC (0.0-0.012) X10*3/uL Nucleated RBC % (auto) (0.0-0.2) /100WBC Neutrophils % (Manual) (45-73) % Band Neutrophils % (3-5) % Lymphocytes % (Manual) (20-40) % Atypical Lymphs % (Man) (0-6) % Monocytes % (Manual) (2-11) % Eosinophils % (Manual) (0-4) % Basophils % (Manual) (0-2) % Metamyelocytes % % Myelocytes % % Promyelocytes % % Abs Neuts (Manual) (2.0-8.3) X10*3/uL Lymphocytes # (Manual) (1.2-4.9) X10*3/uL Atyp Lymphs # (Manual) x10*3/uL Monocytes # (Manual) (0.1-1.2) X10*3/uL Eosinophils # (Manual) (0.0-0.4) X10*3/uL Basophils # (Manual) (0.0-0.2) X10*3/uL Metamyelocytes # X10*3/uL Myelocytes # X10*/uL Promyelocytes # X10*3/uL Smudge Cells Toxic Granulation Toxic Vacuolation Dohle Bodies Platelet Estimate (NORMAL) Large Platelets Plt Morphology Comment RBC Morphology Polychromasia /OIF Microcytosis /OIF Macrocytosis /OIF Spherocytes /OIF Tear Drop Cells /OIF Ovalocytes /OIF [place] Cells /OIF Acanthocytes (Spur) /OIF PT 16.2 H (10.0-13.1) SEC INR 1.4 H (0.9-1.1) APTT 30.5 (26.0-36.4) SEC Sodium (135-145) mmol/L Potassium (3.3-5.1) mmol/L Chloride (96-108) mmol/L Carbon Dioxide (22-29) mmol/L Anion Gap (12-20) BUN (9-16) mg/dL Creatinine (0.5-1.4) mg/dL Estim Creat Clear Calc Estimated GFR Random Glucose (60-115) mg/dL Lactic Acid 2.3 H* (0.5-2.0) mmol/L Calcium (8.4-10.2) mg/dL Total Bilirubin (0.0-1.0) mg/dL Direct Bilirubin (0.0-0.5) mg/dL AST (5-37) U/L ALT (0-40) U/L Alkaline Phosphatase (39-117) U/L Troponin I High Sens (<3.5-35.0) ng/L Total Protein (6.5-8.0) g/dL Albumin (3.5-5.0) g/dL COVID-19 (YONY) Negative (Negative) COVID-19 Clin Com See Note Critical Care Time Critical Care Time Critical Care Time: Yes Total Critical Care Time: 60 Attestation: I have personally provided critical care time. Time includes review of lab data, radiology results, discussion with consultants, and monitoring for potential decompensation. Intervention performed as documented. Discharge Plan Discharge Clinical Impression: Vasculitis, Acute hyponatremia, Acute kidney injury Patient Disposition: Admitted As Inpatient
[2022-07-11] MEDS: 0.9 % Sodium Chloride 1,000 ML 999 ML IV (14:54)
[2022-07-11] MEDS: Famotidine/PF 20 MG/2 ML VIAL IVPUSH (15:04)
[2022-07-11] MEDS: diphenhydrAMINE HCL 50 MG/ML VIAL 25 MG IVPUSH (15:04)
[2022-07-11] MEDS: methylPREDNISolone Sod Succ 125 MG/2 ML VIAL IVPUSH (15:04)
[2022-07-11 15:08] LABS: Hematocrit 32.1 % (42.0-52.0); Hemoglobin 10.5 g/dl (14.0-18.0); Mean Corpuscular HGB Conc 32.7 g/dl (31.0-36.0); Mean Corpuscular Hemoglobin 29.3 pg (27.0-33.0); Mean Corpuscular Volume 89.7 fL (80.0-98.0); Platelet Count 384 X10*3/uL (160-400); Red Blood Count 3.58 X10*6/uL (4.60-5.80); Red Cell Distribution Width 16.8 % (11.0-16.0)
[2022-07-11 15:15] LABS: Alanine Aminotransferase 22 U/L (0-40); Albumin Level 2.5 g/dL (3.5-5.0); Alkaline Phosphatase 255 U/L (39-117); Anion Gap 18 (12-20); Aspartate Amino Transferase 16 U/L (5-37); Bilirubin Direct 0.4 mg/dL (0.0-0.5); Bilirubin Total 0.7 mg/dL (0.0-1.0); Blood Urea Nitrogen 31 mg/dL (9-16); Calcium 9.4 mg/dL (8.4-10.2); Carbon Dioxide 18 mmol/L (22-29); Chloride 96 mmol/L (96-108); Creatinine Clr Calc Pharmacy 19.3; Estimated Glomerular Filt Rate 16; Glucose Random 99 mg/dL (60-115); Potassium 5.3 mmol/L (3.3-5.1); Sodium 127 mmol/L (135-145); Total Protein 5.5 g/dL (6.5-8.0)
[2022-07-11 15:18] LABS: WBC ABN SCTR FOR CBC 1
[2022-07-11 15:32] LABS: Troponin-I High Sensitivity < 3.5 ng/L (<3.5-35.0)
[2022-07-11 16:16] LABS: Atypical Lymphs Percent Manual 9 % (0-6); Basophils Percent Manual 1 % (0-2); Eosinophils Percent Manual 1 % (0-4); Large Platelet PRESENT; Lymphocytes Percent Manual 16 % (20-40); Macrocytosis 1+ (5-14) /OIF; Metamyelocytes Percent 4 %; Microcytosis 1+ (5-14) /OIF; Monocytes Percent Manual 28 % (2-11); Myelocytes Percent 2 %; Neutrophils Percent Manual 21 % (45-73); Platelet Estimate NORMAL (NORMAL); Platelet Morphology Comment NOTED; Promyelocytes Percent 11 %; RBC Morphology NOTED
[2022-07-11 16:17] LABS: Acanthocytes 2+ (3-5) /OIF; Burr Cells 2+ (3-5) /OIF; Dohle Bodies PRESENT; Ovalocytes 1+ (5-14) /OIF; Polychromasia 2+ (3-5) /OIF; Smudge Cells PRESENT; Spherocytes 2+ (3-5) /OIF; Tear Drop Cells 3+ (>5) /OIF; Toxic Granulation PRESENT; Toxic Vacuolation PRESENT
[2022-07-11 16:18] LABS: Atypical Lymph Absolute Manual 0.6 x10*3/uL; Basophils Abs Manual 0.1 X10*3/uL (0.0-0.2); Eosinophils Absolute Manual 0.1 X10*3/uL (0.0-0.4); Lymphocytes Absolute Manual 1.1 X10*3/uL (1.2-4.9); Metamyelocytes Absolute 0.3 X10*3/uL; Myelocytes Absolute 0.1 X10*/uL; Promyelocytes Absolute 0.8 X10*3/uL
[2022-07-11 16:21] LABS: Band Neutrophils Percent 7 % (3-5)
[2022-07-11 16:32] LABS: INTERNATIONAL NORM RATIO 1.4 (0.9-1.1); Prothrombin Time 16.2 SEC (10.0-13.1)
[2022-07-11 16:34] LABS: Partial Thromboplastin Time 30.5 SEC (26.0-36.4)
[2022-07-11 16:36] LABS: Lactic Acid 2.3 mmol/L (0.5-2.0)
[2022-07-11 16:37] LABS: COVID-19 Test Negative (Negative); IDNOW Serial# 16C4AD1C
--- NOTE | 2022-07-11 16:59 | PHA.MEDREC ---
Pharmacy Consult ? Medication Reconciliation Pharmacy has completed the medication reconciliation. List obtained from Debi flynn. Spoke to patients nurse at the facility because it looks like on 07/09 the finasteride was discontinued. Nurse told me that at that time they did not know what was causing the patients reaction, therefore they were discontinuing medications to see if they were the cause. Nurse suspects that this was not a permanent dc, therefore I left it active in his med list.
[2022-07-11] MEDS: 0.9 % Sodium Chloride 1,000 ML 999 ML IVCONT (17:01)
[2022-07-11 17:02] VITALS: BP 100/57; PULSE 91; RESP 20; O2SAT 98
--- NOTE | 2022-07-11 17:44 | PM.IMHP ---
History of Present Illness Date of Service: 07/11/22 Chief Complaint: rash 72M with pmh of bph complicated by recent UTI with ecoli bactermia and liver abscesses. had been treated with ceftriaxone but after pruritic reaction, changed to levaquin on discharge, 07/05/22. about 3 days ptp, patient began to have diffuse purpuric rash, edema, pruritis, decreased urine output, fatigue. denies fever, chills, chest pain, sob. mental status not at baseline from several months ago, but improved since previous admission. in ED noted to have eneida with creatinine of 3.68, hyponatremia 127, hyperkalemia 5.3, grossly abnormal WBC (see labs). Review of Systems Review of Systems: Constitutional: fatigue Eyes: denies blurry vision ENT: denies sore throat CVS: denies chest pain Respiratory: Denies dyspnea GI: no abdominal pain : denies dysuria MSK: denies neck pain Skin: see hpi Neuro: denies specific motor weakness Psych: denies suicidal ideation Endocrine: denies heat/cold intolerance Hematologic: denies easy bleeding Allergy: see hpi [facility] Medical History Acute UTI ENEIDA (acute kidney injury) E coli bacteremia Liver abscess Liver masses Scrotal erythema Family History Paternal Grandfather Diabetes Social History Household Members: Family Household Members Other:: brother and sister?? Housing: House Do you presently have visiting nurse or other home services: No Alcohol intake: never Patient Tobacco Use Status: Never used Tobacco Second Hand Smoke Exposure: No Advance Directives: Yes Advance Directives on File: Yes Advance Directives Date on File: 06/23/22 service: No Current occupational status: retired Meds Allergies Allergy/AdvReac Type Severity Reaction Status Date / Time levofloxacin Allergy Severe vasculitis Verified 07/11/22 17:50 ceftriaxone AdvReac Mild pruritis Verified 07/11/22 17:50 Active Medications: Current Medications Finasteride (Finasteride 5 Mg Tablet) 5 mg PO DAILY@2000 CECILY Sodium Chloride (Ns) 2,000 mls @ 999 mls/hr IVCONT .Q2H1M ONE Stop: 07/11/22 18:00 Pharmacy Consult (Consult Rx Perform Med Rec) 1 each MISCELLANE ONCE PRN PRN Reason: Consult order Tamsulosin HCl (Tamsulosin Hcl 0.4 Mg Capsule) 0.4 mg PO DAILY@1999 [facility] Home Medications Medication Instructions Recorded Confirmed Last Taken Type finasteride 5 mg tablet 5 mg PO DAILY@199906/23/22 07/11/22 Unknown History miconazole nitrate 2 % topical 1 appl topical BID 06/23/22 07/11/22 Unknown History powder tamsulosin 0.4 mg capsule (Flomax) 0.4 mg PO DAILY@199906/23/22 07/11/22 Unknown History Physical Exam Vital Signs and Narrative: Vital Signs: Last Vital Signs Temp 97.7 F 07/11/22 13:24 Pulse 91 07/11/22 17:02 Resp 20 07/11/22 17:02 BP 100/57 L 07/11/22 17:02 Pulse Ox 98 07/11/22 17:02 O2 Del Method 07/11/22 17:02 BMI result Body Mass Index 27.1 General: no acute distress HEENT: atraumatic Neck: normal to visual inspection CVS: S1, S2, RRR Resp: CTA bilateral Chest: non tender GI: soft, non tender, non distended : no CVA tenderness Skin: diffuse rash, see picture Extremities: trace edema Neuro: Oriented X3, grossly weak Psych: cooperative Results Labs CBC and Chem 7: 07/11/22 15:03 07/11/22 14:50 Labs: Laboratory Results - last 24 hr 07/11/22 07/11/22 07/11/22 14:50 15:03 16:11 MCV 89.7 MCH 29.3 MCHC 32.7 RDW 16.8 H Plt Count 384 D MPV 9.0 L Immature Gran % (Auto) Cancelled Neut % (Auto) Cancelled Lymph % (Auto) Cancelled [place] % (Auto) Cancelled Eos % (Auto) Cancelled Baso % (Auto) Cancelled Lymph # (Auto) Cancelled [place] # (Auto) Cancelled Eos # (Auto) Cancelled Baso # (Auto) Cancelled Abs Immat Gran (auto) Cancelled Absolute Neuts (auto) Cancelled Absolute Nucleated RBC 0.000 Nucleated RBC % (auto) 0.0 Neutrophils % (Manual) 21 L Band Neutrophils % 7 H Lymphocytes % (Manual) 16 L Atypical Lymphs % (Man) 9 H Monocytes % (Manual) 28 H Eosinophils % (Manual) 1 Basophils % (Manual) 1 Metamyelocytes % 4 Myelocytes % 2 Promyelocytes % 11 Abs Neuts (Manual) 2.0 Lymphocytes # (Manual) 1.1 L Atyp Lymphs # (Manual) 0.6 Monocytes # (Manual) 2.0 H Eosinophils # (Manual) 0.1 Basophils # (Manual) 0.1 Metamyelocytes # 0.3 Myelocytes # 0.1 Promyelocytes # 0.8 Smudge Cells PRESENT Toxic Granulation PRESENT Toxic Vacuolation PRESENT Dohle Bodies PRESENT Platelet Estimate NORMAL Large Platelets PRESENT Plt Morphology Comment NOTED RBC Morphology NOTED Polychromasia 2+ (3-5) Microcytosis 1+ (5-14) Macrocytosis 1+ (5-14) Spherocytes 2+ (3-5) Tear Drop Cells 3+ (>5) Ovalocytes 1+ (5-14) [place] Cells 2+ (3-5) Acanthocytes (Spur) 2+ (3-5) PT 16.2 H INR 1.4 H APTT 30.5 Anion Gap 18 Estim Creat Clear Calc 19.3 Estimated GFR 16 Random Glucose 99 Lactic Acid Calcium 9.4 Total Bilirubin 0.7 Direct Bilirubin 0.4 AST 16 D ALT 22 Alkaline Phosphatase 255 H D Total Protein 5.5 L Albumin 2.5 L COVID-19 (YONY) COVID-19 Clin Com 07/11/22 07/11/22 16:11 16:11 MCV MCH MCHC RDW Plt Count MPV Immature Gran % (Auto) Neut % (Auto) Lymph % (Auto) [place] % (Auto) Eos % (Auto) Baso % (Auto) Lymph # (Auto) [place] # (Auto) Eos # (Auto) Baso # (Auto) Abs Immat Gran (auto) Absolute Neuts (auto) Absolute Nucleated RBC Nucleated RBC % (auto) Neutrophils % (Manual) Band Neutrophils % Lymphocytes % (Manual) Atypical Lymphs % (Man) Monocytes % (Manual) Eosinophils % (Manual) Basophils % (Manual) Metamyelocytes % Myelocytes % Promyelocytes % Abs Neuts (Manual) Lymphocytes # (Manual) Atyp Lymphs # (Manual) Monocytes # (Manual) Eosinophils # (Manual) Basophils # (Manual) Metamyelocytes # Myelocytes # Promyelocytes # Smudge Cells Toxic Granulation Toxic Vacuolation Dohle Bodies Platelet Estimate Large Platelets Plt Morphology Comment RBC Morphology Polychromasia Microcytosis Macrocytosis Spherocytes Tear Drop Cells Ovalocytes [place] Cells Acanthocytes (Spur) PT INR APTT Anion Gap Estim Creat Clear Calc Estimated GFR Random Glucose Lactic Acid 2.3 H* Calcium Total Bilirubin Direct Bilirubin AST ALT Alkaline Phosphatase Total Protein Albumin COVID-19 (YONY) Negative COVID-19 Clin Com See Note Assessment and Plan (1) Vasculitis: Status: Acute Plan 72M with pmh of bph, liver abscess, urinary retention, presented with diffuse rash, found to have eneida, hyperkalemia, hyponatremia diffuse skin rash 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 potentially life threatening, requiring close monitoring, therefore, expected to require atleast 2 midnights in hospital. Quality Stroke Does the patient have a stroke diagnosis?: No VTE Prior VTE?: No VTE Risk Level:: Medical - moderate - high VTE Device Contraindication: Treatment Not Indicated VTE Drug Contraindication: N/A - Med Ordered
[2022-07-11 18:16] LABS: Reflex Lactate? Lactic Acid Added
[2022-07-11 18:41] LABS: ~Lactic Acid-LAB USE ONLY 1.4 mmol/L (0.5-2.0)
[2022-07-11] MEDS: Heparin Sodium,Porcine 5,000 UNIT/ML VIAL 5000 UNIT SUBCUT (19:13)
[2022-07-11] MEDS: 0.9 % Sodium Chloride 2,000 ML 999 ML IVCONT (19:13)
[2022-07-11] MEDS: 0.9 % Sodium Chloride Flush 3 ML SYRINGE IVFLUSH (19:14)
[2022-07-11 19:23] LABS: Appearance Urine Cloudy; Color Urine RED; Glucose Urine UA Negative (Negative); Leukocyte Esterase Urine Large (3+) (Negative); Nitrite Urine Negative (Negative); PH 5.5 (5.0-8.0); Urine Blood Large (3+) (Negative); Urine Ketones Negative (Negative); Urine Protein 100 (2+) mg/dL (Neg-Trace)
[2022-07-11 19:47] LABS: RBC Urine >20 /HPF (0-2); Squamous Epithelial Cell Urine 0-2 /HPF (0-2); UACC Culture Trigger YES; WBC Urine >50 /HPF (0-5)
[2022-07-11 19:48] LABS: Bacteria Urine 1+ (None Seen)
[2022-07-11 21:20] VITALS: BP 105/59; PULSE 81; RESP 13; TEMP 36.8; O2SAT 100
[2022-07-11] MEDS: Finasteride 5 MG TABLET PO (21:25)
[2022-07-11] MEDS: Tamsulosin HCL 0.4 MG CAPSULE PO (21:25)
--- NOTE | 2022-07-12 00:43 | PC.NURSE ---
Nurse to nurse report to floor RN, patient is ready to be transported.
[2022-07-12 01:31] VITALS: BP 111/60; PULSE 89; RESP 17; TEMP 36.8; O2SAT 99
[2022-07-12] MEDS: Heparin Sodium,Porcine 5,000 UNIT/ML VIAL 5000 UNIT SUBCUT ×3 (01:43→17:32)
[2022-07-12 01:52] VITALS: BMI 26.1
[2022-07-12 06:23] LABS: Hematocrit 30.4 % (42.0-52.0); Hemoglobin 10.1 g/dl (14.0-18.0); Mean Corpuscular HGB Conc 33.2 g/dl (31.0-36.0); Mean Corpuscular Hemoglobin 29.4 pg (27.0-33.0); Mean Corpuscular Volume 88.6 fL (80.0-98.0); Mean Platelet Volume 9.1 fL (9.4-12.4); Platelet Count 367 X10*3/uL (160-400); Red Blood Count 3.43 X10*6/uL (4.60-5.80); Red Cell Distribution Width 16.6 % (11.0-16.0); White Blood Count 4.4 X10*3/uL (4.8-10.8)
[2022-07-12 06:51] LABS: Alanine Aminotransferase 19 U/L (0-40); Albumin Level 2.7 g/dL (3.5-5.0); Alkaline Phosphatase 247 U/L (39-117); Anion Gap 19 (12-20); Aspartate Amino Transferase 12 U/L (5-37); Bilirubin Direct 0.4 mg/dL (0.0-0.5); Bilirubin Total 0.6 mg/dL (0.0-1.0); Blood Urea Nitrogen 30 mg/dL (9-16); C Reactive Protein 6.73 mg/dL (< or = 0.50); Calcium 9.5 mg/dL (8.4-10.2); Carbon Dioxide 14 mmol/L (22-29); Chloride 103 mmol/L (96-108); Creatinine Clr Calc Pharmacy 24.6; Estimated Glomerular Filt Rate 21; Glucose Fasting 143 mg/dL (60-99); Potassium 4.7 mmol/L (3.3-5.1); Sodium 131 mmol/L (135-145); Total Protein 5.7 g/dL (6.5-8.0)
[2022-07-12 07:23] VITALS: BP 107/57; PULSE 97; RESP 18; TEMP 36.3; O2SAT 97
[2022-07-12] MEDS: 0.9 % Sodium Chloride Flush 3 ML SYRINGE IVFLUSH ×2 (09:39→20:06)
[2022-07-12] MEDS: Sodium Bicarbonate 8.4% 150 MEQ in Dextrose 5 % 850 ML 80 MEQ IV ×2 (10:01→22:03)
--- NOTE | 2022-07-12 11:07 | HO.PM.IMPN ---
Subjective Subjective Date of Service: 07/12/22 Interval History: cc: diffuse rash, oliguria interval history: no change in rash, positive urine output Cardiovascular Cardiovascular: Reports no additional cardiovascular complaints Respiratory Respiratory: Reports no additional respiratory complaints Physical Exam Vital Signs: Vital Signs: Last Vital Signs Temp 97.3 F 07/12/22 07:23 Pulse 97 07/12/22 07:23 Resp 18 07/12/22 07:23 BP 107/57 L 07/12/22 07:23 Pulse Ox 97 07/12/22 07:23 O2 Del Method 07/12/22 07:23 BMI result Body Mass Index 26.1 General: AO X 3, no acute distress Resp: CTA bilateral, no accessory muscles used CVS: S1,S2,RRR GI: soft, non tender, non distended Neuro: motor grossly intact, alert Psych: appropriate affect, appropriate insight skin: diffuse rash Objective Data Active Medications Finasteride (Finasteride 5 Mg Tablet) 5 mg PO DAILY@1999 [facility] Last Admin: 07/11/22 21:25 Dose: 5 mg Documented By: NARDA Heparin Sodium (Porcine) (Heparin Sodium,Porcine 5,000 Unit/Ml Vial) 5,000 unit SUBCUT Q8H [facility] Last Admin: 07/12/22 09:39 Dose: 5,000 unit Documented By: GRAYSON Sodium Bicarbonate 150 meq/ (Dextrose) 1,000 mls @ 80 mls/hr IV .[id number] [facility] Last Admin: 07/12/22 10:01 Dose: 80 mls/hr Documented By: GRAYSON Methylprednisolone Sodium Succinate (Methylprednisolone Sod Succ 125 Mg/2 Ml Vial) 125 mg IVPUSH Q24H [facility] Pharmacy Consult (Consult Rx Perform Med Rec) 1 each MISCELLANE ONCE PRN PRN Reason: Consult order Sodium Chloride (0.9 % Sodium Chloride Flush 3 Ml Syringe) 3 ml IVFLUSH QSHIFT [facility] Last Admin: 07/12/22 09:39 Dose: 3 ml Documented By: GRAYSON Tamsulosin HCl (Tamsulosin Hcl 0.4 Mg Capsule) 0.4 mg PO DAILY@1999 [facility] Last Admin: 07/11/22 21:25 Dose: 0.4 mg Documented By: NARDA Labs CBC & Chem 7: 07/12/22 06:16 07/12/22 06:16 Labs: Laboratory Results - last 24 hr 07/11/22 07/11/22 07/11/22 14:50 15:03 16:11 MCV 89.7 MCH 29.3 MCHC 32.7 RDW 16.8 H Plt Count 384 D MPV 9.0 L Immature Gran % (Auto) Cancelled Neut % (Auto) Cancelled Lymph % (Auto) Cancelled [place] % (Auto) Cancelled Eos % (Auto) Cancelled Baso % (Auto) Cancelled Lymph # (Auto) Cancelled [place] # (Auto) Cancelled Eos # (Auto) Cancelled Baso # (Auto) Cancelled Abs Immat Gran (auto) Cancelled Absolute Neuts (auto) Cancelled Absolute Nucleated RBC 0.000 Nucleated RBC % (auto) 0.0 Neutrophils % (Manual) 21 L Band Neutrophils % 7 H Lymphocytes % (Manual) 16 L Atypical Lymphs % (Man) 9 H Monocytes % (Manual) 28 H Eosinophils % (Manual) 1 Basophils % (Manual) 1 Metamyelocytes % 4 Myelocytes % 2 Promyelocytes % 11 Abs Neuts (Manual) 2.0 Lymphocytes # (Manual) 1.1 L Atyp Lymphs # (Manual) 0.6 Monocytes # (Manual) 2.0 H Eosinophils # (Manual) 0.1 Basophils # (Manual) 0.1 Metamyelocytes # 0.3 Myelocytes # 0.1 Promyelocytes # 0.8 Smudge Cells PRESENT Toxic Granulation PRESENT Toxic Vacuolation PRESENT Dohle Bodies PRESENT Platelet Estimate NORMAL Large Platelets PRESENT Plt Morphology Comment NOTED RBC Morphology NOTED Polychromasia 2+ (3-5) Microcytosis 1+ (5-14) Macrocytosis 1+ (5-14) Spherocytes 2+ (3-5) Tear Drop Cells 3+ (>5) Ovalocytes 1+ (5-14) [place] Cells 2+ (3-5) Acanthocytes (Spur) 2+ (3-5) PT 16.2 H INR 1.4 H APTT 30.5 Anion Gap 18 Estim Creat Clear Calc 19.3 Estimated GFR 16 Random Glucose 99 Fasting Glucose Lactic Acid Lactic Acid F/U @ 2Hr Calcium 9.4 Total Bilirubin 0.7 Direct Bilirubin 0.4 AST 16 D ALT 22 Alkaline Phosphatase 255 H D C-Reactive Protein Total Protein 5.5 L Albumin 2.5 L Urine Color Urine Appearance Urine pH Ur Specific [place] Urine Protein Urine Glucose (UA) Urine Ketones Urine Blood Urine Nitrite Ur Leukocyte Esterase Urine RBC Urine WBC Ur Squamous Epith Cells Urine Bacteria Hyaline Casts Urine Yeast COVID-19 (YONY) COVID-19 Clin Com 07/11/22 07/11/22 07/11/22 16:11 16:11 18:23 MCV MCH MCHC RDW Plt Count MPV Immature Gran % (Auto) Neut % (Auto) Lymph % (Auto) [place] % (Auto) Eos % (Auto) Baso % (Auto) Lymph # (Auto) [place] # (Auto) Eos # (Auto) Baso # (Auto) Abs Immat Gran (auto) Absolute Neuts (auto) Absolute Nucleated RBC Nucleated RBC % (auto) Neutrophils % (Manual) Band Neutrophils % Lymphocytes % (Manual) Atypical Lymphs % (Man) Monocytes % (Manual) Eosinophils % (Manual) Basophils % (Manual) Metamyelocytes % Myelocytes % Promyelocytes % Abs Neuts (Manual) Lymphocytes # (Manual) Atyp Lymphs # (Manual) Monocytes # (Manual) Eosinophils # (Manual) Basophils # (Manual) Metamyelocytes # Myelocytes # Promyelocytes # Smudge Cells Toxic Granulation Toxic Vacuolation Dohle Bodies Platelet Estimate Large Platelets Plt Morphology Comment RBC Morphology Polychromasia Microcytosis Macrocytosis Spherocytes Tear Drop Cells Ovalocytes [place] Cells Acanthocytes (Spur) PT INR APTT Anion Gap Estim Creat Clear Calc Estimated GFR Random Glucose Fasting Glucose Lactic Acid 2.3 H* Lactic Acid F/U @ 2Hr 1.4 Calcium Total Bilirubin Direct Bilirubin AST ALT Alkaline Phosphatase C-Reactive Protein Total Protein Albumin Urine Color Urine Appearance Urine pH Ur Specific [place] Urine Protein Urine Glucose (UA) Urine Ketones Urine Blood Urine Nitrite Ur Leukocyte Esterase Urine RBC Urine WBC Ur Squamous Epith Cells Urine Bacteria Hyaline Casts Urine Yeast COVID-19 (YONY) Negative COVID-19 Clin Com See Note 07/11/22 07/12/22 07/12/22 19:12 06:16 06:16 MCV 88.6 MCH 29.4 MCHC 33.2 RDW 16.6 H Plt Count 367 MPV 9.1 L Immature Gran % (Auto) Neut % (Auto) Lymph % (Auto) [place] % (Auto) Eos % (Auto) Baso % (Auto) Lymph # (Auto) [place] # (Auto) Eos # (Auto) Baso # (Auto) Abs Immat Gran (auto) Absolute Neuts (auto) Absolute Nucleated RBC 0.000 Nucleated RBC % (auto) 0.0 Neutrophils % (Manual) Band Neutrophils % Lymphocytes % (Manual) Atypical Lymphs % (Man) Monocytes % (Manual) Eosinophils % (Manual) Basophils % (Manual) Metamyelocytes % Myelocytes % Promyelocytes % Abs Neuts (Manual) Lymphocytes # (Manual) Atyp Lymphs # (Manual) Monocytes # (Manual) Eosinophils # (Manual) Basophils # (Manual) Metamyelocytes # Myelocytes # Promyelocytes # Smudge Cells Toxic Granulation Toxic Vacuolation Dohle Bodies Platelet Estimate Large Platelets Plt Morphology Comment RBC Morphology Polychromasia Microcytosis Macrocytosis Spherocytes Tear Drop Cells Ovalocytes [place] Cells Acanthocytes (Spur) PT INR APTT Anion Gap 19 Estim Creat Clear Calc 24.6 Estimated GFR 21 Random Glucose Fasting Glucose 143 H Lactic Acid Lactic Acid F/U @ 2Hr Calcium 9.5 Total Bilirubin 0.6 Direct Bilirubin 0.4 AST 12 ALT 19 Alkaline Phosphatase 247 H C-Reactive Protein 6.73 H Total Protein 5.7 L Albumin 2.7 L Urine Color RED Urine Appearance Cloudy Urine pH 5.5 Ur Specific [place] 1.010 Urine Protein 100 (2+) H Urine Glucose (UA) Negative Urine Ketones Negative Urine Blood Large (3+) H Urine Nitrite Negative Ur Leukocyte Esterase Large (3+) H Urine RBC >20 H Urine WBC >50 Ur Squamous Epith Cells 0-2 Urine Bacteria 1+ Hyaline Casts Not Reportable Urine Yeast Present COVID-19 (YONY) COVID-19 Clin Com Microbiology Microbiology Results: Microbiology 07/11/22 Unknown Urine Culture - Preliminary Urine clean catch - Urine cross top Culture too young to evaluate. 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 dced levaquin skin biopsy planned solumedrol 125mg iv daily for now aly with matbolic acidosis possibly due to above, follow up bmp, urine studies, nephro following will start iv bicarb hyperkalemia rseolved hyponatremia fluid restrict, monitor bph with urinary retentnion has chronic blank continue proscar, flomax dvt prophylaxis - hep sq full code reason for continued hospitalization: ivf, ongoing close monitoring for aly Quality Stroke Does the patient have a stroke diagnosis?: No VTE Prior VTE?: No VTE Risk Level:: Medical - moderate - high VTE Device Contraindication: Treatment Not Indicated VTE Drug Contraindication: N/A - Med Ordered
--- NOTE | 2022-07-12 11:29 | PM.PROC ---
Brief Operative Note Date of procedure: 07/12/22 Pre-op diagnosis: drug rash vs vasculitis Post-op diagnosis: same Procedure: Punch Bx right thigh (4mm) Anesthesia: local Surgeon: Jann Sue Estimated blood loss (mL): 1 Pathology: other (Punch biopsy right thigh skin) Condition: stable Disposition: floor
--- NOTE | 2022-07-12 11:31 | PM.HPGS ---
History of Present Illness History of Present Illness Date of Service: 07/12/22 Chief complaint: eneida, vasculitis Narrative: Nael Su is a 72 year old male who reports a progressive skin rash that is worsening over several months after his medications were changed. He is being hospitalized and I was asked to biopsy his skin to help rule out vasculitis. The patient denies any known drug allergies. Review of Systems Review of Systems: Yes all other systems are reviewed and are negative Constitutional: Constitutional: Reports as per [facility] Past Medical History Medical History Acute UTI ENEIDA (acute kidney injury) E coli bacteremia Liver abscess Liver masses Scrotal erythema Family History Family History Paternal Grandfather Diabetes Social History Social History Household Members: Family Household Members Other:: brother and sister?? Housing: House Do you presently have visiting nurse or other home services: No (pt lives with his brother,however, was at [facility] after hospital discharge 07/05) Alcohol intake: never Patient Tobacco Use Status: Never used Tobacco e-Cigarette/Vaping Use: Never Used Second Hand Smoke Exposure: No Advance Directives Date on File: 06/23/22 service: No Current occupational status: retired Meds Allergies Allergy/AdvReac Type Severity Reaction Status Date / Time levofloxacin Allergy Severe vasculitis Verified 07/11/22 17:50 ceftriaxone AdvReac Mild pruritis Verified 07/11/22 17:50 Active Medications: Current Medications Finasteride (Finasteride 5 Mg Tablet) 5 mg PO DAILY@1999 [facility] Last Admin: 07/11/22 21:25 Dose: 5 mg Heparin Sodium (Porcine) (Heparin Sodium,Porcine 5,000 Unit/Ml Vial) 5,000 unit SUBCUT Q8H [facility] Last Admin: 07/12/22 09:39 Dose: 5,000 unit Sodium Bicarbonate 150 meq/ (Dextrose) 1,000 mls @ 80 mls/hr IV .[id number] [facility] Last Admin: 07/12/22 10:01 Dose: 80 mls/hr Methylprednisolone Sodium Succinate (Methylprednisolone Sod Succ 125 Mg/2 Ml Vial) 125 mg IVPUSH Q24H [facility] Pharmacy Consult (Consult Rx Perform Med Rec) 1 each MISCELLANE ONCE PRN PRN Reason: Consult order Sodium Chloride (0.9 % Sodium Chloride Flush 3 Ml Syringe) 3 ml IVFLUSH QSHIFT [facility] Last Admin: 07/12/22 09:39 Dose: 3 ml Tamsulosin HCl (Tamsulosin Hcl 0.4 Mg Capsule) 0.4 mg PO DAILY@1999 [facility] Last Admin: 07/11/22 21:25 Dose: 0.4 mg Home Medications Medication Instructions Recorded Confirmed Last Taken Type finasteride 5 mg tablet 5 mg PO DAILY@199906/23/22 07/11/22 Unknown History miconazole nitrate 2 % topical 1 appl topical BID 06/23/22 07/11/22 Unknown History powder tamsulosin 0.4 mg capsule (Flomax) 0.4 mg PO DAILY@199906/23/22 07/11/22 Unknown History Physical Exam Vital Signs: Vital Signs: Last Vital Signs Temp 97.3 F 07/12/22 07:23 Pulse 97 07/12/22 07:23 Resp 18 07/12/22 07:23 BP 107/57 L 07/12/22 07:23 Pulse Ox 97 07/12/22 07:23 O2 Del Method 07/12/22 07:23 BMI result Body Mass Index 26.1 On exam, the patient is nontoxic and communicative Mood, affect and judgment all appear appropriate The patient has upper and lower extremity erythema with erosions and purulence in his lower extremities. In his right anterior thigh, a patch of progressive erythema and a margin of regular, normal skin were identified as the biopsy site. Results Results Labs: Short CBC 07/11/22 07/12/22 Range/Units 15:03 06:16 WBC 7.0 4.4 L (4.8-10.8) X10*3/uL Hgb 10.5 L D 10.1 L (14.0-18.0) g/dl Hct 32.1 L D 30.4 L (42.0-52.0) % Plt Count 384 D 367 (160-400) X10*3/uL BMP 07/11/22 07/12/22 14:50 06:16 Sodium 127 L 131 L Potassium 5.3 H D 4.7 Chloride 96 103 Carbon Dioxide 18 L 14 L BUN 31 H D 30 H Creatinine 3.68 H 2.89 H Calcium 9.4 9.5 Liver Function 07/11/22 07/12/22 Range/Units 14:50 06:16 Total Bilirubin 0.7 0.6 (0.0-1.0) mg/dL Direct Bilirubin 0.4 0.4 (0.0-0.5) mg/dL AST 16 D 12 (5-37) U/L ALT 22 19 (0-40) U/L Alkaline Phosphatase 255 H D 247 H (39-117) U/L Albumin 2.5 L 2.7 L (3.5-5.0) g/dL Urine 07/11/22 Range/Units 19:12 Urine Color RED Urine Appearance Cloudy Urine pH 5.5 (5.0-8.0) Ur Specific [place] 1.010 (1.005-1.025) Urine Protein 100 (2+) H (Neg-Trace) mg/dL Urine Glucose (UA) Negative (Negative) mg/dL Assessment and Plan (1) Acute kidney injury: Status: Acute (2) Vasculitis: Status: Acute Plan I explained to the patient the inherent risks of an incisional biopsy/punch biopsy which include scar, bleeding, infection and no change in management. The option of a 2nd opinion or continued medical management was discussed, however the patient gave verbal consent to proceed. As noted in the physical exam, in the right anterolateral thigh, an area of demarcation between erythema and normal appearing skin was identified and cleansed with Betadine. After a dried, local of 1% xylocaine with epi was infiltrated. After ensuring good the analgesia, a 4 mm circular knife was used to remove a section of tissue. Hemostasis was obtained with direct pressure and a 3-0 polypropylene suture was used to close the wound. Bacitracin and a Band-Aid applied. Patient tolerated the procedure well. Plan to remove the suture in 7 +days. Please call me with additional questions. Quality Stroke Does the patient have a stroke diagnosis?: No VTE Prior VTE?: No VTE Risk Level:: Medical - moderate - high VTE Device Contraindication: Treatment Not Indicated VTE Drug Contraindication: N/A - Med Ordered Procedures Date of Service Date of Service: 07/12/22
[2022-07-12 11:43] LABS: HBS Num1 1.08 mIU/mL (0-7.99); HBc Num1 0.15 S/CO (0.00-0.79); HBsAGNum1 0.21 S/CO (0.00-0.99); Hepatitis B Core Antibody Nonreactive (Nonreactive); Hepatitis B Surface Antigen Negative (Negative); ~HepC Num1 0.08 S/CO (0.00-0.79); ~Hepatitis B Surface Antibody NONREACTIVE (Nonreactive); ~Hepatitis C Antibody Nonreactive (Nonreactive)
[2022-07-12 11:49] VITALS: BP 115/58; PULSE 93; RESP 18; TEMP 36.2; O2SAT 98
[2022-07-12 12:39] LABS: Total Protein Urine Random 17 mg/dL (<12)
--- NOTE | 2022-07-12 14:25 | MHC.CM.PN ---
IMM 07/12/22, EMR REVIEWED, PT ADMITTED W/ENEIDA AND VASCULITIS, CM MET W/PT WHO IS A&O, PT REPORTS DEPENDING ON PROGNOSIS HE MAY WANT TO RETURN HOME HOWEVER THEN DISCUSSED W/EMMANUEL (ALTERNATE HCP/POA) AND DECIDED HE WOULD GO BACK TO [facility] FOR A SHORT TIME, PT REPORTS HE LIVES IN FAMILY HOME, PER PREVIOUS NOTES HIS BROTHER ALSO LIVES THERE HOWEVER THEY DO NOT REALLY SPEAK, PT REPORTS A WALKER FOR DME AND IS UNWILLING TO GIVE CM ANSWERS REGARDING ANY OTHER DME, PT REPORTS EMMANUEL WILL HELP HIM GET ANYTHING HE NEEDS SET UP, CM ASKED PT IF HE HAD A NEW PCP APPT SET UP EMMANUEL PLANNED ON DOING THIS LAST ADMIT HOWEVER PT IS UNSURE AND THEN REPORTS HE DOES NOT NEED A PCP OR ANYTHING, PT DECLINES HE WILL NEED ANY SERVICES AT HOME. D/C PLAN: STR AT [facility] W/ACTION FOR BLS TRANSPORT
[2022-07-12 15:36] VITALS: BP 103/54; PULSE 90; RESP 17; TEMP 36.4; O2SAT 99
[2022-07-12] MEDS: methylPREDNISolone Sod Succ 125 MG/2 ML VIAL IVPUSH (15:38)
[2022-07-12 19:10] VITALS: BP 117/66; PULSE 85; RESP 18; TEMP 36; O2SAT 98
[2022-07-12] MEDS: Tamsulosin HCL 0.4 MG CAPSULE PO (20:04)
[2022-07-12] MEDS: Finasteride 5 MG TABLET PO (20:04)
[2022-07-12 23:19] VITALS: BP 124/67; PULSE 100; RESP 18; TEMP 36.1; O2SAT 100
[2022-07-13] MEDS: Heparin Sodium,Porcine 5,000 UNIT/ML VIAL 5000 UNIT SUBCUT ×3 (03:30→18:21)
[2022-07-13 03:58] VITALS: BP 130/68; PULSE 98; RESP 17; TEMP 35.9; O2SAT 99
[2022-07-13 07:10] LABS: Hematocrit 29.8 % (42.0-52.0); Hemoglobin 9.9 g/dl (14.0-18.0); Mean Corpuscular HGB Conc 33.2 g/dl (31.0-36.0); Mean Corpuscular Hemoglobin 29.5 pg (27.0-33.0); Mean Corpuscular Volume 88.7 fL (80.0-98.0); Mean Platelet Volume 10.1 fL (9.4-12.4); Platelet Count 446 X10*3/uL (160-400); Red Blood Count 3.36 X10*6/uL (4.60-5.80); Red Cell Distribution Width 16.7 % (11.0-16.0); White Blood Count 10.5 X10*3/uL (4.8-10.8)
[2022-07-13 07:26] LABS: Anion Gap 19 (12-20); Blood Urea Nitrogen 31 mg/dL (9-16); Carbon Dioxide 22 mmol/L (22-29); Chloride 100 mmol/L (96-108); Creatinine Clr Calc Pharmacy 33.2; Estimated Glomerular Filt Rate 30; Glucose Fasting 131 mg/dL (60-99); Sodium 136 mmol/L (135-145)
[2022-07-13 07:43] VITALS: BP 132/75; PULSE 82; RESP 17; TEMP 36.1; O2SAT 98
[2022-07-13] MEDS: 0.9 % Sodium Chloride Flush 3 ML SYRINGE IVFLUSH ×2 (08:59→14:52)
[2022-07-13] MEDS: 0.9 % Sodium Chloride 1,000 ML 100 ML IVCONT ×2 (09:00→18:21)
--- NOTE | 2022-07-13 10:20 | CONS_ITS ---
DATE OF SERVICE: 07/12/2022 REASON FOR CONSULTATION: I was asked to see patient to assist in evaluation and management of patient's acute kidney injury as reflected by BUN and creatinine of 31 and 3.68 yesterday, whereas at the time of discharge earlier this month, his creatinine was 0.86, but interestingly, he had on his prior hospitalization relatively severe acute kidney injury with a creatinine that was 7.22 on the 23 of June with relatively rapid renal recovery with IV fluids with his creatinine as mentioned down to 0.86 at the time of discharge. HISTORY OF PRESENT ILLNESS: In summary, he is a 72-year-old gentleman with history of hypertension and urinary tract infections with E. coli bacteremia and liver abscess noted on his last admission earlier this month, which he was treated with ceftriaxone, but developed a pruritic reaction and was changed to Levaquin on the day of discharge on the 05 of July. As mentioned, during this last hospitalization with E. coli bacteremia, he had severe acute kidney injury that responded to IV fluids. He now presents to the hospital with again acute kidney injury and relatively impressive maculopapular rash predominantly involving his legs all the way up to his thighs bilaterally. He has no oral ulcers. There is no rash on his palms or soles. Interestingly, it is less pruritic now. He denies any fever, sweats, chills, gross hematuria, or dysuria. PAST MEDICAL HISTORY: Notable for recurrent UTIs, ENEIDA earlier this month, E. coli bacteremia, liver abscess, and scrotal erythema are all noted. MEDICATIONS: On admission are listed as including Proscar and Flomax. I believe he is also on Levaquin, but may have been discharged recently off it. His current medications are noted in the MAR. SOCIAL HISTORY: He is a nonsmoker and nondrinker. No illicit drug use. Denies taking NSAIDs. FAMILY HISTORY: Known for diabetes. REVIEW OF SYSTEMS: As noted above. PHYSICAL EXAMINATION: VITAL SIGNS: Blood pressure of 104/54. HEENT: Head is atraumatic and normocephalic. Mucous membranes are moist. NECK: Supple. LUNGS: Breath sounds bilaterally. CARDIAC: Regular rate and rhythm. ABDOMEN: Soft and nontender with good bowel sounds. No CVA tenderness. EXTREMITIES: Show diffuse maculopapular rash that is quite red and impressive on the lower extremities all the way up to the groin areas bilaterally. There is no asterixis. LABORATORY DATA: From today show sodium 131, potassium 4.7, chloride 103, bicarb 14, anion gap 19, BUN 30, creatinine 2.89, and albumin was 2.7. Labs from admission showed a BUN creatinine 31 and 3.68 and as mentioned on the 03 of July, his BUN and creatinine were 10 and 0.86. Hemoglobin 10.1, hematocrit 30.4, white blood cell count 4.4, and platelet count 367. Urine studies show 2+ protein, significant amount of blood and white cells. There is urine protein of 17 and urine creatinine of 70. There is no urine sodium. On his last admission, he had hepatitis B and C serologies, which were negative. IMPRESSION: A 72-YEAR-OLD READMITTED TO THE HOSPITAL WITH DIFFUSE MACULOPAPULAR RASH AND RECURRENT ACUTE KIDNEY INJURY. 1. Acute kidney injury. Given the impressive maculopapular rash, this raises concern about an acute glomerulonephritis, particularly given his abnormal urine analysis. Infections can be associated with an ANCA vasculitis, also post infectious glomerulonephritis, and IgA vasculitis, which could have been tipped off by the infection are all in the differential. Other immune complex mediated glomerulonephritis seem less likely, but entities such as lupus, as well as cryoglobulinemia would all be in the differential. The good news is his renal function seems to be improving just with IV fluids. 2. Diffuse maculopapular rash. Question whether this could be allergic reaction from the Levaquin. Alternatively, precipitation of a flare of vasculitis as mentioned above. 3. Low albumin state. He does not have significant albuminuria. Question whether this is just simply due to poor nutrition. SUGGESTIONS: At this time include proceed with comprehensive serologic studies. Empirically start Solu-Medrol 125 mg once a day. Get a skin biopsy. Follow patient closely as he may need a kidney biopsy depending on his clinical course. We will follow patient closely with the team. ADDENDUM: He also had hyponatremia with serum sodium 127, has come up nicely to 131, and we will continue to track this as well and avoid excessive p.o. fluid intake. MD KIEL Alvarez/DONAVAN / [id number]
--- NOTE | 2022-07-13 10:54 | P.PNNP_ITS ---
Subjective Subjective Date of Service: 07/13/22 Interval history: Seen and examined, events noted Physical Exam Vital Signs: Vital Signs: Last Vital Signs Temp 97.0 F 07/13/22 07:43 Pulse 82 07/13/22 07:43 Resp 17 07/13/22 07:43 BP 132/75 07/13/22 07:43 Pulse Ox 98 07/13/22 07:43 O2 Del Method 07/13/22 07:43 BMI result Body Mass Index 26.1 Const: Other: Appearance: Alert. Oriented X3. No acute distress. Eyes: Pupils equal, round and reactive to light. ENT: Pharynx normal. Neck: Normal inspection. Neck supple. No lymph nodes noted. No crepitus CVS: Normal heart rate and rhythm. Pulses normal. Normal S1 and S2 Respiratory: No respiratory distress. Breath sounds normal. No Wheezing. No rales Abdomen: Soft and nontender. No rigidity. No distention. Skin: Skin warm and dry. Upper extremities have urticaria, lower extremities have vasculitis , see pictures below Extremities: No lower extremity edema. See picture above Neuro: Oriented X 3. No motor deficit. No sensory deficit. Moving all ex tremities. No slurred speech. CN 2 through 12 grossly intact Psych: calm, cooperative, normal affect Objective Data Labs CBC & Chem 7: 07/13/22 05:21 07/13/22 05:21 Labs: Laboratory Results - last 24 hr 07/11/22 07/12/22 07/12/22 15:03 10:46 12:00 WBC RBC Hgb Hct MCV MCH MCHC RDW Plt Count MPV Absolute Nucleated RBC Nucleated RBC % (auto) Smear Path Review SEE NOTE Sodium Potassium Chloride Carbon Dioxide Anion Gap BUN Creatinine Estim Creat Clear Calc Estimated GFR Fasting Glucose Calcium U Random Total Protein 17 H Urine Creatinine 70.20 Hep Bs Antigen Negative Hep Bs Antibody NONREACTIVE Hep B Core Total Ab Nonreactive Hepatitis C Ab (EIA) Nonreactive 07/13/22 07/13/22 05:21 05:21 WBC 10.5 RBC 3.36 L Hgb 9.9 L Hct 29.8 L MCV 88.7 MCH 29.5 MCHC 33.2 RDW 16.7 H Plt Count 446 H MPV 10.1 Absolute Nucleated RBC 0.000 Nucleated RBC % (auto) 0.0 Smear Path Review Sodium 136 Potassium 5.0 Chloride 100 Carbon Dioxide 22 Anion Gap 19 BUN 31 H Creatinine 2.14 H Estim Creat Clear Calc 33.2 Estimated GFR 30 Fasting Glucose 131 H Calcium 10.0 U Random Total Protein Urine Creatinine Hep Bs Antigen Hep Bs Antibody Hep B Core Total Ab Hepatitis C Ab (EIA) Microbiology Microbiology Results: Microbiology 07/11/22 16:11 Blood - Venous Blood Culture - Preliminary No growth after 24 hours. 07/11/22 15:03 Blood - Venous Blood Culture - Preliminary No growth after 24 hours. 07/11/22 Unknown Urine clean catch - Urine cross top Urine Culture - Preliminary Culture too young to evaluate. Procedures Date of Service Date of Service: 07/13/22 Assessment & Plan Assessment and plan (1) Acute kidney injury: Status: Acute (2) Vasculitis: Status: Acute Plan 1. Non-Oliguric ENEIDA: impressive rash with appearance of a vasculitic rash raises major concern for a AGN espeailly given abnl UA DDx: ANCA, IM-Cx GN ( IgA, PIGN, etc); alt a drug RXN despite absence of periph eos with assoc AIN Good news is he is having signif renal improvement --? steroids playing a role or simply d/c the Levoquin 2. Diffuse macular rash: w/u in progress; s/p Bx REC: cont steroids for now 125 iv x 3 then swtihc to po pred 60 with possible rapid taper; track renal func; chek sero; hold off on kidney Bx Time Spent With Patient Time: Total time spent is greater than 50% in coordination of care (as documented) at patient's floor/unit and/or counseling patient: Progress Note: Quality Stroke Does the patient have a stroke diagnosis?: No
--- NOTE | 2022-07-13 10:56 | HO.PM.IMPN ---
Subjective Subjective Date of Service: 07/13/22 Interval History: the patient was seen and evaluated this morning Laying in bed, feels comfortable Kidney function improving Stanton to the around the same Reporting feeling flushing in his face and feel hot sometimes Had an episode of confusion by the end of the day yesterday, total resolved by this morning No reported other overnight events. Systemic review: No fever, chills or weakness No chest pain, palpitation No shortness of breath or coughing No abdominal pain, nausea or vomiting No urinary symptoms Rash remains around the same Physical Exam Vital Signs: Vital Signs: Last Vital Signs Temp 97.0 F 07/13/22 07:43 Pulse 82 07/13/22 07:43 Resp 17 07/13/22 07:43 BP 132/75 07/13/22 07:43 Pulse Ox 98 07/13/22 07:43 O2 Del Method 07/13/22 07:43 BMI result Body Mass Index 26.1 Const: Other: Appearance: Alert. Oriented X3. No acute distress. Eyes: Pupils equal, round and reactive to light. ENT: Pharynx normal. Neck: Normal inspection. Neck supple. No lymph nodes noted CVS: Normal heart rate and rhythm. Pulses normal. Normal S1 and S2 Respiratory: No respiratory distress. Breath sounds normal. No Wheezing. No rales Abdomen: Soft and nontender. No rigidity. No distention. Skin: Skin warm and dry. Upper extremities have urticaria, lower extremities have vasculitis looking rash Extremities: No lower extremity edema. Neuro: Oriented X 3. No motor deficit. No sensory deficit. Moving all extremities. No slurred speech. CN 2 through 12 grossly intact Psych: calm, cooperative, normal affect Objective Data Active Medications Finasteride (Finasteride 5 Mg Tablet) 5 mg PO DAILY@1999 [facility] Last Admin: 07/12/22 20:04 Dose: 5 mg Documented By: GLENN Heparin Sodium (Porcine) (Heparin Sodium,Porcine 5,000 Unit/Ml Vial) 5,000 unit SUBCUT Q8H [facility] Last Admin: 07/13/22 09:00 Dose: 5,000 unit Documented By: DEVIN Sodium Chloride (Ns) 1,000 mls @ 100 mls/hr IVCONT .Q10H [facility] Last Admin: 07/13/22 09:00 Dose: 100 mls/hr Documented By: DEVIN Methylprednisolone Sodium Succinate (Methylprednisolone Sod Succ 125 Mg/2 Ml Vial) 125 mg IVPUSH Q24H [facility] Last Admin: 07/12/22 15:38 Dose: 125 mg Documented By: GRAYSON Pharmacy Consult (Consult Rx Perform Med Rec) 1 each MISCELLANE ONCE PRN PRN Reason: Consult order Sodium Chloride (0.9 % Sodium Chloride Flush 3 Ml Syringe) 3 ml IVFLUSH QSHIFT [facility] Last Admin: 07/13/22 08:59 Dose: 3 ml Documented By: DEVIN Tamsulosin HCl (Tamsulosin Hcl 0.4 Mg Capsule) 0.4 mg PO DAILY@1999 [facility] Last Admin: 07/12/22 20:04 Dose: 0.4 mg Documented By: GLENN Labs CBC & Chem 7: 07/13/22 05:21 07/13/22 05:21 Labs: Laboratory Results - last 24 hr 07/11/22 07/12/22 07/12/22 15:03 10:46 12:00 MCV MCH MCHC RDW Plt Count MPV Absolute Nucleated RBC Nucleated RBC % (auto) Smear Path Review SEE NOTE Anion Gap Estim Creat Clear Calc Estimated GFR Fasting Glucose Calcium U Random Total Protein 17 H Urine Creatinine 70.20 Hep Bs Antigen Negative Hep Bs Antibody NONREACTIVE Hep B Core Total Ab Nonreactive Hepatitis C Ab (EIA) Nonreactive 07/13/22 07/13/22 05:21 05:21 MCV 88.7 MCH 29.5 MCHC 33.2 RDW 16.7 H Plt Count 446 H MPV 10.1 Absolute Nucleated RBC 0.000 Nucleated RBC % (auto) 0.0 Smear Path Review Anion Gap 19 Estim Creat Clear Calc 33.2 Estimated GFR 30 Fasting Glucose 131 H Calcium 10.0 U Random Total Protein Urine Creatinine Hep Bs Antigen Hep Bs Antibody Hep B Core Total Ab Hepatitis C Ab (EIA) Microbiology Microbiology Results: Microbiology 07/11/22 16:11 Blood Culture - Preliminary Blood - Venous No growth after 24 hours. 07/11/22 15:03 Blood Culture - Preliminary Blood - Venous No growth after 24 hours. 07/11/22 Unknown Urine Culture - Preliminary Urine clean catch - Urine cross top Culture too young to evaluate. 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 Finished more than 3 weeks of antibiotics, planned to have total of 4 weeks per ID. Repeat blood cultures remain negative Consider ID evaluation if started to spike fevers or complain of pain hyperkalemia rseolved hyponatremia fluid restrict, monitor bph with urinary retentnion has chronic blank continue proscar, flomax dvt prophylaxis - hep sq full code reason for continued hospitalization: Treatment of acute kidney injury and evaluation of diffuse skin rash and possible vasculitis to prevent possible decompensation. Quality Stroke Does the patient have a stroke diagnosis?: No VTE Prior VTE?: No VTE Risk Level:: Medical - moderate - high VTE Device Contraindication: Treatment Not Indicated VTE Drug Contraindication: N/A - Med Ordered
[2022-07-13 11:24] VITALS: BP 119/67; PULSE 98; RESP 18; TEMP 36.4; O2SAT 100
[2022-07-13] MEDS: methylPREDNISolone Sod Succ 125 MG/2 ML VIAL IVPUSH (14:51)
[2022-07-13] MEDS: diphenhydrAMINE HCL 50 MG/ML VIAL 25 MG IVPUSH (14:51)
[2022-07-13 15:09] VITALS: BP 140/67; PULSE 99; RESP 18; TEMP 36.4; O2SAT 99
[2022-07-13 19:18] VITALS: BP 127/61; PULSE 94; RESP 18; TEMP 36.5; O2SAT 98
[2022-07-13] MEDS: Tamsulosin HCL 0.4 MG CAPSULE PO (20:07)
[2022-07-13] MEDS: Finasteride 5 MG TABLET PO (20:07)
[2022-07-13 23:46] VITALS: BP 135/69; PULSE 87; RESP 18; TEMP 36.5; O2SAT 98
[2022-07-14] MEDS: Heparin Sodium,Porcine 5,000 UNIT/ML VIAL 5000 UNIT SUBCUT ×2 (00:46→09:08)
[2022-07-14 04:00] VITALS: BP 112/59; PULSE 73; RESP 18; TEMP 36.1; O2SAT 97
[2022-07-14] MEDS: 0.9 % Sodium Chloride 1,000 ML 100 ML IVCONT (04:53)
[2022-07-14 07:45] LABS: Anion Gap 16 (12-20); Blood Urea Nitrogen 30 mg/dL (9-16); Calcium 9.8 mg/dL (8.4-10.2); Carbon Dioxide 23 mmol/L (22-29); Chloride 104 mmol/L (96-108); Creatinine Clr Calc Pharmacy 42.3; Estimated Glomerular Filt Rate 40; Glucose Random 144 mg/dL (60-115); Potassium 5.2 mmol/L (3.3-5.1); Sodium 138 mmol/L (135-145)
[2022-07-14 07:46] VITALS: BP 131/64; PULSE 75; RESP 18; TEMP 36.6; O2SAT 97
[2022-07-14 07:48] LABS: Lactate Dehydrogenase 250 U/L (118-273)
[2022-07-14] MEDS: 0.9 % Sodium Chloride Flush 3 ML SYRINGE IVFLUSH ×3 (09:11→19:42)
[2022-07-14] MEDS: Sodium Polystyrene Sulfon/Sorb 15 GM/60 ML ORAL.SUSP 30 GM PO (11:24)
[2022-07-14 13:07] LABS: Complement C3 157 mg/dL (82-185)
[2022-07-14 13:11] LABS: Myeloperoxidase Antibody <1.0 AI; Proteinase 3 PR3 Antibodies <1.0 AI
--- NOTE | 2022-07-14 13:53 | PM.DS ---
DS: Providers Provider Date of Service: 07/15/22 Date of admission: 07/11/22 17:37 Primary care physician: None Physician Consults: 07/11/22 17:02 Consult to General Surgery Routine Consulting Provider: Jann Sue Reason for consultation: suspected vasculitis - skin biopsy Consult to Nephrology Routine Consulting Provider: Narciso Maldonado Reason for consultation: aly, ?vasculitis DS: Diagnosis Discharge Diagnosis (1) Acute hyponatremia: Status: Acute (2) Acute kidney injury: Status: Acute (3) Liver abscess: Status: Acute (4) Rash/skin eruption: Status: Acute (5) Hyperkalemia: Status: Acute (6) Hyponatremia: Status: Acute DS: Summary Hospital Course Hospital Course: Admission note HPI 72M with pmh of bph complicated by recent UTI with ecoli bactermia and liver abscesses. had been treated with ceftriaxone but after pruritic reaction, changed to levaquin on discharge, 07/05/22. about 3 days ptp, patient began to have diffuse purpuric rash, edema, pruritis, decreased urine output, fatigue. denies fever, chills, chest pain, sob. mental status not at baseline from several months ago, but improved since previous admission. in ED noted to have aly with creatinine of 3.68, hyponatremia 127, hyperkalemia 5.3, grossly abnormal WBC (see labs). Hospital course The patient was admitted for evaluation of diffuse skin rash. Suspected Levaquin into used drug eruption and possible vasculitis. Skin biopsy was done and the result still pending. Treated with IV Solumedrol with good response as the rash started to improve significantly with less itching. Noted to have acute kidney injury with metabolic acidosis requiring IV fluid sodium bicarb drip. Evaluated by Nephrology as immunological workup was done and still pending. Kidney function improved significantly to word baseline during the hospital stay. Nephrology recommended to be followed as outpatient and repeat blood work. Has a history of liver abscess with E coli bacteremia. Finished 3 and half weeks from plan 4 weeks. Discussed with infectious disease specialist who recommended to hold antibiotic right now as the patient has a follow-up visit with her on Monday. Will keep a PICC line for the time being until he is seen by ID. Can be removed as outpatient. Growing Ashley in the urine. Asymptomatic. No need for treatment given he has a chronic Daily and was recently on antibiotics. To follow-up with Dr. Montoya as planned on Monday Continue tapering dose of prednisone To follow-up with PCP for biopsy result Will repeat blood test next week Time Spent with Patient Time attestation: Total time spent providing and/or coordinating discharge services: Discharge coordination time: Greater than 30 minutes Quality: Safe Use of Opioids Does Pt have an Active Cancer Diagnosis on the Problem List?: No Quality: Stroke Does the patient have a stroke diagnosis?: No Physical Exam Vital Signs: Vital Signs: Last Vital Signs Temp 97.8 F 07/14/22 07:46 Pulse 75 07/14/22 07:46 Resp 18 07/14/22 07:46 BP 131/64 07/14/22 07:46 Pulse Ox 97 07/14/22 07:46 O2 Del Method 07/14/22 07:46 BMI result Body Mass Index 26.1 Const: Other: Appearance: Alert. Oriented X3. No acute distress. Eyes: Pupils equal, round and reactive to light. Neck: Normal inspection. Neck supple. No lymph nodes noted CVS: Normal heart rate and rhythm. Pulses normal. Normal S1 and S2 Respiratory: No respiratory distress. Breath sounds normal. No Wheezing. No rales Abdomen: Soft and nontender. No rigidity. No distention. Skin: Skin warm and dry. Upper extremities urticaria resolving, lower extremities rash has been improving Extremities: No lower extremity edema. Neuro: Oriented X 3. No motor deficit. No sensory deficit. Moving all extremities. CN 2 through 12 grossly intact Psych: calm, cooperative, normal affect DS: Data Data Completed and Pending Completed studies during hospitalization [Text1]: Procedures Excision of Left Lobe Liver, Percutaneous Approach, Diagnostic (06/09/22) Fluoroscopy of Superior Vena Cava, Guidance (06/09/22) Insertion of Infusion Device into Superior Vena Cava, Percutaneous Approach (06/09/22) Pending studies at discharge: Pending at discharge 07/12/22 11:20 Surgical [PTH] Routine Labs on day of discharge: Laboratory Results - last 24 hr 07/12/22 07/14/22 07/14/22 10:46 05:47 05:47 Sodium 138 Potassium 5.2 H Chloride 104 Carbon Dioxide 23 Anion Gap 16 BUN 30 H Creatinine 1.68 H Estim Creat Clear Calc 42.3 Estimated GFR 40 Random Glucose 144 H D Calcium 9.8 Lactate Dehydrogenase 250 C-Reactive Protein 1.70 H Proteinase 3 (PR3) Ab <1.0 Myeloperoxidase Ab <1.0 Complement C3 157 Complement C4 38 Preliminary micro results at discharge 07/11/22 16:11 Blood Culture - Preliminary Blood - Venous No growth after 48 hours. 07/11/22 15:03 Blood Culture - Preliminary Blood - Venous No growth after 48 hours. Discharge Plan Discharge Patient Disposition: [facility] Discharge Diagnosis: Skin rash Acute kidney injury Referrals: Physician,None [Primary Care Provider] - 1 Week Discharge Medications: New prednisone 10 mg tablet See Taper PO DAILY Qty: 30 0RF Taper: Prednisone 40 mg daily for 3 Days and 0 Hour 30 mg daily for 3 Days and 0 Hour 20 mg daily for 3 Days and 0 Hour 10 mg daily for 3 Days and 0 Hour Continued sennosides [Senna Lax] 8.6 mg Tablet 17.2 mg PO BEDTIME PRN (Reason: Constipation) Qty: 30 0RF omeprazole 20 mg Capsule,Delayed Release(Dr/Ec) 20 mg PO BID@0630,1630 Qty: 60 0RF miconazole nitrate 2 % Powder 1 appl TOPICAL BID Rx Instructions: to left groin rash tamsulosin [Flomax] 0.4 mg capsule 0.4 mg PO DAILY@2000 finasteride 5 mg tablet 5 mg PO DAILY@1999 lidocaine [Lidocaine Pain Relief] 4 % Adhesive Patch,Medicated 1 patch transdermal DAILY Qty: 10 0RF Protocol: Apply to: Apply to: left pectoralis Discontinued levofloxacin in D5W 500 mg/100 mL Piggyback 500 mg IV Q24H Qty: 9 0RF Discharge Orders: Discharge Order (Routine); Ordered 07/15/22 Ordered By: Lissette Salguero Diet: Advance to usual diet Activity on Discharge: As tolerated Stand Alone Forms: Patient Portal Discharge page Other Ambulatory Orders: Basic Metabolic Panel (Routine) Timeframe: 1 Week Facility: [facility] - Location: Laboratory Ordered By: Lissette Salguero Care Plan Goals: Read below Health Concerns: Read below Plan of Treatment: Read below Assessment: You were admitted to the hospital for evaluation of diffuse rash and acute kidney injury. Suspected to be reaction to follow antibiotics. Treated with steroids as skin biopsy was done, result still pending. Noted to have acute kidney injury which was evaluated by kidney doctor and treated with IV antibiotics with good response as the kidney function improving to word baseline. Antibiotic treatment on hold for now. To be followed by infectious disease outpatient. To follow-up with Dr. Montoya as planned on Monday Continue tapering dose of prednisone To follow-up with PCP for biopsy result Will repeat blood test next week
[2022-07-14 14:07] VITALS: BP 131/64; PULSE 75; O2SAT 97
[2022-07-14] MEDS: methylPREDNISolone Sod Succ 125 MG/2 ML VIAL IVPUSH (15:10)
--- NOTE | 2022-07-14 15:10 | P.PNNP_ITS ---
Subjective Subjective Date of Service: 07/15/22 Interval history: Seen and examined, events noted Physical Exam Vital Signs: Vital Signs: Last Vital Signs Temp 96.9 F 07/14/22 23:24 Pulse 62 07/14/22 23:24 Resp 18 07/14/22 23:24 BP 149/78 H 07/14/22 23:24 Pulse Ox 96 07/14/22 23:24 O2 Del Method 07/14/22 23:24 BMI result Body Mass Index 26.1 Const: Other: Appearance: Alert. Oriented X3. No acute distress. Eyes: Pupils equal, round and reactive to light. ENT: Pharynx normal. Neck: Normal inspection. Neck supple. No lymph nodes noted. No crepitus CVS: Normal heart rate and rhythm. Pulses normal. Normal S1 and S2 Respiratory: No respiratory distress. Breath sounds normal. No Wheezing. No rales Abdomen: Soft and nontender. No rigidity. No distention. Skin: Skin warm and dry. Upper extremities have urticaria, lower extremities have vasculitis , see pictures below Extremities: No lower extremity edema. See picture above Neuro: Oriented X 3. No motor deficit. No sensory deficit. Moving all ex tremities. No slurred speech. CN 2 through 12 grossly intact Psych: calm, cooperative, normal affect Objective Data Labs CBC & Chem 7: 07/13/22 05:21 07/14/22 05:47 Labs: Laboratory Results - last 24 hr 07/12/22 07/12/22 07/14/22 10:46 10:46 05:47 Sodium 138 Potassium 5.2 H Chloride 104 Carbon Dioxide 23 Anion Gap 16 BUN 30 H Creatinine 1.68 H Estim Creat Clear Calc 42.3 Estimated GFR 40 Random Glucose 144 H D Calcium 9.8 Lactate Dehydrogenase C-Reactive Protein Proteinase 3 (PR3) Ab <1.0 Myeloperoxidase Ab <1.0 Complement C3 157 Complement C4 38 Free [place] LC, Quant 59.9 H Free Lambda LC, Quant 54.2 H Free [place]/Lambda Ratio 1.11 07/14/22 05:47 Sodium Potassium Chloride Carbon Dioxide Anion Gap BUN Creatinine Estim Creat Clear Calc Estimated GFR Random Glucose Calcium Lactate Dehydrogenase 250 C-Reactive Protein 1.70 H Proteinase 3 (PR3) Ab Myeloperoxidase Ab Complement C3 Complement C4 Free [place] LC, Quant Free Lambda LC, Quant Free [place]/Lambda Ratio Microbiology Microbiology Results: Microbiology 07/11/22 Unknown Urine clean catch - Urine cross top Urine Culture - Final Ashley albicans 07/11/22 16:11 Blood - Venous Blood Culture - Preliminary No growth after 48 hours. 07/11/22 15:03 Blood - Venous Blood Culture - Preliminary No growth after 48 hours. Procedures Date of Service Date of Service: 07/14/22 Assessment & Plan Assessment and plan (1) Acute kidney injury: Status: Acute (2) Vasculitis: Status: Acute Plan 1. Non-Oliguric ENEIDA: impressive rash with appearance of a vasculitic rash raises major concern for a AGN espeailly given abnl UA DDx: ANCA, IM-Cx GN ( IgA, PIGN, etc); alt a drug RXN despite absence of periph eos with assoc AIN Good news is he is having signif renal improvement --? steroids playing a role or simply d/c the Levoquin 2. Diffuse macular rash appears slt faded this am, w/u in progress; s/p Bx Bx pending REC: swtich to po pred 60 with possible rapid taper; track renal func; chek sero; hold off on kidney Bx Time Spent With Patient Time: Total time spent is greater than 50% in coordination of care (as documented) at patient's floor/unit and/or counseling patient: Progress Note: Quality Stroke Does the patient have a stroke diagnosis?: No
--- NOTE | 2022-07-14 15:15 | HO.PM.IMPN ---
Subjective Subjective Date of Service: 07/14/22 Interval History: the patient was seen and evaluated this morning Laying in bed, feels comfortable Kidney function improving Having nausea and vomiting in the afternoon No reported other overnight events. Systemic review: No fever, chills or weakness No chest pain, palpitation No shortness of breath or coughing No abdominal pain, nausea or vomiting No urinary symptoms Rash remains around the same Physical Exam Vital Signs: Vital Signs: Last Vital Signs Temp 97.8 F 07/14/22 07:46 Pulse 75 07/14/22 14:07 Resp 18 07/14/22 07:46 BP 131/64 07/14/22 14:07 Pulse Ox 97 07/14/22 14:07 O2 Del Method 07/14/22 07:46 BMI result Body Mass Index 26.1 Const: Other: Appearance: Alert. Oriented X3. No acute distress. Eyes: Pupils equal, round and reactive to light. Neck: Normal inspection. Neck supple. No lymph nodes noted CVS: Normal heart rate and rhythm. Pulses normal. Normal S1 and S2 Respiratory: No respiratory distress. Breath sounds normal. No Wheezing. No rales Abdomen: Soft and nontender. No rigidity. No distention. Skin: Skin warm and dry. Upper extremities urticaria resolving, lower extremities rash has been improving Extremities: No lower extremity edema. Neuro: Oriented X 3. No motor deficit. No sensory deficit. Moving all extremities. CN 2 through 12 grossly intact Psych: calm, cooperative, normal affect Objective Data Active Medications Diphenhydramine HCl (Diphenhydramine Hcl 50 Mg/Ml Vial) 25 mg IVPUSH Q6H PRN PRN Reason: Itching Last Admin: 07/13/22 14:51 Dose: 25 mg Documented By: DEVIN Finasteride (Finasteride 5 Mg Tablet) 5 mg PO DAILY@1999 [facility] Last Admin: 07/13/22 20:07 Dose: 5 mg Documented By: JUSTYNA Heparin Sodium (Porcine) (Heparin Sodium,Porcine 5,000 Unit/Ml Vial) 5,000 unit SUBCUT Q8H [facility] Last Admin: 07/14/22 09:08 Dose: 5,000 unit Documented By: BRI Methylprednisolone Sodium Succinate (Methylprednisolone Sod Succ 125 Mg/2 Ml Vial) 125 mg IVPUSH Q24H [facility] Last Admin: 07/14/22 15:10 Dose: 125 mg Documented By: BRI Pharmacy Consult (Consult Rx Perform Med Rec) 1 each MISCELLANE ONCE PRN PRN Reason: Consult order Sodium Chloride (0.9 % Sodium Chloride Flush 3 Ml Syringe) 3 ml IVFLUSH QSHIFT [facility] Last Admin: 07/14/22 15:10 Dose: 3 ml Documented By: BRI Tamsulosin HCl (Tamsulosin Hcl 0.4 Mg Capsule) 0.4 mg PO DAILY@1999 [facility] Last Admin: 07/13/22 20:07 Dose: 0.4 mg Documented By: JUSTYNA Labs CBC & Chem 7: 07/13/22 05:21 07/14/22 05:47 Labs: Laboratory Results - last 24 hr 07/12/22 07/14/22 07/14/22 10:46 05:47 05:47 Anion Gap 16 Estim Creat Clear Calc 42.3 Estimated GFR 40 Random Glucose 144 H D Calcium 9.8 Lactate Dehydrogenase 250 C-Reactive Protein 1.70 H Proteinase 3 (PR3) Ab <1.0 Myeloperoxidase Ab <1.0 Complement C3 157 Complement C4 38 Microbiology Microbiology Results: Microbiology 07/11/22 Unknown Urine Culture - Final Urine clean catch - Urine cross top Ashley albicans 07/11/22 16:11 Blood Culture - Preliminary Blood - Venous No growth after 48 hours. 07/11/22 15:03 Blood Culture - Preliminary Blood - Venous No growth after 48 hours. 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 Finished more than 3 weeks of antibiotics, planned to have total of 4 weeks per ID. Repeat blood cultures remain negative Consider ID evaluation if started to spike fevers or complain of pain hyperkalemia rseolved hyponatremia fluid restrict, monitor bph with urinary retentnion has chronic blank continue proscar, flomax dvt prophylaxis - hep sq full code reason for continued hospitalization: Treatment of acute kidney injury and evaluation of diffuse skin rash and possible vasculitis to prevent possible decompensation. Quality Stroke Does the patient have a stroke diagnosis?: No VTE Prior VTE?: No VTE Risk Level:: Medical - moderate - high VTE Device Contraindication: Treatment Not Indicated VTE Drug Contraindication: N/A - Med Ordered
--- NOTE | 2022-07-14 15:16 | MHC.CM.PN ---
EMR REVIEWED, PT INITIALLY CLEARED FOR D/C TODAY HOWEVER PT NOT FEELING WELL AND IS HAVING NAUSEA AND VOMITING, PER HOSPITALIST PT WILL NOT D/C TODAY AND WILL REVISIT TOMORROW 07/15, PLAN CONT'S TO BE STR AT [facility], [facility] [employer]
[2022-07-14 15:17] LABS: Kappa Light Chain, Free Serum 59.9 mg/L (3.3-19.4); Kappa/Lambda Lt Ch Free Ratio 1.11 (0.26-1.65); Lambda Light Chain, Free Serum 54.2 mg/L (5.7-26.3)
[2022-07-14 19:34] VITALS: BP 132/75; PULSE 88; RESP 18; TEMP 36.2; O2SAT 96
[2022-07-14] MEDS: Tamsulosin HCL 0.4 MG CAPSULE PO (19:42)
[2022-07-14] MEDS: Finasteride 5 MG TABLET PO (19:42)
[2022-07-14 23:24] VITALS: BP 149/78; PULSE 62; RESP 18; TEMP 36.1; O2SAT 96
[2022-07-15] MEDS: Sodium Zirconium Cyclosilicate 5 GM POWD.PACK PO (00:48)
[2022-07-15] MEDS: Heparin Sodium,Porcine 5,000 UNIT/ML VIAL 5000 UNIT SUBCUT ×2 (00:48→10:25)
[2022-07-15 02:57] VITALS: BP 132/79; PULSE 63; RESP 16; TEMP 36.1; O2SAT 96
[2022-07-15] MEDS: Omeprazole 40 MG CAPSULE.DR PO (05:24)
[2022-07-15 05:59] LABS: COVID-19 Test Negative (Negative)
[2022-07-15 06:59] LABS: Anion Gap 13 (12-20); Blood Urea Nitrogen 27 mg/dL (9-16); Calcium 9.8 mg/dL (8.4-10.2); Carbon Dioxide 27 mmol/L (22-29); Chloride 105 mmol/L (96-108); Creatinine Clr Calc Pharmacy 49.7; Estimated Glomerular Filt Rate 48; Glucose Random 115 mg/dL (60-115); Potassium 4.9 mmol/L (3.3-5.1); Sodium 140 mmol/L (135-145)
[2022-07-15 07:51] VITALS: BP 123/61; PULSE 64; RESP 14; TEMP 36.1; O2SAT 97
[2022-07-15 09:19] VITALS: BP 123/61; PULSE 64; O2SAT 97
[2022-07-15 10:08] LABS: Anti Nuclear Antibody Screen NEGATIVE (NEGATIVE)
--- NOTE | 2022-07-15 10:23 | MHC.CM.PN ---
PATIENT IS DISCHARGED TO [facility] TODAY PLAN IS FOR 3 PM TRANSPORT REQUEST RN AND UNIT AWARE. PATIENT AND HCP (IN ROOM) AWARE OF PLAN AND IN AGREEMENT. IMM 07/14/22 IN CHART
[2022-07-15] MEDS: methylPREDNISolone Sod Succ 125 MG/2 ML VIAL 40 MG IVPUSH (10:24)
[2022-07-15] MEDS: 0.9 % Sodium Chloride Flush 3 ML SYRINGE IVFLUSH (10:25)
[2022-07-15 11:23] VITALS: BP 117/63; PULSE 79; RESP 14; TEMP 36.3; O2SAT 98
[2022-07-19 10:16] LABS: IgA 136 mg/dL (70-320); IgG 1321 mg/dL (600-1540); IgM 49 mg/dL (50-300)
[2022-07-22 17:33] LABS: Cryoglobulin, Qual NONE DETECTED ((NDT))
== END 2022-07-15 15:15 | disposition skilled nursing facility (03) | DRG 607 ==
LOC: HO.ED 17:07 → HO.EDOVER 17:51 → HO.S3 20:02
PROVIDERS: Internal Medicine Nephrology; Admitting Provider Internal Medicine; Emergency Provider Emergency Medicine; Visit Provider Student in an Organized Health Care Education/Training Program
DX: L95.9 Vasculitis limited to the skin, unspecified (principal); E87.1 Hypo-osmolality and hyponatremia; N17.9 Acute kidney failure, unspecified; E87.2 Acidosis; L27.0 Generalized skin eruption due to drugs and medicaments taken internally; N40.1 Benign prostatic hyperplasia with lower urinary tract symptoms; R33.8 Other retention of urine; E87.5 Hyperkalemia; T36.8X5A Adverse effect of other systemic antibiotics, initial encounter; Z20.822 Contact with and (suspected) exposure to COVID-19; Z88.1 Allergy status to other antibiotic agents; Z79.899 Other long term (current) drug therapy
CPT/HCPCS: 36415; 80048; 80076; 81001; 82595; 82784; 83521; 83605; 83615; 84156; 84484; 85007; 85027; 85610; 85730; 86021; 86038; 86039; 86140; 86160; 86334; 86704; 86706; 86803; 87040; 87086; 87088; 87340; 87635; 88305; 93005; 96361; 96374; 96375; 97110; 97116; 97162; 99285; J1200; J2930

== ENCOUNTER → 2022-07-18 11:06 | Outpatient (BNVA) | payer MEDICARE, SELFPAY | PROVIDERS: Visit Provider Internal Medicine | DX: K75.0 Abscess of liver (principal) | CPT/HCPCS: 99212 ==

== ENCOUNTER 2022-07-29 08:12 | Day surgery (SDC) | payer MEDICARE, SELFPAY ==
--- NOTE | 2022-07-21 12:34 | HO.ANESPROP2 ---
Documented by User: Alvina Flores NP 07/21/22 12:35 HPI - Anesthesia Eval Consult details Narrative: 72yo M for Upper Endoscopy and Colonoscopy PMFSH Active Problems Active Problems: All Active Problems (Updated 07/18/22 @ 16:26 by Marti Montoya MD) Hyponatremia (Acute) Hyperkalemia (Acute) Rash/skin eruption (Acute) Vasculitis (Acute) Acute hyponatremia (Acute) Acute kidney injury (Acute) Liver abscess (Acute) Acute renal failure (Acute) Enlarged prostate (Acute) Encounter for assessment of healthcare decision-making capacity (Acute) Scrotal erythema (Acute) Elevated LFTs (Acute) Past Medical History Medical History Acute UTI ENEIDA (acute kidney injury) E coli bacteremia Hx of fracture of clavicle Liver abscess Liver masses Scrotal erythema Family History Family History Paternal Grandfather Diabetes Surgical History Surgical History Hx of knee surgery Hx of tonsillectomy Social History Social History Household Members: Family Household Members Other:: brother and sister?? Housing: House Do you presently have visiting nurse or other home services: No (pt lives with his brother,however, was at str after hospital discharge 07/05) Alcohol intake: never Patient Tobacco Use Status: Former Tobacco user Quit Date: >30 yrs ago e-Cigarette/Vaping Use: Never Used Second Hand Smoke Exposure: No Use of substances other than those prescribed or required for medical reasons: No Are you DNR?: No Advance Directives: Yes Advance Directives Information Provided: Yes Advance Directives on File: Yes Advance Directives Date on File: 06/23/22 service: No Current occupational status: retired Meds Allergies Allergy/AdvReac Type Severity Reaction Status Date / Time levofloxacin Allergy Severe vasculitis Verified 07/29/22 08:45 ceftriaxone AdvReac Mild pruritis Verified 07/29/22 08:45 Home Medications Medication Instructions Recorded Confirmed Last Taken Type finasteride 5 mg tablet 5 mg PO DAILY@199906/23/22 07/18/22 Unknown History tamsulosin 0.4 mg capsule (Flomax) 0.4 mg PO DAILY@199906/23/22 07/18/22 Unknown History Exam Exam Date and Time: July 21, 2022 1234 Pertinent Lab Results Pertinent Lab Results: Laboratory Tests 07/13/22 07/15/22 05:21 06:17 WBC 10.5 Hgb 9.9 L Hct 29.8 L Plt Count 446 H Sodium 140 Potassium 4.9 Chloride 105 Carbon Dioxide 27 BUN 27 H Creatinine 1.43 H Narrative Narrative: EKG 06/2022 Vent. Rate : 106 BPM ? ? Atrial Rate : 106 BPM ?? P-R Int : 148 ms? QRS Dur : 088 ms ? ? QT Int : 332 ms ? ? ? P-R-T Axes : 038 051 037 degrees ?? QTc Int : 441 ms ? Sinus tachycardia Otherwise normal ECG When compared with ECG of 01-JUL-2022 20:08, No significant change was found Assessment and Plan Assessment Anesthesia Assessment: Chart Reviewed Documented by User: Lazara Mcnamara MD 07/29/22 09:45 [facility] Past Medical History Medical History Acute UTI ENEIDA (acute kidney injury) E coli bacteremia Hx of fracture of clavicle Liver abscess Liver masses Scrotal erythema Functional capacity: independent ambulation Family History Family History Paternal Grandfather Diabetes Family history of problems with anesthesia: No Surgical History Surgical History Hx of knee surgery Hx of tonsillectomy History of Problems with Anesthesia: No Social History Social History Household Members: Family Household Members Other:: brother and sister?? Housing: House Do you presently have visiting nurse or other home services: No (pt lives with his brother,however, was at [facility] after hospital discharge 07/05) Alcohol intake: never Patient Tobacco Use Status: Former Tobacco user Quit Date: >30 yrs ago e-Cigarette/Vaping Use: Never Used Second Hand Smoke Exposure: No Use of substances other than those prescribed or required for medical reasons: No Are you DNR?: No Advance Directives: Yes Advance Directives Information Provided: Yes Advance Directives on File: Yes Advance Directives Date on File: 06/23/22 service: No Current occupational status: retired Meds Allergies Allergy/AdvReac Type Severity Reaction Status Date / Time levofloxacin Allergy Severe vasculitis Verified 07/29/22 08:45 ceftriaxone AdvReac Mild pruritis Verified 07/29/22 08:45 Home Medications Medication Instructions Recorded Confirmed Last Taken Type finasteride 5 mg tablet 5 mg PO DAILY@199906/23/22 07/18/22 Unknown History tamsulosin 0.4 mg capsule (Flomax) 0.4 mg PO DAILY@199906/23/22 07/18/22 Unknown History Exam Airway Heart: RRR Lungs: CTA Assessment and Plan Final Anesthetic Review Family History of Problems with Anesthesia: No History of Problems with Anesthesia: No ASA Class: II Final Preanesthetic Review: No Changes in Pt Med Stat, Meds/Allgs Chart Reviewed and Consent Obtained/Reviewed Patient Risk: Low Procedure Risk: Low Anesthetic Plan Anesthetic Plan: MAC: Disposition: Standard PACU
[2022-07-29 08:35] VITALS: BMI 25.0
[2022-07-29 08:50] VITALS: BP 108/71; PULSE 104; RESP 18; TEMP 36.5; O2SAT 99
[2022-07-29] MEDS: Lactated Ringers 1,000 ML 100 ML IVCONT (09:11)
--- NOTE | 2022-07-29 09:42 | MHC.SHP ---
Pre-Procedural Eval Section A Date of Service: 07/29/22 The patient is an INPATIENT: No Changes since office visit: Yes Patient answered all questions; No Cold of Flu in the past 2 weeks, No New Medical Problems and No Changes in Medication The History & Physical has been completed within 30 days and I have reviewed it.: Yes Section B Chief Complaint: screening,liver abscess, Allergies: Allergies Allergy/AdvReac Type Severity Reaction Status Date / Time levofloxacin Allergy Severe vasculitis Verified 07/29/22 08:45 ceftriaxone AdvReac Mild pruritis Verified 07/29/22 08:45 Plan I have reviewed the history and physical and performed a pertinent physical examination on my patient. No changes have occurred unless specified.
--- NOTE | 2022-07-29 09:43 | PM.OP ---
Brief Operative Note Date of Service: 07/29/22 Pre-op diagnosis: Colon cancer screening, multiple liver abscesses, anemia Post-op diagnosis: other (GERD, Hiatal hernia, colon polyps, diverticulosis, hemorrhoids, colitis) Procedure: FLEXIBLE TRANSORAL UPPER GASTROINTESTINAL ENDOSCOPY WITH BIOPSIES AND COLONOSCOPY TILL CECUM WITH BIOPSIES AND SNARE POLYPECTOMY UPPER ENDOSCOPY Consent: Indications for the procedure and potential complications of bleeding, perforation, reaction to medications and missed diagnosis were discussed with the patient and informed consent was obtained. Instrument: Olympus GIF H 190 mid size upper endoscope Monitoring: Vital signs and clinical assessment, continuous EKG monitoring, Pulse oximetry, Carbon Dioxide monitoring and blood pressure monitoring were done throughout the procedure. Procedure: The patient was placed in the left lateral decubitis position and pre-procedure medications were administered and a bite block was placed. The endoscope was inserted into the mouth and advanced under direct vision to the third part of duodenum. A careful inspection was made as the upper endoscope was withdrawn including a retroflexed examination of the proximal stomach; Findings and interventions are described below. Findings: Larynx: Normal Esophagus: GE junction at 30 cms, hiatal hernia 36 to 40 cms. Long segment of suspected Myo's from 30 to 36 cms - multiple biopsies were obtained.. Stomach: Mild gastric erythema. Biopsies were obtained. Grade 4 flap valve on retroflexed examination of the cardia. Duodenum: Normal bulb. A medium sized diverticulum in the medial wall of 2nd part of duodenum adjacent to the papilla. A 1.5 cms benign appearing nodule with calcifications in the 3rd part of duodenum - biopsied. Intervention: Biopsies as noted above COLONOSCOPY PROCEDURE NOTE Consent: Indications for the procedure and potential complications of bleeding, perforation, reaction to medications and missed diagnosis were discussed with the patient and informed consent was obtained. Instrument: Olympus PCF H 190 L variable stiffness pediatric colonoscope Monitoring: Vital signs and clinical assessment, intermittent blood pressure monitoring, continuous EKG monitoring, Pulse oximetry and Carbon Dioxide monitoring were done throughout the procedure. Colon withdrawl time was [] minutes. Procedure: The patient was placed in the left lateral decubitis position and pre-procedure medications were administered. After a digital rectal examination of the ano-rectum, the video colonoscope was inserted into the rectum and advanced through the colon to the cecum. The colonoscope was slowly withdrawn in a retrograde panoramic fashion and the colon mucosa was carefully examined including a retroflexed view of the rectum. Findings and interventions are described below. Procedure Difficulty: : [Without difficulty] [LLQ pressure applied to intubate the transverse colon/cecum] Findings: Terminal Ileum: Distal 5 cms was examined and appeared normal Cecum: Normal Ascending Colon: A 8-9 mm sessile polyp in the distal ascending colon removed with a cold snare. Scattered superficial ulcers with pseudomembranes throughout the colon - left > right Transverse Colon: Scattered superficial ulcers with pseudomembranes throughout the colon - left > right Descending Colon: Scattered superficial ulcers with pseudomembranes throughout the colon - left > right. Moderate diverticulosis Sigmoid Colon: Two 10 -12 mm sessile polyp removed with a cold snare. Scattered superficial ulcers with pseudomembranes throughout the colon - left > right. Moderate diverticulosis Rectum: Scattered superficial ulcers with pseudomembranes throughout the colon - left > right Ano-rectum: Moderate internal hemorrhoids Colon preparation: [Excellent] [Good] [Fair] [poor] Impression and Post Procedure Diagnosis: Endoscopy Findings: ESOPHAGUS: GE junction at 30 cms, hiatal hernia 36 to 40 cms. Long segment of suspected Omy's from 30 to 36 cms - multiple biopsies were obtained.. STOMACH: Mild gastric erythema. Biopsies were obtained. Grade 4 flap valve on retroflexed examination of the cardia. DUODENUM: Normal bulb. A medium sized diverticulum in the medial wall of 2nd part of duodenum adjacent to the papilla. A 1.5 cms benign appearing nodule with calcifications in the 3rd part of duodenum - biopsied. Colonoscopy Findings: Three small to medium sized polyps removed Scattered superficial ulcers with scattered pseudomembranes throughout the colon - left > right - biopsies obtained from the right and left colon and rectum. Colon aspirate sent to check for C Diff. infection Moderate diverticulosis seen in the left colon Moderate hemorrhoids on retroflexed exam. Plan: Letter will be sent with pathology results. Repeat EGD in 6 to 12 months if esophageal biopsies confirm presence of Moy's metaplasia Patient has an appointment on 12/08/22 in the GI Clinic with Fernando Arthur M.D.. Repeat Colonoscopy interval based on path results - in 3 years if polyps are adenomatous and 10 years if polyps are hyperplastic. Above findings were reviewed with the patient and Hiatal hernia, Moy's esophagus, colon polyps and diverticulosis handouts were given in the discharge area Surgeon: Fernando Arthur MD Anesthesia: MAC Was an Natural Resources Technician used for this Procedure?: Yes Natural Resources Technician: Joel Che Estimated blood loss (mL): 0 Pathology: other (A- DUODENUM NODULE 3RD PART OF DUODENUM. B- GASTRIC ANTRUM R/O H. PYLORI. C- DISTAL ESOPHAGUS BXS R/O MOY'S D- RIGHT COLON BXS R/O C.DIFF R/O ISCHEMIC COLITIS E- ASCENDING COLON POLYP ) Condition: stable Disposition: PACU
--- NOTE | 2022-07-29 09:49 | W.PM.OPN ---
Operative Note Operative Note Date of Service: 07/29/22 Narrative: Pre-op diagnosis: Colon cancer screening, multiple liver abscesses, anemia Post-op diagnosis:?other (GERD, Hiatal hernia, colon polyps, diverticulosis, hemorrhoids, colitis) Procedure: FLEXIBLE TRANSORAL UPPER GASTROINTESTINAL ENDOSCOPY WITH BIOPSIES AND COLONOSCOPY TILL CECUM WITH BIOPSIES AND SNARE POLYPECTOMY UPPER ENDOSCOPY Consent:?Indications for the procedure and potential complications of bleeding, perforation, reaction to medications and missed diagnosis were discussed with the patient and informed consent was obtained. Instrument:?Olympus GIF H 190 mid size upper endoscope Monitoring: Vital signs and clinical assessment, continuous EKG monitoring, Pulse oximetry, Carbon Dioxide monitoring and blood pressure monitoring were done throughout the procedure. Procedure:?The patient was placed in the left lateral decubitis position and pre-procedure medications were administered and a bite block was placed. The endoscope was inserted into the mouth and advanced under direct vision to the third part of duodenum. A careful inspection was made as the upper endoscope was withdrawn including a retroflexed examination of the proximal stomach; Findings and interventions are described below. Findings: Larynx:? Normal Esophagus:?GE junction at 30 cms, hiatal hernia 36 to 40 cms. Long segment of suspected Moy's from 30 to 36 cms - multiple biopsies were obtained.. Stomach:?Mild gastric erythema. Biopsies were obtained. Grade 4 flap valve on retroflexed examination of the cardia. Duodenum:?Normal bulb.? A medium sized diverticulum in the medial wall of 2nd part of? duodenum adjacent to the papilla.? A 1.5 cms benign appearing nodule with calcifications in the 3rd part of duodenum - biopsied. Intervention:?Biopsies as noted above COLONOSCOPY PROCEDURE NOTE Consent:?Indications for the procedure and potential complications of bleeding, perforation, reaction to medications and missed diagnosis were discussed with the patient and informed consent was obtained. Instrument:?Olympus PCF H 190 L variable stiffness pediatric colonoscope Monitoring:?Vital signs and clinical assessment, intermittent blood pressure monitoring, continuous EKG monitoring, Pulse oximetry and Carbon Dioxide monitoring were done throughout the procedure. Colon withdrawl time was [] minutes. Procedure:?The patient was placed in the left lateral decubitis position and pre-procedure medications were administered. After a digital rectal examination of the ano-rectum, the video colonoscope was inserted into the rectum and advanced through the colon to the cecum. The colonoscope was slowly withdrawn in a retrograde panoramic fashion and the colon mucosa was carefully examined including a retroflexed view of the rectum. Findings and interventions are described below. Procedure Difficulty:?: Without difficulty Findings: Terminal Ileum: Distal 5 cms was examined and appeared normal Cecum:? Normal Ascending Colon:??A 8-9 mm sessile polyp in the distal ascending colon removed with a cold snare.? Scattered superficial ulcers with pseudomembranes throughout the colon - left > right Transverse Colon:??Scattered superficial ulcers with pseudomembranes throughout the colon - left > right Descending Colon:? Scattered superficial ulcers with pseudomembranes throughout the colon - left > right.? Moderate diverticulosis Sigmoid Colon:? Two 10 -12 mm sessile polyp removed with a cold snare. Scattered superficial ulcers with pseudomembranes throughout the colon - left > right.? Moderate diverticulosis Rectum:??Scattered superficial ulcers with pseudomembranes throughout the colon - left > right Ano-rectum:??Moderate internal hemorrhoids Colon preparation: Good Impression and Post Procedure Diagnosis: Endoscopy Findings: ESOPHAGUS: GE junction at 30 cms, hiatal hernia 36 to 40 cms. Long segment of suspected Moy's from 30 to 36 cms - multiple biopsies were obtained.. STOMACH:? Mild gastric erythema. Biopsies were obtained. Grade 4 flap valve on retroflexed examination of the cardia. DUODENUM: Normal bulb.? A medium sized diverticulum in the medial wall of 2nd part of? duodenum adjacent to the papilla.? A 1.5 cms benign appearing nodule with calcifications in the 3rd part of duodenum - biopsied. Colonoscopy Findings: Three small to medium sized polyps removed Scattered superficial ulcers with scattered pseudomembranes throughout the colon - left > right - biopsies obtained from the right and left colon and rectum. Colon aspirate sent to check for C Diff. infection Moderate diverticulosis seen in the left colon Moderate hemorrhoids on retroflexed exam. Plan: Letter will be sent with pathology results. Repeat EGD in 6 to 12 months if esophageal biopsies confirm presence of Moy's metaplasia Patient has an appointment on 12/08/22 in the GI Clinic with Fernando Arthur M.D.. Repeat Colonoscopy interval based on path results - in 3 years if polyps are adenomatous and 10 years if polyps are hyperplastic. Above findings were reviewed with the patient and Hiatal hernia, Moy's esophagus, colon polyps and diverticulosis handouts were given in the discharge area Surgeon: Fernando Arthur MD Anesthesia:?MAC Was an Language Arts Teacher used for this Procedure?:?Yes Language Arts Teacher:?Joel Che Estimated blood loss (mL):?0 Pathology:?other (A- DUODENUM NODULE? 3RD PART OF DUODENUM.? B- GASTRIC ANTRUM? R/O H. PYLORI.? C- DISTAL ESOPHAGUS BXS? R/O MOY'S? D- RIGHT COLON BXS? R/O C.DIFF? R/O ISCHEMIC COLITIS? E- ASCENDING COLON POLYP? ) Condition:?stable Disposition:?PACU
[2022-07-29 10:58] VITALS: BP 109/65; PULSE 78; RESP 16; TEMP 36.1; O2SAT 100
[2022-07-29 11:13] VITALS: BP 109/65; PULSE 77; RESP 18; O2SAT 100
[2022-07-29 11:28] VITALS: BP 109/66; PULSE 61; RESP 18; TEMP 36.6; O2SAT 99
--- NOTE | 2022-07-29 13:09 | HO.POSTANES ---
Post Anesthesia Evaluation Post Anesthesia Evaluation Vital Signs: Vital Signs Temp Pulse Resp BP Pulse Ox O2 Del Method 07/29/22 11:28 97.9 F 61 18 109/66 99 Room Air 07/29/22 11:13 77 18 109/65 100 Room Air 07/29/22 10:58 97 F 78 16 109/65 100 Room Air 07/29/22 08:50 97.7 F 104 H 18 108/71 99 Room Air Anesthesia: Monitored Mental Status: Awake Pain Control: Satisfactory Nausea/Vomiting: None Hydration: Adequate Anesthesia-Related Issues: No Anes. Related Issues
[2022-07-29 13:27] LABS: CDiff Gene PCR POSITIVE (Negative)
[2022-07-29 13:44] LABS: CDIFF Internal ctrl Dots and bkg OK (V); CDiff Toxin Negative (Negative)
== END 2022-07-29 12:18 | disposition home or self-care (01) ==
PROVIDERS: Visit Provider Internal Medicine Gastroenterology
PROC: (CPT 45385; principal; 2022-07-29 09:30)
DX: Z12.11 Encounter for screening for malignant neoplasm of colon (principal); D12.2 Benign neoplasm of ascending colon; D12.5 Benign neoplasm of sigmoid colon; K57.30 Diverticulosis of large intestine without perforation or abscess without bleeding; K64.8 Other hemorrhoids; K62.89 Other specified diseases of anus and rectum; K52.9 Noninfective gastroenteritis and colitis, unspecified; K75.0 Abscess of liver; R79.89 Other specified abnormal findings of blood chemistry; D64.9 Anemia, unspecified; K31.89 Other diseases of stomach and duodenum; K21.9 Gastro-esophageal reflux disease without esophagitis; K29.50 Unspecified chronic gastritis without bleeding; K22.70 Barrett's esophagus without dysplasia; K44.9 Diaphragmatic hernia without obstruction or gangrene; Z79.899 Other long term (current) drug therapy; Z88.1 Allergy status to other antibiotic agents; Z87.891 Personal history of nicotine dependence
CPT/HCPCS: 45385; 45380; 43239; 36415; 87324; 87493; 88305; 88342

== ENCOUNTER 2022-07-30 21:04 | Emergency (ER) | payer MEDICARE, SELFPAY ==
[2022-07-30 21:19] VITALS: BP 124/70; BP 136/76; PULSE 105; PULSE 112; RESP 16; TEMP 37.1; O2SAT 100; BMI 25.0
--- NOTE | 2022-07-30 21:23 | ED.MALEGU ---
HPI - Male Genitourinary General Chief complaint: Urogenital-Male Stated complaint: Catheter Issues Time Seen by Provider: 07/30/22 21:13 Source: patient Mode of arrival: EMS Limitations: no limitations History of Present Illness HPI Narrative: Patient with history of liver abscess with Gram-negative bacteremia last month and had urinary retention Daily catheter was placed comes as for last few hours complaining of pain at the tip of penis with slight amount of blood in the catheter, prior to this patient never had any problem with urination never had any Daily catheter placed Related Data Home Medications Medication Instructions Recorded Confirmed finasteride 5 mg tablet 5 mg PO DAILY@199906/23/22 07/18/22 tamsulosin 0.4 mg capsule (Flomax) 0.4 mg PO DAILY@199906/23/22 07/18/22 Previous Rx's Medication Instructions Recorded sennosides 8.6 mg tablet (Senna 17.2 mg PO BEDTIME PRN 06/17/22 Lax) Constipation #30 tabs prednisone 10 mg tablet See Taper PO DAILY #30 tabs 07/14/22 fidaxomicin 200 mg tablet 200 mg PO BID 10 days #20 tabs 07/29/22 amoxicillin 875 mg-potassium 1 tab PO BID #20 tabs 07/31/22 clavulanate 125 mg tablet Allergies Allergy/AdvReac Type Severity Reaction Status Date / Time levofloxacin Allergy Severe vasculitis Verified 07/29/22 08:45 ceftriaxone AdvReac Mild pruritis Verified 07/29/22 08:45 Review of Systems Review of Systems: Yes all other systems are reviewed and are negative PMFSH Past Medical History Medical History Acute UTI ENEIDA (acute kidney injury) E coli bacteremia Hx of fracture of clavicle Liver abscess Liver masses Scrotal erythema Surgical History Hx of knee surgery Hx of tonsillectomy Family History Family History Paternal Grandfather Diabetes Social History Social History Household Members: Family Household Members Other:: brother and sister?? Housing: House Do you presently have visiting nurse or other home services: No (pt lives with his brother,however, was at [facility] after hospital discharge 07/05) Alcohol intake: never Patient Tobacco Use Status: Former Tobacco user Quit Date: >30 yrs ago e-Cigarette/Vaping Use: Never Used Second Hand Smoke Exposure: No Advance Directives: Yes Advance Directives on File: Yes Advance Directives Date on File: 06/23/22 service: No Current occupational status: retired Physical Exam Vital Signs: Vital Signs: Last Vital Signs Temp 97.8 F 07/31/22 00:00 Pulse 83 07/31/22 00:00 Resp 16 07/31/22 00:00 BP 118/67 07/31/22 00:00 Pulse Ox 100 07/31/22 00:00 O2 Del Method 07/31/22 00:00 BMI result Body Mass Index 25.0 Appearance: Alert. Oriented X3. No acute distress. ENT: Pharynx normal. Oral Mucosa moist Neck: Normal inspection. Neck supple. CVS: Normal heart rate and rhythm. Pulses normal. Respiratory: No respiratory distress. Equal air entry bilateral, no wheezing/rales/rhonchi Abdomen: Soft and nontender. Bowel sounds are present, no mass palpable, no CVA tenderness Skin: Skin warm and dry. Normal skin color. Normal skin turgor. Extremities: No lower extremity edema. No calf tenderness Neuro: Oriented X 3. No motor deficit. MDM - Male Genitourinary MDM Narrative Medical decision making narrative: Patient able to urinate only few drops of urine after removing Daily catheter. Bladder scan showed 905 cc of urine will order a new Daily catheter advised to follow with urologist Lab Data Attestation: I reviewed the patient's lab results. Labs: Lab Results 07/31/22 Range/Units 01:04 Urine Color Yellow Urine Appearance Clear Urine pH 5.5 (5.0-9.0) Ur Specific [place] 1.015 (1.005-1.025) Urine Protein 30 (1+) H (Neg-Trace) mg/dL Urine Glucose (UA) Negative (Negative) mg/dL Urine Ketones Negative (Negative) mg/dL Urine Blood Moderate (2+) H (Negative) Urine Nitrite Negative (Negative) Ur Leukocyte Esterase Large (3+) H (Negative) Urine RBC >20 H (0-2) /HPF Urine WBC >50 H (0-5) /HPF Ur Squamous Epith Cells 0-2 (0-2) /HPF Urine Bacteria 1+ (None Seen) Hyaline Casts 0-2 (0-2) /LPF Urine Yeast Present Procedures Catheter Insertion (Urinary) Date of insertion: 07/30/22 Time of insertion: 23:50 Reason for placing: Yes Reason for placing indwelling catheter: Acute urinary retention Bladder scan/ultrasound used before catheterization: Yes Estimated amount of urine (mLs): 950 Antiseptic solution prep: Povidone-Iodine Topical anesthesia used: No Catheter type/location: Urethral Size (Belarusian): 16 Catheter balloon size (mL): 10 Catheter balloon amount: 10 Results: successfully catheterized-immediate flow Procedure performed: without complications Discharge Plan Discharge Clinical Impression: Acute retention of urine, Urinary tract infection Patient Disposition: Home, Self-Care Instructions: Urinary Tract Infection in Men (ED), Daily Catheter Placement and Care (ED) Additional Instructions: Drink plenty of fluids Follow-up with urologist if any concern with urination Report to the ER if unable to urinate Take antibiotic as prescribed and follow with PCP Prescriptions: New amoxicillin-pot clavulanate 875-125 mg tablet 1 tab PO BID Qty: 20 0RF No Action fidaxomicin 200 mg tablet 200 mg PO BID 10 Days Qty: 20 0RF sennosides [Senna Lax] 8.6 mg Tablet 17.2 mg PO BEDTIME PRN (Reason: Constipation) Qty: 30 0RF prednisone 10 mg tablet See Taper PO DAILY Qty: 30 0RF Taper: Prednisone 40 mg daily for 3 Days and 0 Hour 30 mg daily for 3 Days and 0 Hour 20 mg daily for 3 Days and 0 Hour 10 mg daily for 3 Days and 0 Hour tamsulosin [Flomax] 0.4 mg capsule 0.4 mg PO DAILY@1999 finasteride 5 mg tablet 5 mg PO DAILY@1999 Referrals: Alexander Eugene MD [Physician] - 1 week
[2022-07-31] VITALS: BP 118/67; PULSE 83; RESP 16; TEMP 36.6; O2SAT 100
[2022-07-31 01:15] LABS: Appearance Urine Clear; Color Urine Yellow; Glucose Urine UA Negative (Negative); Leukocyte Esterase Urine Large (3+) (Negative); Nitrite Urine Negative (Negative); PH 5.5 (5.0-9.0); Specific Gravity - Urine 1.015 (1.005-1.025); Urine Blood Moderate (2+) (Negative); Urine Ketones Negative (Negative); Urine Protein 30 (1+) mg/dL (Neg-Trace)
[2022-07-31 01:16] LABS: UACC Culture Trigger YES
[2022-07-31 01:27] LABS: Bacteria Urine 1+ (None Seen); Hyaline Casts Urine 0-2 /LPF (0-2); RBC Urine >20 /HPF (0-2); Squamous Epithelial Cell Urine 0-2 /HPF (0-2); WBC Urine >50 /HPF (0-5)
--- NOTE | 2022-07-31 01:51 | ED.MALEGU ---
HPI - Male Genitourinary General Chief complaint: Urogenital-Male Stated complaint: Catheter Issues Time Seen by Provider: 07/30/22 21:13 Source: patient Mode of arrival: EMS Limitations: no limitations Related Data Home Medications Medication Instructions Recorded Confirmed finasteride 5 mg tablet 5 mg PO DAILY@199906/23/22 07/18/22 tamsulosin 0.4 mg capsule (Flomax) 0.4 mg PO DAILY@199906/23/22 07/18/22 Previous Rx's Medication Instructions Recorded sennosides 8.6 mg tablet (Senna 17.2 mg PO BEDTIME PRN 06/17/22 Lax) Constipation #30 tabs prednisone 10 mg tablet See Taper PO DAILY #30 tabs 07/14/22 fidaxomicin 200 mg tablet 200 mg PO BID 10 days #20 tabs 07/29/22 amoxicillin 875 mg-potassium 1 tab PO BID #20 tabs 07/31/22 clavulanate 125 mg tablet Allergies Allergy/AdvReac Type Severity Reaction Status Date / Time levofloxacin Allergy Severe vasculitis Verified 07/29/22 08:45 ceftriaxone AdvReac Mild pruritis Verified 07/29/22 08:45 PMF Past Medical History Medical History Acute UTI ENEIDA (acute kidney injury) E coli bacteremia Hx of fracture of clavicle Liver abscess Liver masses Scrotal erythema Surgical History Hx of knee surgery Hx of tonsillectomy Family History Family History Paternal Grandfather Diabetes Social History Social History Household Members: Family Household Members Other:: brother and sister?? Housing: House Do you presently have visiting nurse or other home services: No (pt lives with his brother,however, was at str after hospital discharge 07/05) Alcohol intake: never Patient Tobacco Use Status: Former Tobacco user Quit Date: >30 yrs ago e-Cigarette/Vaping Use: Never Used Second Hand Smoke Exposure: No Advance Directives: Yes Advance Directives on File: Yes Advance Directives Date on File: 06/23/22 service: No Current occupational status: retired Physical Exam Vital Signs: Vital Signs: Last Vital Signs Temp 97.8 F 07/31/22 00:00 Pulse 83 07/31/22 00:00 Resp 16 07/31/22 00:00 BP 118/67 07/31/22 00:00 Pulse Ox 100 07/31/22 00:00 O2 Del Method 07/31/22 00:00 BMI result Body Mass Index 25.0 MDM - Male Genitourinary Lab Data Labs: Lab Results 07/31/22 Range/Units 01:04 Urine Color Yellow Urine Appearance Clear Urine pH 5.5 (5.0-9.0) Ur Specific [place] 1.015 (1.005-1.025) Urine Protein 30 (1+) H (Neg-Trace) mg/dL Urine Glucose (UA) Negative (Negative) mg/dL Urine Ketones Negative (Negative) mg/dL Urine Blood Moderate (2+) H (Negative) Urine Nitrite Negative (Negative) Ur Leukocyte Esterase Large (3+) H (Negative) Urine RBC >20 H (0-2) /HPF Urine WBC >50 H (0-5) /HPF Ur Squamous Epith Cells 0-2 (0-2) /HPF Urine Bacteria 1+ (None Seen) Hyaline Casts 0-2 (0-2) /LPF Urine Yeast Present Discharge Plan Discharge Clinical Impression: Acute retention of urine, Urinary tract infection Patient Disposition: Home, Self-Care Instructions: Urinary Tract Infection in Men (ED), Daily Catheter Placement and Care (ED) Additional Instructions: Drink plenty of fluids Follow-up with urologist if any concern with urination Report to the ER if unable to urinate Take antibiotic as prescribed and follow with PCP Prescriptions: New amoxicillin-pot clavulanate 875-125 mg tablet 1 tab PO BID Qty: 20 0RF No Action fidaxomicin 200 mg tablet 200 mg PO BID 10 Days Qty: 20 0RF sennosides [Senna Lax] 8.6 mg Tablet 17.2 mg PO BEDTIME PRN (Reason: Constipation) Qty: 30 0RF prednisone 10 mg tablet See Taper PO DAILY Qty: 30 0RF Taper: Prednisone 40 mg daily for 3 Days and 0 Hour 30 mg daily for 3 Days and 0 Hour 20 mg daily for 3 Days and 0 Hour 10 mg daily for 3 Days and 0 Hour tamsulosin [Flomax] 0.4 mg capsule 0.4 mg PO DAILY@1999 finasteride 5 mg tablet 5 mg PO DAILY@1999 Referrals: Alexander Eugene MD [Physician] - 1 week Interventions: ED Discharge Assessment Last Done: 07/31/22 02:41 Discharge Date/Time: 07/31/22 02:41
[2022-07-31] MEDS: Amoxicillin/Potassium Clav 875 MG TABLET PO (02:09)
== END 2022-07-31 02:41 | disposition home or self-care (01) ==
PROVIDERS: Emergency Provider Internal Medicine
DX: R33.9 Retention of urine, unspecified (principal); N39.0 Urinary tract infection, site not specified; B96.5 Pseudomonas (aeruginosa) (mallei) (pseudomallei) as the cause of diseases classified elsewhere; B95.2 Enterococcus as the cause of diseases classified elsewhere
CPT/HCPCS: 51702; 51798; 81001; 87086; 87088; 87186; 99284

== ENCOUNTER 2022-08-03 15:56 | Emergency (ER) | payer MEDICARE, SELFPAY ==
[2022-08-03 16:40] VITALS: BP 130/78; BP 143/77; PULSE 100; PULSE 106; RESP 18; TEMP 36.6; O2SAT 100; O2SAT 99; BMI 25.0
--- NOTE | 2022-08-03 17:24 | ED_ITS ---
HPI - Male Genitourinary General Chief complaint: Urogenital-Male Stated complaint: ? UTI Time Seen by Provider: 08/03/22 16:18 Source: patient and EMS Mode of arrival: EMS Limitations: no limitations History of Present Illness HPI Narrative: 72-year-old male came in for evaluation of suprapubic abdominal distension and blockage of Daily catheter. Patient came by EMS from home for evaluation of blockage of the Daily catheter that was placed in the emergency department 3 days ago, patient was started on Augmentin the patient did not take the medicine worries about allergy, patient has been having itching which apparent on the physical exam due to scabies and not likely to due to drug reaction. Patient notices that Daily catheter is not draining since this morning had similar problem last week when presented to the ED and the Daily catheter was replaced. Patient otherwise decline fever, chills, vomiting, or nausea. Related Data Home Medications Medication Instructions Recorded Confirmed finasteride 5 mg tablet 5 mg PO DAILY@199906/23/22 07/18/22 tamsulosin 0.4 mg capsule (Flomax) 0.4 mg PO DAILY@199906/23/22 07/18/22 Previous Rx's Medication Instructions Recorded sennosides 8.6 mg tablet (Senna 17.2 mg PO BEDTIME PRN 06/17/22 Lax) Constipation #30 tabs prednisone 10 mg tablet See Taper PO DAILY #30 tabs 07/14/22 fidaxomicin 200 mg tablet 200 mg PO BID 10 days #20 tabs 07/29/22 amoxicillin 875 mg-potassium 1 tab PO BID #20 tabs 07/31/22 clavulanate 125 mg tablet permethrin 1 % topical liquid 60 ml topical ONCE #59 mL 08/03/22 Allergies Allergy/AdvReac Type Severity Reaction Status Date / Time levofloxacin Allergy Severe vasculitis Verified 07/29/22 08:45 ceftriaxone AdvReac Mild pruritis Verified 07/29/22 08:45 Review of Systems Review of Systems: All other systems are reviewed and are negative Constitutional: Reports as per HPI and Reports no additional constitutional complaints Eyes: Reports as per HPI and Reports no additional eye complaints Reports system reviewed and no additional complaints, except as documented Cardiovascular: Reports as per HPI and Reports no additional cardiovascular complaints Respiratory: Reports as per HPI and Reports no additional respiratory complaints Gastrointestinal: Reports as per HPI and Reports no additional gastrointestinal complaints Genitourinary: Reports no additional female genitourinary complaints Musculoskeletal: Reports no additional musculoskeletal complaints Skin/Breast: Reports system reviewed and no additional complaints, except as docu Psychiatric: Reports no additional psychiatric complaints Endocrine: Reports no additional endocrine complaints Hematologic/Lymphatic: Reports no additional hematologic/lymphatic complaints Allergic/Immunologic: Reports no additional allergic/immunologic complaints Reports system reviewed and no additional complaints, except as documented and Reports Abnormal speech present [facility] Past Medical History Medical History Acute UTI ENEIDA (acute kidney injury) E coli bacteremia Hx of fracture of clavicle Liver abscess Liver masses Scrotal erythema Surgical History Hx of knee surgery Hx of tonsillectomy Family History Family History Paternal Grandfather Diabetes Social History Social History Household Members: Family Household Members Other:: brother and sister?? Housing: House Do you presently have visiting nurse or other home services: No (pt lives with his brother,however, was at [facility] after hospital discharge 07/05) Alcohol intake: never Patient Tobacco Use Status: Former Tobacco user Quit Date: >30 yrs ago e-Cigarette/Vaping Use: Never Used Second Hand Smoke Exposure: No Advance Directives: Yes Advance Directives on File: Yes Advance Directives Date on File: 06/23/22 service: No Current occupational status: retired Physical Exam Vital Signs: Vital Signs: Last Vital Signs Temp 97.9 F 08/03/22 16:40 Pulse 100 08/03/22 16:40 Resp 18 08/03/22 16:40 BP 143/77 H 08/03/22 16:40 Pulse Ox 100 08/03/22 16:40 O2 Del Method 08/03/22 16:40 BMI result Body Mass Index 25.0 Vital signs have been reviewed as appeared to be correct. Blood pressure normal. Heart rate normal. Respiration rate normal. Temperature normal. Oxygen saturation normal. Appearance: Alert. Oriented X3. No acute distress. Head: Normal external exam. Normocephalic. Atraumatic. No Schroeder signs noted. No raccoon eyes noted Eyes: PERRLA. EOMI. Conjunctiva and sclera normal. Eyelids normal. ENT: TM's Normal. Pharynx normal. Uvula midline. Moist mucous membranes. No trismus noted. No drooling noted. No muffled voice noted. Neck: Normal inspection. Neck supple. FROM. No adenopathy. Thyroid Normal. No meningeal signs. No neck mass noted. CVS: Normal heart rate and rhythm. Heart sound normal. No murmurs noted. Pulses normal throughout. Respiratory: No respiratory distress. Painless inspiration. Breath sounds normal. No wheezes/rales/rhonchi noted. Chest nontender. No accessory muscle usage noted or decreased air movement noted. Abdomen: Suprapubic distension and mild tenderness, no rebound tenderness, no guarding.. Bowel sounds normal in all 4 quadrants. No distention noted. No organomegaly noted. No visible injury noted. Back: No CVA tenderness. Full range of motion noted. Skin: Multiple small erythematous papules appear excoriated some burrows is visible in some area mostly on the flexor side of bilateral upper extremities and an whips of the fingers Extremities: No lower extremity edema. Extremities exhibit normal range of motion. Extremities nontender. Neuro: Oriented X 3. Cranial nerve exam: II-XII are grossly intact No motor deficit. No sensory deficit. Reflexes normal. Course Course Course Narrative: 72-year-old male came in for Daily catheter blockage and abdominal distension the Daily catheter was replaced, patient felt much better after drained 1.5 L of urine started with blood clots and now is clear. Patient thinks that his allergic to Augmentin because he itches after taking it however I think patient is itching because he has an extensive scabies infestation which will treat with permethrin. Patient has an appointment with a urologist this week. [facility] - Male Genitourinary Lab Data Attestation: I reviewed the patient's lab results. Labs: Lab Results 08/03/22 Range/Units 17:25 Urine Color Yellow Urine Appearance Cloudy Urine pH 6.0 (5.0-9.0) Ur Specific [place] 1.010 (1.005-1.025) Urine Protein 30 (1+) H (Neg-Trace) mg/dL Urine Glucose (UA) Negative (Negative) mg/dL Urine Ketones Negative (Negative) mg/dL Urine Blood Large (3+) H (Negative) Urine Nitrite Positive H (Negative) Ur Leukocyte Esterase Large (3+) H (Negative) Urine RBC >20 H (0-2) /HPF Urine WBC >50 H (0-5) /HPF Ur Squamous Epith Cells 0-2 (0-2) /HPF Urine Bacteria 4+ (None Seen) Hyaline Casts 0-2 (0-2) /LPF Procedures Catheter Insertion (Urinary) Date of insertion: 08/03/22 Time of insertion: 17:46 Reason for placing: Yes Reason for placing indwelling catheter: Acute urinary retention Patient has the following: history of catheter associated urinary tract infection Bladder scan/ultrasound used before catheterization: Yes Estimated amount of urine (mLs): 950 Antiseptic solution prep: Povidone-Iodine Topical anesthesia used: Yes Catheter type/location: Urethral Size (Greenlandic): 16 Catheter balloon size (mL): 30 Catheter balloon amount: 15 Procedure performed: without complications Discharge Plan Discharge Clinical Impression: Urinary tract infection, Acute retention of urine, Complication of Daily catheter, Scabies Patient Disposition: Home, Self-Care Instructions: Daily Catheter Placement and Care (ED), Scabies (ED) Prescriptions: New permethrin 1 % liquid 60 ml topical ONCE Qty: 59 0RF Rx Instructions: Apply the solution thoroughly into the scanned from the leg to the sole of the feet including areas under the fingernails and toenails apply about 30 g (half of the amount) leave it on your body for 8-10 hours preferred to be overnight then ran the with regular water in the shower. Avoid mucous membrane area. No Action fidaxomicin 200 mg tablet 200 mg PO BID 10 Days Qty: 20 0RF sennosides [Senna Lax] 8.6 mg Tablet 17.2 mg PO BEDTIME PRN (Reason: Constipation) Qty: 30 0RF prednisone 10 mg tablet See Taper PO DAILY Qty: 30 0RF Taper: Prednisone 40 mg daily for 3 Days and 0 Hour 30 mg daily for 3 Days and 0 Hour 20 mg daily for 3 Days and 0 Hour 10 mg daily for 3 Days and 0 Hour amoxicillin-pot clavulanate 875-125 mg tablet 1 tab PO BID Qty: 20 0RF tamsulosin [Flomax] 0.4 mg capsule 0.4 mg PO DAILY@2000 finasteride 5 mg tablet 5 mg PO DAILY@1999 Referrals: Alexander Eugene MD [Physician] -
[2022-08-03 17:40] LABS: Appearance Urine Cloudy; Color Urine Yellow; Glucose Urine UA Negative (Negative); Leukocyte Esterase Urine Large (3+) (Negative); Nitrite Urine Positive (Negative); UMIC TRIGGER UACC YES; Urine Blood Large (3+) (Negative); Urine Ketones Negative (Negative); Urine Protein 30 (1+) mg/dL (Neg-Trace)
[2022-08-03] MEDS: Amoxicillin/Potassium Clav 875 MG TABLET PO (17:40)
[2022-08-03 17:45] LABS: Bacteria Urine 4+ (None Seen); Hyaline Casts Urine 0-2 /LPF (0-2); RBC Urine >20 /HPF (0-2); Squamous Epithelial Cell Urine 0-2 /HPF (0-2); UACC Culture Trigger YES; WBC Urine >50 /HPF (0-5)
== END 2022-08-03 20:15 | disposition home or self-care (01) ==
PROVIDERS: Physician Assistant; Emergency Provider Emergency Medicine
DX: N39.0 Urinary tract infection, site not specified (principal); R33.9 Retention of urine, unspecified; Z79.899 Other long term (current) drug therapy
CPT/HCPCS: 51702; 81001; 87086; 99283

== ENCOUNTER → 2022-08-05 09:41 | Outpatient (BNVA) | payer MEDICARE, SELFPAY | PROVIDERS: Visit Provider Urology | DX: N40.1 Benign prostatic hyperplasia with lower urinary tract symptoms (principal); N13.8 Other obstructive and reflux uropathy; R33.9 Retention of urine, unspecified | CPT/HCPCS: 99202 ==

== ENCOUNTER → 2022-08-24 09:04 | Outpatient (BNVA) | payer MEDICARE, SELFPAY | PROVIDERS: Visit Provider Urology | DX: N40.1 Benign prostatic hyperplasia with lower urinary tract symptoms (principal); R33.9 Retention of urine, unspecified | CPT/HCPCS: 51700; 51798 ==

== ENCOUNTER → 2022-10-04 13:24 | Outpatient (BNVA) | payer MEDICARE, SELFPAY | PROVIDERS: Visit Provider Urology | DX: N40.1 Benign prostatic hyperplasia with lower urinary tract symptoms (principal); N13.8 Other obstructive and reflux uropathy; R33.9 Retention of urine, unspecified | CPT/HCPCS: 51798; 99212 ==

== ENCOUNTER → 2023-04-11 13:23 | Outpatient (BNVA) | payer MEDICARE, SELFPAY | PROVIDERS: Visit Provider Urology | DX: N52.9 Male erectile dysfunction, unspecified (principal) | CPT/HCPCS: 99212 ==

== ENCOUNTER 2023-10-31 11:28 | Outpatient (AMB) | payer MEDICARE, SELFPAY ==
--- NOTE | 2023-10-31 11:36 | A.OFFVIS_ITS ---
Intake Intake Visit Reasons: r/s appt that was cancelled on 10/11 Intake Note: Patient is Present for Follow Up PVR Urology Medication: Finasteride, Tadalafil, Terazosin Antibiotic Allergies: Levofloxacin, Amoxicillin Blood Thinners: None PVR: 60 Compliants: Allergies levofloxacin Allergy (Severe, Verified 10/31/23 11:37) vasculitis amoxicillin Allergy (Unknown, Verified 10/31/23 11:37) Itching ceftriaxone Adverse Reaction (Mild, Verified 10/31/23 11:37) pruritis Medication List - Last Reconciled 10/31/23 by Alexander Eugene MD fidaxomicin 200 mg PO BID 10 days finasteride 5 mg PO DAILY@1999 90 days permethrin 1% 60 mL topical ONCE prednisone See Taper mg PO DAILY sennosides (Senna Lax) 17.2 mg (2 x 8.6 mg) PO BEDTIME PRN tadalafil 20 mg PO ONCE PRN 30 days terazosin 5 mg PO BEDTIME 90 days HPI HPI Comments History of Present Illness Details Nael is a pleasant male. He is seen for the following urologic conditions - lower urinary tract symptoms PVR 60 cc Continues with finasteride and alpha-max Not happy with terazosin Discussed potential procedures to prostate Plan bladder ultrasound check cystoscopy in office Lower urinary tract symptoms Hospital admission July 2022 with urinary retention Current medication with finasteride and alpha-max terazosin 5 mg Erectile Dysfunction Progressive On demand tadalafil 20 mg PFSH Medical History Hx of fracture of clavicle Liver abscess E coli bacteremia Scrotal erythema ENEIDA (acute kidney injury) Acute UTI Liver masses Surgical History History of esophagogastroduodenoscopy (EGD) Hx of colonoscopy Hx of tonsillectomy Hx of knee surgery Family History Paternal Grandfather Diabetes Social History Household Members: Family Household Members Other:: brother and sister?? Housing: House Do you presently have visiting nurse or other home services: No (pt lives with his brother,however, was at str after hospital discharge 07/05) Alcohol intake: never Patient Tobacco Use Status: Former Tobacco user Quit Date: >30 yrs ago e-Cigarette/Vaping Use: Never Used Second Hand Smoke Exposure: No Advance Directives Date on File: 06/23/22 service: No Current occupational status: retired Review of Systems Const Denies chills and Denies fever(s) Card Reports no additional complaints and Denies syncope Resp Denies cough GI Denies abdominal pain and Denies heartburn Reports as per HPI and Denies change in libido Neuro Denies syncope Psych Denies change in libido Endo Denies change in libido Physical Exam Const General: cooperative, healthy appearing, comfortable and no acute distress Orientation/consciousness: patient oriented x3 HEENT Face and sinus: Yes normal facial exam Mouth: moist mucous membranes Neck Neck: Yes normal visual inspection, Yes full ROM and Yes trachea midline Chest Chest palpation & inspection: normal inspection of the chest Resp Effort & Inspection: normal respiratory effort, able to speak in complete sentences and no respiratory distress GI Inspection: Yes normal to inspection Back/Spine/Pelvis Cervical Spine: normal cervical lordosis Thoracic/Lumbar Spine: thoracic and lumbar spine normal to inspection Skin General skin exam: no rashes or lesions noted Neuro General: patient oriented x3, gait normal, tone normal and moves all extremities Extrem General: Yes normal to inspection and Yes capillary refill normal Office Procedures Post Void Residual Post Residual Void Post Void Residual (PVR): 60 [id number]-[id number] Void Residual by ultrasound Assessment & Plan Assessment & Plan (1) Incomplete emptying of bladder due to benign prostatic hyperplasia: Code(s): N40.1 - Benign prostatic hyperplasia with lower urinary tract symptoms; R33.9 - Retention of urine, unspecified (2) BPH w urinary obs/LUTS: Code(s): N40.1 - Benign prostatic hyperplasia with lower urinary tract symptoms; N13.8 - Other obstructive and reflux uropathy Plan Office cystoscopy Orders: Orders AMB Post Void Residual by ultrasound Today N13.8 - Other obstructive and reflux uropathy, N40.1 - Benign prostatic hyperplasia with lower urinary tract symptoms US bladder Today N40.1 - Benign prostatic hyperplasia with lower urinary tract symptoms, R33.9 - Retention of urine, unspecified, R39.12 - Poor urinary stream Patient Instructions: Imaging studies, laboratory and physical exam results were discussed and reviewed in detail. No major barriers to patient understanding were identified. An opportunity to ask questions regarding the treatment plan was provided. All questions were answered. The patient expressed understanding and agreement with the above treatment plan. The patient is aware they should contact our office by phone for worsening of their current condition or the appearance of new urologic symptoms. Compliance is encouraged with any medications and followup testing that is ordered. It is a privilege to participate in the urologic care of your patient. If you have any questions or concerns regarding treatment for the above conditions, or other urologic issues, please do not hesitate to contact me. The office telephone contact is [phone]. This note is constructed using voice recognition software. While every effort has been made to ensure accuracy municipal maintenance worker errors may have been included. Yours sincerely, Dr Alexander Eugene MD, [facility] - Urology Providers of Expert, Compassionate Care for the Genitourinary System Coding Level of Care Code Est Pt Level 3 (39491) Diagnoses Incomplete emptying of bladder due to benign prostatic hyperplasia N40.1; R33.9 BPH w urinary obs/LUTS N40.1; N13.8 CPT Codes Post Residual Void - PVR CPT Code: 40164-Vzvg Void Residual by ultrasound ([id number])
== END 2023-10-31 12:32 | disposition home or self-care (01) ==
LOC: HO.HUSH 11:28
PROVIDERS: Visit Provider Urology
DX: N40.1 Benign prostatic hyperplasia with lower urinary tract symptoms (principal); R33.9 Retention of urine, unspecified; N13.8 Other obstructive and reflux uropathy
CPT/HCPCS: 99213

== ENCOUNTER → 2023-10-31 11:28 | Outpatient (BNVA) | payer MEDICARE, SELFPAY | PROVIDERS: Visit Provider Urology | DX: N40.1 Benign prostatic hyperplasia with lower urinary tract symptoms (principal); N13.8 Other obstructive and reflux uropathy; R33.9 Retention of urine, unspecified | CPT/HCPCS: 51798; 99212 ==

== ENCOUNTER 2024-10-23 15:32 | Outpatient (AMB) | payer MEDICARE, SELFPAY ==
--- NOTE | 2024-10-22 17:05 | A.OFFVIS_ITS ---
Intake Visit Reasons: BPH/second opinion/PVR Intake Note: Patient presents today for BPH and PVR Urology Medication: Finasteride, Tadalafil, Terazosin (patient stated that he ran out and is not currently taking) Antibiotic Allergies: Levofloxacin, Amoxicillin Blood Thinners: None PVR: 13ml's Apple Picking Supervisor Required: No Accompanied by: Self / Same As Patient Allergies levofloxacin Allergy (Severe, Verified 10/23/24 15:55) vasculitis amoxicillin Allergy (Unknown, Verified 10/23/24 15:55) Itching ceftriaxone Adverse Reaction (Mild, Verified 10/23/24 15:55) pruritis Medication List - Last Reconciled 10/23/24 by Paola Roger MD sulfamethoxazole-trimethoprim 800-160 mg (Bactrim DS) 1 tab PO BID HPI Comments Details: 10/23/24-- Nael is here for urology evaluation, he was last seen in our office by Dr Eugene 10/2023. He is not on any of the prostate medications prescribed. Bladder scan PVR 13 mL. When I questioned him regarding his urine flow he states that he has had some burning that comes and goes and some lower back pain. Urinalysis-3+ leukocytes, 3+ blood, I will empirically start him on antibiotics Bactrim DS 1 tab twice a day for 7 days. He was not able to provide enough urine for both culture and cytology. I will send the urine for culture. I have discussed further evaluation with ultrasound retroperitoneum and follow- up office cystoscopy. Review of chart: Last renal US 06/2022- large prostate (?blank) meds proscar, terazosin, tadalifil 20 mg on demand no recent PSA PFSH Medical History Hx of fracture of clavicle Liver abscess E coli bacteremia Scrotal erythema ENEIDA (acute kidney injury) Acute UTI Liver masses Surgical History History of esophagogastroduodenoscopy (EGD) Hx of colonoscopy Hx of tonsillectomy Hx of knee surgery Family History Paternal Grandfather Diabetes Social History Household Members: Family Household Members Other:: brother and sister?? Housing: House Do you presently have visiting nurse or other home services: No (pt lives with his brother,however, was at str after hospital discharge 07/05) Alcohol intake: never Patient Tobacco Use Status: Former Tobacco user e-Cigarette/Vaping Use: Never Used Second Hand Smoke Exposure: No Advance Directives Date on File: 06/23/22 service: No Current occupational status: retired Review of Systems Const All systems reviewed & are unremarkable except as noted in HPI and below Reports no additional complaints Eyes Reports no additional complaints ENT Reports no additional complaints Card Reports no additional complaints Resp Reports no additional complaints GI Reports no additional complaints Reports as per HPI Musc Reports no additional complaints Skin/Breast Reports system reviewed and no additional complaints, except as documented Neuro Reports no additional complaints Psych Reports no additional complaints Endo Reports no additional complaints Kurt/Lymph Reports no additional complaints Aller/Immun Reports no additional complaints Office Procedures Post Void Residual Post Residual Void Post Void Residual (PVR): 13 [id number]-[id number] Void Residual by ultrasound Results AMB Urinalysis, Automated UA Leukoctes 500 [place]/uL Last Edit by Jessie Pichardo on 10/23/24 16:00 UA Nitrite Last Edit by Jessie Pichardo on 10/23/24 16:00 UA Urobilinogen 0.2 mg/dL Last Edit by Jessie Pichardo on 10/23/24 16:00 UA Protein 300 mg/dL Last Edit by Jessie Pichardo on 10/23/24 16:00 UA pH 6.0 Last Edit by Jessie Pichardo on 10/23/24 16:00 UA Blood 200 [place]/uL Last Edit by Jessie Pichardo on 10/23/24 16:00 UA Specific [place] 1.020 Last Edit by Jessie Pichardo on 10/23/24 16:00 UA Ketone Last Edit by Jessie Pichardo on 10/23/24 16:00 UA Bilirubin 0 mg/dL Last Edit by Jessie Pichardo on 10/23/24 16:00 UA Glucose 0 mg/dL Last Edit by Jessie Pichardo on 10/23/24 16:00 Assessment & Plan Assessment & Plan (1) BPH w urinary obs/LUTS: Code(s): N40.1 - Benign prostatic hyperplasia with lower urinary tract symptoms; N13.8 - Other obstructive and reflux uropathy Category: Medical (2) Hematuria: Code(s): R31.9 - Hematuria, unspecified Category: Medical (3) UTI symptoms: Code(s): R39.9 - Unspecified symptoms and signs involving the genitourinary system Category: Medical Plan Urine culture, empirically treat with Bactrim DS 1 tab twice a day for 7 days. Ultrasound retroperitoneal, follow-up office cystoscopy Orders: Orders AMB Urinalysis Automated Today Z13.9 - Encounter for screening, unspecified Urine Culture Today Z13.9 - Encounter for screening, unspecified AMB Post Void Residual by ultrasound Today N13.8 - Other obstructive and reflux uropathy, N40.1 - Benign prostatic hyperplasia with lower urinary tract symptoms US retroperitoneal comp Today N13.8 - Other obstructive and reflux uropathy, N40.1 - Benign prostatic hyperplasia with lower urinary tract symptoms, R31.9 - Hematuria, unspecified, R39.9 - Unspecified symptoms and signs involving the genitourinary system Medications: New sulfamethoxazole-trimethoprim 800-160 mg (Bactrim DS) 1 tab PO BID 14 tabs 0RF Coding Level of Care Code Est Pt Level 4 (53611) Diagnoses BPH w urinary obs/LUTS N40.1; N13.8 Hematuria R31.9 UTI symptoms R39.9 CPT Codes Post Residual Void - PVR CPT Code: 91327-Epbu Void Residual by ultrasound ([id number])
== END 2024-10-23 16:13 | disposition home or self-care (01) ==
PROVIDERS: Visit Provider Urology
DX: N40.1 Benign prostatic hyperplasia with lower urinary tract symptoms (principal); N13.8 Other obstructive and reflux uropathy; R31.9 Hematuria, unspecified; R39.9 Unspecified symptoms and signs involving the genitourinary system; Z13.9 Encounter for screening, unspecified
CPT/HCPCS: 99214

== ENCOUNTER 2024-10-23 15:32 | Outpatient (REF) | payer MEDICARE, SELFPAY | END 2024-10-23 15:33 | disposition home or self-care (01) | LOC: HO.LNP 15:32 | PROVIDERS: Visit Provider Urology | DX: N13.8 Other obstructive and reflux uropathy (principal); N40.1 Benign prostatic hyperplasia with lower urinary tract symptoms; R31.9 Hematuria, unspecified; R39.9 Unspecified symptoms and signs involving the genitourinary system | CPT/HCPCS: 51798; 81003; 87086; 87088; 87186; 99212 ==

== ENCOUNTER 2024-12-18 14:14 | Outpatient (REF) | payer MEDICARE, SELFPAY ==
--- NOTE | ~2024-12-18 | US_ITS ---
CLINICAL HISTORY: R31.9 - Hematuria, unspecified US retroperitoneum with color Doppler Comparison: None Findings: Right kidney normal size and echotexture, 10.8 cm length. No hydronephrosis. Normal color flow. No nephrolithiasis or renal masses. Left kidney is slightly diminutive in size with cortical thinning and increased renal echotexture, lower pole caliceal stone measuring 9 mm. Cm in length. No hydronephrosis. Normal color flow. Pelvicaliectasis. Possible 12 mm calculus mid right ureter. Noncontrast CT would be confirmatory. Dependent bladder stone measuring 3.8 x 3.2 x 3.8 cm. There is multiple bladder diverticulum and a stone in a bladder diverticulum on the left measuring 16 x 14 x 17 mm. Prevoid volume 197.0 mL. Postvoid volume 131.0 mL. Ureteral jets were not visualized Prostate measures 6.7 x 6.0 x 5.2 cm. Impression: 1. Significant cortical thinning left kidney which is diminutive in size and increase in renal echotexture. 2. Nephrolithiasis and pelvicaliectasis left kidney. 3. Possible calculus mid left ureter noncontrast CT would be confirmatory. 4. Large dependent bladder stone. A stone is noted in a bladder diverticulum on the left. Elevated postvoid residual. 5. Prostate volume 111.0 mL This document has been electronically signed by: Evan Andres MD on 12/20/2024 11:03:35
--- OUTSIDE RECORDS SUMMARY | 2024-12-18 16:29 | XMS_ITS | Clinical Summary ---
Author Organization [facility] Facility Address [address] [place] [id number] Care Team Providers Care Machine Plate Stacker Name Role Phone Unavailable Primary Care Provider Unavailabl e Medications No known medications Active Problems Problem Noted Date Diagnosed Date Hypo-osmolality and hyponatremia 08/18/2022 Acute nontraumatic kidney injury 08/18/2022 Hyperkalemia 08/18/2022 Family History Relation Status Comments Father Mother Social History Tobacco Use Types Packs/Day Years Used Date Smoking Tobacco: Never Smokeless Tobacco: Never Tobacco Cessation:Counseling Given: Not Answered Alcohol Use Standard Drinks/Week Comments Not Currently 0 (1 standard drink = 0.6 oz pur e alcohol) Sex and Gender Information Value Date Recorded Sex Assigned at Not on file Legal Sex Male 8:30 AM EDT Gender Identity Not on file Sexual Orientation Not on file Plan of Treatment Health Maintenance Due Date Last Done Comments Pneumococcal Vaccine: 65+ Ye ars (1 of 2 - PCV) 1956 Influenza Vaccine (#1) 2024 Hepatitis B Vaccine Aged Out No longe r eligible based on patient's age to complete this topic Insurance MEDICARE MEDICARE
== END 2024-12-18 14:15 | disposition home or self-care (01) ==
LOC: HO.US 14:14
PROVIDERS: Visit Provider Urology
DX: R31.9 Hematuria, unspecified (principal); N40.1 Benign prostatic hyperplasia with lower urinary tract symptoms; N13.8 Other obstructive and reflux uropathy; R39.9 Unspecified symptoms and signs involving the genitourinary system
CPT/HCPCS: 76770

== ENCOUNTER → 2024-12-18 14:17 | Outpatient (BNV) | payer MEDICARE, SELFPAY | PROVIDERS: Visit Provider Radiology Diagnostic Radiology | DX: R31.9 Hematuria, unspecified (principal) | CPT/HCPCS: 76770 ==

== ENCOUNTER 2025-05-12 09:27 | Outpatient (AMB) | payer MEDICARE, SELFPAY ==
--- NOTE | 2025-05-12 09:56 | A.OFFVIS_ITS ---
Intake Visit Reasons: cysto/US Intake Note: Patient presents today for cystoscopy/US * Renal US 12/20 Urology Medication: Finasteride, Tadalafil, Terazosin Antibiotic Allergies: Levofloxacin, Amoxicillin Blood Thinners: None Lot #: [id number] Exp:01-27-27 Wire Products Inspector Required: No Accompanied by: Self / Same As Patient Allergies levofloxacin Allergy (Severe, Verified 06/20/25 11:56) vasculitis amoxicillin Allergy (Unknown, Verified 06/20/25 11:56) Itching ceftriaxone Adverse Reaction (Mild, Verified 06/20/25 11:56) pruritis Medication List - Last Reconciled 05/12/25 by Paola Roger MD finasteride (Proscar) 5 mg PO DAILY sulfamethoxazole-trimethoprim 800-160 mg (Bactrim DS) 1 tab PO BID tamsulosin (Flomax) 0.4 mg PO BEDTIME HPI Comments Details: 05/12/25 History of Present Illness - The patient is a 74-year-old male presenting with follow-up for urinary tract evaluation and management of urinary stones. - History of Klebsiella urinary tract infection identified in October 2024, with urine culture confirming the infection. - Renal and bladder ultrasound on December 18, 2024, revealed left renal calculi and a possible stone in the left mid ureter. - Ultrasound also noted a bladder stone within a bladder diverticulum and prostatic enlargement with a volume of 111 mL. - The patient missed a scheduled follow-up but presents today for further evaluation. - Office cystoscopy revealed trilobar enlargement of the prostate, obstructive, and a bladder stone at the bladder neck. - CT urogram will be ordered for further evaluation of hematuria, renal and ureteral stones, with noted cortical thinning of the left kidney. - The patient reports no prior history of kidney stones. Results - Urine culture: Klebsiella infection - Renal and bladder ultrasound (12/18/24): Left renal calculi, possible stone in left mid ureter, bladder stone within diverticulum, prostatic enlargement (111 mL) - Office cystoscopy: Trilobar enlargement of prostate, obstructive, bladder stone at bladder neck -Cystoscopy findings: prostatic urethra trilobar enlargement, bladder stone at bladder neck limiting evaluation of bladder Discussion Notes I discussed with the patient the findings from the renal ultrasound, which showed stones in the left kidney and a possible stone in the mid left ureter, as well as cortical thinning of the left kidney. I explained the need for a CT urogram for further evaluation urinary tract. I also discussed the prescription of finasteride and tamsulosin to help shrink the prostate and improve urinary flow. The patient was advised to maintain adequate hydration to alleviate symptoms caused by bladder stones. Plan - Order CT urogram for further evaluation of renal and ureteral stones and cortical thinning of the left kidney. - Prescribe finasteride and tamsulosin to manage prostatic enlargement and improve urinary flow. - Advise the patient to maintain adequate hydration to alleviate symptoms from bladder stones. 10/23/24-- Nael is here for urology evaluation, he was last seen in our office by Dr Eugene 10/2023. He is not on any of the prostate medications prescribed. Bladder scan PVR 13 mL. When I questioned him regarding his urine flow he states that he has had some burning that comes and goes and some lower back pain. Urinalysis-3+ leukocytes, 3+ blood, I will empirically start him on antibiotics Bactrim DS 1 tab twice a day for 7 days. He was not able to provide enough urine for both culture and cytology. I will send the urine for culture. I have discussed further evaluation with ultrasound retroperitoneum and follow- up office cystoscopy. [facility] Medical History Hx of fracture of clavicle Liver abscess E coli bacteremia Scrotal erythema ENEIDA (acute kidney injury) Acute UTI Liver masses Surgical History History of esophagogastroduodenoscopy (EGD) Hx of colonoscopy Hx of tonsillectomy Hx of knee surgery Family History Paternal Grandfather Diabetes Social History Household Members: Family Household Members Other:: brother and sister?? Housing: House Do you presently have visiting nurse or other home services: No (pt lives with his brother,however, was at str after hospital discharge 07/05) Alcohol intake: never Patient Tobacco Use Status: Former Tobacco user e-Cigarette/Vaping Use: Never Used Second Hand Smoke Exposure: No Advance Directives Date on File: 06/23/22 service: No Current occupational status: retired Review of Systems Const All systems reviewed & are unremarkable except as noted in HPI and below Reports no additional complaints Eyes Reports no additional complaints ENT Reports no additional complaints Card Reports no additional complaints Resp Reports no additional complaints GI Reports no additional complaints Reports as per HPI Musc Reports no additional complaints Skin/Breast Reports system reviewed and no additional complaints, except as documented Neuro Reports no additional complaints Psych Reports no additional complaints Endo Reports no additional complaints Kurt/Lymph Reports no additional complaints Aller/Immun Reports no additional complaints Office Procedures Cystoscopy Consent Discussed risk and benefit or proposed procedure with the patient. Information consent for procedure given to the patient. Discussed technical aspects, risks, benefits and alternatives in full. Addressed all of the patient's questions and concerns regarding the procedure. The patient demonstrated knowledge and understanding. They wish to proceed with this procedure. Preparation The patient was prepped in the usual manner. A surgical garment fitter was present and in the room. Genitalia was prepped with betadine solution in a sterile manner. Lidocaine Jelly 2% was placed into the urethra and 16Fr flexible Olympus cystoscope was inserted into the meatus after adequate lubrication. Procedure Time out per protocol performed. The flexible cystoscope is passed transurethrally: Cystoscopy findings: prostatic urethra trilobar enlargement, bladder stone at bladder neck limiting evaluation of bladder [id number] DISPOSABLE SCOPE URO-G FLEXIBLE SCOPE Procedure code (CPT) selection complete Office Meds lidocaine HCl 2 % mucosal jelly in applicator Performing Provider: Paola Roger MD Performing Location: [facility] Administered by: Miroslava Conner RN on 05/12/25 10:10 Dose Route Admin Location Dispensed Lot Number Expiration Date NDC Validation Architect 10 mL intra-urethral 20 mL nitrofurantoin monohydrate/macrocrystals 100 mg capsule Performing Provider: Paola Roger MD Performing Location: [facility] Administered by: Miroslava Conner RN on 05/12/25 10:10 Dose Route Admin Location Dispensed Lot Number Expiration Date NDC Validation Architect 100 mg PO 1 cap phenazopyridine 200 mg tablet Performing Provider: Paola Roger MD Performing Location: [facility] Administered by: Miroslava Conner RN on 05/12/25 10:10 Dose Route Admin Location Dispensed Lot Number Expiration Date NDC Validation Architect 200 mg PO 1 tab Results AMB Urinalysis, Automated UA Leukoctes 500 Jesus/uL Last Edit by Crystal Schwartz on 05/12/25 16:22 UA Nitrite Negative Last Edit by Crystal Schwartz on 05/12/25 16:22 UA Urobilinogen 17 mg/dL Last Edit by Crystal Schwartz on 05/12/25 16:22 UA Protein 3.0 mg/dL Last Edit by Crystal Schwartz on 05/12/25 16:22 UA pH 6.0 Last Edit by Crystal Schwartz on 05/12/25 16:22 UA Blood 200 [place]/uL Last Edit by Crystal Schwartz on 05/12/25 16:22 UA Specific Whitman 1.020 Last Edit by Crystal Schwartz on 05/12/25 16:22 UA Ketone Negative Last Edit by Crystal Schwartz on 05/12/25 16:22 UA Bilirubin 0 mg/dL Last Edit by Crystal Schwartz on 05/12/25 16:22 UA Glucose 0 mg/dL Last Edit by Crystal Schwartz on 05/12/25 16:22 Results Reviewed Results Reviewed: Laboratory Last Values Urine pH (Auto) 6.0 05/12/25 16:05 Specific Whitman (Auto) 1.020 05/12/25 16:05 Urine Protein (Auto) 3.0 mg/dL 05/12/25 16:05 Glucose (UA)(Auto) 0 mg/dL 05/12/25 16:05 Urine Ketones (Auto) Negative 05/12/25 16:05 Urine Blood (Auto) 200 [place]/uL 05/12/25 16:05 Urine Nitrite (Auto) Negative 05/12/25 16:05 Urine Bilirubin (Auto) 0 mg/dL 05/12/25 16:05 Urine Urobilinogen (Auto) 17 mg/dL 05/12/25 16:05 Leukocyte Esterase (Auto) 500 Jesus/uL 05/12/25 16:05 Date of Service: 12/18/24 CLINICAL HISTORY: R31.9 - Hematuria, unspecified US retroperitoneum with color Doppler Comparison: None Findings: Right kidney normal size and echotexture, 10.8 cm length. No hydronephrosis. Normal color flow. No nephrolithiasis or renal masses. Left kidney is slightly diminutive in size with cortical thinning and increased renal echotexture, lower pole caliceal stone measuring 9 mm. Cm in length. No hydronephrosis. Normal color flow. Pelvicaliectasis. Possible 12 mm calculus mid right ureter. Noncontrast CT would be confirmatory. Dependent bladder stone measuring 3.8 x 3.2 x 3.8 cm. There is multiple bladder diverticulum and a stone in a bladder diverticulum on the left measuring 16 x 14 x 17 mm. Prevoid volume 197.0 mL. Postvoid volume 131.0 mL. Ureteral jets were not visualized Prostate measures 6.7 x 6.0 x 5.2 cm. Impression: 1. Significant cortical thinning left kidney which is diminutive in size and increase in renal echotexture. 2. Nephrolithiasis and pelvicaliectasis left kidney. 3. Possible calculus mid left ureter noncontrast CT would be confirmatory. 4. Large dependent bladder stone. A stone is noted in a bladder diverticulum on the left. Elevated postvoid residual. 5. Prostate volume 111.0 mL Assessment & Plan Assessment & Plan (1) Hematuria: Code(s): R31.9 - Hematuria, unspecified Category: Medical (2) Enlarged prostate: Code(s): N40.0 - Benign prostatic hyperplasia without lower urinary tract symptoms Category: Medical (3) BPH w urinary obs/LUTS: Code(s): N40.1 - Benign prostatic hyperplasia with lower urinary tract symptoms; N13.8 - Other obstructive and reflux uropathy Category: Medical (4) Bladder calculus: Code(s): N21.0 - Calculus in bladder Category: Medical (5) Bilateral kidney stones: Code(s): N20.0 - Calculus of kidney Category: Medical Plan Plan - Order CT urogram for further evaluation of renal and ureteral stones and cortical thinning of the left kidney. - Prescribe finasteride and tamsulosin to manage prostatic enlargement and improve urinary flow. - Advise the patient to maintain adequate hydration to alleviate symptoms from bladder stones. Orders: Orders AMB Urinalysis Automated 05/12/25 Z13.9 - Encounter for screening, unspecified Urine Culture 05/12/25 R31.9 - Hematuria, unspecified AMB Cystoscopy 05/12/25 R31.9 - Hematuria, unspecified, N40.1 - Benign prostatic hyperplasia with lower urinary tract symptoms, N13.8 - Other obstructive and reflux uropathy, N40.0 - Benign prostatic hyperplasia without lower urinary tract symptoms CT urogram 05/12/25 R31.9 - Hematuria, unspecified Blood Urea Nitrogen 05/12/25 R31.9 - Hematuria, unspecified Creatinine 05/12/25 R31.9 - Hematuria, unspecified Medications: New tamsulosin (Flomax) 0.4 mg PO BEDTIME 90 caps 3RF finasteride (Proscar) 5 mg PO DAILY 90 tabs 3RF Discontinued sulfamethoxazole-trimethoprim 800-160 mg Discontinued Reason: Patient Completed Course 1 tab PO BID 14 tabs 0RF Patient Instructions: The patient had an opportunity to ask questions regarding treatment plan. The patient expressed understanding and agreement with the above treatment plan. The patient is aware they should contact our office by phone for worsening of their current condition or the appearance of new symptoms. Compliance is encouraged with any medications and followup testing that is ordered. It is a privilege to be allowed the opportunity to participate in the urologic care of your patient. If you have any questions or concerns regarding treatment for the above conditions please do not hesitate to contact me. The office telephone contact is [phone]. This note is constructed in part using voice recognition software. While every effort has been made to ensure accuracy correctional program officer errors may have been included. Yours sincerely, Paola Roger MD Scribe Plan - Not visible on output: Patient was informed and verbally consented to the use of an ambient scribe for clinic note documentation during this visit. Coding Level of Care Code Est Pt Level 4 (35639) Diagnoses Hematuria R31.9 Enlarged prostate N40.0 BPH w urinary obs/LUTS N40.1; N13.8 Bladder calculus N21.0 Bilateral kidney stones N20.0 CPT Codes Cystoscopy - CPT: [id number] ([id number])
--- OUTSIDE RECORDS SUMMARY | 2025-05-12 10:18 | XMS_ITS | Clinical Summary ---
Author Organization [facility] Facility Address [address] [place] [id number] Care Team Providers Care Email Marketing Manager Name Role Phone Unavailable Primary Care Provider [...] Due Date Last Done Comments Pneumococcal Vaccine: 50+ Ye ars (1 of 2 - PCV) 1969 Influenza Vaccine (Season Ended) 2025 Hepatitis B Vaccine Aged Out No longe r eligible based on patient's age to complete this topic Insurance Medicare Medicare
== END 2025-05-12 10:56 | disposition home or self-care (01) ==
LOC: HO.HUSH 09:28
PROVIDERS: Visit Provider Urology
DX: R31.9 Hematuria, unspecified (principal); N40.1 Benign prostatic hyperplasia with lower urinary tract symptoms; N13.8 Other obstructive and reflux uropathy; N40.0 Benign prostatic hyperplasia without lower urinary tract symptoms; Z13.9 Encounter for screening, unspecified
CPT/HCPCS: 52000; 99214

== ENCOUNTER 2025-05-12 09:27 | Outpatient (REF) | payer MEDICARE, SELFPAY | END 2025-05-12 09:28 | disposition home or self-care (01) | LOC: HO.LAB 09:27 | PROVIDERS: Visit Provider Urology | DX: R31.9 Hematuria, unspecified (principal) | CPT/HCPCS: 87086 ==

== ENCOUNTER 2025-06-02 09:05 | Outpatient (REF) | payer MEDICARE, SELFPAY ==
--- OUTSIDE RECORDS SUMMARY | 2025-06-02 09:24 | XMS_ITS | Clinical Summary ---
Author Organization [facility] Facility Address [address] [place] [address] Care Team Providers Care Business Liaison Manager Name Role Phone Unavailable Primary Care [...] of 2 - PCV) 1969 Influenza Vaccine (#1) 2025 Hepatitis B Vaccine Aged Out No longe r eligible based on patient's age to complete this topic Insurance Medicare Medicare
[2025-06-02 10:16] LABS: Blood Urea Nitrogen 17 mg/dL (9-16); Estimated Glomerular Filt Rate 57
== END 2025-06-02 09:06 | disposition home or self-care (01) ==
LOC: HO.LAB 09:05
PROVIDERS: Visit Provider Urology
DX: R31.9 Hematuria, unspecified (principal)
CPT/HCPCS: 36415; 82565; 84520

== ENCOUNTER 2025-06-05 08:18 | Outpatient (REF) | payer MEDICARE, SELFPAY ==
--- NOTE | ~2025-06-05 | CT_ITS ---
CLINICAL HISTORY: R31.9 - Hematuria, unspecified --- Additional Notes or Special Instructions: bun creat blood test prior CT abdomen and pelvis with and without contrast Comparison: None provided Findings: The lung bases are clear. Small hiatal hernia. No calcified gallstones in the gallbladder. Nodular appearance of the liver surface. No suspicious focal lesion of the liver. Mild prominence of intrahepatic biliary ducts. The pancreas is atrophic. Spleen is enlarged. Adrenals are unremarkable. No hydronephrosis. Severe atrophy of the left kidney containing stones in the renal pelvis. There is deformity of the bladder with multiple large bladder stone. There is fat stranding surrounding the bladder. There is enlargement of the prostate gland measuring 6 x 6.3 cm in size. No bowel obstruction, pneumoperitoneum, or pneumatosis. Colonic diverticulosis. Normal appendix. Possible reactive mesenteric and retroperitoneal lymph nodes. No ascites. The bones are intact. IMPRESSION: Severe atrophy of the left kidney containing nonobstructing kidney stone. There is deformity of the bladder with multiple bladder stones. Fat stranding surrounding the bladder concerning for cystitis. The deformity of the bladder could be caused by scarring from infection or diverticulum. Bladder mass can not be excluded. Correlation with cystoscopy findings as indicated. There is markedly enlargement of the prostate gland. Evidence of liver cirrhosis with portal hypertension. Colonic diverticulosis. Additional findings as above. This document has been electronically signed by: Corazon Ventura MD on 06/05/2025 17:07:24
[2025-06-05] MEDS: iohexoL 350 MG/ML 100 ML INFUS..BTL IV (09:36)
== END 2025-06-05 08:19 | disposition home or self-care (01) ==
LOC: HO.CT 08:18
PROVIDERS: Visit Provider Urology
DX: R31.9 Hematuria, unspecified (principal)
CPT/HCPCS: 74178; Q9967

== ENCOUNTER → 2025-06-05 08:20 | Outpatient (BNV) | payer MEDICARE, SELFPAY | PROVIDERS: Visit Provider Nuclear Medicine | DX: N20.0 Calculus of kidney (principal); N26.1 Atrophy of kidney (terminal) | CPT/HCPCS: 74178 ==

== ENCOUNTER 2025-06-20 11:50 | Outpatient (AMB) | payer MEDICARE, SELFPAY ==
--- OUTSIDE RECORDS SUMMARY | 2025-06-20 11:53 | XMS_ITS | Clinical Summary ---
Author Organization [facility] Facility Address [address] [place] [id number] Care Team Providers Care Sales Officer Name Role Phone Unavailable Primary Care Provider [...]
--- NOTE | 2025-06-20 11:55 | A.OFFVIS_ITS ---
Intake Visit Reasons: 7w/CT f/u Intake Note: Patient presents today for 7w follow up/CT * 06/02 BUN:17 * 06/02 Creatinine:1.23 * 06/[address] Urology Medication: Finasteride, Tadalafil, Terazosin Antibiotic Allergies: Levofloxacin, Amoxicillin Blood Thinners: None PVR:124ml Accompanied by: Self / Same As Patient Allergies levofloxacin Allergy (Severe, Verified 06/20/25 11:56) vasculitis amoxicillin Allergy (Unknown, Verified 06/20/25 11:56) Itching ceftriaxone Adverse Reaction (Mild, Verified 06/20/25 11:56) pruritis HPI Comments Details: 06/20/25--Nael is a 74-year-old male who is here for follow-up. He was last seen on 05/12/2025 attempted office cystoscopy was limited due to large bladder stone at the bladder neck. I have reviewed CT urogram there is a large bladder stone as well as stones involving to diverticuli a left atrophic kidney with nonobstructing renal calculi is noted. Urinalysis today positive pyuria. I have discussed referral to urology specialist who does robotic surgery for possible simple prostatectomy with bladder diverticulum bladder diverticulectomy. 05/12/25 History of Present Illness - The patient is a 74-year-old male presenting with follow-up for urinary tract evaluation and management of urinary stones. - History of Klebsiella urinary tract infection identified in October 2024, with urine culture confirming the infection. - Renal and bladder ultrasound on December 18, 2024, revealed left renal calculi and a possible stone in the left mid ureter. - Ultrasound also noted a bladder stone within a bladder diverticulum and prostatic enlargement with a volume of 111 mL. - The patient missed a scheduled follow-up but presents today for further evaluation. - Office cystoscopy revealed trilobar enlargement of the prostate, obstructive, and a bladder stone at the bladder neck. - CT urogram will be ordered for further evaluation of hematuria, renal and ureteral stones, with noted cortical thinning of the left kidney. - The patient reports no prior history of kidney stones. Results - Urine culture: Klebsiella infection - Renal and bladder ultrasound (12/18/24): Left renal calculi, possible stone in left mid ureter, bladder stone within diverticulum, prostatic enlargement (111 mL) - Office cystoscopy: Trilobar enlargement of prostate, obstructive, bladder stone at bladder neck -Cystoscopy findings: prostatic urethra trilobar enlargement, bladder stone at bladder neck limiting evaluation of bladder Discussion Notes I discussed with the patient the findings from the renal ultrasound, which showed stones in the left kidney and a possible stone in the mid left ureter, as well as cortical thinning of the left kidney. I explained the need for a CT urogram for further evaluation urinary tract. I also discussed the prescription of finasteride and tamsulosin to help shrink the prostate and improve urinary flow. The patient was advised to maintain adequate hydration to alleviate symptoms caused by bladder stones. I recommended a referral to a primary care physician for further evaluation, including an EKG. Plan - Order CT urogram for further evaluation of renal and ureteral stones and cortical thinning of the left kidney. - Prescribe finasteride and tamsulosin to manage prostatic enlargement and improve urinary flow. - Advise the patient to maintain adequate hydration to alleviate symptoms from bladder stones. - Refer the patient to a primary care physician for further evaluation, including an EKG. 10/23/24-- Nael is here for urology evaluation, he was last seen in our office by Dr Eugene 10/2023. He is not on any of the prostate medications prescribed. Bladder scan PVR 13 mL. When I questioned him regarding his urine flow he states that he has had some burning that comes and goes and some lower back pain. Urinalysis-3+ leukocytes, 3+ blood, I will empirically start him on antibiotics Bactrim DS 1 tab twice a day for 7 days. He was not able to provide enough urine for both culture and cytology. I will send the urine for culture. I have discussed further evaluation with ultrasound retroperitoneum and follow- up office cystoscopy. COUNT INCLUDES THE [facility] Medical History Hx of fracture of clavicle Liver abscess E coli bacteremia Scrotal erythema ENEIDA (acute kidney injury) Acute UTI Liver masses Surgical History History of esophagogastroduodenoscopy (EGD) Hx of colonoscopy Hx of tonsillectomy Hx of knee surgery Family History Paternal Grandfather Diabetes Social History Household Members: Family Household Members Other:: brother and sister?? Housing: House Do you presently have visiting nurse or other home services: No (pt lives with his brother,however, was at str after hospital discharge 07/05) Alcohol intake: never Patient Tobacco Use Status: Former Tobacco user e-Cigarette/Vaping Use: Never Used Second Hand Smoke Exposure: No Advance Directives Date on File: 06/23/22 service: No Current occupational status: retired Results AMB Urinalysis, Automated UA Leukoctes 500 Jesus/uL Last Edit by Sabina Schwartz on 06/20/25 13:27 UA Nitrite Negative Last Edit by Sabina Schwartz on 06/20/25 13:27 UA Urobilinogen 17 mg/dL Last Edit by Sabina Schwartz on 06/20/25 13:27 UA Protein 1.0 mg/dL Last Edit by Sabina Schwartz on 06/20/25 13:27 UA pH 6.5 Last Edit by Sabina Schwartz on 06/20/25 13:27 UA Blood 200 [place]/uL Last Edit by Sabina Schwartz on 06/20/25 13:27 UA Specific [place] 1.015 Last Edit by Sabina Schwartz on 06/20/25 13:27 UA Ketone Negative Last Edit by Sabina Schwartz on 06/20/25 13:27 UA Bilirubin 0 mg/dL Last Edit by Sabina Schwartz on 06/20/25 13:27 UA Glucose 0 mg/dL Last Edit by Sabina Schwartz on 06/20/25 13:27 Assessment & Plan Assessment & Plan Orders: Orders AMB Urinalysis Automated Today Z13.9 - Encounter for screening, unspecified AMB Bladder/Catheter Procedure Today N13.8 - Other obstructive and reflux urop athy, N40.1 - Benign prostatic hyperplasia with lower urinary tract symptoms Coding
== END 2025-06-20 12:33 | disposition home or self-care (01) ==
LOC: HO.HUSH 11:50
PROVIDERS: Visit Provider Urology
DX: Z13.9 Encounter for screening, unspecified (principal)

== ENCOUNTER 2025-06-20 11:50 | Outpatient (REF) | payer MEDICARE, SELFPAY | END 2025-06-20 11:51 | disposition home or self-care (01) | LOC: HO.LNP 11:50 | PROVIDERS: Visit Provider Urology | DX: R31.9 Hematuria, unspecified (principal); R82.81 Pyuria; N40.1 Benign prostatic hyperplasia with lower urinary tract symptoms; N13.8 Other obstructive and reflux uropathy; N21.0 Calculus in bladder; N20.0 Calculus of kidney; Z13.89 Encounter for screening for other disorder | CPT/HCPCS: 81003; 87086; 87088; 87186; 99212 ==